=== PATIENT | female | born 1950 | race Caucasian/White ===

== ENCOUNTER 2016-06-10 15:00 | Inpatient (IN) | payer BC, OTHER ==
[~2016-06-10] VITALS: Ht 154.9 cm; Wt 73.8 kg
[~2016-06-10 15:00] MED LIST: B12-1CHW PO; FLUT50I; FURO20TA PO; HYDR12.56 PO; LAMO100 PO; LEVO.025 PO; LISI-360 PO; MOBI7.5T PO; OLAN10 PO; OLAN5 PO; POTA-267 PO; POTA550T4 PO; PROT40TA PO; VITACAP32 PO
[2016-06-10] MEDS ORDERED: LORazepam 2 MG/ML VIAL IM ONE (15:30)
--- NOTE | 2016-06-10 15:30 | PD ---
HPI Chief Complaint: Psychiatric Symptoms Time Seen by Provider: 15:26 Travel History International Travel<30 days: No Contact w/Intl Traveler<30days: No History of Present Illness HPI Patient comes in under a Vazquez act by police making homicidal or suicidal statements. Patient has a history of being bipolar and per Vazquez act has not been taking her medications. Patient is agitated and uncooperative thus limiting H&P. PFSH Past Medical History Arthritis: No Asthma: No Autoimmune Disease: No Blood Disorders: No Bipolar Disorder: Yes Anxiety: Yes Depression: Yes Heart Rhythm Problems: No Cardiac Catheterization: No High Cholesterol: Yes Chest Pain: No Congestive Heart Failure: No COPD: No Cerebrovascular Accident: Yes Diminished Hearing: No Endocrine: No Gastrointestinal Disorders: Yes (HX OF GI BLEED, DIVERTICULOSIS) GERD: Yes Genitourinary: Yes Hepatitis: No Hiatal Hernia: No Herniated Disk: Yes (LOWER BACK) Hypertension: Yes Immune Disorder: No Kidney Stones: No Musculoskeletal: Yes (HERNIATED LUMBAR DISC) Neurologic: Yes Psychiatric: Yes (See EMR) Reproductive: No Respiratory: Yes Immunizations Current: Yes Myocardial Infarction: No Renal Failure: No Sleep Apnea: No Thyroid Disease: Yes (HYPOTHYROIDISM) Ulcer: No Menopausal: Yes : 0 Para: 0 Past Surgical History Abdominal Surgery: Yes (APPENDECTOMY) AICD: No Appendectomy: Yes Arteriovenous Shunt: No Cardiac Surgery: No Coronary Artery Bypass Graft: No Ear Surgery: No Endocrine Surgery: No Eye Surgery: No Genitourinary Surgery: No Gynecologic Surgery: Yes (HX OF RIGHT BREAST BIOPSY) Insulin Pump: No Joint Replacement: No Neurologic Surgery: No Oral Surgery: No Pacemaker: No Thoracic Surgery: Yes (LUMPECTOMY RT BREAST-BENIGN) Other Surgery: Yes (CYST REMOVED FROM CHIN, BACK AND AREA NEXT TO RT RYE) Social History Alcohol Use: Yes (per hx..PT STATES " OCCASIONAL DRINK") Tobacco Use: Yes (couple cigarettes/day) Substance Use: No Allergies-Medications (Allergen,Severity, Reaction): Coded Allergies: Depakote (Verified Allergy, Severe, Diarrhea, 06/10/16) Penicillin (Verified Allergy, Severe, RASH, 06/10/16) Tegretol (Verified Allergy, Severe, Anaphylaxis, 06/10/16) Haldol (Verified Allergy, Unknown, UNKNOWN , 06/10/16) PT STATES SHE IS ALLERGIC TO HALDOL, BUT WILL NOT STATE HER REACTION TO THE MEDICATION OR THE SEVERITY OF THE REACTION. Erythromycin (Verified Adverse Reaction, Severe, DIARRHEA, 06/10/16) Milk (Verified Adverse Reaction, Mild, STOMACH CRAMPS,GAS,DIARRHEA, 06/10/16 ) Rodanthe (Verified Adverse Reaction, Unknown, 06/10/16) Reported Meds & Prescriptions Reported Meds & Active Scripts Active Active Prescriptions or Reported Medications Unobtainable Review of Systems ROS Limitations: Uncooperative, Psychotic Except as stated in HPI: all other systems reviewed are Neg Physical Exam Exam Limitations: Uncooperative, Psychotic Narrative GENERAL: Well-developed, overly nourished, in no acute distress, and non-ill appearing. SKIN: Warm and dry. HEAD: Atraumatic. Normocephalic. EYES: Pupils equal and round. EOMI. No scleral icterus. No injection or drainage. ENT: No nasal bleeding or discharge. Mucous membranes pink and moist. NECK: Trachea midline. Supple. No nuclear rigidity. RESPIRATORY: No accessory muscle use. No respiratory distress. Speaking in full sentences. MUSCULOSKELETAL: No obvious deformities. No clubbing. No cyanosis. No edema. Full range of motion. NEUROLOGICAL: Awake and alert. No obvious cranial nerve deficits. Motor grossly within normal limits. Normal speech. PSYCHIATRIC: Agitated and uncooperative. Data Data Last Documented VS Vital Signs Date Time Temp Pulse Resp B/P Pulse Ox O2 Delivery O2 Flow Rate FiO2 06/10/16 17:30 97.8 75 17 128/60 95 Room Air Orders Psych Screen (06/10/16 15:16) Complete Blood Count With Diff (06/10/16 15:22) Comprehensive Metabolic Panel (06/10/16 15:22) Urinalysis - C+S If Indicated (06/10/16 15:22) Lorazepam Inj (Ativan Inj) (06/10/16 15:30) Drug Screen, Random Urine (06/10/16 15:22) Alcohol (Ethanol) (06/10/16 15:22) Tylenol (Acetaminophen) (06/10/16 15:22) Salicylates (Aspirin) (06/10/16 15:22) Olanzapine Inj (Zyprexa Inj) (06/10/16 15:45) Olanzapine Inj (Zyprexa Inj) (06/10/16 15:40) Labs Laboratory Tests Test 06/10/16 16:48 White Blood Count 8.2 TH/MM3 Red Blood Count 4.65 MIL/MM3 Hemoglobin 13.0 GM/DL Hematocrit 38.5 % Mean Corpuscular Volume 82.9 FL Mean Corpuscular Hemoglobin 27.9 PG Mean Corpuscular Hemoglobin 33.6 % Concent Red Cell Distribution Width 13.7 % Platelet Count 273 TH/MM3 Mean Platelet Volume 9.0 FL Neutrophils (%) (Auto) 70.7 % Lymphocytes (%) (Auto) 21.1 % Monocytes (%) (Auto) 5.8 % Eosinophils (%) (Auto) 1.5 % Basophils (%) (Auto) 0.9 % Neutrophils # (Auto) 5.8 TH/MM3 Lymphocytes # (Auto) 1.7 TH/MM3 Monocytes # (Auto) 0.5 TH/MM3 Eosinophils # (Auto) 0.1 TH/MM3 Basophils # (Auto) 0.1 TH/MM3 CBC Comment DIFF FINAL Differential Comment Sodium Level 138 MEQ/L Potassium Level 3.6 MEQ/L Chloride Level 105 MEQ/L Carbon Dioxide Level 24.3 MEQ/L Anion Gap 9 MEQ/L Blood Urea Nitrogen 20 MG/DL Creatinine 0.70 MG/DL Estimat Glomerular Filtration 84 ML/MIN Rate Random Glucose 103 MG/DL Calcium Level 8.7 MG/DL Total Bilirubin 0.6 MG/DL Aspartate Amino Transf 36 U/L (AST/SGOT) Alanine Aminotransferase 38 U/L (ALT/SGPT) Alkaline Phosphatase 85 U/L Total Protein 6.9 GM/DL Albumin 3.5 GM/DL Salicylates Level LESS THAN 1.7 MG/DL Acetaminophen Level LESS THAN 2.0 MCG/ML Ethyl Alcohol Level LESS THAN 3 MG/DL MDM Medical Decision Making Medical Screen Exam Complete: Yes Emergency Medical Condition: Yes Differential Diagnosis Bipolar, schizoaffective, agitation, nonspecific mood disorder, other Narrative Course Patient was seen and examined. Labs were obtained and reviewed with the exception of urinalysis and urine drug screen as the patient has not provided this yet. Patient medically cleared for further treatment and evaluation by psych. Final disposition per psych. Diagnosis Primary Impression: Agitation Scripts Unable to Obtain Active Prescriptions or Reported Meds Condition: Stable Quique Pedraza Jun 10, 2016 15:30
[2016-06-10] MEDS ORDERED: OLANZapine IM 10 MG VIAL IM ONE ×2 (15:40→15:45)
[2016-06-10 17:11] LABS: AUTOMATED NEUTROPHIL # 5.8 TH/MM3 (1.8-7.7); BASOPHIL # 0.1 TH/MM3 (0-0.2); BASOPHIL % 0.9 % (0.0-2.0); EOSINOPHIL # 0.1 TH/MM3 (0-0.4); EOSINOPHIL % 1.5 % (0.0-4.0); HEMATOCRIT 38.5 % (35.0-46.0); HEMO FLAGS DIFF FINAL; LYMPH % 21.1 % (9.0-44.0); LYMPHOCYTE # 1.7 TH/MM3 (1.0-4.8); MEAN CELL VOLUME 82.9 FL (80.0-100.0); MEAN CORPUSCULAR HEMOGLOBIN 27.9 PG (27.0-34.0); MEAN CORPUSCULAR HGB CONC 33.6 % (32.0-36.0); MONO % 5.8 % (0.0-8.0); NEUT % 70.7 % (16.0-70.0); PLATELET COUNT 273 TH/MM3 (150-450); RED BLOOD COUNT 4.65 MIL/MM3 (4.00-5.30); RED CELL DISTRIBUTION WIDTH 13.7 % (11.6-17.2); WHITE BLOOD COUNT 8.2 TH/MM3 (4.0-11.0)
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
[2016-06-10 17:28] LABS: ALT (GPT) 38 U/L (10-53); ANION GAP 9 MEQ/L (5-15); AST (GOT) 36 U/L (15-37); BICARBONATE 24.3 MEQ/L (21.0-32.0); BLOOD UREA NITROGEN 20 MG/DL (7-18); CHLORIDE 105 MEQ/L (98-107); GLOMERULAR FILTRATION RATE 84 ML/MIN (>89); POTASSIUM 3.6 MEQ/L (3.5-5.1); SODIUM (NA) 138 MEQ/L (136-145)
[2016-06-10 17:30] VITALS: BP 128/60; PULSE 75; RESP 17; TEMP 97.8; O2SAT 95
[2016-06-10 17:30] LABS: ACETAMINOPHEN LESS THAN 2.0 MCG/ML (10.0-30.0); ALKALINE PHOSPHATASE 85 U/L (45-117); TOTAL BILIRUBIN ADULT 0.6 MG/DL (0.2-1.0)
[2016-06-10] MEDS ORDERED: MAGNESIUM HYDROXIDE SUSP 30 ML CUP PO PRN (18:30)
[2016-06-10 20:26] VITALS: BP 157/70; PULSE 72; RESP 16; TEMP 97.6; O2SAT 99
[2016-06-11] MEDS: ACETAMINOPHEN 325 MG TAB PO PRN (05:17)
[2016-06-11 06:12] VITALS: BP 145/66; PULSE 99; RESP 18; TEMP 98.1; O2SAT 96
[2016-06-11 08:32] LABS: ANION GAP 9 MEQ/L (5-15); BICARBONATE 25.7 MEQ/L (21.0-32.0); BLOOD UREA NITROGEN 19 MG/DL (7-18); CHLORIDE 104 MEQ/L (98-107); POTASSIUM 3.8 MEQ/L (3.5-5.1); SODIUM (NA) 139 MEQ/L (136-145)
[2016-06-11 08:53] LABS: HDL CHOLESTEROL 72.4 MG/DL (40.0-60.0); LDL CHOLESTEROL 25 MG/DL (0-99)
[2016-06-11 09:24] LABS: GLOMERULAR FILTRATION RATE 82 ML/MIN (>89)
[2016-06-11] MEDS ORDERED: LORazepam 2 MG/ML VIAL IM ONE (11:30)
[2016-06-11] MEDS ORDERED: ZIPRASIDONE MESYLATE 20 MG VIAL IM ONE (11:30)
[2016-06-11] MEDS ORDERED: diphenhydrAMINE HCL 50 MG/ML VIAL IM ONE (11:30)
[2016-06-11 11:54] LABS: HEMOGLOBIN A1a 1.1 %; HEMOGLOBIN A1b 0.7 %; HEMOGLOBIN Ao 84.6 %; HEMOGLOBIN F 2.1 %; HEMOGLOBIN P3 3.8 %
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
[2016-06-11] MEDS ORDERED: LORazepam 2 MG/ML VIAL IM PRN (12:15)
[2016-06-11] MEDS ORDERED: BENZTROPINE MESYLATE 1 MG TAB PO PRN (12:15)
[2016-06-11] MEDS ORDERED: OLANZapine IM 10 MG VIAL IM PRN (12:15)
[2016-06-11] MEDS ORDERED: BENZTROPINE MESYLATE 2 MG/2 ML VIAL IM PRN (12:15)
[2016-06-11] MEDS: risperiDONE ODT 1 MG TAB PO SCH (13:54)
[2016-06-11 19:51] VITALS: BP 148/63; PULSE 87; RESP 18; TEMP 97.4; O2SAT 100
[2016-06-11] MEDS ORDERED: CLOTRIMAZOLE 1% CREAM 15 GM TOPICAL SCH (21:00)
[2016-06-11] MEDS: BETAMETHASONE/CLOTRIMAZOLE CREAM 15 GM TOPICAL SCH (22:09)
[2016-06-12] MEDS: LEVOTHYROXINE SODIUM 25 MCG TAB PO SCH (06:00)
[2016-06-12 06:13] VITALS: BP 148/90; PULSE 86; RESP 16; TEMP 97.9; O2SAT 99
[2016-06-12] MEDS: LISINOPRIL 10 MG TAB PO SCH (08:53)
[2016-06-12] MEDS: PANTOPRAZOLE SOD 40 MG DELAYED RELEASE TAB PO SCH (08:53)
[2016-06-12] MEDS: BETAMETHASONE/CLOTRIMAZOLE CREAM 15 GM TOPICAL SCH ×2 (08:54→22:03)
[2016-06-12] MEDS ORDERED: PNEUMOCOCCAL POLYVALENT INJ 25 MCG/0.5 ML SYR IM ONE (10:00)
[2016-06-12] MEDS ORDERED: INFLUENZA VIRUS VACCINE (QUADRIVALENT) 0.5 ML SYR IM ONE (10:00)
--- NOTE | 2016-06-12 11:25 | HHI.PR ---
Subjective Remarks Patient's rash is better Some aches in her joints No other complaint Review of system for 10 point system otherwise unremarkable Objective Objective Results - Vital Signs Date Time Temp Pulse Resp B/P Pulse Ox O2 Delivery O2 Flow Rate FiO2 06/12/16 06:13 97.9 86 16 148/90 99 06/11/16 19:51 97.4 87 18 148/63 100 Result Diagram: 06/10/16 1648 06/11/16 0707 Physical Exam Physical Exam PHYSICAL EXAMINATION GENERAL: This is a well-developed, well-nourished female who appears to be in no acute distress. She is alert and awake. HEAD: Normocephalic without any lesion or mass noted. Facial features appear symmetric. EYES: Perrla, Normal eye movement, no Icterus. No Conj congestion. OROPHARYNGEAL: Oropharynx without erythema or edema. MOUTH/THROAT: Tongue midline. Buccal mucosa is moist. NECK: Supple. No nuchal rigidity or lymphadenopathy. Trachea midline without deviation. Thyroid not palpable, no bruits appreciated. CARDIAC: Regular rhythm, regular rate, S1 and S2 are heard. Murmur none; no gallops or rubs. LUNGS: Clear to auscultation bilaterally. No use of accessory muscles on inspiration or expiration. ABDOMEN: Soft, nontender, no organomegaly or masses. Bowel sounds are heard in all four quadrants. No rebound. No guarding. EXTREMITIES: No edema. Pulses equal bilateral. No cyanosis. NEUROLOGICAL: Patient mood and affect appropriate. Cranial nerves II through XII grossly intact. Muscle strength 5/5 in the upper and lower extremities bilaterally. SKIN:Warm and moist. Rash on left leg less erythematous and the skin is smoked now. Patient has no itching. Clinically improving PSYCH: Mood and affect appropriate A/P Assessment and Plan Psychiatric problem Rash on legs Joint ache arthritis Hypertension Hypothyroidism Plan Continue Lotrisone cream as ordered Continue home medication as prescribed Monitor blood pressure Advise ice packs to joints. Patient was seen yesterday as well and consultation was done yesterday not available in the computer yet. Discussed with patient Continue current management Tamar Whitlock MD Jun 12, 2016 11:25
[2016-06-12] MEDS: ACETAMINOPHEN 325 MG TAB PO PRN (13:57)
[2016-06-12 14:15] VITALS: BP 153/68; PULSE 88; RESP 16; O2SAT 93
--- NOTE | 2016-06-12 16:42 | HHI.PYPN ---
Subjective Remarks This is a second opinion from Dr. Resendiz. Patient was seen, admission note reviewed, and case discussed with nursing. Patient is showing signs of acute nitin. She has pressured speech, flight of ideas, irritable and angry mood, elevated energy. She has poor insight into her admission. Not in medications at this time given they're looking for guardian. Denies auditory visual hallucinations. Denies suicidal ideations thought or plan. Objective Alert: Yes [place]: Person Mood: Agitated Affect: Other (mood congruent) Memory Intact: Comment (not tested) Hallucinations: Other Delusions: No Delusion Type: Other (denies) Suicidal: Ideation (states she wants to overdose on her Zyprexa) Homicidal: Ideation ([place]) Insight/Judgement Poor Labs Test 06/12/16 10:41 Thyroid Stimulating Hormone 0.775 uIU/ML 3rd Gen Vitals/IOs Vital Signs Date Time Temp Pulse Resp B/P Pulse Ox O2 Delivery O2 Flow Rate FiO2 06/12/16 14:15 88 16 153/68 93 06/12/16 06:13 97.9 06/10/16 17:30 Room Air Assessment & Plan Problem List: (1) Bipolar disorder ICD Code: F31.9 Assessment & Plan I agree with first opinion to continue petition. Criteria include acute nitin. Justification for Cont. Inpt. Patient will decompensate in a less restrictive setting Request HC Surrog/Guard Advoc?: Yes Problem Qualifiers (1) Bipolar disorder: Qualified Code: F31.64 - Bipolar disorder, current episode mixed, severe, with psychotic features Cade Good DO Jun 12, 2016 16:42
[2016-06-12] MEDS ORDERED: diphenhydrAMINE HCL 50 MG/ML VIAL IM ONE (18:45)
[2016-06-12] MEDS ORDERED: ZIPRASIDONE MESYLATE 20 MG VIAL IM ONE (18:45)
[2016-06-12] MEDS ORDERED: LORazepam 2 MG/ML VIAL IM ONE (18:45)
[2016-06-12 19:34] VITALS: BP_SYST 130; BP_SYST 149; BP_DIAS 68; BP_DIAS 71; PULSE 87; RESP 16; TEMP 97.4; TEMP 97.8; O2SAT 96; O2SAT 98
[2016-06-13] MEDS: ACETAMINOPHEN 325 MG TAB PO PRN (00:52)
[2016-06-13] MEDS: ALUMINUM/MAGNESIUM/SIMETH 30 ML CUP PO PRN (04:12)
[2016-06-13 05:44] VITALS: BP 159/77; PULSE 79; RESP 18; TEMP 97.6; O2SAT 99
[2016-06-13] MEDS: LEVOTHYROXINE SODIUM 25 MCG TAB PO SCH (05:44)
[2016-06-13] MEDS ORDERED: OLANZapine IM 10 MG VIAL IM ONE (08:21)
[2016-06-13] MEDS ORDERED: OLANZapine IM 10 MG VIAL IM STA (08:39)
[2016-06-13] MEDS: PANTOPRAZOLE SOD 40 MG DELAYED RELEASE TAB PO SCH (09:30)
[2016-06-13] MEDS: LISINOPRIL 10 MG TAB PO SCH (09:30)
[2016-06-13] MEDS: BETAMETHASONE/CLOTRIMAZOLE CREAM 15 GM TOPICAL SCH ×3 (09:30→23:21)
[2016-06-13] MEDS ORDERED: LORazepam 2 MG/ML VIAL ONE (12:41)
[2016-06-13] MEDS ORDERED: ZIPRASIDONE MESYLATE 20 MG VIAL IM ONE ×2 (12:41→12:45)
[2016-06-13] MEDS ORDERED: diphenhydrAMINE HCL 50 MG/ML VIAL ONE (12:42)
[2016-06-13] MEDS ORDERED: LORazepam 2 MG/ML VIAL IM ONE (12:45)
[2016-06-13] MEDS ORDERED: diphenhydrAMINE HCL 50 MG/ML VIAL IM ONE (13:00)
[2016-06-13 13:01] VITALS: BP 179/77; PULSE 117; RESP 17; O2SAT 99
[2016-06-13 14:31] VITALS: BP 113/61; PULSE 100; RESP 14; O2SAT 98
--- NOTE | 2016-06-13 14:51 | HHI.PYPN ---
Subjective Remarks Patient was seen and case discussed with nursing. This morning the patient was elevated irritable and disorganized. She received to ETO's today of Zyprexa and Geodon as ordered by the on-call doctor at 8:40 AM and 12:45 PM. Patient says she had a fall where she slipped on a towel. She denies any pain management was seen ambulating without pain for my interview. Blood pressures were elevated earlier today she was evaluated by the medical doctor. There is also questionable GI bleed possibly for hemorrhoids which is continually evaluated by the medical doctor. I asked that her blood pressures be repeated in they are 113/51. Heart rate of 107. Patient is alert and oriented 2. Slightly sedated likely secondary to ETO's. Denies auditory visual hallucinations. No SI suicidal ideations intent or plan. Patient continues to have poor insight believing she does not need psychotropic medications. Guardian is still not been found to make medical decisions. Objective Alert: Yes [place]: Person, Place Mood: Agitated Affect: Other (mood congruent) Memory Intact: Comment (not tested) Hallucinations: Other Delusions: No Delusion Type: Other (denies) Suicidal: Ideation (denies) Homicidal: Ideation (denies) Insight/Judgement Poor Vitals/IOs Vital Signs Date Time Temp Pulse Resp B/P Pulse Ox O2 Delivery O2 Flow Rate FiO2 06/13/16 14:31 100 14 113/61 98 06/13/16 05:44 97.6 06/10/16 17:30 Room Air Assessment & Plan Problem List: (1) Bipolar disorder ICD Code: F31.9 Assessment & Plan Given lack of available psychotropics due to no guardian, we will ask for a one- to-one sitter. We will continue to monitor blood pressures. Given lack of pain there is no indication for x-rays at this time. We will continue monitoring Justification for Cont. Inpt. Patient will decompensate in a less restrictive setting Request HC Surrog/Guard Advoc?: Yes Problem Qualifiers (1) Bipolar disorder: Qualified Code: F31.64 - Bipolar disorder, current episode mixed, severe, with psychotic features Cade Good DO Jun 13, 2016 14:51
--- NOTE | 2016-06-13 16:17 | HHI.PR ---
Subjective Remarks Patient's rash is better and improving Some aches in her joints No other complaint Review of system for 10 point system otherwise unremarkable Objective Objective Results - Vital Signs Date Time Temp Pulse Resp B/P Pulse Ox O2 Delivery O2 Flow Rate FiO2 06/13/16 14:31 100 14 113/61 98 06/13/16 13:01 117 17 179/77 99 06/13/16 05:44 97.6 79 18 159/77 99 06/12/16 19:34 97.8 87 16 149/68 96 Result Diagram: 06/10/16 1648 06/11/16 0707 Physical Exam Physical Exam PHYSICAL EXAMINATION GENERAL: This is a well-developed, well-nourished female who appears to be in no acute distress. She is alert and awake. HEAD: Normocephalic without any lesion or mass noted. Facial features appear symmetric. EYES: Perrla, Normal eye movement, no Icterus. No Conj congestion. OROPHARYNGEAL: Oropharynx without erythema or edema. MOUTH/THROAT: Tongue midline. Buccal mucosa is moist. NECK: Supple. No nuchal rigidity or lymphadenopathy. Trachea midline without deviation. Thyroid not palpable, no bruits appreciated. CARDIAC: Regular rhythm, regular rate, S1 and S2 are heard. Murmur none; no gallops or rubs. LUNGS: Clear to auscultation bilaterally. No use of accessory muscles on inspiration or expiration. ABDOMEN: Soft, nontender, no organomegaly or masses. Bowel sounds are heard in all four quadrants. No rebound. No guarding. EXTREMITIES: No edema. Pulses equal bilateral. No cyanosis. NEUROLOGICAL: Patient mood and affect appropriate. Cranial nerves II through XII grossly intact. Muscle strength 5/5 in the upper and lower extremities bilaterally. SKIN:Warm and moist. Rash on left leg less erythematous and the skin is smoked now. Patient has no itching. Clinically improving PSYCH: Mood and affect appropriate A/P Assessment and Plan Psychiatric problem Rash on legs Joint ache arthritis Hypertension Hypothyroidism Plan Continue Lotrisone cream as rash is improving Continue home medication as prescribed Monitor blood pressure Advise ice packs to joints. Patient was seen yesterday as well and consultation was done yesterday not available in the computer yet. Discussed with patient Continue current management sherrie farley sign off call if needed Tamar Whitlock MD Jun 13, 2016 16:17
[2016-06-13 17:38] VITALS: BP 142/82; PULSE 94; RESP 18; TEMP 98.8; O2SAT 99
[2016-06-13 19:36] VITALS: BP 142/82; PULSE 94; RESP 16; TEMP 98.8; O2SAT 99
[2016-06-13 22:41] VITALS: BP 137/69; PULSE 93; RESP 18; TEMP 95.3; O2SAT 97
[2016-06-14] MEDS: ACETAMINOPHEN 325 MG TAB PO PRN ×2 (03:22→20:45)
[2016-06-14] MEDS: LEVOTHYROXINE SODIUM 25 MCG TAB PO SCH (05:19)
[2016-06-14 05:28] VITALS: BP 134/84; PULSE 88; RESP 16; TEMP 97.8; O2SAT 95
[2016-06-14] MEDS: BETAMETHASONE/CLOTRIMAZOLE CREAM 15 GM TOPICAL SCH ×2 (07:34→21:36)
[2016-06-14] MEDS: PANTOPRAZOLE SOD 40 MG DELAYED RELEASE TAB PO SCH (07:34)
[2016-06-14] MEDS: LISINOPRIL 10 MG TAB PO SCH (07:34)
--- NOTE | 2016-06-14 08:42 | MB ---
cc: AYAN WHITLOCK DATE OF CONSULTATION: 06/11/2016 DATE OF : 08/30/1949 REASON FOR CONSULTATION The patient stated "I have mites". CHIEF COMPLAINT Itching. HISTORY OF PRESENT ILLNESS This is a 66-year-old white female who is currently being treated on the psychiatric unit for bipolar disorder. She also has been diagnosed with psychotic features and she is in her manic phase. She is currently resting in a closed room on isolation due to her comment of being around bugs and possibly mites. She also states that she has been around a cat recently and her bilateral lower legs are itching. She also is complaining of a scab in her head and feels like that she may have bugs or mites. She complains of no chest pain although she states she has heart disease. Complains of no shortness of breath, no dizziness, no nausea or vomiting. Seems to be tolerating p.o. fluids and food well. PAST PSYCHIATRIC HISTORY Her past psychiatric history shows agitation and psychosis. PAST MEDICAL HISTORY 1. Bipolar disorder. 2. Anxiety disorder. 3. Hyperlipidemia. 4. History of CVA. 5. History of GI bleed. 6. Diverticulosis. 7. GERD. 8. Lower back pain. 9. Herniated lumbar disc. 10. Hypothyroidism. PAST SURGICAL HISTORY 1. Appendectomy. 2. History of right breast biopsy with right breast lumpectomy. 3. Cyst removed from her chin and her back. ALLERGIES DEPAKOTE, ERYTHROMYCIN, HALDOL, LITHIUM, MILK, PENICILLIN, AND TEGRETOL. SOCIAL HISTORY The patient does admit to an occasional drink. She does smoke according to the record a couple of cigarettes a day. Currently denies any illicit drug use. She states if she had some pot she would smoke it. REPORTED MEDICATIONS Please see record. REVIEW OF SYSTEMS A 10-point review was attempted with a minimal response on some of the systems. The patient is in her manic phase so this was a limited exam. PHYSICAL EXAMINATION GENERAL: Well-developed, well-nourished white female, looks older than her stated age, resting in a bed, no acute distress. SKIN: Skin is slightly pale, warm and dry. She does have healed scars on her lower legs bilateral. She also has a couple of small non-raised, nontender, dry, erythemic bumps that she states itch. HEENT: Head normocephalic, atraumatic. No scabs, no open lesions, no nits, no bugs seen. Pupils are 2 and PERRLA. No scleral icterus. No drainage. NECK: Neck is supple. No JVD. CARDIOVASCULAR: S1, S2. Regular, rate and rhythm. No murmurs, rubs or gallops. RESPIRATORY: Essentially clear anteriorly and posteriorly with no wheezes, rales or rhonchi. MUSCULOSKELETAL: She moves all extremities with purpose. She has a minimal trace of edema in her lower legs. No cyanosis, no clubbing. NEUROLOGIC: Neurologically she is alert, oriented, random words and conversation but her speech is clear. PSYCHIATRIC: Agitated, cooperative now. DIAGNOSTIC DATA WBC count 8.2, hemoglobin 13, hematocrit 38.5, platelet count 273. All of her complete blood count numbers are normal except for neutrophil auto 70.7. Chemistry: Sodium 139, potassium 3.8, chloride 104, carbon dioxide 25.7, BUN is 19, creatinine 0.72, glucose is 90, GFR is 82, triglycerides 32, cholesterol 104, LDL 25, HDL 72.4. Toxicology: Salicylate less than 1.7. Acetaminophen less than 2. Alcohol less than 3. IMAGING STUDIES None. ASSESSMENT 1. Possible bug bite which could include a flea bite versus a fungal infection. 2. Bipolar disorder. 3. GERD. 4. Hypertension. 5. Hypothyroidism. 6. Agitation. PLAN 1. Our plan was to evaluate her skin and note any mites, bugs, lice, fleas. As noted there are a couple of small erythemic non-raised, nontender, dry pinpoint spots on her leg, I see no rash. The patient does admit to being around a cat with fleas over the past week. We also want to rule out any type of fungal infection. We will go ahead and start her on Lotrimin to apply to the affected areas on her lower leg bilateral and see if this helps with the itching or the healing of her legs. 2. The patient is on PUD prophylaxis with Protonix. 3. Her home medicines have been reconciled. 4. She does have Benadryl 50 mg at h.s. for her itching. 5. Her psychiatric management is being managed per the psychiatric team. We will see her as needed for any further needs. Dictated by: LUIS M Gtz Ayan Whitlock MD JP/ELIZABETH /3:53 PM /8:40 AM Pt seen and examined on day of admission with rn at bedside chart was reviewed meds and labs reviewed rad data reviewed notes reviewed plan of care sherrie balderas rn MTDD
[2016-06-14] MEDS ORDERED: LORazepam 2 MG/ML VIAL ONE (14:08)
[2016-06-14] MEDS ORDERED: diphenhydrAMINE HCL 50 MG/ML VIAL ONE (14:09)
[2016-06-14] MEDS ORDERED: ZIPRASIDONE MESYLATE 20 MG VIAL IM ONE (14:09)
[2016-06-14] MEDS ORDERED: ZIPRASIDONE MESYLATE 20 MG VIAL IM STA (14:18)
[2016-06-14] MEDS ORDERED: diphenhydrAMINE HCL 50 MG/ML VIAL IM STA (14:19)
[2016-06-14] MEDS ORDERED: LORazepam 2 MG/ML VIAL IM STA (14:19)
--- NOTE | 2016-06-14 14:25 | HHI.PYPN ---
Subjective Remarks Patient seen and examined with counselor and nurse. Chart reviewed. Case discussed with nursing staff. On my examination today, the patient remains quite manic and disorganized. She is on no scheduled psychotropics as we have no one to provide consent. She is quite intrusive and her speech is pressured. "I like you. I gotta apologize to [place]. It was mites. I want some gum. Nig *erette to stay away from cigarettes. I'm a democrat. I hope he can get the economy going. Now, I've been using the 'F' word a lot. I'm gonna buy a bat and put it near my door. If I'm suicidal, I'll come find you." Patient grows increasingly agitated, and I have ordered her medicated with Geodon, Ativan and Benadryl ETO. Review of Systems ROS Limitations: Psychotic, Poor Historian Other No reported somatic complaints Objective Alert: Yes [place]: Person, Place Mood: Agitated Affect: Restricted (dysphoric) Memory Intact: Comment (not formally assessed) Hallucinations: Other (no AVH reported) Delusions: Yes Delusion Type: Paranoid Suicidal: Ideation (no SI voiced but patient is unreliable to contract for safety) Homicidal: Ideation (no HI voiced but patient is unreliable to contract for safety and some of her statements as detailed above sound vaguely threatening in context.) Insight/Judgement Poor Remarks No abnormal motor movements noted. Speech pressured and rambling. Thought process disorganized. Labs Labs reviewed. No new labs. Vitals/IOs Vital Signs Date Time Temp Pulse Resp B/P Pulse Ox O2 Delivery O2 Flow Rate FiO2 06/14/16 05:28 97.8 88 16 134/84 95 06/10/16 17:30 Room Air Assessment & Plan Problem List: (1) Bipolar disorder ICD Code: F31.9 Assessment & Plan Patient with ongoing severely decompensated mixed manic state, presently unmedicated for lack of consent. We will need to retain the patient on the inpatient unit for her own safety until we can stabilize her condition with medications. At the latest, we will have a guardian advocate appointed at [place] [address] on . Justification for Cont. Inpt. Impairments in reality testing. Impairments in social function. Impairments in safety. High risk for decompensation in a less restrictive environment. Discharge Planning Pending psychiatric stabilization Request Surrog/Guard Advoc?: Yes Problem Qualifiers (1) Bipolar disorder: Qualified Code: F31.64 - Bipolar disorder, current episode mixed, severe, with psychotic features Flavio Resendiz MD Jun 14, 2016 14:25
[2016-06-14 17:46] VITALS: BP 140/84; PULSE 100; RESP 16; TEMP 98; O2SAT 96
[2016-06-14] MEDS: MELOXICAM 7.5 MG TAB PO SCH (21:36)
[2016-06-15] MEDS: ACETAMINOPHEN 325 MG TAB PO PRN ×3 (03:35→18:18)
[2016-06-15] MEDS: LEVOTHYROXINE SODIUM 25 MCG TAB PO SCH (06:11)
[2016-06-15 06:49] VITALS: BP 168/91; PULSE 89; RESP 20; TEMP 97.5; O2SAT 99
[2016-06-15] MEDS: BETAMETHASONE/CLOTRIMAZOLE CREAM 15 GM TOPICAL SCH ×2 (08:15→21:00)
[2016-06-15] MEDS: MELOXICAM 7.5 MG TAB PO SCH (08:15)
[2016-06-15] MEDS: LISINOPRIL 10 MG TAB PO SCH (08:15)
[2016-06-15] MEDS: PANTOPRAZOLE SOD 40 MG DELAYED RELEASE TAB PO SCH (08:15)
[2016-06-15] MEDS ORDERED: diphenhydrAMINE HCL 50 MG/ML VIAL ONE (08:29)
[2016-06-15] MEDS ORDERED: ZIPRASIDONE MESYLATE 20 MG VIAL IM ONE ×2 (08:29→09:00)
[2016-06-15] MEDS ORDERED: LORazepam 2 MG/ML VIAL ONE (08:29)
[2016-06-15] MEDS ORDERED: diphenhydrAMINE HCL 50 MG/ML VIAL IM ONE (09:00)
[2016-06-15] MEDS ORDERED: LORazepam 2 MG/ML VIAL IM ONE (09:00)
--- NOTE | 2016-06-15 10:00 | HHI.PYPN ---
Subjective Remarks Patient seen and examined with counselor and occupational therapist in treatment team. Chart reviewed. Case discussed with nursing staff, counselor an occupational therapist. Per nursing staff, patient is irritable, loud, agitated and agitating other patients placing the patient herself at risk as she is on high acuity unit with psychotic patients. Per occupational therapy the patient is "unbelievably disruptive" in groups. Patient became agitated prior to my evaluation and had to be medicated once again with Geodon, Ativan and Benadryl. We are awaiting consents for scheduled medications. She had to be placed into locked seclusion, and I evaluated her within an hour of initiation of seclusion as required. On my examination today, the patient still is quite agitated with ongoing loosening of associations. She says "I do love you. I have a date for Maria Elena's Day. I pissed on the floor. I don't like being locked up. people. I helped resolve." No evident physical distress. No evident side effects from medications. Review of Systems ROS Limitations: Psychotic, Poor Historian Other No somatic complaints today Objective Alert: Yes [place]: Person, Place Mood: Agitated, Angry, Oppositional Affect: Labile Memory Intact: Comment (not formally assessed) Hallucinations: Other (no AVH) Delusions: Yes Delusion Type: Paranoid Suicidal: Ideation (no SI but unreliable to contract for safety) Homicidal: Ideation (no HI but unreliable to contract for safety) Insight/Judgement Poor Remarks No abnormal motor movements noted. Thought process disorganized with loosening of associations. Speech rambling and pressured. Labs Labs reviewed. No new labs. Vitals/IOs Vital Signs Date Time Temp Pulse Resp B/P Pulse Ox O2 Delivery O2 Flow Rate FiO2 06/15/16 06:49 97.5 89 20 168/91 99 Assessment & Plan Problem List: (1) Bipolar disorder ICD Code: F31.9 Assessment & Plan Awaiting healthcare surrogate/guardian advocate to provide consents for medications. Counselor will explore this. Long-term goal would be to place the patient on a long-acting injectable antipsychotic with mood stabilizing properties given her issues with adherence in the past. We will discontinue locked seclusion once it is safe to do so. Continue other medications and care as ordered. Justification for Cont. Inpt. Impairments in reality testing, social function, self-care. High risk for decompensation in a less restrictive environment. Discharge Planning Pending psychiatric stabilization Request HC Surrog/Guard Advoc?: Yes Problem Qualifiers (1) Bipolar disorder: Qualified Code: F31.64 - Bipolar disorder, current episode mixed, severe, with psychotic features Flavio Resendiz MD Jun 15, 2016 10:00
[2016-06-15] MEDS: LORazepam 1 MG TAB PO PRN (20:05)
[2016-06-15] MEDS ORDERED: diphenhydrAMINE HCL 50 MG/ML VIAL IM STA (20:19)
[2016-06-15] MEDS ORDERED: ZIPRASIDONE MESYLATE 20 MG VIAL IM STA (20:19)
[2016-06-15 21:00] VITALS: BP 136/68; PULSE 99; RESP 17; TEMP 94.9; O2SAT 94
[2016-06-15] MEDS: risperiDONE ODT 1 MG TAB PO SCH (21:00)
[2016-06-16] MEDS: LORazepam 1 MG TAB PO PRN ×3 (05:06→22:52)
[2016-06-16] MEDS: LEVOTHYROXINE SODIUM 25 MCG TAB PO SCH (05:06)
[2016-06-16 06:03] VITALS: BP 153/67; PULSE 98; RESP 16; TEMP 98.1; O2SAT 98
[2016-06-16] MEDS: MELOXICAM 7.5 MG TAB PO SCH (08:54)
[2016-06-16] MEDS: risperiDONE ODT 1 MG TAB PO SCH ×2 (08:54→21:27)
[2016-06-16] MEDS: PANTOPRAZOLE SOD 40 MG DELAYED RELEASE TAB PO SCH (08:54)
[2016-06-16] MEDS: LISINOPRIL 10 MG TAB PO SCH (08:55)
[2016-06-16] MEDS: BETAMETHASONE/CLOTRIMAZOLE CREAM 15 GM TOPICAL SCH ×2 (08:55→21:28)
[2016-06-16] MEDS ORDERED: ZIPRASIDONE MESYLATE 20 MG VIAL IM STA (10:04)
[2016-06-16] MEDS ORDERED: diphenhydrAMINE HCL 50 MG/ML VIAL IM STA (10:04)
[2016-06-16] MEDS ORDERED: LORazepam 2 MG/ML VIAL IM ONE (10:15)
--- NOTE | 2016-06-16 12:05 | HHI.PYPN ---
Subjective Remarks Patient seen and examined with counselor. Chart reviewed. Case discussed with nursing staff. Patient required Geodon ETO overnight for agitation. Prior to my interview with the patient this morning, patient once again grew agitated, disruptive, aggressive and had to be medicated at my order with Geodon, Ativan and Benadryl ETO. At the time of my interview following the administration of these medications, the patient remains quite agitated, intrusive, disinhibited. Thought process disorganized. Speech pressured and rambling. Per nursing staff, patient did accept Risperdal this morning although I see she had been refusing it before that. No evidence side effects from medications. Not even minimal sedation from multiple ETO's. Review of Systems ROS Limitations: Psychotic, Poor Historian Other No physical complaints today Objective Alert: Yes [place]: Person, Place Mood: Agitated, Angry, Oppositional Affect: Labile (remains extremely labile) Memory Intact: Comment (not formally assessed) Hallucinations: Other (no AVH) Delusions: Yes Delusion Type: Paranoid Suicidal: Ideation (no suicidal ideation) Homicidal: Ideation (no homicidal ideation but somewhat aggressive on the unit) Insight/Judgement Poor Remarks No abnormal motor movements noted. Speech pressured and rambling. Thought process with loosening of associations. Labs Labs reviewed. No new labs. Vitals/IOs Vital Signs Date Time Temp Pulse Resp B/P Pulse Ox O2 Delivery O2 Flow Rate FiO2 06/16/16 06:03 98.1 98 16 153/67 98 Assessment & Plan Problem List: (1) Bipolar disorder ICD Code: F31.9 Assessment & Plan Titrate Risperdal to target mood/psychosis. [place] IM backup should she refuse PO Risperdal as this seems to help (temporarily) reduce agitation. Continue to monitor on the unit. Continue other medications and care as ordered. Justification for Cont. Inpt. Impairment in safety, impairment in self-care, impairment in social function, high risk for decompensation in a lower level of care. Discharge Planning Pending psychiatric stabilization Request HC Surrog/Guard Advoc?: Yes Problem Qualifiers (1) Bipolar disorder: Qualified Code: F31.64 - Bipolar disorder, current episode mixed, severe, with psychotic features Flavio Resendiz MD Jun 16, 2016 12:05
[2016-06-16] MEDS ORDERED: LORazepam 2 MG/ML VIAL IM PRN (13:00)
[2016-06-16] MEDS ORDERED: ZIPRASIDONE MESYLATE 20 MG VIAL IM PRN (13:00)
[2016-06-16 19:57] VITALS: BP 133/58; PULSE 109; RESP 18; TEMP 97.7; O2SAT 96
[2016-06-16] MEDS: risperiDONE ODT 2 MG TAB PO SCH (21:00)
[2016-06-16] MEDS: DOCUSATE SODIUM 100 MG CAP PO SCH ×2 (21:00→21:29)
[2016-06-16] MEDS: ACETAMINOPHEN 325 MG TAB PO PRN (22:53)
[2016-06-17] MEDS: diphenhydrAMINE HCL 50 MG CAP PO PRN ×2 (01:17→20:20)
[2016-06-17] MEDS: ALUMINUM/MAGNESIUM/SIMETH 30 ML CUP PO PRN (01:17)
[2016-06-17 05:50] VITALS: BP 115/58; PULSE 105; RESP 16; TEMP 98.4; O2SAT 96
[2016-06-17] MEDS: LEVOTHYROXINE SODIUM 25 MCG TAB PO SCH (05:55)
[2016-06-17] MEDS: DOCUSATE SODIUM 100 MG CAP PO SCH ×2 (08:10→20:19)
[2016-06-17] MEDS: MELOXICAM 7.5 MG TAB PO SCH (08:10)
[2016-06-17] MEDS: PANTOPRAZOLE SOD 40 MG DELAYED RELEASE TAB PO SCH (08:11)
[2016-06-17] MEDS: LISINOPRIL 10 MG TAB PO SCH (08:11)
[2016-06-17] MEDS: risperiDONE ODT 1 MG TAB PO SCH (08:12)
[2016-06-17] MEDS: BETAMETHASONE/CLOTRIMAZOLE CREAM 15 GM TOPICAL SCH ×3 (09:00→21:00)
[2016-06-17] MEDS: LORazepam 1 MG TAB PO PRN ×2 (10:13→20:19)
--- NOTE | 2016-06-17 12:08 | HHI.PYPN ---
Subjective Remarks patient seen and case discussed with nursing staff. Chart reviewed. Per nursing staff patient's behavior is been marginally better control although she remains quite intrusive and demanding. On my examination today, the patient has ongoing loosening of associations. She is hyperverbal and rambling in her speech. She is fairly somatically preoccupied. She is easily agitated and is agitating other patients on the unit. She requires frequent redirection. Affect is dysphoric. No evident side effects from medications. Review of Systems ROS Limitations: Psychotic, Poor Historian Other Variable somatic complaints. Today c/o hemorrhoids. Objective Alert: Yes [place]: Person, Place Mood: Agitated, Angry, Anxious, Oppositional Affect: Restricted (dysphoric) Memory Intact: Comment (not formally assessed) Hallucinations: Other (no AVH) Delusions: Yes Delusion Type: Paranoid (remains paranoid) Suicidal: Ideation (no suicidal ideation) Homicidal: Ideation (No HI) Insight/Judgement Poor Remarks No abnormal motor movements noted. Thought process disorganized with loosening of associations. Speech pressured and rambling. Labs Labs reviewed. No new labs. Vitals/IOs Vital Signs Date Time Temp Pulse Resp B/P Pulse Ox O2 Delivery O2 Flow Rate FiO2 06/17/16 05:50 98.4 105 16 115/58 96 Assessment & Plan Problem List: (1) Bipolar disorder ICD Code: F31.9 Assessment & Plan Perhaps with partial response to Risperdal, but this is difficult to discern given extensive use of PRNs. I will continue Risperdal titration in hopes that need for PRNs will subside. Continue other medications and care as ordered. Patient's case was presented to the [place] and she was retained by the court on the inpatient psychiatric unit. Justification for Cont. Inpt. Impairment in reality construction. Impairment in social function. Medication changes. Very high risk for decompensation in a lower level of care. Discharge Planning Pending psychiatric stabilization. Request HC Surrog/Guard Advoc?: Yes Problem Qualifiers (1) Bipolar disorder: Qualified Code: F31.64 - Bipolar disorder, current episode mixed, severe, with psychotic features Flavio Resendiz MD Jun 17, 2016 12:08
[2016-06-17] MEDS ORDERED: diphenhydrAMINE HCL 50 MG/ML VIAL ONE (15:06)
[2016-06-17 19:17] VITALS: BP 116/72; PULSE 104; RESP 18; TEMP 98; O2SAT 98
[2016-06-17] MEDS: risperiDONE ODT 2 MG TAB PO SCH (20:19)
[2016-06-18] MEDS: ACETAMINOPHEN 325 MG TAB PO PRN ×2 (04:51→15:20)
[2016-06-18] MEDS: LEVOTHYROXINE SODIUM 25 MCG TAB PO SCH (04:58)
[2016-06-18 05:58] VITALS: BP 143/65; PULSE 96; RESP 16; TEMP 97.5
[2016-06-18] MEDS: MELOXICAM 7.5 MG TAB PO SCH (08:45)
[2016-06-18] MEDS: risperiDONE ODT 2 MG TAB PO SCH ×2 (08:45→20:21)
[2016-06-18] MEDS: LORazepam 1 MG TAB PO PRN ×2 (08:46→15:20)
[2016-06-18] MEDS: PANTOPRAZOLE SOD 40 MG DELAYED RELEASE TAB PO SCH (08:46)
[2016-06-18] MEDS: LISINOPRIL 10 MG TAB PO SCH (08:46)
[2016-06-18] MEDS: DOCUSATE SODIUM 100 MG CAP PO SCH ×2 (08:46→20:21)
[2016-06-18] MEDS: BETAMETHASONE/CLOTRIMAZOLE CREAM 15 GM TOPICAL SCH ×2 (09:00→20:55)
--- NOTE | 2016-06-18 10:06 | HHI.PYPN ---
Subjective Remarks Patient seen and examined with counselor. Chart reviewed. Case discussed with nursing staff reports patient is medication compliant but intrusive and accusatory. On my examination today, the patient remains impulsive, disinhibited and disorganized with loosening of associations. She says "I'm feeling a lot better. I got sleep after a month. I'm in a room with the TV set. I'm in a room with a bunch of perverts. Now, looking back in college, I was probably bipolar, very much so, but it was associated with alcohol. I have a boyfriend with a garcia." She has significant trouble staying on topic during the interview. She does not describe any SI/HI. No side effects from medications. Review of Systems ROS Limitations: Psychotic, Poor Historian Other No acute physical complaints. Objective Alert: Yes [place]: Person, Place Mood: Anxious, Oppositional Affect: Other (less restricted and dysphoric.) Memory Intact: Comment (not formally assessed) Hallucinations: Other (no AVH) Delusions: Yes Delusion Type: Paranoid Suicidal: Ideation (No SI) Homicidal: Ideation (No HI) Insight/Judgement Poor Remarks No abnormal motor movements noted. No hand tremor, no dystonia, no dyskinesia. Ongoing loosening of associations. Speech rambling and pressured, but perhaps a little less so than in previous days. Labs Labs reviewed. No new labs. Vitals/IOs Vital Signs Date Time Temp Pulse Resp B/P Pulse Ox O2 Delivery O2 Flow Rate FiO2 06/18/16 05:58 97.5 96 16 143/65 06/17/16 19:17 98 Assessment & Plan Problem List: (1) Bipolar disorder ICD Code: F31.9 Assessment & Plan I think we are seeing a definite trajectory of improvement with the Risperdal, although patient remains decompensated to a severe degree overall. Titrate Risperdal over the weekend. Plan for Risperdal Consta next week. Continue other medications and care as ordered. Justification for Cont. Inpt. Impairments in reality construction, social function. Medication changes in process. High risk for decompensation in a lower level of care. Discharge Planning Pending psychiatric stabilization Request HC Surrog/Guard Advoc?: Yes Problem Qualifiers (1) Bipolar disorder: Qualified Code: F31.64 - Bipolar disorder, current episode mixed, severe, with psychotic features Flavio Resendiz MD Jun 18, 2016 10:06
[2016-06-18 19:19] VITALS: BP 116/52; PULSE 97; RESP 18; TEMP 97.7; O2SAT 99
[2016-06-19] MEDS: LORazepam 1 MG TAB PO PRN (03:42)
[2016-06-19] MEDS: ACETAMINOPHEN 325 MG TAB PO PRN ×2 (03:52→09:30)
[2016-06-19 06:12] VITALS: BP 133/89; PULSE 97; RESP 16; TEMP 97.5; O2SAT 98
[2016-06-19] MEDS: LEVOTHYROXINE SODIUM 25 MCG TAB PO SCH (06:36)
[2016-06-19] MEDS: risperiDONE ODT 2 MG TAB PO SCH ×2 (09:42→20:22)
[2016-06-19] MEDS: PANTOPRAZOLE SOD 40 MG DELAYED RELEASE TAB PO SCH (09:42)
[2016-06-19] MEDS: BETAMETHASONE/CLOTRIMAZOLE CREAM 15 GM TOPICAL SCH ×2 (09:42→20:25)
[2016-06-19] MEDS: DOCUSATE SODIUM 100 MG CAP PO SCH ×2 (09:42→20:22)
[2016-06-19] MEDS: MELOXICAM 7.5 MG TAB PO SCH (09:42)
[2016-06-19] MEDS: LISINOPRIL 10 MG TAB PO SCH (09:42)
--- NOTE | 2016-06-19 12:31 | HHI.PYPN ---
Subjective Remarks Pt seen and discussed with staff. Pt remains hyperverbal and disorganized. Speech is pressured and rambling and thought process is loose. Agitation has decreased and pt is compliant but still has poor insight into need for continued medication treatment. No medication side effects. No SI/HI. Review of Systems Psychiatric: COMPLAINS OF: Mood changes Objective Alert: Yes [place]: Person, Place Mood: Other (manic) Affect: Labile Memory Intact: Comment (fair) Hallucinations: Other (no AVH) Delusions: Yes Delusion Type: Paranoid Suicidal: Ideation (No SI) Homicidal: Ideation (No HI) Insight/Judgement poor Vitals/IOs Vital Signs Date Time Temp Pulse Resp B/P Pulse Ox O2 Delivery O2 Flow Rate FiO2 06/19/16 06:12 97.5 97 16 133/89 98 Assessment & Plan Problem List: (1) Bipolar disorder ICD Code: F31.9 Assessment & Plan Continue current tx plan. Estimated LOS: days Justification for Cont. Inpt. impairments in reality construction and social functioning Request HC Surrog/Guard Advoc?: Yes Problem Qualifiers (1) Bipolar disorder: Qualified Code: F31.64 - Bipolar disorder, current episode mixed, severe, with psychotic features Katlyn Ronquillo MD Jun 19, 2016 12:31
[2016-06-19 20:04] VITALS: BP 167/65; PULSE 100; RESP 18; TEMP 97.6; O2SAT 99
[2016-06-20] MEDS: diphenhydrAMINE HCL 50 MG CAP PO PRN (00:01)
[2016-06-20] MEDS: LORazepam 1 MG TAB PO PRN ×2 (00:01→12:50)
[2016-06-20] MEDS: LEVOTHYROXINE SODIUM 25 MCG TAB PO SCH (05:33)
[2016-06-20 06:14] VITALS: BP 150/67; PULSE 95; RESP 16; TEMP 97.3; O2SAT 98
[2016-06-20] MEDS: PANTOPRAZOLE SOD 40 MG DELAYED RELEASE TAB PO SCH (08:42)
[2016-06-20] MEDS: risperiDONE ODT 2 MG TAB PO SCH ×2 (08:42→20:55)
[2016-06-20] MEDS: LISINOPRIL 10 MG TAB PO SCH (08:42)
[2016-06-20] MEDS: MELOXICAM 7.5 MG TAB PO SCH (08:42)
[2016-06-20] MEDS: DOCUSATE SODIUM 100 MG CAP PO SCH ×2 (08:43→20:54)
[2016-06-20] MEDS: BETAMETHASONE/CLOTRIMAZOLE CREAM 15 GM TOPICAL SCH ×2 (08:58→20:57)
[2016-06-20] MEDS: BENZOCAINE 7.5% ORAL GEL 9.4 GM TUBE OROPHARYNG PRN (13:34)
--- NOTE | 2016-06-20 13:43 | HHI.PYPN ---
Subjective Remarks Pt seen and discussed with staff. Pt reports that she has a list of grievances to file against the hospital "Not you though, I like you" due to various complaints about different outpatient doctors. Thought process remains loose and rambling. Staff reports that pt has been making aggressive threats. She is intrusive and easily agitated. Compliant with medications, but remains suspicious and paranoid about them. No SI/HI. Objective Alert: Yes [place]: Person, Place Mood: Other (manic) Affect: Labile Memory Intact: Comment (fair) Hallucinations: Other (no AVH) Delusions: Yes Delusion Type: Paranoid Suicidal: Ideation (No SI) Homicidal: Ideation (No HI) Insight/Judgement poor Vitals/IOs Vital Signs Date Time Temp Pulse Resp B/P Pulse Ox O2 Delivery O2 Flow Rate FiO2 06/20/16 06:14 97.3 95 16 150/67 98 Assessment & Plan Problem List: (1) Bipolar disorder ICD Code: F31.9 Assessment & Plan Continue current tx plan. Estimated LOS: days Justification for Cont. Inpt. impairments in social functioning and reality construction Request HC Surrog/Guard Advoc?: Yes Problem Qualifiers (1) Bipolar disorder: Qualified Code: F31.64 - Bipolar disorder, current episode mixed, severe, with psychotic features Katlyn Ronquillo MD Jun 20, 2016 13:43
[2016-06-20 18:00] VITALS: BP 125/28; PULSE 99; RESP 16; TEMP 97.2
[2016-06-21] MEDS: LEVOTHYROXINE SODIUM 25 MCG TAB PO SCH (05:00)
[2016-06-21] MEDS: ACETAMINOPHEN 325 MG TAB PO PRN ×3 (05:01→17:26)
[2016-06-21 06:17] VITALS: BP 136/60; PULSE 104; RESP 17; TEMP 97.2; O2SAT 96
[2016-06-21] MEDS: risperiDONE ODT 2 MG TAB PO SCH ×2 (09:00→20:34)
[2016-06-21] MEDS: DOCUSATE SODIUM 100 MG CAP PO SCH ×2 (09:00→20:35)
[2016-06-21] MEDS: PANTOPRAZOLE SOD 40 MG DELAYED RELEASE TAB PO SCH (09:00)
[2016-06-21] MEDS: LISINOPRIL 10 MG TAB PO SCH (09:00)
[2016-06-21] MEDS: BETAMETHASONE/CLOTRIMAZOLE CREAM 15 GM TOPICAL SCH ×2 (09:00→20:34)
[2016-06-21] MEDS: MELOXICAM 7.5 MG TAB PO SCH (09:00)
--- NOTE | 2016-06-21 11:07 | HHI.PYPN ---
Subjective Remarks Patient seen and examined with counselor. Chart reviewed. Case discussed with nursing staff who reports patient remains intrusive and fault finding. On my examination today there is definitely a trend towards improvement over the weekend on Risperdal. She remains quite somatic with ongoing loosening of associations, but this seems somewhat attenuated when compared to my encounter with her on Tuesday. She does remain somewhat disinhibited, for example noting, "I'm tired of fucking. Fuck; that's what I need to do. I need to get congregation. " Mood is "frustrated." Denies SI/HI but it is not clear that she is reliable to contract for safety. Denies side effects from medications besides some mild increased thirst. Review of Systems ROS Limitations: Poor Historian Other Multiple vague somatic complaints over themes including hemorrhoids, mononucleosis, dental pain, fibromyalgia. None seem to predominate. Objective Alert: Yes [place]: Person, Place Mood: Other (remains manic but perhaps a little less so than before the weekend ) Affect: Labile Memory Intact: Comment (fair) Hallucinations: Other (no AVH) Delusions: Yes Delusion Type: Paranoid (lessening) Suicidal: Ideation (denies suicidal ideation) Homicidal: Ideation (denies homicidal ideation) Insight/Judgement Poor Remarks Thought process with ongoing loosening of associations. Speech somewhat rambling but less pressured. No abnormal motor movements noted. No signs of any acute physical distress. Labs Labs reviewed. No new labs. Vitals/IOs Vital Signs Date Time Temp Pulse Resp B/P Pulse Ox O2 Delivery O2 Flow Rate FiO2 06/21/16 06:17 97.2 104 17 136/60 96 Assessment & Plan Problem List: (1) Bipolar disorder ICD Code: F31.9 Assessment & Plan Patient with partial response to Risperdal at a dose of 3 mg twice daily. I have thought about adding a mood stabilizer to avoid titrating the Risperdal, but the patient has allergies to Depakote, lithium and Tegretol and Lamictal would likely take too long to institute. I think the most likely to be efficacious and least harmful approach is to titrate patient's Risperdal to 4 mg twice daily given her partial response to current dose. Plan remains for long-acting injectable. Continue other medications and care as ordered. Justification for Cont. Inpt. Impairment in reality construction. Impairment in social function. Medication changes requiring active monitoring. A high risk for decompensation in a lower level of care. Discharge Planning Pending psychiatric stabilization Request HC Surrog/Guard Advoc?: Yes Problem Qualifiers (1) Bipolar disorder: Qualified Code: F31.64 - Bipolar disorder, current episode mixed, severe, with psychotic features Flavio Resendiz MD Jun 21, 2016 11:07
[2016-06-21] MEDS: LORazepam 2 MG TAB PO PRN ×2 (15:09→23:32)
[2016-06-21 18:00] VITALS: BP 153/65; PULSE 97; RESP 17; TEMP 97.6; O2SAT 97
[2016-06-21 19:56] VITALS: BP 153/65; PULSE 97; RESP 17; TEMP 97.6; O2SAT 97
[2016-06-21] MEDS: diphenhydrAMINE HCL 50 MG CAP PO PRN (21:42)
[2016-06-22 05:55] VITALS: BP 124/57; PULSE 89; RESP 17; TEMP 97.9; O2SAT 98
[2016-06-22] MEDS: LEVOTHYROXINE SODIUM 25 MCG TAB PO SCH (06:41)
[2016-06-22] MEDS: risperiDONE ODT 2 MG TAB PO SCH ×2 (08:21→21:29)
[2016-06-22] MEDS: MELOXICAM 7.5 MG TAB PO SCH (08:21)
[2016-06-22] MEDS: PANTOPRAZOLE SOD 40 MG DELAYED RELEASE TAB PO SCH (08:21)
[2016-06-22] MEDS: DOCUSATE SODIUM 100 MG CAP PO SCH ×2 (08:21→21:00)
[2016-06-22] MEDS: LISINOPRIL 10 MG TAB PO SCH (08:22)
[2016-06-22] MEDS: BETAMETHASONE/CLOTRIMAZOLE CREAM 15 GM TOPICAL SCH ×2 (09:00→21:29)
--- NOTE | 2016-06-22 11:50 | HHI.PYPN ---
Subjective Remarks Patient seen and examined with counselor and nurse in treatment team. Chart reviewed. Case discussed with counselor, nursing staff and occupational therapist. On my examination today, patient's mood seems significantly more stable with the benefit of titration of her Risperdal dose. Thought process more organized. She apologizes for her previous agitated behavior. She does remain a little bit distractible and disinhibited but can be more easily redirected. She denies side effects from the Risperdal and believes that it is helping her. She is agreeable to a long-acting injectable but raises concerns as to how these will be covered by her insurer. Review of Systems ROS Limitations: Poor Historian Other Somatic complaints seem less pressing today. Objective Alert: Yes [place]: Person, Place Mood: Other (significantly calmer) Affect: Blunted Memory Intact: Comment (fair) Hallucinations: Other (none) Delusions: No Delusion Type: Other (no joaquim delusional material) Suicidal: Ideation (no SI) Homicidal: Ideation (no HI) Insight/Judgement Perhaps improving somewhat Remarks Thought process more linear. Speech within normal limits for rate, tone and volume. No motoric abnormalities noted. Labs Labs reviewed. No new labs. Vitals/IOs Vital Signs Date Time Temp Pulse Resp B/P Pulse Ox O2 Delivery O2 Flow Rate FiO2 06/22/16 05:55 97.9 89 17 124/57 98 Assessment & Plan Problem List: (1) Bipolar disorder ICD Code: F31.9 Assessment & Plan Patient definitely responding to Risperdal at a dose of 4 mg twice daily. She raises valid concerns about the long-acting injectables, and I have asked our utilization review team to explore whether either of the corresponding long- acting injectables Risperdal Consta or Invega Sustenna are covered by her plan. Continue oral Risperdal for now. Continue other medications and care as ordered. Justification for Cont. Inpt. High risk for decompensation pending psychiatric stabilization. Discharge Planning Plan for long-acting injectable prior to discharge. Pending psychiatric stabilization. Request HC Surrog/Guard Advoc?: Yes Problem Qualifiers (1) Bipolar disorder: Qualified Code: F31.64 - Bipolar disorder, current episode mixed, severe, with psychotic features Flavio Resendiz MD Jun 22, 2016 11:50
[2016-06-22] MEDS: ACETAMINOPHEN 325 MG TAB PO PRN (15:35)
[2016-06-22 20:03] VITALS: BP 137/61; PULSE 102; RESP 16; TEMP 97.8; O2SAT 99
[2016-06-22] MEDS: diphenhydrAMINE HCL 50 MG CAP PO PRN (21:29)
[2016-06-22] MEDS: LORazepam 2 MG TAB PO PRN (22:32)
[2016-06-23] MEDS: LEVOTHYROXINE SODIUM 25 MCG TAB PO SCH (04:57)
[2016-06-23 05:53] VITALS: BP 149/74; PULSE 86; RESP 18; TEMP 97.5; O2SAT 98
[2016-06-23] MEDS: risperiDONE ODT 2 MG TAB PO SCH ×2 (08:48→20:02)
[2016-06-23] MEDS: DOCUSATE SODIUM 100 MG CAP PO SCH ×2 (08:48→20:02)
[2016-06-23] MEDS: ACETAMINOPHEN 325 MG TAB PO PRN (08:48)
[2016-06-23] MEDS: LISINOPRIL 10 MG TAB PO SCH (08:49)
[2016-06-23] MEDS: MELOXICAM 7.5 MG TAB PO SCH (08:49)
[2016-06-23] MEDS: PANTOPRAZOLE SOD 40 MG DELAYED RELEASE TAB PO SCH (08:49)
[2016-06-23] MEDS: BETAMETHASONE/CLOTRIMAZOLE CREAM 15 GM TOPICAL SCH ×2 (08:51→20:03)
[2016-06-23] MEDS: BENZOCAINE 7.5% ORAL GEL 9.4 GM TUBE OROPHARYNG PRN (08:51)
[2016-06-23] MEDS: LORazepam 2 MG TAB PO PRN ×2 (09:49→17:55)
--- NOTE | 2016-06-23 09:54 | HHI.PYPN ---
Subjective Remarks Patient seen and examined. Chart reviewed. Case discussed with nursing staff. On my examination today, the patient seems to be in better behavioral control. Her mood seems to be stabilizing. She remained somatically preoccupied with some ongoing loosening of associations. She repeats much of the same material that she has shared in the past. Denies side effects from medications. No other issues noted. Review of Systems ROS Limitations: Poor Historian Other Multiple vague somatic complaints. None predominates. Objective Alert: Yes [place]: Person, Place Mood: Calm Affect: Blunted Memory Intact: Comment (remains fair) Hallucinations: Other (none) Delusions: No Delusion Type: Other (no delusions) Suicidal: Ideation (no SI) Homicidal: Ideation (no HI) Insight/Judgement Perhaps improving somewhat Remarks Thought process more linear. No motoric abnormalities noted. Labs Labs reviewed. No new labs. Vitals/IOs Vital Signs Date Time Temp Pulse Resp B/P Pulse Ox O2 Delivery O2 Flow Rate FiO2 06/23/16 05:53 97.5 86 18 149/74 98 Assessment & Plan Problem List: (1) Bipolar disorder ICD Code: F31.9 Assessment & Plan Patient's mood instability continues to improve with Risperdal therapy. Utilization review has looked into the feasibility of long-acting injectables, but these are unfortunately not covered by her insurer and would be prohibitively expensive out of pocket, even when obtained at reduced cost from the [facility] the area. Consequently, we will continue with oral Risperdal for now. Continue other medications and care as ordered. Justification for Cont. Inpt. High risk for decompensation in a less restrictive environment, especially since we don't have the option of a long-acting injectable. Discharge Planning Pending psychiatric stabilization. Request HC Surrog/Guard Advoc?: Yes Problem Qualifiers (1) Bipolar disorder: Qualified Code: F31.64 - Bipolar disorder, current episode mixed, severe, with psychotic features Flavio Resendiz MD Jun 23, 2016 09:54
[2016-06-23 18:05] VITALS: BP_SYST 122; BP_SYST 127; BP_SYST 139; BP_DIAS 59; BP_DIAS 60; PULSE 100
[2016-06-23] MEDS: diphenhydrAMINE HCL 50 MG CAP PO PRN (20:04)
[2016-06-24] MEDS: LEVOTHYROXINE SODIUM 25 MCG TAB PO SCH (05:34)
[2016-06-24] MEDS: LORazepam 2 MG TAB PO PRN (05:34)
[2016-06-24] MEDS: ACETAMINOPHEN 325 MG TAB PO PRN ×2 (05:35→16:18)
[2016-06-24 05:37] VITALS: BP_SYST 124; BP_SYST 162; BP_DIAS 59; BP_DIAS 74; PULSE 107; RESP 16; TEMP 98; O2SAT 95
[2016-06-24] MEDS: DOCUSATE SODIUM 100 MG CAP PO SCH ×2 (09:00→21:19)
[2016-06-24] MEDS: MELOXICAM 7.5 MG TAB PO SCH (09:15)
[2016-06-24] MEDS: PANTOPRAZOLE SOD 40 MG DELAYED RELEASE TAB PO SCH (09:16)
[2016-06-24] MEDS: risperiDONE ODT 2 MG TAB PO SCH ×2 (09:16→21:19)
[2016-06-24] MEDS: BETAMETHASONE/CLOTRIMAZOLE CREAM 15 GM TOPICAL SCH ×2 (09:18→21:00)
[2016-06-24] MEDS: LISINOPRIL 10 MG TAB PO SCH (09:20)
--- NOTE | 2016-06-24 11:43 | HHI.PYPN ---
Subjective Remarks Patient seen and examined with counselor. Chart reviewed. Case discussed with nursing staff. On my examination today, patient is once again calmer. Mood is more stable. She is interacting appropriately with peers. She remains extremely somatically preoccupied but is less intrusive and repetitive in her reports of these symptoms. No SI or HI. Denies side effects from medications. Feels like she is doing better with the Risperdal. Review of Systems ROS Limitations: Poor Historian Other Multiple somatic complaints but appears to be in no acute physical distress. Objective Alert: Yes [place]: Person, Place Mood: Calm Affect: Blunted (more full and reactive) Memory Intact: Comment (remains fair) Hallucinations: Other (no AVH) Delusions: No Delusion Type: Other (no delusions) Suicidal: Ideation (no SI) Homicidal: Ideation (no HI) Insight/Judgement Improving Remarks Thought process more linear. No motoric abnormalities noted. Labs Labs reviewed. No new labs. Vitals/IOs Vital Signs Date Time Temp Pulse Resp B/P Pulse Ox O2 Delivery O2 Flow Rate FiO2 06/24/16 05:37 98.0 107 16 162/74 95 124/59 Assessment & Plan Problem List: (1) Bipolar disorder ICD Code: F31.9 Assessment & Plan Patient doing well with the Risperdal. Mood seems to be stabilizing nicely. Since insurance coverage of long-acting injectables is so poor as to render them extremely cost-prohibitive, we will have to make sure that she is extremely stable on oral agents before discharge, given the risk of medication non-adherence and subsequent rapid relapse. I will transfer her to lower acuity 2600 unit to observe how she interacts in a less closely structured and monitored environment. Continue other medications and care as ordered. Justification for Cont. Inpt. High risk for decompensation pending psychiatric stabilization Discharge Planning Pending psychiatric stabilization. Possible discharge beginning or middle of next week if she does well on the lower acuity unit. Request HC Surrog/Guard Advoc?: Yes Problem Qualifiers (1) Bipolar disorder: Qualified Code: F31.64 - Bipolar disorder, current episode mixed, severe, with psychotic features Flavio Resendiz MD Jun 24, 2016 11:43
[2016-06-24] MEDS: diphenhydrAMINE HCL 50 MG CAP PO PRN (21:19)
[2016-06-25 05:32] VITALS: BP 151/66; PULSE 82; RESP 18; TEMP 97.9; O2SAT 99
[2016-06-25] MEDS: LEVOTHYROXINE SODIUM 25 MCG TAB PO SCH (05:36)
[2016-06-25] MEDS: PANTOPRAZOLE SOD 40 MG DELAYED RELEASE TAB PO SCH (09:00)
[2016-06-25] MEDS: risperiDONE ODT 2 MG TAB PO SCH ×2 (09:00→21:14)
[2016-06-25] MEDS: MELOXICAM 7.5 MG TAB PO SCH (09:00)
[2016-06-25] MEDS: BETAMETHASONE/CLOTRIMAZOLE CREAM 15 GM TOPICAL SCH ×2 (09:00→21:13)
[2016-06-25] MEDS: LISINOPRIL 10 MG TAB PO SCH (09:00)
[2016-06-25] MEDS: DOCUSATE SODIUM 100 MG CAP PO SCH ×2 (09:00→21:14)
[2016-06-25] MEDS: LORazepam 2 MG TAB PO PRN (13:30)
--- NOTE | 2016-06-25 14:25 | HHI.PYPN ---
Subjective Remarks Patient seen and examined with nurse Arpita. Chart reviewed. Case discussed with nursing staff. On my examination today, mood seems fairly stable. She is a little bit angry and dysphoric, but this seems reactive and not a feature of her mood illness. She is able to calm herself readily. Thought process fairly linear. Denies side effects from medications. Hopeful for discharge Tuesday.. Review of Systems Other Multiple somatic complaints. In no acute physical distress. Objective Alert: Yes [place]: Person, Place, Date (approximate) Mood: Calm Affect: Restricted (dysphoric) Memory Intact: Comment (remains fair) Hallucinations: Other (no AVH) Delusions: No Delusion Type: Other (no delusional material) Suicidal: Ideation (no SI) Homicidal: Ideation (no HI) Insight/Judgement Improving Remarks No abnormal motor movements noted. Labs Labs reviewed. No new labs. Vitals/IOs Vital Signs Date Time Temp Pulse Resp B/P Pulse Ox O2 Delivery O2 Flow Rate FiO2 06/25/16 05:32 97.9 82 18 151/66 99 Assessment & Plan Problem List: (1) Bipolar disorder ICD Code: F31.9 Assessment & Plan Patient continues to improve with Risperdal monotherapy. Given my previous clinical contact with this patient, I suspect that she is approaching her chronic baseline. We will monitor her through the weekend, and I agree that barring some clinical worsening, we might consider discharge beginning of next week. Justification for Cont. Inpt. Monitor over the weekend. Discharge Planning Possible discharge Tuesday or Tuesday of next week. Request HC Surrog/Guard Advoc?: Yes Problem Qualifiers (1) Bipolar disorder: Qualified Code: F31.64 - Bipolar disorder, current episode mixed, severe, with psychotic features Flavio Resendiz MD Jun 25, 2016 14:25
[2016-06-25 19:30] VITALS: BP 136/67; PULSE 107; RESP 18; TEMP 96.8; O2SAT 95
[2016-06-25] MEDS: diphenhydrAMINE HCL 50 MG CAP PO PRN (21:14)
[2016-06-26 05:21] VITALS: BP 125/60; PULSE 81; RESP 17; TEMP 97.6; O2SAT 97
[2016-06-26] MEDS: LEVOTHYROXINE SODIUM 25 MCG TAB PO SCH (05:58)
[2016-06-26] MEDS: DOCUSATE SODIUM 100 MG CAP PO SCH ×2 (08:43→20:30)
[2016-06-26] MEDS: PANTOPRAZOLE SOD 40 MG DELAYED RELEASE TAB PO SCH (08:43)
[2016-06-26] MEDS: LISINOPRIL 10 MG TAB PO SCH (08:43)
[2016-06-26] MEDS: MELOXICAM 7.5 MG TAB PO SCH (08:43)
[2016-06-26] MEDS: BETAMETHASONE/CLOTRIMAZOLE CREAM 15 GM TOPICAL SCH ×2 (08:44→20:30)
[2016-06-26] MEDS: risperiDONE ODT 2 MG TAB PO SCH ×2 (08:44→20:30)
[2016-06-26] MEDS: ACETAMINOPHEN 325 MG TAB PO PRN (11:37)
--- NOTE | 2016-06-26 13:14 | HHI.PYPN ---
Subjective Remarks Patient was seen and case discussed with nursing. Patient is pleasant and cooperative with exam. Mood is less elevated compared to her last meeting. She is compliant with her medications and tolerating them well. She says that she is in love with a man in a very platonic way but he does not want to her. Says that he is very druze and is seeking a pilgrimage to [place]. Denies auditory hallucinations Objective Alert: Yes [place]: Person, Place, Date (approximate) Mood: Calm Affect: Restricted (dysphoric) Memory Intact: Comment (remains fair) Hallucinations: Other (no AVH) Delusions: No Delusion Type: Other (no delusional material) Suicidal: Ideation (no SI) Homicidal: Ideation (no HI) Insight/Judgement Poor Vitals/IOs Vital Signs Date Time Temp Pulse Resp B/P Pulse Ox O2 Delivery O2 Flow Rate FiO2 06/26/16 05:21 97.6 81 17 125/60 97 Assessment & Plan Problem List: (1) Bipolar disorder ICD Code: F31.9 Assessment & Plan Continue current treatment plan Justification for Cont. Inpt. Patient will decompensate in a less restrictive setting Request HC Surrog/Guard Advoc?: Yes Problem Qualifiers (1) Bipolar disorder: Qualified Code: F31.64 - Bipolar disorder, current episode mixed, severe, with psychotic features Cade Good DO Jun 26, 2016 13:14
[2016-06-26] MEDS: LORazepam 2 MG TAB PO PRN (18:03)
[2016-06-27] MEDS: diphenhydrAMINE HCL 50 MG CAP PO PRN (02:45)
[2016-06-27] MEDS: ALUMINUM/MAGNESIUM/SIMETH 30 ML CUP PO PRN (02:45)
[2016-06-27 05:41] VITALS: BP 159/67; PULSE 87; RESP 16; TEMP 97.1; O2SAT 100
[2016-06-27] MEDS: LEVOTHYROXINE SODIUM 25 MCG TAB PO SCH (06:05)
[2016-06-27] MEDS: BETAMETHASONE/CLOTRIMAZOLE CREAM 15 GM TOPICAL SCH ×2 (08:29→21:38)
[2016-06-27] MEDS: MELOXICAM 7.5 MG TAB PO SCH (08:30)
[2016-06-27] MEDS: DOCUSATE SODIUM 100 MG CAP PO SCH ×2 (08:30→21:38)
[2016-06-27] MEDS: PANTOPRAZOLE SOD 40 MG DELAYED RELEASE TAB PO SCH (08:31)
[2016-06-27] MEDS: LISINOPRIL 10 MG TAB PO SCH (08:31)
[2016-06-27] MEDS: risperiDONE ODT 2 MG TAB PO SCH ×2 (08:31→21:38)
--- NOTE | 2016-06-27 15:16 | HHI.PYPN ---
Subjective Remarks Patient was seen and case discussed with nursing. Patient's mood and behavior continues to improve. She is less hyperactive, less intrusive less hyperverbal and flight of ideas or resolved. Compliant with her medications. Denies suicidal ideations intent or plan Objective Alert: Yes [place]: Person, Place, Date (approximate) Mood: Calm Affect: Restricted (dysphoric) Memory Intact: Comment (remains fair) Hallucinations: Other (no AVH) Delusions: No Delusion Type: Other (no delusional material) Suicidal: Ideation (no SI) Homicidal: Ideation (no HI) Insight/Judgement Improving Vitals/IOs Vital Signs Date Time Temp Pulse Resp B/P Pulse Ox O2 Delivery O2 Flow Rate FiO2 06/27/16 05:41 97.1 87 16 159/67 100 Assessment & Plan Problem List: (1) Bipolar disorder ICD Code: F31.9 Assessment & Plan Continue current treatment plan Justification for Cont. Inpt. Patient will decompensate in a less restrictive setting Request HC Surrog/Guard Advoc?: Yes Problem Qualifiers (1) Bipolar disorder: Qualified Code: F31.64 - Bipolar disorder, current episode mixed, severe, with psychotic features Cade Good DO Jun 27, 2016 15:16
[2016-06-27 18:25] VITALS: BP 142/62; PULSE 87; RESP 16; TEMP 97.4; O2SAT 100
[2016-06-28] MEDS: LORazepam 2 MG TAB PO PRN (01:35)
[2016-06-28] MEDS: LEVOTHYROXINE SODIUM 25 MCG TAB PO SCH (06:09)
[2016-06-28 06:22] VITALS: BP 138/65; PULSE 83; RESP 17; TEMP 97.3
[2016-06-28] MEDS: DOCUSATE SODIUM 100 MG CAP PO SCH (08:27)
[2016-06-28] MEDS: PANTOPRAZOLE SOD 40 MG DELAYED RELEASE TAB PO SCH (08:28)
[2016-06-28] MEDS: MELOXICAM 7.5 MG TAB PO SCH (08:28)
[2016-06-28] MEDS: LISINOPRIL 10 MG TAB PO SCH (08:28)
[2016-06-28] MEDS: risperiDONE ODT 2 MG TAB PO SCH (08:28)
[2016-06-28] MEDS: BETAMETHASONE/CLOTRIMAZOLE CREAM 15 GM TOPICAL SCH (08:29)
[2016-06-28] MEDS ORDERED: PANT40TA3 PO (11:34)
[2016-06-28] MEDS ORDERED: DOCU1CAP39 PO (11:34)
[2016-06-28] MEDS ORDERED: RISP4TAB41 PO (11:34)
[2016-06-28] MEDS ORDERED: LISI10TA3 PO (11:34)
[2016-06-28] MEDS ORDERED: LOTR15T TOPICAL (11:34)
[2016-06-28] MEDS ORDERED: LEVO25TA4 PO (11:34)
[2016-06-28] MEDS ORDERED: LORA-474 PO (11:34)
[2016-06-28] MEDS ORDERED: MELO7.5T4 PO (11:34)
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
== END 2016-06-28 13:30 | disposition home or self-care (01) | DRG 885 ==
LOC: NEPJ 15:00 → NEDA 18:21 → H270 20:19 → H260 06-24 12:55
PROVIDERS: ADMIT Psychiatry & Neurology Psychiatry; ATTEND Psychiatry & Neurology Psychiatry
DX: F31.64 Bipolar disorder, current episode mixed, severe, with psychotic features (principal); R45.851 Suicidal ideations; Z91.14 Patient's other noncompliance with medication regimen; I10 Essential (primary) hypertension; E03.9 Hypothyroidism, unspecified; F17.210 Nicotine dependence, cigarettes, uncomplicated; K21.9 Gastro-esophageal reflux disease without esophagitis; F41.9 Anxiety disorder, unspecified; M51.26 Other intervertebral disc displacement, lumbar region; R21 Rash and other nonspecific skin eruption
CPT/HCPCS: 80048; 80053; 80061; 80320; 80329; 83036; 84443; 85025; 96372; 96374; G0480; J1200; J2060; J3486; Q0163

== ENCOUNTER 2016-10-18 14:35 | Inpatient (IN) | payer BC, OTHER ==
[~2016-10-18] VITALS: Ht 157.5 cm; Wt 69.3 kg
[~2016-10-18 14:35] MED LIST changes: -B12-1CHW PO; +DOCU1CAP39 PO; -FLUT50I; -FURO20TA PO; -HYDR12.56 PO; -LAMO100 PO; -LEVO.025 PO; +LEVO25TA4 PO; -LISI-360 PO; +LISI10TA3 PO; +LORA-474 PO; +LOTR15T TOPICAL; +MELO7.5T4 PO; -MOBI7.5T PO; -OLAN10 PO; -OLAN5 PO; +PANT40TA3 PO; -POTA-267 PO; -POTA550T4 PO; -PROT40TA PO; +RISP4TAB41 PO; -VITACAP32 PO
--- NOTE | 2016-10-18 15:01 | PD ---
HPI Chief Complaint: psychiatric symptoms Time Seen by Provider: 15:01 Travel History International Travel<30 days: No Contact w/Intl Traveler<30days: No History of Present Illness HPI 66 YO F with PMH of HTN and bipolar presents to the ED for evaluation of psychiatric symptoms. Patient was placed under Vazquez Act by [employer] prior to arrival. On presentation the patient states that she is being poisoned by "dust and filth" in her apartment. She is alert to self, place and time. She is angry , tangential and difficult to redirect. She denies SI or HI. She states that she is "dying." She denies fevers, chills, cough, SOB, CP, abdominal pain, N/V, dysuria. She states that she has not been compliant with her psychiatric medications but that she likes Ativan. PFSH Past Medical History Arthritis: Yes Asthma: No Autoimmune Disease: No Blood Disorders: No Bipolar Disorder: Yes Anxiety: Yes Depression: Yes Heart Rhythm Problems: No Cancer: No Cardiac Catheterization: No Cardiovascular Problems: Yes High Cholesterol: Yes Chest Pain: No Congestive Heart Failure: No COPD: No Cerebrovascular Accident: Yes Diminished Hearing: No Endocrine: Yes Gastrointestinal Disorders: Yes (HX OF GI BLEED, DIVERTICULOSIS) GERD: Yes Genitourinary: No Hepatitis: No Hiatal Hernia: No Herniated Disk: Yes (LOWER BACK) Hypertension: Yes Immune Disorder: No Kidney Stones: No Musculoskeletal: Yes Neurologic: Yes Psychiatric: Yes (Pt is well known to [facility]) Reproductive: No Respiratory: No Immunizations Current: Yes Myocardial Infarction: No Renal Failure: No Sleep Apnea: No Thyroid Disease: Yes Ulcer: No Menopausal: Yes : 0 Para: 0 Past Surgical History Abdominal Surgery: No AICD: No Appendectomy: Yes Arteriovenous Shunt: No Cardiac Surgery: No Coronary Artery Bypass Graft: No Ear Surgery: No Endocrine Surgery: No Eye Surgery: No Genitourinary Surgery: No Gynecologic Surgery: No Insulin Pump: No Joint Replacement: No Neurologic Surgery: No Oral Surgery: No Pacemaker: No Thoracic Surgery: No Other Surgery: Yes (CYST REMOVED FROM CHIN, BACK AND AREA NEXT TO RT RYE) Social History Alcohol Use: Yes (per hx..PT STATES " OCCASIONAL DRINK") Tobacco Use: Yes (couple cigarettes/day) Substance Use: No Allergies-Medications (Allergen,Severity, Reaction): Coded Allergies: Depakote (Verified Allergy, Severe, Diarrhea, 10/18/16) Penicillin (Verified Allergy, Severe, RASH, 10/18/16) Tegretol (Verified Allergy, Severe, Anaphylaxis, 10/18/16) Haldol (Verified Allergy, Unknown, UNKNOWN , 10/18/16) PT STATES SHE IS ALLERGIC TO HALDOL, BUT WILL NOT STATE HER REACTION TO THE MEDICATION OR THE SEVERITY OF THE REACTION. Erythromycin (Verified Adverse Reaction, Severe, DIARRHEA, 10/18/16) [place] (Verified Adverse Reaction, Unknown, 10/18/16) Reported Meds & Prescriptions Reported Meds & Active Scripts Active Lotrisone Topical (Betamethasone/Clotrimazole) 1-0.05% Cream 1 Applic TOPICAL Q12HR 15 Days Dok (Docusate Sodium) 100 Mg Cap 100 Mg PO BID 15 Days Ativan (Lorazepam) 1 Mg Tab 1 Mg PO Q8H PRN 15 Days Risperdal (Risperidone) 4 Mg Tab 4 Mg PO BID 15 Days Pantoprazole (Pantoprazole Sodium) 40 Mg Tab 40 Mg PO DAILY 15 Days Meloxicam 7.5 Mg Tab 7.5 Mg PO DAILY 15 Days Lisinopril 10 Mg Tab 10 Mg PO DAILY 15 Days Levothyroxine (Levothyroxine Sodium) 25 Mcg Tab 25 Mcg PO DAILY@0600 15 Days Review of Systems Except as stated in HPI: all other systems reviewed are Neg Physical Exam Narrative GENERAL: Well-nourished, well-developed white female in [facility]. PSYCH: Tangential, difficult to redirect. Angry. Avoids eye contact. SKIN: Focused skin assessment warm/dry. HEAD: Normocephalic. Atraumatic. EYES: No scleral icterus. No injection or drainage. PERRLA. EOMI. NECK: Supple, trachea midline. No JVD or lymphadenopathy. CARDIOVASCULAR: Regular rate and rhythm without murmurs, gallops, or rubs. RESPIRATORY: Breath sounds equal bilaterally. No accessory muscle use. GASTROINTESTINAL: Abdomen soft, non-tender, nondistended. MUSCULOSKELETAL: No cyanosis, or edema. Ambulatory. Moves the extremities spontaneously. BACK: Nontender without obvious deformity. No CVA tenderness. Data Data Last Documented VS Vital Signs Date Time Temp Pulse Resp B/P Pulse Ox O2 Delivery O2 Flow Rate FiO2 10/18/16 15:15 100 18 10/18/16 15:10 97.9 169/81 96 Orders Complete Blood Count With Diff (10/18/16 15:17) Comprehensive Metabolic Panel (10/18/16 15:17) Thyroid Stimulating Hormone (10/18/16 15:17) Urinalysis - C+S If Indicated (10/18/16 15:17) Iv Access Insert/Monitor (10/18/16 15:17) Psych Screen (10/18/16 15:17) Lorazepam Inj (Ativan Inj) (10/18/16 15:30) Drug Screen, Random Urine (10/18/16 15:17) Alcohol (Ethanol) (10/18/16 15:17) Labs Laboratory Tests Test 10/18/16 15:20 White Blood Count 8.5 TH/MM3 Red Blood Count 4.96 MIL/MM3 Hemoglobin 13.8 GM/DL Hematocrit 41.2 % Mean Corpuscular Volume 83.0 FL Mean Corpuscular Hemoglobin 27.8 PG Mean Corpuscular Hemoglobin 33.5 % Concent Red Cell Distribution Width 15.0 % Platelet Count 247 TH/MM3 Mean Platelet Volume 8.4 FL Neutrophils (%) (Auto) 61.9 % Lymphocytes (%) (Auto) 15.3 % Monocytes (%) (Auto) 20.0 % Eosinophils (%) (Auto) 1.9 % Basophils (%) (Auto) 0.9 % Neutrophils # (Auto) 5.3 TH/MM3 Lymphocytes # (Auto) 1.3 TH/MM3 Monocytes # (Auto) 1.7 TH/MM3 Eosinophils # (Auto) 0.2 TH/MM3 Basophils # (Auto) 0.1 TH/MM3 CBC Comment DIFF FINAL Differential Comment Sodium Level 137 MEQ/L Potassium Level 4.6 MEQ/L Chloride Level 103 MEQ/L Carbon Dioxide Level 24.0 MEQ/L Anion Gap 10 MEQ/L Blood Urea Nitrogen 26 MG/DL Creatinine 0.86 MG/DL Estimat Glomerular Filtration 66 ML/MIN Rate Random Glucose 74 MG/DL Calcium Level 9.5 MG/DL Total Bilirubin 1.0 MG/DL Aspartate Amino Transf 32 U/L (AST/SGOT) Alanine Aminotransferase 39 U/L (ALT/SGPT) Alkaline Phosphatase 92 U/L Total Protein 7.5 GM/DL Albumin 3.8 GM/DL Thyroid Stimulating Hormone 1.030 uIU/ML 3rd Gen Ethyl Alcohol Level LESS THAN 3 MG/DL MDM Medical Decision Making Medical Screen Exam Complete: Yes Emergency Medical Condition: Yes Differential Diagnosis Adjustment disorder versus anxiety versus bipolar versus depression versus dementia versus electrolyte disorder versus malingering versus mood disorder versus ODD versus psychosis versus PTSD versus schizophrenia versus schizoaffective disorder versus substance-induced mood disorder versus other Narrative Course 66 YO F with PMH of HTN and bipolar presents to the ED for evaluation of psychiatric symptoms. Patient was placed under Vazquez Act by [employer] prior to arrival. On presentation the patient states that she is being poisoned by "dust and filth" in her apartment. She is alert to self, place and time. She is angry , tangential and difficult to redirect. She states that she is dying. She denies fevers, chills, cough, SOB, CP, abdominal pain, N/V, dysuria. She states that she has not been compliant with her psychiatric medications but that she likes Ativan. Vitals reviewed. Physical exam reveals a nontoxic-appearing white female in no acute distress. Chest clear to auscultation bilaterally. Abdomen soft, nontender. Equal pulses in the distal extremities, no swelling of the lower extremities noted. Patient was administered 2 mg of Ativan IV. Labs reveal no concerning abnormality. UA is pending at this time. Alcohol level less than 3. This patient is medically clear for psychiatric evaluation. Please see psychiatric note for disposition. Diagnosis Primary Impression: Medical clearance for psychiatric admission Marycruz Vidal Oct 18, 2016 15:01
[2016-10-18 15:10] VITALS: BP 169/81; PULSE 104; RESP 18; TEMP 97.9; O2SAT 96
[2016-10-18] MEDS ORDERED: LORazepam 2 MG/ML VIAL IV ONE (15:30)
[2016-10-18 15:44] LABS: AUTOMATED NEUTROPHIL # 5.3 TH/MM3 (1.8-7.7); BASOPHIL # 0.1 TH/MM3 (0-0.2); BASOPHIL % 0.9 % (0.0-2.0); EOSINOPHIL # 0.2 TH/MM3 (0-0.4); EOSINOPHIL % 1.9 % (0.0-4.0); HEMATOCRIT 41.2 % (35.0-46.0); HEMO FLAGS DIFF FINAL; LYMPH % 15.3 % (9.0-44.0); LYMPHOCYTE # 1.3 TH/MM3 (1.0-4.8); MEAN CORPUSCULAR HEMOGLOBIN 27.8 PG (27.0-34.0); MEAN CORPUSCULAR HGB CONC 33.5 % (32.0-36.0); NEUT % 61.9 % (16.0-70.0); PLATELET COUNT 247 TH/MM3 (150-450); RED BLOOD COUNT 4.96 MIL/MM3 (4.00-5.30); WHITE BLOOD COUNT 8.5 TH/MM3 (4.0-11.0)
[2016-10-18 15:57] LABS: ALT (GPT) 39 U/L (10-53); ANION GAP 10 MEQ/L (5-15); AST (GOT) 32 U/L (15-37); BLOOD UREA NITROGEN 26 MG/DL (7-18); CHLORIDE 103 MEQ/L (98-107); GLOMERULAR FILTRATION RATE 66 ML/MIN (>89); POTASSIUM 4.6 MEQ/L (3.5-5.1); SODIUM (NA) 137 MEQ/L (136-145)
[2016-10-18 16:07] LABS: ALKALINE PHOSPHATASE 92 U/L (45-117)
[2016-10-19] MEDS ORDERED: diphenhydrAMINE HCL 50 MG/ML VIAL IV PUSH ONE (02:00)
[2016-10-19] MEDS ORDERED: LORazepam 2 MG/ML VIAL ONE (05:30)
[2016-10-19] MEDS ORDERED: LORazepam 2 MG/ML VIAL IM ONE (05:45)
[2016-10-19 06:00] VITALS: BP 142/65; PULSE 80; RESP 18; TEMP 97.1; O2SAT 99
[2016-10-19 13:42] VITALS: BP 149/63; PULSE 92; RESP 16; O2SAT 99
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
[2016-10-19] MEDS ORDERED: ACETAMINOPHEN 325 MG TAB PO PRN (15:15)
[2016-10-19] MEDS ORDERED: MAGNESIUM HYDROXIDE SUSP 30 ML CUP PO PRN (15:15)
[2016-10-19 15:54] VITALS: BP 102/62; PULSE 89; RESP 18; TEMP 97.6; O2SAT 97
[2016-10-19] MEDS ORDERED: ZIPRASIDONE MESYLATE 20 MG VIAL IM STA (16:55)
[2016-10-19] MEDS ORDERED: diphenhydrAMINE HCL 50 MG/ML VIAL IM STA (16:55)
[2016-10-19] MEDS ORDERED: LORazepam 2 MG/ML VIAL IM STA (16:55)
[2016-10-19 17:58] VITALS: BP 102/62; PULSE 89; RESP 19; TEMP 97.6; O2SAT 97
[2016-10-19] MEDS: risperiDONE 1 MG TAB PO SCH (21:00)
[2016-10-20] MEDS: LEVOTHYROXINE SODIUM 25 MCG TAB PO SCH (06:00)
[2016-10-20 06:26] VITALS: BP 148/66; PULSE 94; RESP 20; TEMP 97.5; O2SAT 97
[2016-10-20 09:17] LABS: ANION GAP 10 MEQ/L (5-15); BICARBONATE 26.5 MEQ/L (21.0-32.0); BLOOD UREA NITROGEN 22 MG/DL (7-18); CHLORIDE 103 MEQ/L (98-107); POTASSIUM 4.1 MEQ/L (3.5-5.1); SODIUM (NA) 139 MEQ/L (136-145)
[2016-10-20 09:20] LABS: GLOMERULAR FILTRATION RATE 95 ML/MIN (>89)
[2016-10-20 09:23] LABS: HDL CHOLESTEROL 82.3 MG/DL (40.0-60.0); LDL CHOLESTEROL 34 MG/DL (0-99)
[2016-10-20] MEDS: risperiDONE 1 MG TAB PO SCH (09:32)
[2016-10-20] MEDS: LISINOPRIL 10 MG TAB PO SCH (09:32)
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
[2016-10-20] MEDS ORDERED: BENZTROPINE MESYLATE 1 MG TAB PO PRN (13:15)
[2016-10-20] MEDS ORDERED: BENZTROPINE MESYLATE 2 MG/2 ML VIAL IM PRN (13:15)
[2016-10-20] MEDS ORDERED: LORazepam 2 MG/ML VIAL IM PRN (14:00)
[2016-10-20] MEDS ORDERED: ZIPRASIDONE MESYLATE 20 MG VIAL IM PRN (14:00)
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
[2016-10-20] MEDS ORDERED: risperiDONE EXT REL INJ 25 MG/2 ML VIAL IM ONE (16:00)
[2016-10-20 16:45] LABS: HEMOGLOBIN A1a 1.2 %; HEMOGLOBIN A1b 0.8 %; HEMOGLOBIN Ao 83.9 %; HEMOGLOBIN F 2.2 %
[2016-10-20 18:00] VITALS: BP 109/55; PULSE 104; RESP 18; TEMP 98; O2SAT 98
[2016-10-21] MEDS: LEVOTHYROXINE SODIUM 25 MCG TAB PO SCH (06:04)
[2016-10-21 06:21] VITALS: BP 139/65; PULSE 61; RESP 18; TEMP 97.4; O2SAT 98
[2016-10-21] MEDS: LISINOPRIL 10 MG TAB PO SCH (09:05)
--- NOTE | 2016-10-21 11:41 | HHI.PYPN ---
Subjective Remarks Patient seen and examined with counselor and nurse. Chart reviewed. Case discussed with nursing staff. Patient continues to insist that she is contaminated or poisoned. She says that she believes that she has scabs on her head, but I can see none. She says, "I'm afraid of making people sick." Distractible, ongoing loosening of associations. Agreeable to receiving Risperdal Consta. No medication side effects. No other physical complaints. Review of Systems ROS Limitations: Psychotic, Poor Historian Except as stated in HPI: all other systems reviewed are Neg Objective Alert: Yes [place]: Person, Place (at least) Mood: Anxious Affect: Restricted Memory Intact: Comment (not formally assessed) Hallucinations: Other (No AVH) Delusions: Yes Delusion Type: Paranoid Suicidal: Ideation (No SI) Homicidal: Ideation (No HI) Insight/Judgment Poor Remarks No motor abnormalities noted. Thought process with ongoing loosening of associations. Speech remains little rambling. Grooming and hygiene fair. Labs Labs reviewed. No new labs. Vitals/IOs Vital Signs Date Time Temp Pulse Resp B/P Pulse Ox O2 Delivery O2 Flow Rate FiO2 10/21/16 06:21 97.4 61 18 139/65 98 10/19/16 13:42 Room Air Assessment & Plan Problem List: (1) Bipolar disorder ICD Code: F31.9 (2) Current non-adherence to medical treatment ICD Code: Z91.19 Assessment & Plan Patient's psychotropic medications were on hold for lack of consent. Patient seems to be more reasonable today and is agreeable to initiating psychotropic medications as follows. Patient may consent for psychotropic medications. Initiated Risperdal Consta today and continue oral Risperdal supplementation. Continue to monitor on the high acuity unit. Continue other medications and care as ordered. Justification for Cont. Inpt. Impairment in reality construction. Medication changes. High risk for decompensation in a less restrictive environment. Discharge Planning Pending psychiatric stabilization. Request HC Surrog/Guard Advoc?: Yes Problem Qualifiers (1) Bipolar disorder: Qualified Code: F31.64 - Bipolar disorder, current episode mixed, severe, with psychotic features Flavio Resendiz MD Oct 21, 2016 11:41
[2016-10-21] MEDS ORDERED: risperiDONE EXT REL INJ 25 MG/2 ML VIAL IM ONE (17:00)
[2016-10-21 17:45] VITALS: BP 129/71; PULSE 89; RESP 17; TEMP 98.5; O2SAT 99
[2016-10-21] MEDS: risperiDONE 1 MG TAB PO SCH (21:48)
[2016-10-21] MEDS: LORazepam 2 MG TAB PO PRN (21:48)
[2016-10-22 06:06] VITALS: BP 146/65; PULSE 100; RESP 16; TEMP 97; O2SAT 98
[2016-10-22] MEDS: LEVOTHYROXINE SODIUM 25 MCG TAB PO SCH (06:11)
[2016-10-22] MEDS: risperiDONE 1 MG TAB PO SCH ×2 (09:21→21:11)
[2016-10-22] MEDS: LISINOPRIL 10 MG TAB PO SCH (09:21)
[2016-10-22] MEDS: LORazepam 2 MG TAB PO PRN ×2 (09:26→21:11)
--- NOTE | 2016-10-22 13:45 | HHI.PYPN ---
Subjective Remarks Patient seen and examined. Chart reviewed. Case discussed with nursing staff. On my examination today, the patient seems considerably more sedate and less dysphoric. She continues to believe that she is contaminated but is considerably less distressed by this idea and does allow me to examine her today whereas before she had told me they keep my distance. Denies any AVH. Slept well overnight. No SI or HI. Does complain of some dizziness but otherwise denies side effects from medications. Continues to complain of dry, itchy skin. She has been cleaning her clothes with alcohol at home because she believes she is contaminated. I do see that she was given systemic Benadryl for this complaint last admission. No physical complaints otherwise. Review of Systems ROS Limitations: Psychotic Except as stated in HPI: all other systems reviewed are Neg Objective Alert: Yes [place]: Person, Place Mood: Other (considerably calmer) Affect: Blunted Memory Intact: Comment (not formally assessed) Hallucinations: Other (denies AVH) Delusions: Yes Delusion Type: Paranoid (continues to believe that she is contaminated) Suicidal: Ideation (No SI) Homicidal: Ideation (No HI) Insight/Judgment Poor Remarks No hand tremor, no cogwheeling, no dystonia, no dyskinesia noted. No other motoric abnormalities noted. Skin, particularly on arms, seems a little dry, but no visible rash. Labs Labs reviewed. No new labs. Vitals/IOs Vital Signs Date Time Temp Pulse Resp B/P Pulse Ox O2 Delivery O2 Flow Rate FiO2 10/22/16 06:06 97.0 100 16 146/65 98 10/19/16 13:42 Room Air Assessment & Plan Problem List: (1) Bipolar disorder ICD Code: F31.9 Assessment & Plan Patient received Risperdal Consta yesterday and continues on oral Risperdal supplementation. She seems to be improving with respect to her mood episode. Continue oral Risperdal as ordered. I will prescribe Benadryl cream and moisturizing lotion for patient's complaints of what seems to be dry, itchy skin. Check orthostatics for patient's complaints of mild dizziness. Fall precautions. Continue to monitor on the inpatient unit. Continue other medications and care as ordered. Justification for Cont. Inpt. High risk for decompensation in a less restrictive environment pending psychiatric stabilization. Discharge Planning Pending psychiatric stabilization. May be stable enough for discharge sometime after the weekend. Request HC Surrog/Guard Advoc?: Yes Problem Qualifiers (1) Bipolar disorder: Qualified Code: F31.64 - Bipolar disorder, current episode mixed, severe, with psychotic features Flavio Resendiz MD Oct 22, 2016 13:45
[2016-10-22 16:15] VITALS: BP 122/55; PULSE 105; RESP 18; TEMP 97.8; O2SAT 98
[2016-10-22 18:41] VITALS: BP_SYST 112; BP_SYST 116; BP_SYST 118; BP_DIAS 57; BP_DIAS 58; PULSE 113
[2016-10-23] MEDS: LEVOTHYROXINE SODIUM 25 MCG TAB PO SCH (05:39)
[2016-10-23 05:48] VITALS: BP_SYST 119; BP_SYST 130; BP_DIAS 58; BP_DIAS 59; PULSE 100; RESP 17; TEMP 98.2
[2016-10-23] MEDS: LISINOPRIL 10 MG TAB PO SCH (09:03)
[2016-10-23] MEDS: risperiDONE 1 MG TAB PO SCH ×2 (09:03→20:40)
[2016-10-23] MEDS: diphenhydrAMINE HCL 2%/ZINC ACETATE 0.1% CREAM 30 APPLIC/30 GM TUBE TOPICAL PRN ×3 (14:48→20:39)
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
[2016-10-23 18:15] VITALS: BP 120/60; PULSE 102; RESP 18; TEMP 97.5; O2SAT 99
[2016-10-23] MEDS: ZOLPIDEM TARTRATE 5 MG TAB PO PRN (21:23)
[2016-10-24] MEDS: diphenhydrAMINE HCL 2%/ZINC ACETATE 0.1% CREAM 30 APPLIC/30 GM TUBE TOPICAL PRN ×2 (04:27→14:17)
[2016-10-24 04:45] VITALS: BP_SYST 123; BP_SYST 130; BP_DIAS 63; BP_DIAS 70; BP_DIAS 88; PULSE 89; RESP 16; TEMP 97.9; O2SAT 98
[2016-10-24] MEDS: LEVOTHYROXINE SODIUM 25 MCG TAB PO SCH (06:19)
[2016-10-24] MEDS: risperiDONE 1 MG TAB PO SCH ×2 (09:40→20:23)
[2016-10-24] MEDS: LISINOPRIL 10 MG TAB PO SCH (09:40)
[2016-10-24] MEDS: ALUMINUM/MAGNESIUM/SIMETH 30 ML CUP PO PRN (09:40)
[2016-10-24 18:21] VITALS: BP 120/66; PULSE 105; RESP 18; TEMP 97.6; O2SAT 100
--- NOTE | 2016-10-24 18:30 | HHI.PYPN ---
Subjective Remarks Pt seen and discussed with staff. She remains intrusive and delusional. She threatened to jesus the hospital because staff spoke during a recreation therapy activity. She states that she needs a full body check because she is allergic to dust mites and might have mice. She is noted to respond better to redirection and requests to send a thank you card to Dr. Resendiz for prescribing URIAS. "I hate taking pills and never will take them. I like shots though. I might stay out of the hospital. I hate coming here." She states that she is still being stalked by old landlords who are talking about her. No SI/HI. Objective Alert: Yes [place]: Person, Place Mood: Other (hypomanic) Affect: Labile (mild) Memory Intact: Comment (not formally assessed) Hallucinations: Other (denies AVH) Delusions: Yes Delusion Type: Paranoid (contamination & persecutory) Suicidal: Ideation (No SI) Homicidal: Ideation (No HI) Insight/Judgment poor Vitals/IOs Vital Signs Date Time Temp Pulse Resp B/P Pulse Ox O2 Delivery O2 Flow Rate FiO2 10/24/16 18:21 97.6 105 18 120/66 100 Assessment & Plan Problem List: (1) Bipolar disorder ICD Code: F31.9 Assessment & Plan Continue current tx plan. Estimated LOS: days Justification for Cont. Inpt. impairments in social functioning and reality testing. Request HC Surrog/Guard Advoc?: Yes Problem Qualifiers (1) Bipolar disorder: Qualified Code: F31.64 - Bipolar disorder, current episode mixed, severe, with psychotic features Katlyn Ronquillo MD Oct 24, 2016 18:30
[2016-10-24] MEDS: ZOLPIDEM TARTRATE 5 MG TAB PO PRN (20:23)
[2016-10-25] MEDS: LEVOTHYROXINE SODIUM 25 MCG TAB PO SCH (05:23)
[2016-10-25 08:30] VITALS: BP 117/58; PULSE 113
[2016-10-25] MEDS: risperiDONE 1 MG TAB PO SCH ×2 (09:12→21:21)
[2016-10-25] MEDS: LISINOPRIL 10 MG TAB PO SCH (09:12)
--- NOTE | 2016-10-25 12:01 | HHI.PYPN ---
Subjective Remarks Patient seen and examined with nurse and counselor. Chart reviewed. Case discussed with nursing staff. Per nursing staff, the patient is somewhat needy and repetitive in her speech pattern. On my examination today, the patient says that she plans on moving out of her existing apartment into a place in [place]. She says that she believes that she knows "who's calling the electric frying pan repairer on me" at the apartment she is at now. Some ongoing loosening of associations. Sleep and appetite are reportedly fair. She denies any AVH. No SI or HI. Denies side effects from medications and is pleased to be on long-acting injectable antipsychotic. Review of Systems ROS Limitations: Poor Historian Except as stated in HPI: all other systems reviewed are Neg Objective Alert: Yes [place]: Person, Place Mood: Calm Affect: Blunted Memory Intact: Comment (fair on clinical exam) Hallucinations: Other (denies audiovisual hallucinations) Delusions: Yes Delusion Type: Paranoid (decreasing) Suicidal: Ideation (No SI) Homicidal: Ideation (No HI) Insight/Judgment Poor Remarks No motor abnormalities noted. Thought process more linear today but with some ongoing loosening of associations. Speech more coherent and logical. No visible rash. Labs Labs reviewed. No new labs. Vitals/IOs Vital Signs Date Time Temp Pulse Resp B/P Pulse Ox O2 Delivery O2 Flow Rate FiO2 10/25/16 08:30 113 117/58 10/24/16 18:21 97.6 18 100 Assessment & Plan Problem List: (1) Bipolar disorder ICD Code: F31.9 Assessment & Plan Patient seems improved today versus before the weekend, but I have concerns that ongoing thought disorder, although improved, may represent a significant barrier to successful function in the community. The patient lost her disability case manager at [facility], and I have asked our counselor to liaison with the client care representative at [facility] to ensure that the patient is given a new disability case manager who can meet with the patient on the unit prior to discharge. I will continue oral Risperdal supplementing long-acting injectable Risperdal Consta. Continue to monitor on the inpatient unit for now. Continue other medications and care as ordered. Justification for Cont. Inpt. High risk for decompensation in a less restrictive environment. Discharge Planning Anticipate discharge middle of the week. Request HC Surrog/Guard Advoc?: Yes Problem Qualifiers (1) Bipolar disorder: Qualified Code: F31.64 - Bipolar disorder, current episode mixed, severe, with psychotic features Flavio Resendiz MD Oct 25, 2016 12:01
[2016-10-25 17:23] VITALS: BP 131/60; PULSE 98; RESP 17; TEMP 97.2; O2SAT 97
[2016-10-25] MEDS: diphenhydrAMINE HCL 2%/ZINC ACETATE 0.1% CREAM 30 APPLIC/30 GM TUBE TOPICAL PRN (18:10)
[2016-10-25] MEDS: ZOLPIDEM TARTRATE 5 MG TAB PO PRN (21:21)
[2016-10-26 06:02] VITALS: BP 126/62; PULSE 86; RESP 18; TEMP 98.4; O2SAT 98
[2016-10-26] MEDS: LEVOTHYROXINE SODIUM 25 MCG TAB PO SCH (06:13)
[2016-10-26] MEDS: LISINOPRIL 10 MG TAB PO SCH (08:31)
[2016-10-26] MEDS: risperiDONE 1 MG TAB PO SCH ×2 (08:32→22:17)
[2016-10-26] MEDS: LORazepam 2 MG TAB PO PRN (13:39)
--- NOTE | 2016-10-26 13:39 | HHI.PYPN ---
Subjective Remarks Patient seen and examined with counselor. Chart reviewed. Case discussed in treatment team. On my examination today, patient presents as extremely anxious and tearful. She remains irritable and slams the door to her room. She is perseverative on perceived lesions in her scalp, although I have examined her scalp and can detect no such lesions. Through her tears she tells us, "I hate where I am living with a passion!" She continues to perseverate on people at her apartment building reporting her to the police and getting her Vazquez Acted. Sleep is reportedly poor. Associations remain loose. Denies side effects from medications. No other physical complaints. Review of Systems ROS Limitations: Psychotic, Poor Historian Except as stated in HPI: all other systems reviewed are Neg Objective Alert: Yes [place]: Person, Place Mood: Anxious Affect: Restricted (dysphoric), Tearful Memory Intact: Comment (fair on clinical exam) Hallucinations: Other (denies audiovisual hallucinations) Delusions: Yes Delusion Type: Paranoid Suicidal: Ideation (No SI) Homicidal: Ideation (No HI) Insight/Judgment Poor Remarks No motor abnormalities noted. No visible lesions in the scalp. Grooming and hygiene fair. Thought process perseverative on themes as noted above. Associations remain a little loose. Labs Labs reviewed. No new labs. Vitals/IOs Vital Signs Date Time Temp Pulse Resp B/P Pulse Ox O2 Delivery O2 Flow Rate FiO2 10/26/16 06:02 98.4 86 18 126/62 98 Assessment & Plan Problem List: (1) Bipolar disorder ICD Code: F31.9 Assessment & Plan Patient quite acutely anxious. I have asked the RN to provide the patient with Ativan PRN now. Mood remains unstable despite Risperdal PO/Consta. Patient has done well with Lamictal in the past, and I will resume Lamictal 25mg BID now with plans to titrate to effect. Titrate Ambien to 10mg qHS PRN insomnia. Continue to monitor on inpatient unit. Continue other medications and care as ordered. Justification for Cont. Inpt. Medication changes in process. High risk for decompensation in less restrictive environment. Discharge Planning Pending psychiatric stabilization. Request HC Surrog/Guard Advoc?: Yes Problem Qualifiers (1) Bipolar disorder: Qualified Code: F31.64 - Bipolar disorder, current episode mixed, severe, with psychotic features Flavio Resendiz MD 27, 2017 13:39
--- NOTE | 2016-10-26 15:13 | PD.TTN ---
Present for Treatment Team Treatment Team Staff: Provider (Martín), Nurse (Aislinn), Psych Therapist ( Ashlie ), Occupational Therapist (Cassandra) Patient Problems 1. Discharge planning 2. Medication compliance 3. Knowledge deficit 4. Lack of coping skills Progress Toward Goals Provider Input: Anticipates a discharge by end of week Nurse Input: Is upset on unit about wasting water in this hospital, rambles and is requesting an antibiotic Psych Therapist Input: Contacted [facility] to get patient on case management awaiting responds follow up with [facility] lives on own and wants remain living in her current home discussed RETIREMENT she agrees she is open to remain in her home with help of Casemanagement does not want RETIREMENT Occupational Therapist Input: attends select groups and is easily aggitated and does not like males Ashlie Aldrich BOILER HOUSE MECHANIC Oct 26, 2016 15:13
[2016-10-26 15:22] VITALS: BP 122/58; PULSE 95; RESP 18; TEMP 97
[2016-10-26] MEDS ORDERED: lamoTRIgine 25 MG TAB PO SCH (21:00)
[2016-10-27 05:51] VITALS: BP 130/68; PULSE 79; RESP 18; TEMP 98; O2SAT 97
[2016-10-27] MEDS: LEVOTHYROXINE SODIUM 25 MCG TAB PO SCH (06:22)
[2016-10-27] MEDS: LISINOPRIL 10 MG TAB PO SCH (08:52)
[2016-10-27] MEDS: risperiDONE 1 MG TAB PO SCH ×2 (08:53→20:30)
--- NOTE | 2016-10-27 09:46 | HHI.PYPN ---
Subjective Remarks Patient seen and examined with counselor. Chart reviewed. Case discussed with nursing staff. On my examination today, the patient is considerably calmer today versus yesterday. She did not consent for the Lamictal and is not interested in starting this medication now. She does express a desire to move out of her current apartment saying "the rent is just right, but they keep calling the police on me." However, she is unwilling to consider assisted living placement, and is ambivalent about the independent living placements that we have to offer her. No joaquim psychotic symptoms. Denies side effects from medications and is pleased with Risperdal. No new physical complaints. Review of Systems ROS Limitations: Poor Historian Except as stated in HPI: all other systems reviewed are Neg Objective Alert: Yes [place]: Person, Place Mood: Calm Affect: Blunted Memory Intact: Comment (remains fair) Hallucinations: Other (No AVH) Delusions: No Delusion Type: Other (No delusions) Suicidal: Ideation (No SI) Homicidal: Ideation (No HI) Insight/Judgment Poor Remarks No motor abnormalities noted. Thought process more linear today. Grooming and hygiene fair. Labs Labs reviewed. No new labs. Vitals/IOs Vital Signs Date Time Temp Pulse Resp B/P Pulse Ox O2 Delivery O2 Flow Rate FiO2 10/27/16 05:51 98.0 79 18 130/68 97 Intake and Output 10/26/16 10/26/16 10/27/16 08:00 16:00 00:00 Intake Total 120 ml Balance 120 ml Assessment & Plan Problem List: (1) Bipolar disorder ICD Code: F31.9 Assessment & Plan Discontinue Lamictal per patient preference. Continue oral Risperdal supplementing long-acting injectable Risperdal. Continue to monitor on the inpatient unit. Continue other medications and care as ordered. Patient may sign voluntary. Justification for Cont. Inpt. Risk for decompensation Discharge Planning Given that the patient is resistant to any sort of placement and appears to be stabilizing, I will ask the counselor to pursue some final discharge planning including trying to get the patient a rn case manager through [facility]. Anticipate discharge by Tuesday or perhaps Tuesday. Request HC Surrog/Guard Advoc?: Yes Problem Qualifiers (1) Bipolar disorder: Qualified Code: F31.61 - Bipolar disorder, current episode mixed, mild Flavio Resendiz MD Oct 27, 2016 09:46
[2016-10-27] MEDS: diphenhydrAMINE HCL 2%/ZINC ACETATE 0.1% CREAM 30 APPLIC/30 GM TUBE TOPICAL PRN (17:13)
[2016-10-27 18:00] VITALS: BP 104/56; PULSE 105; RESP 20; TEMP 98.6; O2SAT 99
[2016-10-27] MEDS: ZOLPIDEM TARTRATE 10 MG TAB PO PRN (21:37)
[2016-10-28] MEDS: LEVOTHYROXINE SODIUM 25 MCG TAB PO SCH (05:32)
[2016-10-28 05:42] VITALS: BP 150/66; PULSE 87; RESP 17; TEMP 98.2; O2SAT 100
[2016-10-28] MEDS: LISINOPRIL 10 MG TAB PO SCH (09:30)
[2016-10-28] MEDS: risperiDONE 1 MG TAB PO SCH ×2 (09:31→21:22)
[2016-10-28] MEDS: diphenhydrAMINE HCL 2%/ZINC ACETATE 0.1% CREAM 30 APPLIC/30 GM TUBE TOPICAL PRN ×2 (10:43→17:57)
--- NOTE | 2016-10-28 11:49 | HHI.PYPN ---
Subjective Remarks Patient seen and examined. Chart reviewed. Case discussed with nursing staff. Patient has been no behavioral problem on the unit. On my examination today, the patient is calm and fairly relevant in conversation. She does, with extended conversation, detour into some irrelevancies but is able to bring herself back to the point of her narrative. No evidence of psychosis. No SI or HI. Tolerating psychotropics well without side effects. Review of Systems Except as stated in HPI: all other systems reviewed are Neg Objective Alert: Yes [place]: Person, Place Mood: Calm Affect: Blunted Memory Intact: Comment (fair) Hallucinations: Other (no hallucinations) Delusions: No Delusion Type: Other (no delusional material elicited) Suicidal: Ideation (No SI) Homicidal: Ideation (No HI) Insight/Judgment Poor Remarks No motor abnormalities noted. Grooming and hygiene good. Labs Labs reviewed. No new labs. Vitals/IOs Vital Signs Date Time Temp Pulse Resp B/P Pulse Ox O2 Delivery O2 Flow Rate FiO2 10/28/16 05:42 98.2 87 17 150/66 100 Intake and Output 10/27/16 10/27/16 10/28/16 08:00 16:00 00:00 Intake Total 240 ml Balance 240 ml Assessment & Plan Problem List: (1) Bipolar disorder ICD Code: F31.9 Assessment & Plan Patient seems to be responding once again to the Risperdal. I will continue the oral Risperdal supplementing Risperdal Consta. When she is next due for Consta on 11/04, outpatient treatment team might consider titrating the dose. Continue to monitor on inpatient unit. Continue other medications and care as ordered. Justification for Cont. Inpt. Discharge planning. I think it is important to try to get patient linked with outpatient case management services prior to discharge, as I think this will reduce risk for decompensation and readmission. Discharge Planning Possible d/c tomorrow, Tuesday. Request HC Surrog/Guard Advoc?: Yes Problem Qualifiers (1) Bipolar disorder: Qualified Code: F31.61 - Bipolar disorder, current episode mixed, mild Flavio Resendiz MD Oct 28, 2016 11:49
[2016-10-28 18:00] VITALS: BP 104/66; PULSE 97; RESP 18; TEMP 97.7; O2SAT 100
[2016-10-28] MEDS: ZOLPIDEM TARTRATE 10 MG TAB PO PRN (21:21)
[2016-10-28] MEDS: ALUMINUM/MAGNESIUM/SIMETH 30 ML CUP PO PRN (21:52)
[2016-10-29 05:51] VITALS: BP 128/58; PULSE 93; RESP 16; TEMP 97.6; O2SAT 98
[2016-10-29] MEDS: LEVOTHYROXINE SODIUM 25 MCG TAB PO SCH (06:10)
[2016-10-29] MEDS: LISINOPRIL 10 MG TAB PO SCH (08:30)
[2016-10-29] MEDS: risperiDONE 1 MG TAB PO SCH (08:31)
[2016-10-29] MEDS ORDERED: AMBI10TA PO (12:32)
[2016-10-29] MEDS ORDERED: RISP25P IM (12:32)
[2016-10-29] MEDS ORDERED: RISP1 PO (12:32)
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
== END 2016-10-29 15:30 | disposition home or self-care (01) | DRG 885 ==
LOC: NEPD 14:35 → NEDA 10-19 15:07 → H270 10-19 15:46 → H260 10-23 17:50
PROVIDERS: ADMIT Psychiatry & Neurology Psychiatry; ATTEND Psychiatry & Neurology Psychiatry
DX: F31.64 Bipolar disorder, current episode mixed, severe, with psychotic features (principal); Z91.14 Patient's other noncompliance with medication regimen; I10 Essential (primary) hypertension; E78.00 Pure hypercholesterolemia, unspecified; K21.9 Gastro-esophageal reflux disease without esophagitis; Z72.0 Tobacco use; Z79.899 Other long term (current) drug therapy; Z81.8 Family history of other mental and behavioral disorders; Z86.73 Personal history of transient ischemic attack (TIA), and cerebral infarction without residual deficits
CPT/HCPCS: 80048; 80053; 80061; 80307; 83036; 84443; 85025; J1200; J2060; J2794; J3486

== ENCOUNTER 2016-10-31 23:41 | Emergency (ER) | payer BC, OTHER ==
[~2016-10-31] VITALS: Ht 152.4 cm; Wt 70.0 kg
[~2016-10-31 23:41] MED LIST changes: +AMBI10TA PO; -LORA-474 PO; +RISP1 PO; +RISP25P IM; -RISP4TAB41 PO
[2016-11-01 00:09] VITALS: BP 160/67; PULSE 100; RESP 18; TEMP 98.6; O2SAT 99
--- NOTE | 2016-11-01 00:10 | PD ---
HPI Chief Complaint: Psychiatric Symptoms Time Seen by Provider: 23:55 Travel History International Travel<30 days: No Contact w/Intl Traveler<30days: No Traveled to known affect area: No History of Present Illness HPI 66-year-old female came to the emergency room brought in as a Vazquez act by the plug stitcher. As per the paperwork she wanted to jump in the traffic to be killed. Patient has high pressured speech and would not stop talking. She has flight of thoughts and hard to understand and focus and answer questions. She did say that she has a toothache. Vital signs show slight tachycardia. She was recently Vazquez acted at [place] she said and was discharged. She has extensive psych history. I am unsure if she is compliant with her medications. There is no family member currently to give additional history. [facility] Past Medical History Narrative Medical List of her past medical, surgical, social and family history is reviewed from the nursing note. Arthritis: Yes Asthma: No Autoimmune Disease: No Blood Disorders: No Bipolar Disorder: Yes Anxiety: Yes Depression: Yes Heart Rhythm Problems: No Cancer: No Cardiac Catheterization: No Cardiovascular Problems: Yes High Cholesterol: Yes Chest Pain: No Congestive Heart Failure: No COPD: No Cerebrovascular Accident: Yes Diminished Hearing: No Endocrine: Yes Gastrointestinal Disorders: Yes (HX OF GI BLEED, DIVERTICULOSIS) GERD: Yes Genitourinary: No Headaches: No Hepatitis: No Hiatal Hernia: No Herniated Disk: Yes (LOWER BACK) Hypertension: Yes Immune Disorder: No Kidney Stones: No Musculoskeletal: Yes Neurologic: Yes Psychiatric: Yes (Extensive history of treatment for Bipolar Disorder) Reproductive: No Respiratory: No Immunizations Current: Yes Myocardial Infarction: No Renal Failure: No Sleep Apnea: No Thyroid Disease: Yes Ulcer: No Menopausal: Yes : 0 Para: 0 Past Surgical History Abdominal Surgery: No AICD: No Appendectomy: Yes Arteriovenous Shunt: No Cardiac Surgery: No Coronary Artery Bypass Graft: No Ear Surgery: No Endocrine Surgery: No Eye Surgery: No Genitourinary Surgery: No Gynecologic Surgery: No Insulin Pump: No Joint Replacement: No Neurologic Surgery: No Oral Surgery: No Pacemaker: No Thoracic Surgery: No Other Surgery: Yes (CYST REMOVED FROM CHIN, BACK AND AREA NEXT TO RT RYE) Social History Alcohol Use: No Tobacco Use: No Substance Use: No Allergies-Medications (Allergen,Severity, Reaction): Coded Allergies: Depakote (Verified Allergy, Severe, Diarrhea, 10/18/16) Penicillin (Verified Allergy, Severe, RASH, 10/18/16) Tegretol (Verified Allergy, Severe, Anaphylaxis, 10/18/16) Haldol (Verified Allergy, Unknown, UNKNOWN , 10/18/16) PT STATES SHE IS ALLERGIC TO HALDOL, BUT WILL NOT STATE HER REACTION TO THE MEDICATION OR THE SEVERITY OF THE REACTION. Milk (Verified Allergy, Unknown, 10/28/16) Erythromycin (Verified Adverse Reaction, Severe, DIARRHEA, 10/18/16) [place] (Verified Adverse Reaction, Unknown, 10/18/16) Comments List of her allergies reviewed from the nursing note. Reported Meds & Prescriptions Reported Meds & Active Scripts Active Risperdal Consta Inj (Risperidone) 25 Mg Inj 25 Mg IM Q14D This dose of Risperdal Consta is due on 11/04/2016. Ambien (Zolpidem Tartrate) 10 Mg Tab 10 Mg PO HS PRN Lotrisone Topical (Betamethasone/Clotrimazole) 1-0.05% Cream 1 Applic TOPICAL Q12HR 15 Days Dok (Docusate Sodium) 100 Mg Cap 100 Mg PO BID 15 Days Pantoprazole (Pantoprazole Sodium) 40 Mg Tab 40 Mg PO DAILY 15 Days Meloxicam 7.5 Mg Tab 7.5 Mg PO DAILY 15 Days Lisinopril 10 Mg Tab 10 Mg PO DAILY 15 Days Levothyroxine (Levothyroxine Sodium) 25 Mcg Tab 25 Mcg PO DAILY@0600 15 Days Narrative Medication List of her home medications reviewed from the nursing note. Review of Systems Except as stated in HPI: all other systems reviewed are Neg Physical Exam Narrative GENERAL: Awake, alert, no obvious distress, pressure speech SKIN: Focused skin assessment warm/dry. HEAD: Atraumatic. Normocephalic. EYES: Pupils equal and round. No scleral icterus. No injection or drainage. ENT: No nasal bleeding or discharge. Mucous membranes pink and moist. Poor dental condition, #13 is fracture and caries NECK: Trachea midline. No JVD. CARDIOVASCULAR: Regular rate and rhythm. No murmur appreciated. RESPIRATORY: No accessory muscle use. Clear to auscultation. Breath sounds equal bilaterally. GASTROINTESTINAL: Abdomen soft, non-tender, nondistended. Hepatic and splenic margins not palpable. MUSCULOSKELETAL: No obvious deformities. No clubbing. No cyanosis. No edema. NEUROLOGICAL: Awake and alert. No obvious cranial nerve deficits. Motor grossly within normal limits. Normal speech. PSYCHIATRIC: Psychotic, poor insight and judgment, pressure speech, flight of thoughts Data Data Last Documented VS Vital Signs Date Time Temp Pulse Resp B/P Pulse Ox O2 Delivery O2 Flow Rate FiO2 11/01/16 16:54 85 18 144/77 100 Room Air 11/01/16 10:16 96.2 Orders Complete Blood Count With Diff (11/01/16 00:12) Comprehensive Metabolic Panel (11/01/16 00:12) Urinalysis - C+S If Indicated (11/01/16 00:12) Psych Screen (11/01/16 00:12) Drug Screen, Random Urine (11/01/16 00:12) Clindamycin (Cleocin) (11/01/16 00:15) Thyroid Stimulating Hormone (11/01/16 00:12) Lorazepam (Ativan) (11/01/16 02:45) Diet Regular Basic (11/01/16 Breakfast) Diet Regular Basic (11/01/16 Lunch) Diet Regular Basic (11/01/16 Dinner) Labs Laboratory Tests Test 11/01/16 00:15 White Blood Count 11.0 TH/MM3 Red Blood Count 4.50 MIL/MM3 Hemoglobin 12.6 GM/DL Hematocrit 37.4 % Mean Corpuscular Volume 82.9 FL Mean Corpuscular Hemoglobin 28.0 PG Mean Corpuscular Hemoglobin 33.8 % Concent Red Cell Distribution Width 14.8 % Platelet Count 263 TH/MM3 Mean Platelet Volume 8.3 FL Neutrophils (%) (Auto) 74.6 % Lymphocytes (%) (Auto) 12.9 % Monocytes (%) (Auto) 9.4 % Eosinophils (%) (Auto) 1.9 % Basophils (%) (Auto) 1.2 % Neutrophils # (Auto) 8.2 TH/MM3 Lymphocytes # (Auto) 1.4 TH/MM3 Monocytes # (Auto) 1.0 TH/MM3 Eosinophils # (Auto) 0.2 TH/MM3 Basophils # (Auto) 0.1 TH/MM3 CBC Comment DIFF FINAL Differential Comment Sodium Level 136 MEQ/L Potassium Level 4.2 MEQ/L Chloride Level 104 MEQ/L Carbon Dioxide Level 24.2 MEQ/L Anion Gap 8 MEQ/L Blood Urea Nitrogen 26 MG/DL Creatinine 0.72 MG/DL Estimat Glomerular Filtration 82 ML/MIN Rate Random Glucose 104 MG/DL Calcium Level 8.8 MG/DL Total Bilirubin 0.6 MG/DL Aspartate Amino Transf 24 U/L (AST/SGOT) Alanine Aminotransferase 37 U/L (ALT/SGPT) Alkaline Phosphatase 96 U/L Total Protein 7.6 GM/DL Albumin 3.5 GM/DL Thyroid Stimulating Hormone 0.644 uIU/ML 3rd Gen [facility] Medical Decision Making Medical Screen Exam Complete: Yes Emergency Medical Condition: Yes Medical Record Reviewed: Yes Differential Diagnosis Psychosis, dental caries Narrative Course 12:18 AM patient is given amoxicillin for her poor dental condition and gingivitis. Blood test has been ordered for medical clearance. Eventually she definitely will require psych screen and probably admission for her psychosis. Procedures EKG Prior to Arrival: No Diagnosis Primary Impression: Dental caries Additional Impression: Psychosis Qualified Code: F29 - Psychosis, unspecified psychosis type Eyal Barry MD Nov 01, 2016 00:10
[2016-11-01] MEDS ORDERED: CLINDAMYCIN 150 MG CAP PO ONE (00:15)
[2016-11-01 00:32] LABS: AUTOMATED NEUTROPHIL # 8.2 TH/MM3 (1.8-7.7); BASOPHIL # 0.1 TH/MM3 (0-0.2); BASOPHIL % 1.2 % (0.0-2.0); EOSINOPHIL # 0.2 TH/MM3 (0-0.4); EOSINOPHIL % 1.9 % (0.0-4.0); HEMATOCRIT 37.4 % (35.0-46.0); HEMO FLAGS DIFF FINAL; LYMPH % 12.9 % (9.0-44.0); LYMPHOCYTE # 1.4 TH/MM3 (1.0-4.8); MEAN CELL VOLUME 82.9 FL (80.0-100.0); MEAN CORPUSCULAR HGB CONC 33.8 % (32.0-36.0); MONO % 9.4 % (0.0-8.0); NEUT % 74.6 % (16.0-70.0); PLATELET COUNT 263 TH/MM3 (150-450); RED CELL DISTRIBUTION WIDTH 14.8 % (11.6-17.2)
[2016-11-01 01:01] LABS: ALT (GPT) 37 U/L (10-53); ANION GAP 8 MEQ/L (5-15); AST (GOT) 24 U/L (15-37); BICARBONATE 24.2 MEQ/L (21.0-32.0); BLOOD UREA NITROGEN 26 MG/DL (7-18); CHLORIDE 104 MEQ/L (98-107); GLOMERULAR FILTRATION RATE 82 ML/MIN (>89); POTASSIUM 4.2 MEQ/L (3.5-5.1); SODIUM (NA) 136 MEQ/L (136-145)
[2016-11-01 01:10] LABS: ALKALINE PHOSPHATASE 96 U/L (45-117); TOTAL BILIRUBIN ADULT 0.6 MG/DL (0.2-1.0)
[2016-11-01] MEDS ORDERED: LORazepam 2 MG TAB PO ONE (02:45)
[2016-11-01 09:20] VITALS: BP 141/65; PULSE 87; RESP 15; O2SAT 99
[2016-11-01 10:16] VITALS: BP 144/77; PULSE 85; RESP 18; TEMP 96.2; O2SAT 100
[2016-11-01 16:54] VITALS: BP 144/77; PULSE 85; RESP 18; O2SAT 100
== END 2016-11-01 18:43 | disposition home or self-care (01) ==
LOC: NEPD 23:41 → NEPJ 11-01 18:43
DX: F29 Unspecified psychosis not due to a substance or known physiological condition (principal); K02.9 Dental caries, unspecified; R00.0 Tachycardia, unspecified
CPT/HCPCS: 80053; 84443; 85025; 99284

== ENCOUNTER 2016-12-02 17:21 | Inpatient (IN) | payer OTHER, MEDICARE ==
[~2016-12-02] VITALS: Ht 152.4 cm; Wt 47.3 kg
[2016-12-02 20:27] VITALS: BP 144/69; PULSE 79; RESP 18; TEMP 98.2; O2SAT 99
--- NOTE | 2016-12-02 20:32 | PD ---
HPI Chief Complaint: Psychiatric Symptoms Time Seen by Provider: 20:25 Travel History International Travel<30 days: No Contact w/Intl Traveler<30days: No Traveled to known affect area: No History of Present Illness HPI 66-year-old white female presents to emergency department under Vazquez act by PD. According to the Vazquez act the patient had made statements that she was to commit suicide by jumping off her condo balcony. The patient here states that this is not true. She does not understand why she is here. She denies any suicidal homicidal ideation. The patient states that she does not want answer anymore questions. She states that she knows many influential people and does not understand why she is here. The patient does the dye any active medical complaints. PFSH Past Medical History Arthritis: Yes Asthma: No Autoimmune Disease: No Blood Disorders: No Bipolar Disorder: Yes Anxiety: Yes Depression: Yes Heart Rhythm Problems: No Cancer: No Cardiac Catheterization: No Cardiovascular Problems: Yes High Cholesterol: Yes Chest Pain: No Congestive Heart Failure: No COPD: No Cerebrovascular Accident: Yes Diminished Hearing: No Endocrine: Yes GERD: Yes Genitourinary: No Headaches: No Hepatitis: No Hiatal Hernia: No Herniated Disk: Yes (LOWER BACK) Hypertension: Yes Immune Disorder: No Kidney Stones: No Musculoskeletal: Yes Neurologic: Yes Psychiatric: Yes (Extensive history of treatment for Bipolar Disorder) Reproductive: No Respiratory: No Immunizations Current: Yes Myocardial Infarction: No Renal Failure: No Sleep Apnea: No Thyroid Disease: Yes Ulcer: No Menopausal: Yes : 0 Para: 0 Past Surgical History Abdominal Surgery: No AICD: No Appendectomy: Yes Arteriovenous Shunt: No Cardiac Surgery: No Coronary Artery Bypass Graft: No Ear Surgery: No Endocrine Surgery: No Eye Surgery: No Genitourinary Surgery: No Gynecologic Surgery: No Insulin Pump: No Joint Replacement: No Neurologic Surgery: No Oral Surgery: No Pacemaker: No Thoracic Surgery: No Other Surgery: Yes (CYST REMOVED FROM CHIN, BACK AND AREA NEXT TO RT RYE) Social History Alcohol Use: No Tobacco Use: No Substance Use: Yes Allergies-Medications (Allergen,Severity, Reaction): Coded Allergies: Depakote (Verified Allergy, Severe, Diarrhea, 10/18/16) Penicillin (Verified Allergy, Severe, RASH, 10/18/16) Tegretol (Verified Allergy, Severe, Anaphylaxis, 10/18/16) Haldol (Verified Allergy, Unknown, UNKNOWN , 10/18/16) PT STATES SHE IS ALLERGIC TO HALDOL, BUT WILL NOT STATE HER REACTION TO THE MEDICATION OR THE SEVERITY OF THE REACTION. Milk (Verified Allergy, Unknown, 10/28/16) Erythromycin (Verified Adverse Reaction, Severe, DIARRHEA, 10/18/16) [place] (Verified Adverse Reaction, Unknown, 10/18/16) Reported Meds & Prescriptions Reported Meds & Active Scripts Active Risperdal Consta Inj (Risperidone) 25 Mg Inj 25 Mg IM Q14D This dose of Risperdal Consta is due on 11/04/2016. Ambien (Zolpidem Tartrate) 10 Mg Tab 10 Mg PO HS PRN Lotrisone Topical (Betamethasone/Clotrimazole) 1-0.05% Cream 1 Applic TOPICAL Q12HR 15 Days Dok (Docusate Sodium) 100 Mg Cap 100 Mg PO BID 15 Days Pantoprazole (Pantoprazole Sodium) 40 Mg Tab 40 Mg PO DAILY 15 Days Meloxicam 7.5 Mg Tab 7.5 Mg PO DAILY 15 Days Lisinopril 10 Mg Tab 10 Mg PO DAILY 15 Days Levothyroxine (Levothyroxine Sodium) 25 Mcg Tab 25 Mcg PO DAILY@0600 15 Days Review of Systems ROS Limitations: Uncooperative, Psychotic Physical Exam Narrative GENERAL: Well-nourished, well-developed patient. Patient appears to be manic. She is hyperverbal at times then denies answer questions. SKIN: Warm and dry. HEAD: Normocephalic and atraumatic. EYES: No scleral icterus. No injection or drainage. ENT: No nasal drainage noted. Mucous membranes pink. Airway patent. NECK: Supple, trachea midline. Moves head freely without obvious discomfort. CARDIOVASCULAR: Regular rate and rhythm without murmurs, gallops, or rubs. RESPIRATORY: Breath sounds equal bilaterally. No accessory muscle use. GASTROINTESTINAL: Abdomen soft, non-tender, nondistended. EXTREMITIES: No cyanosis or edema. BACK: Nontender without obvious deformity. No CVA tenderness. NEURO: Patient is alert and oriented. no sensorimotor deficits. Nonfocal. Normal speech. PSYCH: The patient is hyperverbal. She has poor insight and judgment. She does not appear to be having delusions. Data Data Last Documented VS Vital Signs Date Time Temp Pulse Resp B/P Pulse Ox O2 Delivery O2 Flow Rate FiO2 8/3/17 20:27 98.2 79 18 144/69 99 Orders Complete Blood Count With Diff (12/02/16 19:56) Comprehensive Metabolic Panel (12/02/16 19:56) Psych Screen (12/02/16 19:56) Drug Screen, Random Urine (12/02/16 19:56) Alcohol (Ethanol) (12/02/16 19:56) Labs Laboratory Tests Test 12/02/16 12/02/16 17:37 20:55 White Blood Count 8.0 TH/MM3 Red Blood Count 5.00 MIL/MM3 Hemoglobin 14.0 GM/DL Hematocrit 42.8 % Mean Corpuscular Volume 85.5 FL Mean Corpuscular Hemoglobin 27.9 PG Mean Corpuscular Hemoglobin 32.6 % Concent Red Cell Distribution Width 14.0 % Platelet Count 298 TH/MM3 Mean Platelet Volume 8.5 FL Neutrophils (%) (Auto) 71.1 % Lymphocytes (%) (Auto) 17.6 % Monocytes (%) (Auto) 8.3 % Eosinophils (%) (Auto) 2.0 % Basophils (%) (Auto) 1.0 % Neutrophils # (Auto) 5.7 TH/MM3 Lymphocytes # (Auto) 1.4 TH/MM3 Monocytes # (Auto) 0.7 TH/MM3 Eosinophils # (Auto) 0.2 TH/MM3 Basophils # (Auto) 0.1 TH/MM3 CBC Comment DIFF FINAL Differential Comment Sodium Level 139 MEQ/L Potassium Level 4.1 MEQ/L Chloride Level 104 MEQ/L Carbon Dioxide Level 27.7 MEQ/L Anion Gap 7 MEQ/L Blood Urea Nitrogen 20 MG/DL Creatinine 0.66 MG/DL Estimat Glomerular Filtration 90 ML/MIN Rate Random Glucose 71 MG/DL Calcium Level 9.3 MG/DL Total Bilirubin 0.5 MG/DL Aspartate Amino Transf 18 U/L (AST/SGOT) Alanine Aminotransferase 31 U/L (ALT/SGPT) Alkaline Phosphatase 89 U/L Total Protein 7.8 GM/DL Albumin 4.0 GM/DL Ethyl Alcohol Level LESS THAN 3 MG/DL Urine Opiates Screen NEG Urine Barbiturates Screen NEG Urine Amphetamines Screen NEG Urine Benzodiazepines Screen NEG Urine Cocaine Screen NEG Urine Cannabinoids Screen NEG MDM Medical Decision Making Medical Screen Exam Complete: Yes Emergency Medical Condition: Yes Medical Record Reviewed: Yes Interpretation(s) Laboratory Tests Test 12/02/16 12/02/16 17:37 20:55 White Blood Count 8.0 TH/MM3 Red Blood Count 5.00 MIL/MM3 Hemoglobin 14.0 GM/DL Hematocrit 42.8 % Mean Corpuscular Volume 85.5 FL Mean Corpuscular Hemoglobin 27.9 PG Mean Corpuscular Hemoglobin 32.6 % Concent Red Cell Distribution Width 14.0 % Platelet Count 298 TH/MM3 Mean Platelet Volume 8.5 FL Neutrophils (%) (Auto) 71.1 % Lymphocytes (%) (Auto) 17.6 % Monocytes (%) (Auto) 8.3 % Eosinophils (%) (Auto) 2.0 % Basophils (%) (Auto) 1.0 % Neutrophils # (Auto) 5.7 TH/MM3 Lymphocytes # (Auto) 1.4 TH/MM3 Monocytes # (Auto) 0.7 TH/MM3 Eosinophils # (Auto) 0.2 TH/MM3 Basophils # (Auto) 0.1 TH/MM3 CBC Comment DIFF FINAL Differential Comment Sodium Level 139 MEQ/L Potassium Level 4.1 MEQ/L Chloride Level 104 MEQ/L Carbon Dioxide Level 27.7 MEQ/L Anion Gap 7 MEQ/L Blood Urea Nitrogen 20 MG/DL Creatinine 0.66 MG/DL Estimat Glomerular Filtration 90 ML/MIN Rate Random Glucose 71 MG/DL Calcium Level 9.3 MG/DL Total Bilirubin 0.5 MG/DL Aspartate Amino Transf 18 U/L (AST/SGOT) Alanine Aminotransferase 31 U/L (ALT/SGPT) Alkaline Phosphatase 89 U/L Total Protein 7.8 GM/DL Albumin 4.0 GM/DL Ethyl Alcohol Level LESS THAN 3 MG/DL Urine Opiates Screen NEG Urine Barbiturates Screen NEG Urine Amphetamines Screen NEG Urine Benzodiazepines Screen NEG Urine Cocaine Screen NEG Urine Cannabinoids Screen NEG Differential Diagnosis MDM: High Differential diagnoses: Schizophrenia, schizoaffective disorder, bipolar, anxiety, depression, adjustment reaction, mood disorder NOS, ODD, depressive disorder NOS, dementia, dementia with agitation, psychosis NOS, substance induced mood disorder, intermittent explosive disorder, Asperger syndrome, infection,electrolyte abnormality, malingering. Narrative Course Mental health screening discussed with the patient. Psychiatric screen ordered. The patient has been medically cleared. This is medical clearance for psychiatric admission, bipolar-manic episode Diagnosis Primary Impression: Medical clearance for psychiatric admission Additional Impression: Bipolar disorder, manic, moderate Condition: Stable Keelen,Brad T. PA Dec 02, 2016 20:32
[2016-12-02 20:55] LABS: AUTOMATED NEUTROPHIL # 5.7 TH/MM3 (1.8-7.7); BASOPHIL # 0.1 TH/MM3 (0-0.2); EOSINOPHIL # 0.2 TH/MM3 (0-0.4); HEMATOCRIT 42.8 % (35.0-46.0); HEMO FLAGS DIFF FINAL; LYMPH % 17.6 % (9.0-44.0); LYMPHOCYTE # 1.4 TH/MM3 (1.0-4.8); MEAN CELL VOLUME 85.5 FL (80.0-100.0); MEAN CORPUSCULAR HEMOGLOBIN 27.9 PG (27.0-34.0); MEAN CORPUSCULAR HGB CONC 32.6 % (32.0-36.0); MONO % 8.3 % (0.0-8.0); NEUT % 71.1 % (16.0-70.0); PLATELET COUNT 298 TH/MM3 (150-450)
[2016-12-02 21:01] LABS: ANION GAP 7 MEQ/L (5-15); AST (GOT) 18 U/L (15-37); BICARBONATE 27.7 MEQ/L (21.0-32.0); BLOOD UREA NITROGEN 20 MG/DL (7-18); CHLORIDE 104 MEQ/L (98-107); GLOMERULAR FILTRATION RATE 90 ML/MIN (>89); POTASSIUM 4.1 MEQ/L (3.5-5.1); SODIUM (NA) 139 MEQ/L (136-145)
[2016-12-02 21:02] LABS: ALT (GPT) 31 U/L (10-53)
[2016-12-02 21:04] LABS: ALKALINE PHOSPHATASE 89 U/L (45-117); TOTAL BILIRUBIN ADULT 0.5 MG/DL (0.2-1.0)
[2016-12-02 21:58] LABS: AMPHETAMINE, URINE NEG (NEG); BARBITURATES, URINE NEG (NEG); COCAINE, URINE NEG (NEG)
[2016-12-02] MEDS ORDERED: LORazepam 2 MG/ML VIAL ONE (23:20)
[2016-12-02] MEDS ORDERED: LORazepam 2 MG/ML VIAL IM ONE (23:30)
[2016-12-02] MEDS ORDERED: ZOLPIDEM TARTRATE 10 MG TAB PO ONE (23:45)
[2016-12-03 03:44] VITALS: BP 146/82; PULSE 86; RESP 18; TEMP 98; O2SAT 98
[2016-12-03] MEDS: REMOVE OLD NICOTINE PATCH T-DERMAL SCH ×2 (06:00→21:00)
[2016-12-03 06:07] VITALS: BP 128/79; PULSE 80; RESP 18; TEMP 97.9; O2SAT 96
[2016-12-03 08:13] VITALS: BP 160/70; PULSE 85; RESP 18; TEMP 98; O2SAT 99
[2016-12-03] MEDS ORDERED: ALUMINUM/MAGNESIUM/SIMETH 30 ML CUP PO PRN ×2 (08:15→14:00)
[2016-12-03] MEDS ORDERED: MAGNESIUM HYDROXIDE SUSP 30 ML CUP PO PRN ×2 (08:15→14:00)
[2016-12-03] MEDS: MELOXICAM 7.5 MG TAB PO SCH ×2 (09:00→09:03)
[2016-12-03] MEDS: risperiDONE 3 MG TAB PO SCH ×3 (09:00→21:00)
[2016-12-03] MEDS: risperiDONE 1 MG TAB PO SCH ×3 (09:00→21:00)
[2016-12-03] MEDS: DOCUSATE SODIUM 100 MG CAP PO SCH (09:03)
[2016-12-03] MEDS: LISINOPRIL 10 MG TAB PO SCH (09:04)
[2016-12-03] MEDS: PANTOPRAZOLE SOD 40 MG DELAYED RELEASE TAB PO SCH (09:05)
[2016-12-03] MEDS: NICOTINE 21 MG/24 HR PATCH T-DERMAL SCH (09:46)
[2016-12-03] MEDS ORDERED: ACETAMINOPHEN 325 MG TAB PO PRN (14:00)
--- NOTE | 2016-12-03 14:15 | HHI.HP ---
Provisional Diagnosis Admission Date Dec 03, 2016 at 07:42 [place] I. Bipolar disorder mixed current episode mixed severe with psychotic features f 31.64 Certification of Person's Competence To Provide Express and Informed Consent I have personally examined Verenice Perez , a person being served at [facility] on, Dec 03, 2016 13:59. Express and informed consent means consent voluntarily given in writing, by a competent person, after sufficient explanation and disclosure of the subject matter involved to enable the person to make a knowing and willful decision without any element of force, fraud, deceit, duress, or other form of constraint or coercion. This person is 18 years of age or older, is not now known to be incompetent to consent to treatment with a guardian advocate, and does not have a health care surrogate or proxy currently making medical treatment decisions. I have found this person to be one of the following: [] Competent to provide express and informed consent, as defined above, for voluntary admission to this facility and is competent to provide express and informed consent for treatment. He/she has the consistent capacity to make well reasoned, willful, and knowing decisions concerning his or her medical or mental health treatment. The person fully and consistently understands the purpose of the admission for examination/placement and is fully capable of personally exercising all rights assured under [place]xxx] Incompetent to provide express and informed consent to voluntary admission , and this is incompetent to provide express and informed consent to treatment. The person must be transferred to involuntary status and a petition for a guardian advocate filed with the Circuit Court. [] Refusing to provide express and informed consent to voluntary admission but is competent to provide express and informed consent for treatment. The person must be discharged or transferred to involuntary status. Form shall be completed within 24 hours of a person's arrival at the receiving facility and filed in the clinical record of each person: 1. Admitted on a voluntary basis 2. Permitted to provide express and informed consent to his/her own treatment 3. Allowed to transfer from involuntary to voluntary status 4. Prior to permitting a person to consent to his or her own treatment after having been previously found incompetent to consent to treatment. History of Present Illness Capacity: Lacks Capacity HPI Patient is a 66-year-old white female well-known post multiple prior contacts comes here under [place] act by the [place] [employer] dated 12/02/16 at 1706 hrs. That document reviewed. Essentially stating; the armstrong made several comments about killing herself jumping off the seventh floor balcony. Patient seen screen in the ED urine toxicology negative blood alcohol level negative. Of interest patient was hospitalized here 10/19/16 through 10/29/[address] Resendiz. Patient discharged on Resporal 1 mg twice a day and Risperdal Consta follow-up with [facility]. Patient seen in her room with nurse Ana. Patient markedly disorganized confused angry irritable and intense reflecting questions back at myself and that the nurse. Needing much redirection to stay on focus is markedly tangential. She denies having any mental illness stated she never did keep her appointment at [facility]. She denies need for compliance with medications. She is quite vague about her living situation it appears she may have been homeless for a period of time. She does not know why she is here how she got here. This is quite similar to her past hospitalizations which are numerous. She somewhat vague at this time also related to suicidality or appropriate description of her mood. In any event at the present time patient meets criteria for involuntary psychiatric hospitalization under the [employer] act. I'll do first opinion request second opinion. I feel she does not have capacity thus I'll ask for healthcare surrogate and guardian advocate. Because there are no candidates at this time for healthcare surrogate remain need to treat this patient's behavior is on the behavior by behavior basis. We will also the hospitalist consult will less feels patient's medical issues. Review of Systems ROS Limitations: Altered Mental Status Constitutional: DENIES: Diaphoretic episodes, Fatigue, Fever, Weight gain, Weight loss, Chills, Dizziness, Change in appetite, Night Sweats Endocrine: DENIES: Abnorml menstrual pattern, Heat/cold intolerance, Polydipsia , Polyuria, Polyphagia Eyes: DENIES: Blurred vision, Diplopia, Eye inflammation, Eye pain, Vision loss , Photosensitivity, Double Vision Ears, nose, mouth, throat: DENIES: Tinnitus, Hearing loss, Vertigo, Nasal discharge, Oral lesions, Throat pain, Hoarseness, Ear Pain, Running Nose, Epistaxis, Sinus Pain, Toothache, Odynophagia Respiratory: DENIES: Apneas, Cough, Snoring, Wheezing, Hemoptysis, Sputum production, Shortness of breath Cardiovascular: DENIES: Chest pain, Palpitations, Syncope, Dyspnea on Exertion , PND, Lower Extremity Edema, Orthopnea, Claudication Gastrointestinal: DENIES: Abdominal pain, Black stools, Bloody stools, Constipation, Diarrhea, Nausea, Vomiting, Difficulty Swallowing, Anorexia Musculoskeletal: DENIES: Joint pain, Muscle aches, Stiffness, Joint Swelling, Back pain, Neck pain Integumentary: DENIES: Abnormal pigmentation, Pruritus, Rash, Nail changes, Breast masses, Breast skin changes, Nipple discharge Hematologic/lymphatic: DENIES: Bruising, Lymphadenopathy Immunologic/allergic: DENIES: Eczema, Urticaria Neurologic: DENIES: Abnormal gait, Headache, Localized weakness, Paresthesias, Seizures, Speech Problems, Tremor, Poor Balance Psychiatric: COMPLAINS OF: Mood changes (patient mixed manic), Agitation, Suicidal Ideation Past Psych History Psychological trauma history On Tuesday at this time due to patient psychosis Violence risk - others (6 mos) Patient quite aggressive and intrusive intense somewhat intimidating Violence risk - self (6 mos) Patient make vague suicidal statements to place Substance Abuse History Drugs/Alcohol past 12 months Patient negative urine toxicology, has had multiple negative urine toxicology is now call levels of the past Past Family Social History Coded Allergies: Ativan (Verified Allergy, Severe, Swelling, 12/02/16) Depakote (Verified Allergy, Severe, Diarrhea, 10/18/16) Penicillin (Verified Allergy, Severe, RASH, 10/18/16) Tegretol (Verified Allergy, Severe, Anaphylaxis, 10/18/16) Haldol (Verified Allergy, Unknown, UNKNOWN , 10/18/16) PT STATES SHE IS ALLERGIC TO HALDOL, BUT WILL NOT STATE HER REACTION TO THE MEDICATION OR THE SEVERITY OF THE REACTION. Milk (Verified Allergy, Unknown, 10/28/16) Erythromycin (Verified Adverse Reaction, Severe, DIARRHEA, 10/18/16) [place] (Verified Adverse Reaction, Unknown, 10/18/16) Active Scripts Zolpidem (Ambien)10 Mg Tab10 Mg PO HS PRN (INSOMNIA) #15 TAB Ref 1 Prov:Flavio Resendiz MD 10/29/16 Betamethasone-Clotrimazole Topical (Lotrisone Topical)1-0.05% Cream1 Applic TOPICAL Q12HR 15 Days Ref 1 Prov:Flavio Resendiz MD 06/28/16 Docusate Sodium (Dok)100 Mg [id number] Mg PO BID 15 Days Ref 1 Prov:Flavio Resendiz MD 06/28/16 Pantoprazole 40 Mg Tab40 Mg PO DAILY 15 Days Ref 1 Prov:Flavio Resendiz MD 06/28/16 Meloxicam 7.5 Mg Tab7.5 Mg PO DAILY 15 Days Ref 1 Prov:Flavio Resendiz MD 06/28/16 Lisinopril 10 Mg Tab10 Mg PO DAILY 15 Days Ref 1 Prov:Flavio Resendiz MD 06/28/16 Levothyroxine 25 Mcg Tab25 Mcg PO DAILY@0600 15 Days Ref 1 Prov:Flavio Resendiz MD 06/28/16 Discontinued Scripts Risperidone Inj (Risperdal Consta Inj)25 Mg Inj25 Mg IM Q14D #2 VIAL Ref 0 This dose of Risperdal Consta is due on 11/04/2016. Prov:Flavio Resendiz MD 10/29/16 Risperidone (Risperdal)1 Mg Tab4 Mg PO BID 21 Days Ref 0 Take oral Risperdal for 3 weeks then stop. Be sure to get your next Risperdal Consta injection. Prov:Flavio Resendiz MD 10/29/16 Current Medications Medications (Trade) Dose Ordered Sig/Lety Route Start Time Stop Time Status Last Admin (Colace) 100 mg BID PO 12/03/16 09:00 12/03/16 09:03 (Synthroid) 25 mcg DAILY@06 PO 12/04/16 06:00 (Prinivil) 10 mg DAILY PO 12/03/16 09:00 12/03/16 09:04 (Mobic) 7.5 mg DAILY PO 12/03/16 09:00 (Protonix) 40 mg DAILY PO 12/03/16 09:00 12/03/16 09:05 (Ambien) 10 mg HS PO 12/03/16 21:00 (risperDAL) 3 mg BID PO 12/03/16 09:00 (risperDAL) 1 mg BID PO 12/03/16 09:00 (Tylenol) 650 mg Q4H PRN PO 12/03/16 08:15 (Milk Of Magnesia Liq) 30 ml DAILY PRN PO 12/03/16 08:15 (Mag-Al Plus Susp Liq) 30 ml Q6H PRN PO 12/03/16 08:15 (Habitrol 21 Mg Patch.24 Hr) 1 patch DAILY T-DERMAL 12/03/16 09:00 12/03/16 09:46 Miscellaneous Information 1 HS T-DERMAL 12/03/16 21:00 Family History Pulmonary this time due to patient psychosis Social History It appears patient may be homeless at this time Patient's Strengths (min. 2) Patient verbal able exercise health care Physical Exam Patient medically cleared ED at the present time patient sitting is somewhat aroused agitated state in her room nurse Ana present throughout session. Patient no physical distress, , Patient no respiratory distress. No complaints of abdominal pain. Patient moving all 4 extremities without difficulty no abnormal motor movements noted Vital Signs Vital Signs Date Time Temp Pulse Resp B/P Pulse Ox O2 Delivery O2 Flow Rate FiO2 12/03/16 08:13 98.0 85 18 160/70 99 12/03/16 06:07 Room Air Mental Status Examination Alert fairly well oriented markedly aroused short stockily built white female with short graying blonde hair. When she is markedly resistant and uncooperative to questions Appearance Disheveled Speech: Pressured, Rapid, Circumstantial, Tangential Orientation: Person Memory: Impaired (describe) Thought Process: Loose Association Thought Content: Paranoid Language Poor Fund of Knowledge Poor Attention and Concentration: Other (poor) Suicidal Ideation: Yes (made vague suicidal threats to police) Previous Suicide Attempts: No Homicidal Ideation: No Previous Homicide Attempts: No Insight: Poor Judgment: Poor Affect: Other (increase range and intensity) Mood: Angry, Sad, Oppositional, Irritable, Manic Motor Activity: Normal gait Assessment & Plan Problem List: (1) BIPOLAR DISORD, CRNT EPISODE MIXED, SEVERE, W PSYCH FEATURES ICD Code: F31.64 Assessment & Plan Estimated LOS: 7 days patient quite mixed manic and psychotic. With no insight. Denying mental illness denying need for medication. She meets criteria for involuntary psychiatric hospitalization I will do first opinion request second opinion will also ask for healthcare surrogate and guardian advocate Discharge Planning To be determined Request HC Surrog/Guard Advoc?: Yes Jesus Wolf MD Dec 03, 2016 14:15
--- NOTE | 2016-12-03 17:12 | PD.CONS ---
HPI Service [facility] Hospitalists Consult Requested By Psychiatric services Reason for Consult Medical management Primary Care Physician No Primary Care Physician Diagnoses: History of Present Illness Written by Monica Pope PA-C acting as scribe for Dr. Vail on 12/03/16 at 16 :53. This is a 66-year-old female with a past medical history significant for bipolar disorder, hypertension, hypothyroidism, dyslipidemia, CVA and GERD who was brought into the emergency department under [place] act due to patient making statements that she was going to commit suicide by jumping off of her condo balcony. Patient was discharged from the psychiatric unit on 11/28/16. She was to follow up with [facility] but failed to do so and has been out of her medications. Hospitalist services have been consulted for management of medical condition. Patient seen and examined today. Patient is a poor historian due to her current psychosis. Some of her responses are appropriate but mostly her responses are disorganized and loosely related to the question asked. She denies any complaints at present. Review of Systems Except as stated in HPI: all other systems reviewed are Neg (given patient's current psychosis her history is unreliable) Past Family Social History Allergies: Coded Allergies: Ativan (Verified Allergy, Severe, Swelling, 12/02/16) Depakote (Verified Allergy, Severe, Diarrhea, 10/18/16) Penicillin (Verified Allergy, Severe, RASH, 10/18/16) Tegretol (Verified Allergy, Severe, Anaphylaxis, 10/18/16) Haldol (Verified Allergy, Unknown, UNKNOWN , 10/18/16) PT STATES SHE IS ALLERGIC TO HALDOL, BUT WILL NOT STATE HER REACTION TO THE MEDICATION OR THE SEVERITY OF THE REACTION. Milk (Verified Allergy, Unknown, 10/28/16) Erythromycin (Verified Adverse Reaction, Severe, DIARRHEA, 10/18/16) [place] (Verified Adverse Reaction, Unknown, 10/18/16) Past Medical History Hypertension Hypothyroidism Hyperlipidemia CVA GERD Bipolar disorder Anxiety Depression Past Surgical History Appendectomy Lobectomy for removal of breast mass Removal of cyst from chin Reported Medications Risperdal Consta Inj (Risperidone) 25 Mg Inj 25 Mg IM Q14D This dose of Risperdal Consta is due on 11/04/2016. Ambien (Zolpidem Tartrate) 10 Mg Tab 10 Mg PO HS PRN Lotrisone Topical (Betamethasone/Clotrimazole) 1-0.05% Cream 1 Applic TOPICAL Q12HR 15 Days Dok (Docusate Sodium) 100 Mg Cap 100 Mg PO BID 15 Days Pantoprazole (Pantoprazole Sodium) 40 Mg Tab 40 Mg PO DAILY 15 Days Meloxicam 7.5 Mg Tab 7.5 Mg PO DAILY 15 Days Lisinopril 10 Mg Tab 10 Mg PO DAILY 15 Days Levothyroxine (Levothyroxine Sodium) 25 Mcg Tab 25 Mcg PO DAILY@0600 15 Days Active Ordered Medications Current Medications Medications (Trade) Dose Ordered Sig/Lety Route Start Time Stop Time Status Last Admin (Colace) 100 mg BID PO 12/03/16 09:00 12/03/16 09:03 (Synthroid) 25 mcg DAILY@06 PO 12/04/16 06:00 (Prinivil) 10 mg DAILY PO 12/03/16 09:00 12/03/16 09:04 (Mobic) 7.5 mg DAILY PO 12/03/16 09:00 (Protonix) 40 mg DAILY PO 12/03/16 09:00 12/03/16 09:05 (Ambien) 10 mg HS PO 12/03/16 21:00 (risperDAL) 3 mg BID PO 12/03/16 09:00 (risperDAL) 1 mg BID PO 12/03/16 09:00 (Tylenol) 650 mg Q4H PRN PO 12/03/16 08:15 (Milk Of Magnesia Liq) 30 ml DAILY PRN PO 12/03/16 08:15 (Mag-Al Plus Susp Liq) 30 ml Q6H PRN PO 12/03/16 08:15 (Habitrol 21 Mg Patch.24 Hr) 1 patch DAILY T-DERMAL 12/03/16 09:00 12/03/16 09:46 Miscellaneous Information 1 HS T-DERMAL 12/03/16 21:00 Family History When asked about her family's medical history patient responds by saying "my mother didn't have cancer" and "Dad was a [employer] [employer] pilot" Social History Patient admits to tobacco use of a pack per day unable to obtain specifics When asked about alcohol consumption patient states "I'm gone" Patient reports using marijuana because she "might have cancer" Physical Exam Vital Signs Vital Signs Date Time Temp Pulse Resp B/P Pulse Ox O2 Delivery O2 Flow Rate FiO2 12/03/16 08:13 98.0 85 18 160/70 99 12/03/16 06:07 97.9 80 18 128/79 96 Room Air 12/03/16 03:44 98.0 86 18 146/82 98 Room Air 12/02/16 20:27 98.2 79 18 144/69 99 Physical Exam GENERAL: This is a well-nourished, well-developed patient, in no apparent distress. Awake and alert SKIN: No rashes, ecchymoses or lesions. Cool and dry. HEAD: Atraumatic. Normocephalic. No temporal or scalp tenderness. EYES: Pupils equal round and reactive. Extraocular motions intact. No scleral icterus. No injection or drainage. ENT: Nose without bleeding, purulent drainage. Throat without erythema, tonsillar hypertrophy or exudate. Uvula midline. Airway patent. NECK: Trachea midline. No lymphadenopathy. Supple, nontender, no meningeal signs. CARDIOVASCULAR: Regular rate and rhythm without murmurs, gallops, or rubs. RESPIRATORY: Clear to auscultation. Breath sounds equal bilaterally. No wheezes , rales, or rhonchi. GASTROINTESTINAL: Abdomen soft, non-tender, nondistended. No hepato-splenomegaly , or palpable masses. No guarding. MUSCULOSKELETAL: Extremities without clubbing, cyanosis, or edema. No joint tenderness, effusion, or edema noted. No calf tenderness. NEUROLOGICAL: Awake and alert. Able to move all extremities. PSYCHIATRIC: Tangential speech. Loose association thought process. Laboratory Laboratory Tests Test 12/02/16 12/02/16 17:37 20:55 White Blood Count 8.0 Red Blood Count 5.00 Hemoglobin 14.0 Hematocrit 42.8 Mean Corpuscular Volume 85.5 Mean Corpuscular Hemoglobin 27.9 Mean Corpuscular Hemoglobin 32.6 Concent Red Cell Distribution Width 14.0 Platelet Count 298 Mean Platelet Volume 8.5 Neutrophils (%) (Auto) 71.1 Lymphocytes (%) (Auto) 17.6 Monocytes (%) (Auto) 8.3 Eosinophils (%) (Auto) 2.0 Basophils (%) (Auto) 1.0 Neutrophils # (Auto) 5.7 Lymphocytes # (Auto) 1.4 Monocytes # (Auto) 0.7 Eosinophils # (Auto) 0.2 Basophils # (Auto) 0.1 CBC Comment DIFF FINAL Differential Comment Sodium Level 139 Potassium Level 4.1 Chloride Level 104 Carbon Dioxide Level 27.7 Anion Gap 7 Blood Urea Nitrogen 20 Creatinine 0.66 Estimat Glomerular Filtration 90 Rate Random Glucose 71 Calcium Level 9.3 Total Bilirubin 0.5 Aspartate Amino Transf 18 (AST/SGOT) Alanine Aminotransferase 31 (ALT/SGPT) Alkaline Phosphatase 89 Total Protein 7.8 Albumin 4.0 Ethyl Alcohol Level LESS THAN 3 Urine Opiates Screen NEG Urine Barbiturates Screen NEG Urine Amphetamines Screen NEG Urine Benzodiazepines Screen NEG Urine Cocaine Screen NEG Urine Cannabinoids Screen NEG Result Diagram: 12/02/16 1737 12/02/16 173 Assessment and Plan Assessment and Plan 66-year-old female with a past medical history significant for bipolar disorder , hypertension, hypothyroidism, dyslipidemia, CVA and GERD who was brought into the emergency department under [place] act due to patient making statements that she was given a commit suicide by jumping off of her condo balcony. She has been admitted to the psychiatric unit and Hospitalist services have been consulted for medical management. Bipolar disorder with psychotic features Management per psychiatric team Hypertension Resume patient's home dose of lisinopril Hypothyroidism TSH 11/01/16 was 0.644 Continue patient's home dose of levothyroxine GERD Resume PPI DVT prophylaxis Patient is ambulatory Thank you very kindly for this consultation. We will follow along with you. This note was transcribed by aggie Pope PA-C. I, Dr. Nanci Vail personally performed the history, physical exam, and medical decision making; and confirmed the accuracy of the information in the transcribed note. Authenticated by Dr. Nanci Vail on 12/03/16 at 16:53. Discussed Condition With Patient and nursing staff Monica Pope Dec 03, 2016 17:12 Nanci Vail MD Dec 04, 2016 08:42
[2016-12-03 18:16] VITALS: BP 151/71; PULSE 88; RESP 18; TEMP 98; O2SAT 97
[2016-12-03 18:50] VITALS: BP 171/78; PULSE 84; RESP 20; O2SAT 100
--- NOTE | 2016-12-03 19:15 | RADRPT ---
EXAM DATE/TIME: 12/03/2016 19:01 [facility] COMPARISON: No previous studies available for comparison. INDICATIONS : Trauma to head. RADIATION DOSE: 41.70 CTDIvol (mGy) MEDICAL HISTORY : Hypercholesterolemia. Cardiovascular disease Hypertension.CVA, Bipolar. SURGICAL HISTORY : None. ENCOUNTER: Initial ACUITY: 1 day PAIN SCALE: 7/10 LOCATION: Bilateral cranial TECHNIQUE: Multiple contiguous axial images were obtained of the head. Using automated exposure control and adj ustment of the mA and/or kV according to patient size, radiation dose was kept as low as reasonably a chievable to obtain optimal diagnostic quality images. DICOM format image data is available electro nically for review and comparison. FINDINGS: CEREBRUM: The ventricles are normal for age. No evidence of midline shift, mass lesion, hemorrhage or acute in farction. No extra-axial fluid collections are seen. POSTERIOR FOSSA: The cerebellum and brainstem are intact. The 4th ventricle is midline. The cerebellopontine angle i s unremarkable. EXTRACRANIAL: The visualized portion of the orbits is intact. SKULL: Small left frontal scalp thickening or hematoma. The calvaria is intact. No evidence of skull fract ure. CONCLUSION: 1. No acute findings in the brain. 2. Small area of left frontal scalp swelling without evidence of skull fracture. Scott Charles MD on December 03, 2016 at 19:12 Board Certified Radiologist. This report was verified electronically.
[2016-12-03] MEDS ORDERED: oxyCODONE/ACETAMINOPHEN 5 MG/325 MG TAB PO SCH ×2 (19:30)
--- NOTE | 2016-12-03 19:35 | RADRPT ---
EXAM DATE/TIME: 12/03/2016 19:01 [facility] COMPARISON: CT BRAIN W/O CONTRAST, December 03, 2016, 19:01. INDICATIONS : Trauma to face. RADIATION DOSE: 56.76 CTDIvol (mGy) MEDICAL HISTORY : Cardiovascular disease. Hypertension. Hypercholesterolemia.CVA, Bipolar. SURGICAL HISTORY : None. ENCOUNTER: Initial ACUITY: 1 day PAIN SCORE: 6/10 LOCATION: Bilateral facial TECHNIQUE: Volumetric scanning of the facial bones was performed. Using automated exposure control and adjustme nt of the mA and/or kV according to patient size, radiation dose was kept as low as reasonably achiev able to obtain optimal diagnostic quality images. DICOM format image data is available electronicall y for review and comparison. FINDINGS: ORBITS: The orbital and infraorbital osseous structures are intact. The retroconal structures have a normal configuration. No radiopaque foreign bodies are seen. NASAL BONE: The nasal bone and maxillary spine are intact ZYGOMATIC ARCHES: Symmetric without evidence of fracture. SINUSES: The maxillary, ethmoid and frontal sinuses are intact. No air-fluid levels seen. NASAL CAVITY: The nasal septum is intact and midline. The lacrimal ducts are intact. SOFT TISSUES: No radiopaque foreign bodies seen. No soft-tissue swelling is seen. INTRACRANIAL: No intracranial air seen. CRIBIFORM PLATE: Grossly intact. CONCLUSION: Negative CT facial bones. Scott Charles MD on December 03, 2016 at 19:32 Board Certified Radiologist. This report was verified electronically.
[2016-12-03] MEDS ORDERED: oxyCODONE/ACETAMINOPHEN 5 MG/325 MG TAB PO ONE (19:45)
[2016-12-03] MEDS: ZOLPIDEM TARTRATE 10 MG TAB PO SCH (21:00)
[2016-12-04] MEDS: DOCUSATE SODIUM 100 MG CAP PO SCH ×3 (00:16→20:32)
[2016-12-04] MEDS ORDERED: diphenhydrAMINE HCL 50 MG/ML VIAL IM PRN (01:45)
[2016-12-04] MEDS ORDERED: ZIPRASIDONE MESYLATE 20 MG VIAL IM PRN (01:45)
[2016-12-04 06:01] VITALS: BP 170/73; PULSE 83; RESP 18; TEMP 98.3; O2SAT 99
[2016-12-04] MEDS: LEVOTHYROXINE SODIUM 25 MCG TAB PO SCH (06:11)
[2016-12-04 06:36] VITALS: BP 134/62
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
[2016-12-04] MEDS: risperiDONE 3 MG TAB PO SCH ×2 (09:00→20:32)
[2016-12-04] MEDS: risperiDONE 1 MG TAB PO SCH ×2 (09:00→20:33)
[2016-12-04] MEDS: MELOXICAM 7.5 MG TAB PO SCH ×2 (09:00→09:32)
[2016-12-04] MEDS ORDERED: NICOTINE 21 MG/24 HR PATCH T-DERMAL SCH (09:00)
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
[2016-12-04] MEDS: PANTOPRAZOLE SOD 40 MG DELAYED RELEASE TAB PO SCH (09:32)
[2016-12-04] MEDS: LISINOPRIL 10 MG TAB PO SCH (09:32)
[2016-12-04] MEDS: NICOTINE 21 MG/24 HR PATCH T-DERMAL SCH (09:33)
[2016-12-04] MEDS ORDERED: INFLUENZA VIRUS VACCINE (QUADRIVALENT) 0.5 ML SYR IM ONE (10:00)
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
[2016-12-04 18:47] VITALS: BP 110/62; PULSE 81; RESP 17; TEMP 98.4; O2SAT 98
[2016-12-04] MEDS: ZOLPIDEM TARTRATE 10 MG TAB PO SCH (20:32)
[2016-12-04] MEDS: REMOVE OLD NICOTINE PATCH T-DERMAL SCH (20:37)
[2016-12-04 22:19] LABS: ANION GAP 7 MEQ/L (5-15); BICARBONATE 28.7 MEQ/L (21.0-32.0); BLOOD UREA NITROGEN 13 MG/DL (7-18); CHLORIDE 103 MEQ/L (98-107); GLOMERULAR FILTRATION RATE 93 ML/MIN (>89); POTASSIUM 3.6 MEQ/L (3.5-5.1); SODIUM (NA) 139 MEQ/L (136-145)
[2016-12-05] MEDS: ACETAMINOPHEN 325 MG TAB PO PRN (03:04)
[2016-12-05 05:20] VITALS: BP 112/56; PULSE 85; RESP 16; TEMP 98.2; O2SAT 95
[2016-12-05] MEDS: LEVOTHYROXINE SODIUM 25 MCG TAB PO SCH (05:48)
[2016-12-05] MEDS: PANTOPRAZOLE SOD 40 MG DELAYED RELEASE TAB PO SCH (08:26)
[2016-12-05] MEDS: risperiDONE 3 MG TAB PO SCH ×2 (08:26→20:21)
[2016-12-05] MEDS: MELOXICAM 7.5 MG TAB PO SCH (08:26)
[2016-12-05] MEDS: risperiDONE 1 MG TAB PO SCH ×2 (08:26→20:21)
[2016-12-05] MEDS: LISINOPRIL 10 MG TAB PO SCH (08:26)
[2016-12-05] MEDS: DOCUSATE SODIUM 100 MG CAP PO SCH ×2 (08:27→20:21)
[2016-12-05] MEDS: NICOTINE 21 MG/24 HR PATCH T-DERMAL SCH (08:27)
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
[2016-12-05 13:14] LABS: HEMOGLOBIN A1a 1.3 %; HEMOGLOBIN A1b 0.8 %; HEMOGLOBIN Ao 83.7 %; HEMOGLOBIN F 2.4 %; HEMOGLOBIN LA1C 1.9 %
[2016-12-05 13:30] VITALS: BP 150/67; PULSE 94; RESP 18; TEMP 97.9
[2016-12-05 15:34] LABS: HDL CHOLESTEROL 95.2 MG/DL (40.0-60.0)
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
[2016-12-05 18:35] VITALS: BP 148/66; PULSE 96; RESP 18; TEMP 99.2; O2SAT 96
[2016-12-05] MEDS: ZOLPIDEM TARTRATE 10 MG TAB PO SCH (20:21)
[2016-12-05] MEDS: REMOVE OLD NICOTINE PATCH T-DERMAL SCH (20:24)
[2016-12-06] MEDS: ACETAMINOPHEN 325 MG TAB PO PRN (02:46)
[2016-12-06] MEDS ORDERED: diphenhydrAMINE HCL 25 MG CAP PO SCH (04:00)
[2016-12-06] MEDS: LEVOTHYROXINE SODIUM 25 MCG TAB PO SCH (06:08)
[2016-12-06 06:19] VITALS: BP 191/71; PULSE 91; RESP 16; TEMP 97.1; O2SAT 99
[2016-12-06] MEDS: LISINOPRIL 10 MG TAB PO SCH (08:15)
[2016-12-06] MEDS: MELOXICAM 7.5 MG TAB PO SCH (08:15)
[2016-12-06] MEDS: DOCUSATE SODIUM 100 MG CAP PO SCH ×2 (08:15→19:51)
[2016-12-06] MEDS: PANTOPRAZOLE SOD 40 MG DELAYED RELEASE TAB PO SCH (08:15)
[2016-12-06] MEDS: risperiDONE 3 MG TAB PO SCH ×2 (08:16→19:51)
[2016-12-06] MEDS: NICOTINE 21 MG/24 HR PATCH T-DERMAL SCH (08:16)
[2016-12-06] MEDS: risperiDONE 1 MG TAB PO SCH ×2 (08:16→19:51)
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
[2016-12-06 16:00] VITALS: BP 138/61; PULSE 92; RESP 16; TEMP 98.6; O2SAT 96
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
[2016-12-06] MEDS: ZOLPIDEM TARTRATE 10 MG TAB PO SCH (19:51)
[2016-12-06] MEDS: REMOVE OLD NICOTINE PATCH T-DERMAL SCH (19:52)
[2016-12-07 05:36] VITALS: BP 103/52; PULSE 81; RESP 16; TEMP 98.4; O2SAT 100
[2016-12-07] MEDS: LEVOTHYROXINE SODIUM 25 MCG TAB PO SCH (05:59)
[2016-12-07] MEDS: LISINOPRIL 10 MG TAB PO SCH (08:07)
[2016-12-07] MEDS: risperiDONE 3 MG TAB PO SCH ×2 (08:07→20:58)
[2016-12-07] MEDS: MELOXICAM 7.5 MG TAB PO SCH (08:07)
[2016-12-07] MEDS: PANTOPRAZOLE SOD 40 MG DELAYED RELEASE TAB PO SCH (08:07)
[2016-12-07] MEDS: NICOTINE 21 MG/24 HR PATCH T-DERMAL SCH (08:07)
[2016-12-07] MEDS: risperiDONE 1 MG TAB PO SCH ×2 (08:07→20:58)
[2016-12-07] MEDS: DOCUSATE SODIUM 100 MG CAP PO SCH ×2 (09:00→20:58)
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
[2016-12-07 17:30] VITALS: BP 127/53; PULSE 101; RESP 17; TEMP 99; O2SAT 95
[2016-12-07] MEDS: ZOLPIDEM TARTRATE 10 MG TAB PO SCH (20:58)
[2016-12-07] MEDS: REMOVE OLD NICOTINE PATCH T-DERMAL SCH (21:00)
[2016-12-07] MEDS: ACETAMINOPHEN 325 MG TAB PO PRN (22:01)
[2016-12-08] MEDS: LEVOTHYROXINE SODIUM 25 MCG TAB PO SCH (05:24)
[2016-12-08 05:44] VITALS: BP 146/77; PULSE 87; RESP 18; TEMP 98.6; O2SAT 98
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
[2016-12-08] MEDS: NICOTINE 21 MG/24 HR PATCH T-DERMAL SCH (09:00)
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
[2016-12-08] MEDS: risperiDONE 1 MG TAB PO SCH ×2 (09:23→22:03)
[2016-12-08] MEDS: risperiDONE 3 MG TAB PO SCH ×2 (09:23→22:04)
[2016-12-08] MEDS: LISINOPRIL 10 MG TAB PO SCH (09:23)
[2016-12-08] MEDS: PANTOPRAZOLE SOD 40 MG DELAYED RELEASE TAB PO SCH (09:24)
[2016-12-08] MEDS: DOCUSATE SODIUM 100 MG CAP PO SCH ×2 (09:24→22:03)
[2016-12-08] MEDS: MELOXICAM 7.5 MG TAB PO SCH (09:24)
[2016-12-08 18:12] VITALS: BP 152/74; PULSE 94; RESP 18; TEMP 98.5
[2016-12-08] MEDS: ACETAMINOPHEN 325 MG TAB PO PRN (19:50)
[2016-12-08] MEDS: REMOVE OLD NICOTINE PATCH T-DERMAL SCH (21:00)
[2016-12-08] MEDS: ZOLPIDEM TARTRATE 10 MG TAB PO SCH (22:03)
[2016-12-09] MEDS: ACETAMINOPHEN 325 MG TAB PO PRN (04:13)
[2016-12-09 05:36] VITALS: BP 149/63; PULSE 86; RESP 18; TEMP 98.3; O2SAT 100
[2016-12-09] MEDS: LEVOTHYROXINE SODIUM 25 MCG TAB PO SCH (06:00)
[2016-12-09] MEDS: LISINOPRIL 10 MG TAB PO SCH (09:28)
[2016-12-09] MEDS: risperiDONE 1 MG TAB PO SCH ×2 (09:28→21:59)
[2016-12-09] MEDS: risperiDONE 3 MG TAB PO SCH ×2 (09:28→21:59)
[2016-12-09] MEDS: MELOXICAM 7.5 MG TAB PO SCH (09:28)
[2016-12-09] MEDS: DOCUSATE SODIUM 100 MG CAP PO SCH ×2 (09:28→21:59)
[2016-12-09] MEDS: NICOTINE 21 MG/24 HR PATCH T-DERMAL SCH (09:28)
[2016-12-09] MEDS: PANTOPRAZOLE SOD 40 MG DELAYED RELEASE TAB PO SCH (09:28)
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
--- NOTE | 2016-12-09 15:10 | HHI.PYPN ---
Subjective Remarks Patient seen in her room with counselor Cynthia, chart review, patient compliant medication. Patient continues calm cooperative no behavioral problems. Her mood and affect are subdued. She still shows little insight into acknowledging that she has a mental illness. She states would be compliant with the medications upon discharge along with complying with psychiatric follow-up of the community. For now continue treatment consider discharge 24-48 hours Review of Systems Except as stated in HPI: all other systems reviewed are Neg Objective Alert: Yes [place]: Person, Place, Date Mood: Calm Affect: Euthymic Memory Intact: Comment (intact on clinical exam) Hallucinations: Other (denies AVH) Delusions: No Delusion Type: Other (none elicited) Suicidal: Ideation (no SI) Homicidal: Ideation (no HI) Insight/Judgment Poor Vitals/IOs Vital Signs Date Time Temp Pulse Resp B/P Pulse Ox O2 Delivery O2 Flow Rate FiO2 12/09/16 05:36 98.3 86 18 149/63 100 Intake and Output 12/08/16 12/08/16 12/09/16 08:00 16:00 00:00 Intake Total 720 ml 960 ml 960 ml Balance 720 ml 960 ml 960 ml Assessment & Plan Problem List: (1) BIPOLAR DISORD, CRNT EPISODE MIXED, SEVERE, W PSYCH FEATURES ICD Code: F31.64 Assessment & Plan Estimated LOS: days patient's nitin and psychosis resolving. She is compliant medications. Denying suicidality homicidality voices or visions. Justification for Cont. Inpt. At the present time patient may decompensate if not placed in the appropriate level of care Discharge Planning To be determined Request HC Surrog/Guard Advoc?: No (and lifting Vazquez act patient to sign voluntary) Jesus Wolf MD Dec 09, 2016 15:10
[2016-12-09 18:06] VITALS: BP 143/80; PULSE 97; RESP 19; TEMP 98.2; O2SAT 99
[2016-12-09] MEDS: REMOVE OLD NICOTINE PATCH T-DERMAL SCH (21:00)
[2016-12-09] MEDS: ZOLPIDEM TARTRATE 10 MG TAB PO SCH (21:59)
[2016-12-10] MEDS: LEVOTHYROXINE SODIUM 25 MCG TAB PO SCH (06:12)
[2016-12-10 06:20] VITALS: BP 138/60; PULSE 86; RESP 16; TEMP 98; O2SAT 100
[2016-12-10] MEDS ORDERED: AMBI10TA PO (08:31)
[2016-12-10] MEDS ORDERED: PANT40TA3 PO (08:31)
[2016-12-10] MEDS ORDERED: MELO7.5T4 PO (08:31)
[2016-12-10] MEDS ORDERED: DOCU1CAP39 PO (08:31)
[2016-12-10] MEDS ORDERED: RISP4TAB41 PO (08:31)
[2016-12-10] MEDS ORDERED: LISI10TA3 PO (08:31)
[2016-12-10] MEDS ORDERED: LEVO25TA4 PO (08:31)
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
[2016-12-10] MEDS: LISINOPRIL 10 MG TAB PO SCH (09:04)
[2016-12-10] MEDS: MELOXICAM 7.5 MG TAB PO SCH (09:04)
[2016-12-10] MEDS: PANTOPRAZOLE SOD 40 MG DELAYED RELEASE TAB PO SCH (09:04)
[2016-12-10] MEDS: NICOTINE 21 MG/24 HR PATCH T-DERMAL SCH (09:04)
[2016-12-10] MEDS: DOCUSATE SODIUM 100 MG CAP PO SCH (09:04)
[2016-12-10] MEDS: risperiDONE 1 MG TAB PO SCH (09:04)
[2016-12-10] MEDS: risperiDONE 3 MG TAB PO SCH (09:04)
== END 2016-12-10 10:30 | disposition home or self-care (01) | DRG 885 ==
LOC: NEDAMB 17:21 → NEDA 12-03 07:42 → H270 12-03 08:00 → H4EA 12-03 19:58
PROVIDERS: ADMIT Psychiatry & Neurology Psychiatry; ATTEND Psychiatry & Neurology Psychiatry
DX: F31.64 Bipolar disorder, current episode mixed, severe, with psychotic features (principal); Z91.14 Patient's other noncompliance with medication regimen; I10 Essential (primary) hypertension; K21.9 Gastro-esophageal reflux disease without esophagitis; Z86.73 Personal history of transient ischemic attack (TIA), and cerebral infarction without residual deficits; E78.5 Hyperlipidemia, unspecified; E03.9 Hypothyroidism, unspecified; S00.03XA Contusion of scalp, initial encounter; S00.12XA Contusion of left eyelid and periocular area, initial encounter; Y04.8XXA Assault by other bodily force, initial encounter; Y92.238 Other place in hospital as the place of occurrence of the external cause
CPT/HCPCS: 70450; 70486; 80048; 80053; 80061; 80307; 83036; 85025; J2060

== ENCOUNTER 2017-03-09 14:27 | Emergency (ER) | payer MEDICARE, OTHER ==
[~2017-03-09 14:27] MED LIST changes: +MELO7.5T27 PO; -MELO7.5T4 PO; -RISP1 PO; -RISP25P IM; +RISP4TAB41 PO
--- NOTE | 2017-03-09 14:50 | PD ---
HPI Chief Complaint: psychiatric evaluation Time Seen by Provider: 14:38 Travel History International Travel<30 days: No Contact w/Intl Traveler<30days: No Traveled to known affect area: No History of Present Illness HPI Patient is a 67-year-old female with history of bipolar disorder, psychosis, who presents to the emergency room by EMS for with a flight of ideas for psychiatric evaluation. Patient reports that she is on a bunch of psych medications and does not want to be on them anymore. Reports that she is angry at everyone at this time, denies si/hi. Request to see psych screener and be taken off all her medications. Patient also reports that she had an episode of drooling this morning, that she stopped drooling after a few minutes, but her friend told her that she should be evaluated in the ER for possible stroke. Patient denies any other neurovascular compromise or deficits. Reports that she may have been drooling because she was "angry" at all the medications she had to take. Patient with no other complaints at this time. PFSH Past Medical History Arthritis: Yes Asthma: No Autoimmune Disease: No Blood Disorders: No Bipolar Disorder: Yes Anxiety: Yes Depression: Yes Heart Rhythm Problems: No Cancer: No Cardiac Catheterization: No Cardiovascular Problems: No High Cholesterol: Yes Chest Pain: No Congestive Heart Failure: No COPD: No Cerebrovascular Accident: Yes Diabetes: No Diminished Hearing: No Endocrine: Yes GERD: Yes Genitourinary: No Headaches: No Hepatitis: No Hiatal Hernia: No Herniated Disk: Yes (LOWER BACK) Hypertension: Yes Immune Disorder: No Kidney Stones: No Musculoskeletal: Yes Neurologic: Yes Psychiatric: Yes Reproductive: No Respiratory: No Immunizations Current: Yes Myocardial Infarction: No Renal Failure: No Seizures: No Sleep Apnea: No Thyroid Disease: Yes Ulcer: No Menopausal: Yes : 0 Para: 0 Past Surgical History Abdominal Surgery: No AICD: No Appendectomy: Yes Arteriovenous Shunt: No Cardiac Surgery: No Coronary Artery Bypass Graft: No Ear Surgery: No Endocrine Surgery: No Eye Surgery: No Genitourinary Surgery: No Gynecologic Surgery: No Insulin Pump: No Joint Replacement: No Neurologic Surgery: No Oral Surgery: No Pacemaker: No Thoracic Surgery: No Other Surgery: Yes (CYST REMOVED FROM CHIN, BACK AND AREA NEXT TO RT RYE) Social History Alcohol Use: No Tobacco Use: No Substance Use: No Allergies-Medications (Allergen,Severity, Reaction): Coded Allergies: carbamazepine (Unverified Allergy, Severe, Anaphylaxis, 03/09/17) divalproex sodium (Unverified Allergy, Severe, Diarrhea, 03/09/17) lorazepam (Unverified Allergy, Severe, Swelling, 03/09/17) penicillin G (Unverified Allergy, Severe, RASH, 03/09/17) haloperidol (Unverified Allergy, Unknown, UNKNOWN , 03/09/17) PT STATES SHE IS ALLERGIC TO HALDOL, BUT WILL NOT STATE HER REACTION TO THE MEDICATION OR THE SEVERITY OF THE REACTION. milk (Unverified Allergy, Unknown, 03/09/17) erythromycin base (Unverified Adverse Reaction, Severe, DIARRHEA, 03/09/17) lithium (Unverified Adverse Reaction, Unknown, 03/09/17) Reported Meds & Prescriptions Reported Meds & Active Scripts Active Meloxicam 7.5 Mg Tab 7.5 Mg PO DAILY Levothyroxine (Levothyroxine Sodium) 25 Mcg Tab 25 Mcg PO DAILY@06 Ambien (Zolpidem Tartrate) 10 Mg Tab 10 Mg PO HS PRN Lisinopril 10 Mg Tab 10 Mg PO DAILY 15 Days Reported Abilify (Aripiprazole) 10 Mg Tab 10 Mg PO DAILY Hydroxyzine Pamoate 25 Mg Cap 25 Mg PO BID Omeprazole 40 Mg Cap 40 Mg PO DAILY Review of Systems General / Constitutional: No: Fever Eyes: No: Visual changes HENT: No: Headaches Cardiovascular: No: Chest Pain or Discomfort Respiratory: No: Shortness of Breath Gastrointestinal: No: Abdominal Pain Genitourinary: No: Dysuria Musculoskeletal: No: Pain Skin: No Rash Neurologic: No: Weakness Psychiatric: Positive: Disorder of Thought, Mood Disorder, No: Depression, Suicidal Ideations, Substance Abuse, Homicidal Ideation Endocrine: No: Polydipsia Hematologic/Lymphatic: No: Easy Bruising Physical Exam Narrative GENERAL: NAD SKIN: Focused skin assessment warm/dry. HEAD: Atraumatic. Normocephalic. EYES: Pupils equal and round. No scleral icterus. No injection or drainage. ENT: No nasal bleeding or discharge. Mucous membranes pink and moist. NECK: Trachea midline. No JVD. CARDIOVASCULAR: Regular rate and rhythm. No murmur appreciated. RESPIRATORY: No accessory muscle use. Clear to auscultation. Breath sounds equal bilaterally. GASTROINTESTINAL: Abdomen soft, non-tender, nondistended. Hepatic and splenic margins not palpable. MUSCULOSKELETAL: No obvious deformities. No clubbing. No cyanosis. No edema. NEUROLOGICAL: Awake and alert. No obvious cranial nerve deficits. Motor grossly within normal limits. Normal speech. CN 2-12 grossly intact with no neurologic deficits PSYCHIATRIC: Anxious mood and affect; Patient with flight of ideas, denies si/hi Data Data Last Documented VS Vital Signs Date Time Temp Pulse Resp B/P (MAP) Pulse Ox O2 Delivery O2 Flow Rate FiO2 03/09/17 21:35 03/09/17 15:50 98.9 98 20 98 Orders Orders Complete Blood Count With Diff (03/09/17 14:39) Comprehensive Metabolic Panel (03/09/17 14:39) Psych Screen (03/09/17 14:39) Drug Screen, Random Urine (03/09/17 14:39) Alcohol (Ethanol) (03/09/17 14:39) Salicylates (Aspirin) (03/09/17 14:39) Tylenol (Acetaminophen) (03/09/17 14:39) Urinalysis - C+S If Indicated (03/09/17 17:39) Hydroxyzine Hcl Inj (Vistaril Inj) (03/09/17 20:00) Labs Laboratory Tests Test 03/09/17 15:26 03/09/17 15:27 White Blood Count 8.5 TH/MM3 Red Blood Count 4.95 MIL/MM3 Hemoglobin 13.6 GM/DL Hematocrit 41.4 % Mean Corpuscular Volume 83.6 FL Mean Corpuscular Hemoglobin 27.5 PG Mean Corpuscular Hemoglobin Concent 32.9 % Red Cell Distribution Width 15.2 % Platelet Count 271 TH/MM3 Mean Platelet Volume 8.6 FL Neutrophils (%) (Auto) 57.1 % Lymphocytes (%) (Auto) 20.4 % Monocytes (%) (Auto) 20.2 % Eosinophils (%) (Auto) 1.2 % Basophils (%) (Auto) 1.1 % Neutrophils # (Auto) 4.9 TH/MM3 Lymphocytes # (Auto) 1.7 TH/MM3 Monocytes # (Auto) 1.7 TH/MM3 Eosinophils # (Auto) 0.1 TH/MM3 Basophils # (Auto) 0.1 TH/MM3 CBC Comment DIFF FINAL Differential Comment Blood Urea Nitrogen 32 MG/DL Creatinine 0.87 MG/DL Random Glucose 90 MG/DL Total Protein 7.3 GM/DL Albumin 3.6 GM/DL Calcium Level 9.7 MG/DL Alkaline Phosphatase 75 U/L Aspartate Amino Transf (AST/SGOT) 27 U/L Alanine Aminotransferase (ALT/SGPT) 41 U/L Total Bilirubin 0.6 MG/DL Sodium Level 135 MEQ/L Potassium Level 4.2 MEQ/L Chloride Level 102 MEQ/L Carbon Dioxide Level 24.2 MEQ/L Anion Gap 9 MEQ/L Estimat Glomerular Filtration Rate 65 ML/MIN Salicylates Level LESS THAN 1.7 MG/DL Acetaminophen Level LESS THAN 2.0 MCG/ML Ethyl Alcohol Level LESS THAN 3 MG/DL Urine Color YELLOW Urine Turbidity CLEAR Urine pH 5.5 Urine Specific [place] 1.029 Urine Protein TRACE mg/dL Urine Glucose (UA) NEG mg/dL Urine Ketones 10 mg/dL Urine Occult Blood NEG Urine Nitrite NEG Urine Bilirubin NEG Urine Urobilinogen LESS THAN 2.0 MG/DL Urine Leukocyte Esterase SMALL Urine WBC 2 /hpf Urine Squamous Epithelial Cells <1 /hpf Urine Transitional Epithelial Cells <1 /hpf Urine Hyaline Casts 4 /lpf Urine Mucus FEW /lpf Microscopic Urinalysis Comment CULT NOT INDICATED Urine Opiates Screen NEG Urine Barbiturates Screen NEG Urine Amphetamines Screen NEG Urine Benzodiazepines Screen POS Urine Cocaine Screen NEG Urine Cannabinoids Screen NEG MDM Medical Decision Making Medical Screen Exam Complete: Yes Emergency Medical Condition: Yes Medical Record Reviewed: Yes Differential Diagnosis Bipolar disorder, adjustment disorder Narrative Course 67-year-old female who called EMS so that she could speak to psychiatric screeners about medication changes. Patient with no suicidal or homicidal ideations at this time. Patient reports that she was also here to be evaluated for possible stroke as she had an episode of drooling for a few minutes with no other neurological deficits. NIH scale by EMS was 0, patient had resolution of drooling after a few minutes after patient. Patient with a NIH score of 0 this time, patient with no signs of a CVA or TIA. Patient requesting to speak to a psychiatric screeners this time. Patient does have history of bipolar disorder , she currently denies suicidal or homicidal ideations. Psychiatric labs ordered, plan to have patient seen by psychiatric screeners Laboratory Tests Test 03/09/17 15:26 03/09/17 15:27 White Blood Count 8.5 TH/MM3 (4.0-11.0) Red Blood Count 4.95 MIL/MM3 (4.00-5.30) Hemoglobin 13.6 GM/DL (11.6-15.3) Hematocrit 41.4 % (35.0-46.0) Mean Corpuscular Volume 83.6 FL (80.0-100.0) Mean Corpuscular Hemoglobin 27.5 PG (27.0-34.0) Mean Corpuscular Hemoglobin Concent 32.9 % (32.0-36.0) Red Cell Distribution Width 15.2 % (11.6-17.2) Platelet Count 271 TH/MM3 (150-450) Mean Platelet Volume 8.6 FL (7.0-11.0) Neutrophils (%) (Auto) 57.1 % (16.0-70.0) Lymphocytes (%) (Auto) 20.4 % (9.0-44.0) Monocytes (%) (Auto) 20.2 % (0.0-8.0) Eosinophils (%) (Auto) 1.2 % (0.0-4.0) Basophils (%) (Auto) 1.1 % (0.0-2.0) Neutrophils # (Auto) 4.9 TH/MM3 (1.8-7.7) Lymphocytes # (Auto) 1.7 TH/MM3 (1.0-4.8) Monocytes # (Auto) 1.7 TH/MM3 (0-0.9) Eosinophils # (Auto) 0.1 TH/MM3 (0-0.4) Basophils # (Auto) 0.1 TH/MM3 (0-0.2) CBC Comment DIFF FINAL Differential Comment Blood Urea Nitrogen 32 MG/DL (7-18) Creatinine 0.87 MG/DL (0.50-1.00) Random Glucose 90 MG/DL (74-106) Total Protein 7.3 GM/DL (6.4-8.2) Albumin 3.6 GM/DL (3.4-5.0) Calcium Level 9.7 MG/DL (8.5-10.1) Alkaline Phosphatase 75 U/L (45-117) Aspartate Amino Transf (AST/SGOT) 27 U/L (15-37) Alanine Aminotransferase (ALT/SGPT) 41 U/L (10-53) Total Bilirubin 0.6 MG/DL (0.2-1.0) Sodium Level 135 MEQ/L (136-145) Potassium Level 4.2 MEQ/L (3.5-5.1) Chloride Level 102 MEQ/L (98-107) Carbon Dioxide Level 24.2 MEQ/L (21.0-32.0) Anion Gap 9 MEQ/L (5-15) Estimat Glomerular Filtration Rate 65 ML/MIN (>89) Salicylates Level LESS THAN 1.7 MG/DL Acetaminophen Level LESS THAN 2.0 MCG/ML Ethyl Alcohol Level LESS THAN 3 MG/DL (0-5) Urine Opiates Screen NEG (NEG) Urine Barbiturates Screen NEG (NEG) Urine Amphetamines Screen NEG (NEG) Urine Benzodiazepines Screen POS (NEG) Urine Cocaine Screen NEG (NEG) Urine Cannabinoids Screen NEG (NEG) Case reviewed with Vidhya with psych - will send screener to evaluate patient Diagnosis Primary Impression: Adjustment disorder with disturbance of conduct Additional Impression: Bipolar I disorder Patient Instructions: General Instructions Additional Instructions: Please follow-up with your psychiatrist as soon as possible Please follow up with your primary care doctor in 2-3 days Return to the ER if symptoms worsen or progress Return to the ER as needed Disposition: 01 DISCHARGE HOME Jessica Pena DO Mar 09, 2017 14:49
[2017-03-09] MEDS ORDERED: HYDR1CAP30 PO (15:31)
[2017-03-09] MEDS ORDERED: OMEP40CA2 PO (15:31)
[2017-03-09 15:44] LABS: AUTOMATED NEUTROPHIL # 4.9 TH/MM3 (1.8-7.7); BASOPHIL # 0.1 TH/MM3 (0-0.2); BASOPHIL % 1.1 % (0.0-2.0); EOSINOPHIL # 0.1 TH/MM3 (0-0.4); EOSINOPHIL % 1.2 % (0.0-4.0); HEMATOCRIT 41.4 % (35.0-46.0); HEMO FLAGS DIFF FINAL; LYMPH % 20.4 % (9.0-44.0); LYMPHOCYTE # 1.7 TH/MM3 (1.0-4.8); MEAN CELL VOLUME 83.6 FL (80.0-100.0); MEAN CORPUSCULAR HEMOGLOBIN 27.5 PG (27.0-34.0); MEAN CORPUSCULAR HGB CONC 32.9 % (32.0-36.0); MONO % 20.2 % (0.0-8.0); NEUT % 57.1 % (16.0-70.0); PLATELET COUNT 271 TH/MM3 (150-450); RED BLOOD COUNT 4.95 MIL/MM3 (4.00-5.30); RED CELL DISTRIBUTION WIDTH 15.2 % (11.6-17.2); WHITE BLOOD COUNT 8.5 TH/MM3 (4.0-11.0)
[2017-03-09 15:50] VITALS: BP 135/66; PULSE 98; RESP 20; TEMP 98.9; O2SAT 98
[2017-03-09 16:00] LABS: ANION GAP 9 MEQ/L (5-15); AST (GOT) 27 U/L (15-37); BICARBONATE 24.2 MEQ/L (21.0-32.0); BLOOD UREA NITROGEN 32 MG/DL (7-18); CHLORIDE 102 MEQ/L (98-107); GLOMERULAR FILTRATION RATE 65 ML/MIN (>89); POTASSIUM 4.2 MEQ/L (3.5-5.1); SODIUM (NA) 135 MEQ/L (136-145)
[2017-03-09 16:01] LABS: ALT (GPT) 41 U/L (10-53)
[2017-03-09 16:04] LABS: ALKALINE PHOSPHATASE 75 U/L (45-117); TOTAL BILIRUBIN ADULT 0.6 MG/DL (0.2-1.0)
[2017-03-09 16:11] LABS: ACETAMINOPHEN LESS THAN 2.0 MCG/ML (10.0-30.0); ALCOHOL LESS THAN 3 MG/DL (0-5)
[2017-03-09] MEDS ORDERED: ABIL10TA8 PO (17:27)
[2017-03-09 17:56] LABS: BLOOD, URINE NEG (NEG); COMMENT (UR) CULT NOT INDICATED; CULTURE IF INDICATED CULT NOT INDICATED; GLUCOSE,URINE NEG (NEG); HYALINE CAST, URINE 4 /lpf (RARE); KETONE, URINE 10 mg/dL (NEG); MUCUS URINE FEW /lpf (OCC); NITRITE,URINE NEG (NEG); PH, URINE 5.5 (5.0-8.5); SQUAMOUS EPITHELIAL CELL URINE <1 /hpf (0-5); TRANSITIONAL EPI CELLS, URINE <1 /hpf; URINE COLOR YELLOW (YELLW/STRAW)
== END 2017-03-09 21:36 | disposition home or self-care (01) ==
LOC: NEPD 14:27
DX: F43.24 Adjustment disorder with disturbance of conduct (principal); F31.9 Bipolar disorder, unspecified; E78.00 Pure hypercholesterolemia, unspecified; I10 Essential (primary) hypertension; Z88.0 Allergy status to penicillin; Z86.73 Personal history of transient ischemic attack (TIA), and cerebral infarction without residual deficits; Z79.899 Other long term (current) drug therapy
CPT/HCPCS: 80053; 80307; 81001; 85025; 99283; J3410

== ENCOUNTER 2017-03-10 14:49 | Emergency (ER) | payer OTHER ==
[~2017-03-10] VITALS: Ht 162.6 cm; Wt 70.0 kg
[~2017-03-10 14:49] MED LIST changes: +ABIL10TA8 PO; -DOCU1CAP39 PO; +HYDR1CAP30 PO; -LOTR15T TOPICAL; +OMEP40CA2 PO; -PANT40TA3 PO; -RISP4TAB41 PO
[2017-03-10 15:42] VITALS: BP 137/82; PULSE 100; RESP 20; TEMP 98.2; O2SAT 99
--- NOTE | 2017-03-10 15:58 | PD ---
HPI Chief Complaint: Fall Time Seen by Provider: 15:41 Travel History International Travel<30 days: No Contact w/Intl Traveler<30days: No Traveled to known affect area: No History of Present Illness HPI Patient is a 67-year-old female who presents to emergency room after a mechanical fall. Patient reports that she went outside to smoke a cigarette, reports that she tripped and fell over a ledge on the ground and ended up hitting her head. Reports that she did have an episode of LOC. Patient reports that she is currently not on any anticoagulants. Patient reports pains to her neck as well as her low back. Patient reports that she was able to ambulate after fall. Patient denies any headache or dizziness, denies any chest pain or shortness breath at this time. Patient does endorse that she is upset as her friend recently , patient denies suicidal or homicidal ideations. PFSH Past Medical History Arthritis: Yes Asthma: No Autoimmune Disease: No Blood Disorders: No Bipolar Disorder: Yes Anxiety: Yes Depression: Yes Heart Rhythm Problems: No Cancer: No Cardiac Catheterization: No Cardiovascular Problems: No High Cholesterol: Yes Chest Pain: No Congestive Heart Failure: No COPD: No Cerebrovascular Accident: Yes Diabetes: No Diminished Hearing: No Endocrine: Yes GERD: Yes Genitourinary: No Headaches: No Hepatitis: No Hiatal Hernia: No Herniated Disk: Yes (LOWER BACK) Hypertension: Yes Immune Disorder: No Kidney Stones: No Musculoskeletal: Yes Neurologic: Yes Psychiatric: Yes Reproductive: No Respiratory: No Immunizations Current: Yes Myocardial Infarction: No Renal Failure: No Seizures: No Sleep Apnea: No Thyroid Disease: Yes Ulcer: No ?: Not Menopausal: Yes : 0 Para: 0 Past Surgical History Abdominal Surgery: No AICD: No Appendectomy: Yes Arteriovenous Shunt: No Cardiac Surgery: No Coronary Artery Bypass Graft: No Ear Surgery: No Endocrine Surgery: No Eye Surgery: No Genitourinary Surgery: No Gynecologic Surgery: No Insulin Pump: No Joint Replacement: No Neurologic Surgery: No Oral Surgery: No Pacemaker: No Thoracic Surgery: No Other Surgery: Yes (CYST REMOVED FROM CHIN, BACK AND AREA NEXT TO RT RYE) Social History Alcohol Use: Yes Tobacco Use: Yes Substance Use: No ( ) Allergies-Medications (Allergen,Severity, Reaction): Coded Allergies: carbamazepine (Unverified Allergy, Severe, Anaphylaxis, 03/09/17) divalproex sodium (Unverified Allergy, Severe, Diarrhea, 03/09/17) lorazepam (Unverified Allergy, Severe, Swelling, 03/09/17) penicillin G (Unverified Allergy, Severe, RASH, 03/09/17) haloperidol (Unverified Allergy, Unknown, UNKNOWN , 03/09/17) PT STATES SHE IS ALLERGIC TO HALDOL, BUT WILL NOT STATE HER REACTION TO THE MEDICATION OR THE SEVERITY OF THE REACTION. milk (Unverified Allergy, Unknown, 03/09/17) erythromycin base (Unverified Adverse Reaction, Severe, DIARRHEA, 03/09/17) lithium (Unverified Adverse Reaction, Unknown, 03/09/17) Reported Meds & Prescriptions Reported Meds & Active Scripts Active Meloxicam 7.5 Mg Tab 7.5 Mg PO DAILY Levothyroxine (Levothyroxine Sodium) 25 Mcg Tab 25 Mcg PO DAILY@06 Ambien (Zolpidem Tartrate) 10 Mg Tab 10 Mg PO HS PRN Lisinopril 10 Mg Tab 10 Mg PO DAILY 15 Days Reported Abilify (Aripiprazole) 10 Mg Tab 10 Mg PO DAILY Hydroxyzine Pamoate 25 Mg Cap 25 Mg PO BID Omeprazole 40 Mg Cap 40 Mg PO DAILY Review of Systems General / Constitutional: No: Fever Eyes: No: Visual changes HENT: Positive: Neck Pain, No: Headaches, Lightheadedness Cardiovascular: No: Chest Pain or Discomfort, Palpitations, Irregular Rhythm Respiratory: No: Shortness of Breath Gastrointestinal: No: Nausea, Vomiting, Abdominal Pain Genitourinary: No: Urgency, Frequency, Dysuria Musculoskeletal: Positive: Pain (left elbow pain) Skin: No Rash Neurologic: No: Weakness Psychiatric: No: Depression, Suicidal Ideations, Homicidal Ideation Endocrine: No: Polydipsia Hematologic/Lymphatic: No: Easy Bruising Physical Exam Narrative GENERAL: Mild distress SKIN: Focused skin assessment warm/dry. HEAD: Atraumatic. Normocephalic. EYES: Pupils equal and round. No scleral icterus. No injection or drainage. ENT: No nasal bleeding or discharge. Mucous membranes pink and moist. NECK: Trachea midline. No JVD. Patient currently in C-spine precautions, patient with paraspinal tenderness CARDIOVASCULAR: Regular rate and rhythm. No murmur appreciated. RESPIRATORY: No accessory muscle use. Clear to auscultation. Breath sounds equal bilaterally. GASTROINTESTINAL: Abdomen soft, non-tender, nondistended. Hepatic and splenic margins not palpable. MUSCULOSKELETAL: No obvious deformities. No clubbing. No cyanosis. No edema. Patient with no midline thoracic or lumbar tenderness, patient with abrasions to her left elbow NEUROLOGICAL: Awake and alert. No obvious cranial nerve deficits. Motor grossly within normal limits. Normal speech. PSYCHIATRIC: Anxious mood and affect Data Data Last Documented VS Vital Signs Date Time Temp Pulse Resp B/P (MAP) Pulse Ox O2 Delivery O2 Flow Rate FiO2 03/10/17 15:42 98.2 100 20 137/82 (100) 99 Orders Orders Chest, Single Ap (03/10/17 15:48) Pelvis, Ap Only (Routine) (03/10/17 15:48) Spine, Lumbar - Ltd (Ap & Lat) (03/10/17 15:48) Ct Brain W/O Iv Contrast(Rout) (03/10/17 15:48) Ct Cerv Spine W/O Contrast (03/10/17 15:48) Elbow, Complete (4 Vws) (03/10/17 ) [facility] Medical Decision Making Medical Screen Exam Complete: Yes Emergency Medical Condition: Yes Medical Record Reviewed: Yes Interpretation(s) Vital Signs Date Time Temp Pulse Resp B/P (MAP) Pulse Ox O2 Delivery O2 Flow Rate FiO2 03/10/17 15:42 98.2 100 20 137/82 (100) 99 Differential Diagnosis Intracranial hemorrhage, concussion, cervical spine fracture, elbow fracture, lumbar sprain Narrative Course During the course of the patients emergency department visit, the patients history, examination, and differential diagnosis were reviewed with the patient. The patient was placed on a color television console monitor with oximetry and frequent blood pressure monitoring. Radiology studies were reviewed and remarkable for Last Impressions Pelvis X-Ray 03/10/171547 Signed Impressions: Service Date/Time: March 16:06 - CONCLUSION: No acute pelvis abnormality is identified. Jesus Smith MD Lumbar Spine X-Ray 03/10/171547 Signed Impressions: Service Date/Time: March 16:07 - CONCLUSION: No acute lumbar spine abnormality is identified. There are degenerative changes at L4- L5 and L5-S1 which have progressed since the prior study. Jesus Smith MD Chest X-Ray 03/10/17 1548 Signed Impressions: Service Date/Time: March 16:01 - CONCLUSION: No acute cardiopulmonary abnormality is identified. Jesus Smith MD Elbow X-Ray 03/10/17 0000 Signed Impressions: Service Date/Time: March 16:13 - CONCLUSION: No acute left elbow abnormality is identified. Jesus Smith MD CT the head with no acute injuries CT of neck with no acute injuries I reviewed all studies as well as all findings with patient in detail. Patient will follow-up with her primary care doctor and will return to ER as needed. Diagnosis Primary Impression: Concussion Qualified Codes: S06.0X1A - Concussion with loss of consciousness of 30 minutes or less, initial encounter Additional Impressions: Head injury Cervical sprain Qualified Codes: S13.9XXA - Sprain of joints and ligaments of unspecified parts of neck, initial encounter Lumbar strain Patient Instructions: General Instructions Additional Instructions: Please provide patient with a copy of her studies at discharge Please follow up with your primary care doctor in 2-3 days Return to the ER if symptoms worsen or progress Return to the ER as needed Med/Other Pt SpecificInfo: Wound Care Disposition: 01 DISCHARGE HOME Condition: Stable Jessica Pena DO Mar 10, 2017 15:58
--- NOTE | 2017-03-10 16:29 | RADRPT ---
EXAM DATE/TIME: 03/10/2017 16:01 [facility] COMPARISON: CHEST SINGLE AP, March 13, 2014, 6:36. INDICATIONS : Chest pain after fall. MEDICAL HISTORY : None. SURGICAL HISTORY : None. ENCOUNTER: Initial ACUITY: 1 day PAIN SCORE: Non-responsive. LOCATION: Bilateral chest FINDINGS: Portable AP view of the chest demonstrates a normal-sized cardiac silhouette. No effusion, consolidat ion, or pneumothorax is visualized. The bones and soft tissues demonstrate no acute abnormality. CONCLUSION: No acute cardiopulmonary abnormality is identified. Jesus Smith MD on March 10, 2017 at 16:26 Board Certified Radiologist. This report was verified electronically.
--- NOTE | 2017-03-10 16:30 | RADRPT ---
EXAM DATE/TIME: 03/10/2017 16:06 [facility] COMPARISON: No previous studies available for comparison. INDICATIONS : Pelvic pain after fall. MEDICAL HISTORY : None. SURGICAL HISTORY : None. ENCOUNTER: Initial ACUITY: 1 day PAIN SCORE: Non-responsive. LOCATION: Bilateral pelvis. FINDINGS: Single AP view of the pelvis demonstrates no fracture or dislocation. Mineralization is within normal limits. There is no significant arthropathy. No soft tissue abnormality or radiopaque foreign body i s identified. CONCLUSION: No acute pelvis abnormality is identified. Jesus Smith MD on March 10, 2017 at 16:27 Board Certified Radiologist. This report was verified electronically.
--- NOTE | 2017-03-10 16:32 | RADRPT ---
EXAM DATE/TIME: 03/10/2017 16:07 [facility] COMPARISON: SPINE LUMBAR LTD (AP & LAT), March 26, 2014, 14:22. INDICATIONS : Lower back pain after fall. MEDICAL HISTORY : None. SURGICAL HISTORY : None. ENCOUNTER: Initial ACUITY: 1 day PAIN SCORE: Non-responsive. LOCATION: Lower back. FINDINGS: 3 views of the lumbar spine demonstrate 5 nonrib-bearing lumbar vertebral bodies. Bones appear mildly undermineralized. No fracture or compression deformity is present. There is no anterolisthesis or re trolisthesis. Decreased disc height is present at L4-L5 and L5-S1 with facet hypertrophy at these lev els. The degenerative disc disease has progressed since the prior study. Pelvic bones and soft tissue s demonstrate no acute finding. CONCLUSION: No acute lumbar spine abnormality is identified. There are degenerative changes at L4-L5 and L5-S1 wh ich have progressed since the prior study. Jesus Smith MD on March 10, 2017 at 16:28 Board Certified Radiologist. This report was verified electronically.
--- NOTE | 2017-03-10 16:40 | RADRPT ---
EXAM DATE/TIME: 03/10/2017 16:13 [facility] COMPARISON: No previous studies available for comparison. INDICATIONS : Left elbow pain after fall. MEDICAL HISTORY : None. SURGICAL HISTORY : None. ENCOUNTER: Initial ACUITY: 1 day PAIN SCORE: Non-responsive. LOCATION: Left elbow. FINDINGS: Four views of the left elbow demonstrate no fracture or dislocation. No joint effusion is visualized, however, there is not a good lateral view. No soft tissue abnormality or radiopaque foreign body is identified. CONCLUSION: No acute left elbow abnormality is identified. Jesus Smith MD on March 10, 2017 at 16:37 Board Certified Radiologist. This report was verified electronically.
--- NOTE | 2017-03-10 16:43 | RADRPT ---
EXAM DATE/TIME: 03/10/2017 16:25 [facility] COMPARISON: CT BRAIN W/O CONTRAST, December 03, 2016, 19:01. INDICATIONS : Head pain due to fall. RADIATION DOSE: 29.64 CTDIvol (mGy) MEDICAL HISTORY : Hypertension. Cardiovascular disease SURGICAL HISTORY : None. ENCOUNTER: Initial ACUITY: 1 day PAIN SCALE: 3/10 LOCATION: Bilateral cranial TECHNIQUE: Multiple contiguous axial images were obtained of the head. Using automated exposure control and adj ustment of the mA and/or kV according to patient size, radiation dose was kept as low as reasonably a chievable to obtain optimal diagnostic quality images. DICOM format image data is available electro nically for review and comparison. FINDINGS: CEREBRUM: The ventricles are normal. No evidence of midline shift, mass lesion, hemorrhage or acute infarction . No extra-axial fluid collections are seen. POSTERIOR FOSSA: The cerebellum and brainstem demonstrate no acute finding. The 4th ventricle is midline. The cerebe llopontine angle is unremarkable. EXTRACRANIAL: Sinuses are clear. SKULL: The calvaria is intact. No evidence of skull fracture. CONCLUSION: No acute intracranial abnormality is identified. Jesus Smith MD on March 10, 2017 at 16:40 Board Certified Radiologist. This report was verified electronically.
--- NOTE | 2017-03-10 16:53 | RADRPT ---
EXAM DATE/TIME: 03/10/2017 16:25 [facility] COMPARISON: No previous studies available for comparison. INDICATIONS : Neck pain due to fall. RADIATION DOSE: 19.30 CTDIvol (mGy) MEDICAL HISTORY : Hypertension. Cardiovascular disease SURGICAL HISTORY : None. ENCOUNTER: Initial ACUITY: 1 day PAIN SCALE: 4/10 LOCATION: Bilateral neck region. TECHNIQUE: Volumetric scanning of the cervical spine was performed. Multiplanar reconstructions in the sagittal, coronal and oblique axial planes were performed. Using automated exposure control and adjustment o f the mA and/or kV according to patient size, radiation dose was kept as low as reasonably achievable to obtain optimal diagnostic quality images. DICOM format image data is available electronically f or review and comparison. FINDINGS: Cervical spine alignment is satisfactory. There is no evidence of cervical spine fracture. There is n o bony canal or foraminal compromise identified. There are mild degenerative changes most notably inv olving the posterior facet joints. There is no evidence of paraspinal hematoma. There are small low d ensity nodules involving the thyroid. CONCLUSION: No acute bony injury in the cervical spine Jesus Lopes MD on March 10, 2017 at 16:48 Board Certified Radiologist. This report was verified electronically.
[2017-03-10] MEDS ORDERED: KETOROLAC TROMETHAMINE 30 MG/ML (IVP) VIAL IV PUSH ONE (17:00)
[2017-03-10] MEDS ORDERED: KETOROLAC TROMETHAMINE 60 MG/2 ML (IM) VIAL IM ONE (17:15)
[2017-03-11] MEDS ORDERED: MOBI15TA PO (21:30)
== END 2017-03-10 18:07 | disposition home or self-care (01) ==
LOC: NEPD 14:49
DX: S06.0X0A Concussion without loss of consciousness, initial encounter (principal); S13.9XXA Sprain of joints and ligaments of unspecified parts of neck, initial encounter; S33.5XXA Sprain of ligaments of lumbar spine, initial encounter; I10 Essential (primary) hypertension; E78.00 Pure hypercholesterolemia, unspecified; M19.90 Unspecified osteoarthritis, unspecified site; F17.210 Nicotine dependence, cigarettes, uncomplicated; W01.0XXA Fall on same level from slipping, tripping and stumbling without subsequent striking against object, initial encounter; Z86.73 Personal history of transient ischemic attack (TIA), and cerebral infarction without residual deficits
CPT/HCPCS: 70450; 71010; 72100; 72125; 72170; 73080; 96372; 99284; J1885

== ENCOUNTER 2017-03-11 19:02 | Emergency (ER) | payer OTHER ==
[~2017-03-11] VITALS: Ht 152.4 cm; Wt 65.0 kg
[2017-03-11 19:07] VITALS: BP 115/65; PULSE 100; RESP 16; TEMP 98.3; O2SAT 98
[2017-03-11] MEDS ORDERED: MOBI15TA PO (21:30)
--- NOTE | 2017-03-11 21:37 | PD ---
HPI Chief Complaint: Pain: Acute or Chronic Time Seen by Provider: 21:12 Travel History International Travel<30 days: No Contact w/Intl Traveler<30days: No Traveled to known affect area: No History of Present Illness HPI 67-year-old white female presents to emergency department by EMS for evaluation of back pain. This is a patient who was seen 2 days earlier for fall. She had a CAT scan of her head, neck, and x-rays of her lumbar spine. She states that she has a history of chronic back pain but this has exacerbated it. She typically takes 7.5 mg of mobile daily. She states that she has difficulty ambulate at home due to pain. She denies any numbness, tingling or focal weakness. She states that she does not like using her walker. Pain is moderate. Worse with movement. No alleviating factors. PFSH Past Medical History Arthritis: Yes Asthma: No Autoimmune Disease: No Blood Disorders: No Bipolar Disorder: Yes Anxiety: Yes Depression: Yes Heart Rhythm Problems: No Cancer: No Cardiac Catheterization: No Cardiovascular Problems: No High Cholesterol: Yes Chest Pain: No Congestive Heart Failure: No COPD: No Cerebrovascular Accident: Yes Diabetes: No Diminished Hearing: No Endocrine: Yes GERD: Yes Genitourinary: No Headaches: No Hepatitis: No Hiatal Hernia: No Herniated Disk: Yes (LOWER BACK) Hypertension: Yes Immune Disorder: No Kidney Stones: No Musculoskeletal: Yes Neurologic: Yes Psychiatric: Yes Reproductive: No Respiratory: No Immunizations Current: Yes Myocardial Infarction: No Renal Failure: No Seizures: No Sleep Apnea: No Thyroid Disease: Yes Ulcer: No Menopausal: Yes : 0 Para: 0 Past Surgical History Abdominal Surgery: No AICD: No Appendectomy: Yes Arteriovenous Shunt: No Cardiac Surgery: No Coronary Artery Bypass Graft: No Ear Surgery: No Endocrine Surgery: No Eye Surgery: No Genitourinary Surgery: No Gynecologic Surgery: No Insulin Pump: No Joint Replacement: No Neurologic Surgery: No Oral Surgery: No Pacemaker: No Thoracic Surgery: No Other Surgery: Yes (CYST REMOVED FROM CHIN, BACK AND AREA NEXT TO RT RYE) Social History Alcohol Use: Yes Tobacco Use: Yes Substance Use: No ( ) Allergies-Medications (Allergen,Severity, Reaction): Coded Allergies: carbamazepine (Unverified Allergy, Severe, Anaphylaxis, 03/11/17) divalproex sodium (Unverified Allergy, Severe, Diarrhea, 03/11/17) lorazepam (Unverified Allergy, Severe, Swelling, 03/11/17) penicillin G (Unverified Allergy, Severe, RASH, 03/11/17) haloperidol (Unverified Allergy, Unknown, UNKNOWN , 03/11/17) PT STATES SHE IS ALLERGIC TO HALDOL, BUT WILL NOT STATE HER REACTION TO THE MEDICATION OR THE SEVERITY OF THE REACTION. milk (Unverified Allergy, Unknown, 03/11/17) erythromycin base (Unverified Adverse Reaction, Severe, DIARRHEA, 03/11/17 ) lithium (Unverified Adverse Reaction, Unknown, 03/11/17) Reported Meds & Prescriptions Reported Meds & Active Scripts Active Mobic (Meloxicam) 15 Mg Tab 15 Mg PO DAILY Meloxicam 7.5 Mg Tab 7.5 Mg PO DAILY Levothyroxine (Levothyroxine Sodium) 25 Mcg Tab 25 Mcg PO DAILY@06 Ambien (Zolpidem Tartrate) 10 Mg Tab 10 Mg PO HS PRN Lisinopril 10 Mg Tab 10 Mg PO DAILY 15 Days Reported Abilify (Aripiprazole) 10 Mg Tab 10 Mg PO DAILY Hydroxyzine Pamoate 25 Mg Cap 25 Mg PO BID Omeprazole 40 Mg Cap 40 Mg PO DAILY Review of Systems General / Constitutional: No: Fever Eyes: No: Visual changes HENT: No: Headaches Cardiovascular: No: Chest Pain or Discomfort Respiratory: No: Shortness of Breath Gastrointestinal: No: Abdominal Pain Genitourinary: No: Dysuria Musculoskeletal: Positive: Arthralgias, Limited ROM, Pain Skin: No Rash Neurologic: No: Weakness Psychiatric: No: Depression Endocrine: No: Polydipsia Hematologic/Lymphatic: No: Easy Bruising Physical Exam Narrative GENERAL: This is a well-nourished, well-developed patient, in no apparent distress. Patient is up and ambulatory with her walker. She's been to the bathroom multiple times. SKIN: No rashes, ecchymoses or lesions. Warm and dry. HEAD: Atraumatic. Normocephalic. EYES: PERRL, EOMI, no discharge or injection. No scleral icterus. EARS: Clear NOSE: Nasal turbinates appear normal. THROAT: Mucosa pink and moist. Airway patent. NECK: Trachea midline. supple, moves head freely. LUNGS: Clear to auscultation. CV: Regular in rhythm. ABDOMEN: Soft nontender. EXT: No clubbing cyanosis or edema. Back: Complains of diffuse paralumbar tenderness without point localization. Data Data Last Documented VS Vital Signs Date Time Temp Pulse Resp B/P (MAP) Pulse Ox O2 Delivery O2 Flow Rate FiO2 03/11/17 20:32 20 03/11/17 19:07 98.3 100 115/65 (82) 98 Room Air Orders Orders Ed Discharge Order (03/11/17 21:30) Meloxicam (Mobic) (03/11/17 21:45) MDM Medical Decision Making Medical Screen Exam Complete: Yes Emergency Medical Condition: Yes Medical Record Reviewed: Yes Differential Diagnosis MDM: High Differential diagnoses: AAA,Fracture, sprain, strain, HNP, nerve or vascular injury, epidural abscess, pilonidal cyst, pyelonephritis, UTI, nephrolithiasis, ureterolithiasis Narrative Course Patient's exam is reassuring. We will increase her meloxicam from 7.5 mg to 15 mg for the next 2 weeks. I reviewed her CAT scans and x-rays which are unremarkable. The patient is ambulatory using her walker and moves freely. This is back pain status post fall, acute exacerbation of chronic back pain Diagnosis Primary Impression: Acute exacerbation of chronic low back pain Patient Instructions: General Instructions Additional Instructions: Rest. Ice for the next 3 days followed by heat . Mobic 15 mg for the next 2 weeks then revert back to your 7.5 mg. Follow-up with a primary care doctor in one week. Return to the ER for emergencies. Med/Other Pt SpecificInfo: Prescription(s) given Scripts Meloxicam (Mobic) 15 Mg Tab 15 MG PO DAILY, #14 TAB 0 Refills Prov: Los Espinoza MD 03/11/17 Disposition: 01 DISCHARGE HOME Condition: Stable Brad Castillo Mar 11, 2017 21:37
[2017-03-11] MEDS ORDERED: MELOXICAM 15 MG TAB PO ONE (21:45)
[2017-03-11 22:14] VITALS: BP 137/62
== END 2017-03-11 22:16 | disposition home or self-care (01) ==
LOC: NEPD 19:02
DX: M54.5 Low back pain (principal); G89.29 Other chronic pain; M19.90 Unspecified osteoarthritis, unspecified site; F31.9 Bipolar disorder, unspecified; F41.9 Anxiety disorder, unspecified; E78.00 Pure hypercholesterolemia, unspecified; I10 Essential (primary) hypertension; K21.9 Gastro-esophageal reflux disease without esophagitis; Z86.73 Personal history of transient ischemic attack (TIA), and cerebral infarction without residual deficits
CPT/HCPCS: 99283

== ENCOUNTER 2017-03-12 15:05 | Inpatient (IN) | payer OTHER, MEDICARE ==
[~2017-03-12] VITALS: Ht 152.4 cm; Wt 66.3 kg
[~2017-03-12 15:05] MED LIST changes: +MOBI15TA PO
[2017-03-12 15:37] VITALS: BP 167/78; PULSE 98; RESP 26; TEMP 98; O2SAT 98
--- NOTE | 2017-03-12 15:48 | PD ---
HPI Chief Complaint: Psychiatric Symptoms Time Seen by Provider: 15:18 Travel History International Travel<30 days: No Contact w/Intl Traveler<30days: No Traveled to known affect area: No History of Present Illness HPI 67-year-old female presents to the emergency department under Vazquez act by local police for psychiatric evaluation, suicidal ideation. When the Vazquez, the patient has been threatening to jump off the balcony which is on the seventh floor. The patient has flight of ideas and is hyperverbal. Patient denies any suicidal or homicidal ideation me. She denies any alcohol, tobacco, illicit drug use. Patient denies suicidal or homicidal ideation to me. Patient states that she has a long psychiatric history, but will not elaborate. Patient has no medical complaints at this time. Patient has been seen here daily for the last 3 days for evaluation. PFSH Past Medical History Arthritis: Yes Asthma: No Autoimmune Disease: No Blood Disorders: No Bipolar Disorder: Yes Anxiety: Yes Depression: Yes Heart Rhythm Problems: No Cancer: No Cardiac Catheterization: No Cardiovascular Problems: No High Cholesterol: Yes Chest Pain: No Congestive Heart Failure: No COPD: No Cerebrovascular Accident: Yes Diabetes: No Diminished Hearing: No Endocrine: Yes GERD: Yes Genitourinary: No Headaches: No Hepatitis: No Hiatal Hernia: No Herniated Disk: Yes (LOWER BACK) Hypertension: Yes Immune Disorder: No Kidney Stones: No Musculoskeletal: Yes Neurologic: Yes Psychiatric: Yes Reproductive: No Respiratory: No Immunizations Current: Yes Myocardial Infarction: No Renal Failure: No Seizures: No Sleep Apnea: No Thyroid Disease: Yes Ulcer: No ?: Not Menopausal: Yes : 0 Para: 0 Past Surgical History Abdominal Surgery: No AICD: No Appendectomy: Yes Arteriovenous Shunt: No Cardiac Surgery: No Coronary Artery Bypass Graft: No Ear Surgery: No Endocrine Surgery: No Eye Surgery: No Genitourinary Surgery: No Gynecologic Surgery: No Insulin Pump: No Joint Replacement: No Neurologic Surgery: No Oral Surgery: No Pacemaker: No Thoracic Surgery: No Other Surgery: Yes (CYST REMOVED FROM CHIN, BACK AND AREA NEXT TO RT RYE) Social History Alcohol Use: Yes Tobacco Use: Yes Substance Use: No ( ) Allergies-Medications (Allergen,Severity, Reaction): Coded Allergies: carbamazepine (Unverified Allergy, Severe, Anaphylaxis, 03/11/17) divalproex sodium (Unverified Allergy, Severe, Diarrhea, 03/11/17) lorazepam (Unverified Allergy, Severe, Swelling, 03/11/17) penicillin G (Unverified Allergy, Severe, RASH, 03/11/17) haloperidol (Unverified Allergy, Unknown, UNKNOWN , 03/11/17) PT STATES SHE IS ALLERGIC TO HALDOL, BUT WILL NOT STATE HER REACTION TO THE MEDICATION OR THE SEVERITY OF THE REACTION. milk (Unverified Allergy, Unknown, 03/11/17) erythromycin base (Unverified Adverse Reaction, Severe, DIARRHEA, 03/11/17 ) lithium (Unverified Adverse Reaction, Unknown, 03/11/17) Reported Meds & Prescriptions Reported Meds & Active Scripts Active Mobic (Meloxicam) 15 Mg Tab 15 Mg PO DAILY Meloxicam 7.5 Mg Tab 7.5 Mg PO DAILY Levothyroxine (Levothyroxine Sodium) 25 Mcg Tab 25 Mcg PO DAILY@06 Ambien (Zolpidem Tartrate) 10 Mg Tab 10 Mg PO HS PRN Lisinopril 10 Mg Tab 10 Mg PO DAILY 15 Days Reported Abilify (Aripiprazole) 10 Mg Tab 10 Mg PO DAILY Hydroxyzine Pamoate 25 Mg Cap 25 Mg PO BID Omeprazole 40 Mg Cap 40 Mg PO DAILY Review of Systems Except as stated in HPI: all other systems reviewed are Neg Physical Exam Narrative GENERAL: Well-nourished, well-developed female patient, ambulatory. Afebrile. SKIN: Focused skin assessment warm/dry. HEAD: Normocephalic. Atraumatic. EYES: No scleral icterus. No injection or drainage. NECK: Supple, trachea midline. No JVD or lymphadenopathy. CARDIOVASCULAR: Regular rate and rhythm without murmurs, gallops, or rubs. RESPIRATORY: Breath sounds equal bilaterally. No accessory muscle use. Lungs sounds are clear to auscultation. GASTROINTESTINAL: Abdomen soft, non-tender, nondistended. MUSCULOSKELETAL: No cyanosis, or edema. BACK: Nontender without obvious deformity. No CVA tenderness. PSYCHIATRIC: No delusional thought processes. No hallucinations. Patient is hyperverbal with flight of ideas. Data Data Last Documented VS Vital Signs Date Time Temp Pulse Resp B/P (MAP) Pulse Ox O2 Delivery O2 Flow Rate FiO2 03/12/17 15:37 98.0 98 26 167/78 (107) 98 Room Air Orders Orders Psych Screen (03/12/17 15:42) [facility] Medical Decision Making Medical Screen Exam Complete: Yes Emergency Medical Condition: Yes Medical Record Reviewed: Yes Differential Diagnosis Psychosis versus bipolar disorder versus anemia versus depression versus anxiety Narrative Course 67-year-old female presents to the emergency Department under [place]az[place] act by local police. Patient appears manic with history of bipolar disorder on exam. Patient had labs completed on March 09, 2017. CBC showed no acute abnormality. CMP showed no acute abnormality. Urine drug screen was positive for benzodiazepines. Patient is medically cleared for psychiatric screening and disposition. Mental health screening discussed with the patient. Psychiatric screen ordered. Diagnosis Primary Impression: Bipolar disorder Qualified Codes: F31.12 - Bipolar disorder, current episode manic without psychotic features, moderate Condition: Stable Beatriz Green Mar 12, 2017 15:48
[2017-03-12] MEDS ORDERED: diphenhydrAMINE HCL 50 MG/ML VIAL IM ONE (16:30)
[2017-03-12] MEDS ORDERED: OLANZapine IM 10 MG VIAL IM ONE (16:30)
[2017-03-12 18:22] VITALS: BP 149/69; PULSE 84; RESP 18; TEMP 95.5; O2SAT 100
[2017-03-13] MEDS ORDERED: LORazepam 2 MG/ML VIAL IM ONE (04:45)
[2017-03-13 07:00] VITALS: BP 125/62; PULSE 83; RESP 16; O2SAT 100
[2017-03-13 12:00] VITALS: BP 130/95; PULSE 95; TEMP 98; O2SAT 95
--- NOTE | 2017-03-13 12:45 | PD ---
Physical Exam Date Seen by Provider: Mar 13, 2017 Time Seen by Provider: 12:45 Narrative I was asked to evaluate the patient after she fell from the bed. She was eating her food when she leaned over and fell. This was witnessed by staff. She did not hit her head or have any loss of consciousness. The patient denies any neck pain or back pain. She complains of right hip pain. Patient denies any other complaints at this time. GENERAL: Well-nourished, well-developed female patient, ambulatory. Afebrile. SKIN: Focused skin assessment warm/dry. HEAD: Normocephalic. Atraumatic. EYES: No scleral icterus. No injection or drainage. NECK: Supple, trachea midline. No JVD or lymphadenopathy. CARDIOVASCULAR: Right pedal pulse is 2+. RESPIRATORY: No accessory muscle use. GASTROINTESTINAL: Abdomen soft, non-tender, nondistended. MUSCULOSKELETAL: No cyanosis, or edema. BACK: No CVA tenderness. No rash. No point tenderness on palpation of the spine. Data Data Last Documented VS Vital Signs Date Time Temp Pulse Resp B/P (MAP) Pulse Ox O2 Delivery O2 Flow Rate FiO2 03/13/17 12:00 98.0 95 130/95 (107) 95 Room Air 03/13/17 07:00 16 Orders Orders Psych Screen (03/12/17 15:42) Olanzapine Inj (Zyprexa Inj) (03/12/17 16:30) Diphenhydramine Inj (Benadryl Inj) (03/12/17 16:30) Restraints Violent (03/12/17 16:30) Diet Regular Basic (03/12/17 Dinner) Lorazepam Inj (Ativan Inj) (03/13/17 04:45) Diet Regular Basic (03/13/17 Breakfast) Diet Regular Basic (03/13/17 Lunch) Hip, Uni(Ap&Lat) W Ap Pelvis (03/13/17 ) MDM Medical Record Reviewed: Yes Supervised Visit with RAFAL: No Interpretation(s) x-ray right hip with pelvis - CONCLUSION: 1. No fracture or significant degenerative changes. 2. 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 Narrative Course I was asked to evaluate the patient after she fell. The patient appears well. She is complaining of right hip pain. I'm able to get the patient up and she is able to ambulate without difficulty. X-ray of the right hip with pelvis is ordered and pending. X-ray of the right hip with pelvis shows no fracture or significant degenerative changes; Vacuum joint phenomenon with some osteoarthritic spurring of the right SI joint. Patient remains medically cleared for psychiatric screening and disposition. Diagnosis Primary Impression: Bipolar disorder Qualified Codes: F31.12 - Bipolar disorder, current episode manic without psychotic features, moderate Condition: Stable Beatriz Green Mar 13, 2017 12:45
--- NOTE | 2017-03-13 14:05 | RADRPT ---
EXAM DATE/TIME: 03/13/2017 13:41 [facility] COMPARISON: No previous studies available for comparison. INDICATIONS : Right hip pain MEDICAL HISTORY : Hypertension. Cardiovascular disease SURGICAL HISTORY : None. ENCOUNTER: Initial ACUITY: 1 day PAIN SCORE: 5/10 LOCATION: Right HIP FINDINGS: Examination of the right hip was performed with AP Pelvis. The primary and secondary trabecular ana cristina tom of the femoral neck is intact. The hip joint is of normal width without significant sclerosis or bony hypertrophy. The acetabulum is grossly intact. Vacuum joint phenomenon in the right SI joint w ith some osteoarthritic spurring. CONCLUSION: 1. No fracture or significant degenerative changes. 2. 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 Gorge Mcmillan MD on March 13, 2017 at 14:02 Board Certified Radiologist. This report was verified electronically.
[2017-03-13 17:21] VITALS: BP 157/75; PULSE 90; RESP 18; O2SAT 99
[2017-03-13 21:15] VITALS: BP 153/81; PULSE 101; RESP 20; O2SAT 98
[2017-03-13] MEDS ORDERED: LORazepam 1 MG TAB PO PRN (23:15)
[2017-03-13] MEDS ORDERED: BENZTROPINE MESYLATE 2 MG/2 ML VIAL IM PRN (23:15)
[2017-03-13] MEDS ORDERED: MAGNESIUM HYDROXIDE SUSP 30 ML CUP PO PRN (23:15)
[2017-03-13] MEDS ORDERED: diphenhydrAMINE HCL 50 MG/ML VIAL - HS PRN IM (23:15)
[2017-03-13] MEDS ORDERED: LORazepam 2 MG/ML VIAL IM PRN (23:15)
[2017-03-13] MEDS ORDERED: BENZTROPINE MESYLATE 1 MG TAB PO PRN (23:15)
[2017-03-13] MEDS ORDERED: traZODone HCL 50 MG TAB PO PRN (23:15)
[2017-03-13] MEDS ORDERED: diphenhydrAMINE HCL 50 MG/ML VIAL IM PRN (23:15)
[2017-03-13 23:32] VITALS: BP 153/89; PULSE 89; RESP 21; TEMP 97.1; O2SAT 97
[2017-03-14] MEDS: diphenhydrAMINE HCL 50 MG CAP - HS PRN PO (01:54)
[2017-03-14] MEDS: ACETAMINOPHEN 325 MG TAB PO PRN ×2 (01:54→17:27)
[2017-03-14 03:51] VITALS: BP 121/57; PULSE 88; RESP 17; TEMP 98.3; O2SAT 97
[2017-03-14 06:21] VITALS: BP 123/59; PULSE 86; RESP 16; TEMP 98.4; O2SAT 95
--- NOTE | 2017-03-14 07:44 | PD.CONS ---
HPI Service [facility] Hospitalists Consult Requested By Dr Wolf Reason for Consult medical management Primary Care Physician Unknown Diagnoses: History of Present Illness 67-year-old female presented to the emergency department under [place]azquez act by local police for psychiatric evaluation, suicidal ideation. When the [place]azquez, the patient has been threatening to jump off the balcony which is on the seventh floor. The patient has flight of ideas and is hyperverbal. Patient denies any suicidal or homicidal ideation at this time. She denies any alcohol , illicit drug use. Reports tobacco use but doesn't wnt to specify how much. Patient denies suicidal or homicidal ideation to me. Patient states that she has a long psychiatric history, but will not elaborate. Patient has no medical complaints at this time. Patient has been seen here daily for the last 3 days for evaluation. Patient is walking with a walkeer and also without a walker. Says she has some back pain and hip pain. X ray n the ED did not show any fracture. Patient denies any n/v/d/c. No urinary complaints. No cp, sob. Review of Systems ROS Limitations: Clinical Condition, Psychotic Except as stated in HPI: all other systems reviewed are Neg Past Family Social History Allergies: Coded Allergies: carbamazepine (Unverified Allergy, Severe, Anaphylaxis, 03/11/17) divalproex sodium (Unverified Allergy, Severe, Diarrhea, 03/11/17) lorazepam (Unverified Allergy, Severe, Swelling, 03/11/17) penicillin G (Unverified Allergy, Severe, RASH, 03/11/17) haloperidol (Unverified Allergy, Unknown, UNKNOWN , 03/11/17) PT STATES SHE IS ALLERGIC TO HALDOL, BUT WILL NOT STATE HER REACTION TO THE MEDICATION OR THE SEVERITY OF THE REACTION. milk (Unverified Allergy, Unknown, 03/11/17) erythromycin base (Unverified Adverse Reaction, Severe, DIARRHEA, 03/11/17 ) lithium (Unverified Adverse Reaction, Unknown, 03/11/17) Past Medical History Hypertension Hypothyroidism Hyperlipidemia CVA GERD Bipolar disorder Anxiety Depression Past Surgical History Appendectomy Lobectomy for removal of breast mass Removal of cyst from chin Reported Medications Reported Meds & Active Scripts Active Mobic (Meloxicam) 15 Mg Tab 15 Mg PO DAILY Meloxicam 7.5 Mg Tab 7.5 Mg PO DAILY Levothyroxine (Levothyroxine Sodium) 25 Mcg Tab 25 Mcg PO DAILY@06 Ambien (Zolpidem Tartrate) 10 Mg Tab 10 Mg PO HS PRN Lisinopril 10 Mg Tab 10 Mg PO DAILY 15 Days Reported Abilify (Aripiprazole) 10 Mg Tab 10 Mg PO DAILY Hydroxyzine Pamoate 25 Mg Cap 25 Mg PO BID Omeprazole 40 Mg Cap 40 Mg PO DAILY Family History Mother didn't have cancer" , however she had alcoholism. "Dad was a [employer] car pilot he had Alzeimers and of PNA. He also had brain swelling and a shunt placed. Social History Tobacco use of a pack per day Alcohol denies Patient reports using marijuana because she "might have cancer" Physical Exam Vital Signs Vital Signs Date Time Temp Pulse Resp B/P (MAP) Pulse Ox O2 Delivery O2 Flow Rate FiO2 03/14/17 06:21 98.4 86 16 123/59 (80) 95 03/14/17 03:51 98.3 88 17 121/57 (78) 97 03/13/17 23:32 97.1 89 21 153/89 (110) 97 03/13/17 23:04 03/13/17 21:15 101 20 153/81 (105) 98 Room Air 03/13/17 17:21 90 18 157/75 (102) 99 Room Air 03/13/17 12:00 98.0 95 130/95 (107) 95 Room Air Physical Exam GENERAL: This is a well-nourished, well-developed patient, in no apparent distress. With flight of ideas. Pressured speech. SKIN: No rashes, ecchymoses or lesions. Cool and dry. HEAD: Atraumatic. Normocephalic. No temporal or scalp tenderness. EYES: Pupils equal round and reactive. Extraocular motions intact. No scleral icterus. No injection or drainage. ENT: Nose without bleeding, purulent drainage or septal hematoma. Throat without erythema, tonsillar hypertrophy or exudate. Uvula midline. Airway patent. NECK: Trachea midline. No JVD or lymphadenopathy. Supple, nontender, no meningeal signs. CARDIOVASCULAR: Regular rate and rhythm without murmurs, gallops, or rubs. RESPIRATORY: Clear to auscultation. Breath sounds equal bilaterally. No wheezes , rales, or rhonchi. GASTROINTESTINAL: Abdomen soft, non-tender, nondistended. No hepato-splenomegaly , or palpable masses. No guarding. MUSCULOSKELETAL: Extremities without clubbing, cyanosis, or edema. No joint tenderness, effusion, or edema noted. No calf tenderness. Negative Homans sign bilaterally. NEUROLOGICAL: Awake and alert. Cranial nerves grossly intact. Motor and sensory grossly within normal limits. Pressured speech. Imaging Last Impressions Hip and Pelvis X-Ray 03/13/17 0000 Signed Impressions: Service Date/Time: Monday, March 13, 2017 13:41 - CONCLUSION: 1. No fracture or significant degenerative changes. 2. 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 Gorge Mcmillan MD Assessment and Plan Assessment and Plan 66-year-old female with a past medical history significant for bipolar disorder , hypertension, hypothyroidism, dyslipidemia, CVA and GERD who was brought into the emergency department under Vazquez act due to patient making statements that she was given a commit suicide by jumping off of her condo balcony. She has been admitted to the psychiatric unit and Hospitalist services have been consulted for medical management. Bipolar disorder with psychotic features Management per psychiatric team Hypertension Resume patient's home dose of lisinopril Hypothyroidism Continue patient's home dose of levothyroxine. Recent TSH normal. GERD Resume PPI DVT prophylaxis Patient is ambulatory Thank you for this consultation. We will follow along with you. Discussed Condition With Patient and nurse Nanci Vail MD Mar 14, 2017 07:44
[2017-03-14 08:53] LABS: ANION GAP 6 MEQ/L (5-15); BICARBONATE 28.9 MEQ/L (21.0-32.0); BLOOD UREA NITROGEN 18 MG/DL (7-18); CHLORIDE 103 MEQ/L (98-107); GLOMERULAR FILTRATION RATE 90 ML/MIN (>89); POTASSIUM 3.8 MEQ/L (3.5-5.1); SODIUM (NA) 138 MEQ/L (136-145)
[2017-03-14 08:56] LABS: HDL CHOLESTEROL 96.1 MG/DL (40.0-60.0); LDL CHOLESTEROL 32 MG/DL (0-99)
[2017-03-14] MEDS ORDERED: NICOTINE 21 MG/24 HR PATCH T-DERMAL SCH (09:00)
[2017-03-14] MEDS: traZODone HCL 50 MG TAB PO SCH ×2 (12:45→21:30)
--- NOTE | 2017-03-14 13:17 | HHI.HP ---
Provisional Diagnosis Admission Date Mar 13, 2017 at 22:46 [place] I. Bipolar disorder, manic episode Certification of Person's Competence To Provide Express and Informed Consent I have personally examined Verenice Perez , a person being served at [facility] on, Mar 14, 2017 13:16. Express and informed consent means consent voluntarily given in writing, by a competent person, after sufficient explanation and disclosure of the subject matter involved to enable the person to make a knowing and willful decision without any element of force, fraud, deceit, duress, or other form of constraint or coercion. This person is 18 years of age or older, is not now known to be incompetent to consent to treatment with a guardian advocate, and does not have a health care surrogate or proxy currently making medical treatment decisions. I have found this person to be one of the following: [] Competent to provide express and informed consent, as defined above, for voluntary admission to this facility and is competent to provide express and informed consent for treatment. He/she has the consistent capacity to make well reasoned, willful, and knowing decisions concerning his or her medical or mental health treatment. The person fully and consistently understands the purpose of the admission for examination/placement and is fully capable of personally exercising all rights assured [place] [x] Incompetent to provide express and informed consent to voluntary admission, and this is incompetent to provide express and informed consent to treatment. The person must be transferred to involuntary status and a petition for a guardian advocate filed with the Circuit Court. [] Refusing to provide express and informed consent to voluntary admission but is competent to provide express and informed consent for treatment. The person must be discharged or transferred to involuntary status. Form shall be completed within 24 hours of a person's arrival at the receiving facility and filed in the clinical record of each person: 1. Admitted on a voluntary basis 2. Permitted to provide express and informed consent to his/her own treatment 3. Allowed to transfer from involuntary to voluntary status 4. Prior to permitting a person to consent to his or her own treatment after having been previously found incompetent to consent to treatment. History of Present Illness Capacity: Lacks Capacity HPI Patient is a 67-year-old woman, domiciled, past psychiatric history of bipolar disorder, multiple psychiatric admissions, no previous suicide attempts as per chart, history of noncompliance, history of remote substance use (unspecified), who was brought in by police under Vazquez act for suicidal ideations and wanted to jump from a seventh floor of a building which she was transferred to the inpatient psychiatry for further evaluation and management. Patient was noted to be on the unit with sunglasses on and noted to be hyperverbal with staff. Patient upon interview was noted to be disorganized, pressured speech with flight of ideas or loosening associations. He was but difficult to ascertain history due to her current manic symptoms and disorganization. Patient states that she is brought to the hospital after she had called police reporting on a woman that was threatening her. Patient denies any suicide ideations and stated that "all I wanted is the woman to living alone". Patient reports she follows it was [facility] for outpatient psychiatry seeing a nurse rehabilitation intended and states that after her last admission she was not continued on hospital constant and states that the medication was not helpful and being allergic to other medications as stated her allergy list. Patient states that she had done well on olanzapine in the past and would like to continue to take his medication now. Past psychiatric history: As per chart history of bipolar disorder, previous psychiatric admissions no suicidal. As per chart last seen recently here at [facility] other the care of Dr. Wolf in November 2016, and was discharged on risperidone 4 mg by mouth twice a day along with Risperdal Consta. Patient has outpatient follow-up at [facility] (Formerly [facility]). Substance use history: Patient admits to remote history of substance use but did not specify what but as per chart occasional use of alcohol. Social history: Reports being born in [place], as per chart domiciled in public housing. Review of Systems Except as stated in HPI: all other systems reviewed are Neg Past Psych History Psychological trauma history Unable to obtain due to patient's current symptomatology and disorganized thought process Violence risk - others (6 mos) Low Violence risk - self (6 mos) Elevated due to recent endorsement of suicide ideations. Substance Abuse History Drugs/Alcohol past 12 months Patient admits to remote history of substance use but did not specify what but as per chart occasional use of alcohol. Past Family Social History Coded Allergies: carbamazepine (Unverified Allergy, Severe, Anaphylaxis, 03/11/17) divalproex sodium (Unverified Allergy, Severe, Diarrhea, 03/11/17) lorazepam (Unverified Allergy, Severe, Swelling, 03/11/17) penicillin G (Unverified Allergy, Severe, RASH, 03/11/17) haloperidol (Unverified Allergy, Unknown, UNKNOWN , 03/11/17) PT STATES SHE IS ALLERGIC TO HALDOL, BUT WILL NOT STATE HER REACTION TO THE MEDICATION OR THE SEVERITY OF THE REACTION. milk (Unverified Allergy, Unknown, 03/11/17) erythromycin base (Unverified Adverse Reaction, Severe, DIARRHEA, 03/11/17 ) lithium (Unverified Adverse Reaction, Unknown, 03/11/17) Active Scripts Meloxicam (Mobic) 15 Mg Tab, 15 MG PO DAILY, #14 TAB 0 Refills Prov:Los Espinoza MD 03/11/17 Meloxicam (Meloxicam) 7.5 Mg Tab, 7.5 MG PO DAILY for health, #30 TAB 0 Refills Prov:Jesus Wolf MD 12/10/16 Levothyroxine (Levothyroxine) 25 Mcg Tab, 25 MCG PO DAILY@06 for health, #30 TAB 0 Refills Prov:Jesus Wolf MD 12/10/16 Zolpidem (Ambien) 10 Mg Tab, 10 MG PO HS Y for INSOMNIA, #15 TAB 1 Refill Prov:Flavio Resendiz MD 10/29/16 Lisinopril (Lisinopril) 10 Mg Tab, 10 MG PO DAILY for Blood Pressure Management for 15 Days, TAB 1 Refill Prov:Flavio Resendiz MD 06/28/16 Reported Medications Aripiprazole (Abilify) 10 Mg Tab, 10 MG PO DAILY, #30 TAB 0 Refills 03/09/17 Hydroxyzine Pamoate (Hydroxyzine Pamoate) 25 Mg Cap, 25 MG PO BID, CAP 0 Refills 03/09/17 Omeprazole (Omeprazole) 40 Mg Cap, 40 MG PO DAILY, #30 CAP 0 Refills 03/09/17 Discontinued Scripts Zolpidem (Ambien) 10 Mg Tab, 10 MG PO HS for health, #30 TAB 0 Refills Prov:Jesus Wolf MD 12/10/16 Risperidone (Risperdal) 4 Mg Tab, 4 MG PO BID for health, #60 TAB 0 Refills Prov:Jesus Wolf MD 12/10/16 Pantoprazole (Pantoprazole) 40 Mg Tab, 40 MG PO DAILY for health, #30 TAB 0 Refills Prov:Jesus Wolf MD 12/10/16 Lisinopril (Lisinopril) 10 Mg Tab, 10 MG PO DAILY for health, #30 TAB 0 Refills Prov:Jesus Wolf MD 12/10/16 Docusate Sodium (Dok) 100 Mg Cap, 100 MG PO BID for health, #60 CAP 0 Refills Prov:Jesus Wolf MD 12/10/16 Betamethasone-Clotrimazole Topical (Lotrisone Topical) 1-0.05% Cream, 1 APPLIC TOPICAL Q12HR for Health for 15 Days, TUBE 1 Refill Prov:Flavio Resendiz MD 06/28/16 Docusate Sodium (Dok) 100 Mg Cap, 100 MG PO BID for Constipation for 15 Days, CAP 1 Refill Prov:Flavio Resendiz MD 06/28/16 Pantoprazole (Pantoprazole) 40 Mg Tab, 40 MG PO DAILY for Reflux for 15 Days, TAB 1 Refill Prov:Flavio Resendiz MD 06/28/16 Meloxicam (Meloxicam) 7.5 Mg Tab, 7.5 MG PO DAILY for Health for 15 Days, TAB 1 Refill Prov:Flavio Resendiz MD 06/28/16 Levothyroxine (Levothyroxine) 25 Mcg Tab, 25 MCG PO DAILY@0600 for Hypothyroid for 15 Days, TAB 1 Refill Prov:Flavio Resendiz MD 06/28/16 Current Medications Medications (Trade) Dose Ordered Sig/Lety Route Start Time Stop Time Status Last Admin (Atarax) 50 mg Q6H PRN PO 03/13/17 23:15 (Benadryl) 50 mg Q6H PRN PO 03/13/17 23:15 (Benadryl Inj) 50 mg Q6H PRN IM 03/13/17 23:15 (Cogentin) 1 mg Q12H PRN PO 03/13/17 23:15 (Cogentin Inj) 1 mg Q12H PRN IM 03/13/17 23:15 (Benadryl) 50 mg HS PRN PO 03/13/17 23:15 03/14/17 01:54 (Benadryl Inj) 50 mg HS PRN IM 03/13/17 23:15 (Tylenol) 650 mg Q4H PRN PO 03/13/17 23:15 03/14/17 01:54 (Milk Of Magnesia Liq) 30 ml DAILY PRN PO 03/13/17 23:15 (Mag-Al Plus Susp Liq) 30 ml Q6H PRN PO 03/13/17 23:15 Miscellaneous Information 1 HS T-DERMAL 03/14/17 21:00 (Pneumovax-23 Inj) 25 mcg ONCE ONCE IM 03/15/17 10:00 03/15/17 10:01 (Flu (Quadrivalent) Vaccine Inj) 0.5 ml ONCE ONCE IM 03/15/17 10:00 03/15/17 10:01 (ZyPREXA ZYDIS ODT) 5 mg Q12HR PO 03/14/17 12:45 (Desyrel) 50 mg HS PO 03/14/17 12:45 (Atarax) 25 mg Q6H PO 03/14/17 14:00 (Habitrol 7 Mg Patch.24 Hr) 1 patch DAILY T-DERMAL 03/14/17 13:15 Miscellaneous Information 1 DAILY T-DERMAL 03/15/17 09:00 Family Psych History Unable to obtain due to patient's current symptomatology and disorganized thought process Social History Reports being born in [place], as per chart domiciled in public housing. Patient's Strengths (min. 2) Verbal and communicative Physical Exam Patient not noted to be in acute distress, no gross motor abnormalities, no tremors or EPS, no noted psychomotor retardation or agitation. Vital Signs Vital Signs Date Time Temp Pulse Resp B/P (MAP) Pulse Ox O2 Delivery O2 Flow Rate FiO2 03/14/17 06:21 98.4 86 16 123/59 (80) 95 03/13/17 21:15 Room Air Lab Results Test 03/14/17 08:10 Blood Urea Nitrogen 18 MG/DL Creatinine 0.66 MG/DL Random Glucose 95 MG/DL Calcium Level 9.3 MG/DL Sodium Level 138 MEQ/L Potassium Level 3.8 MEQ/L Chloride Level 103 MEQ/L Carbon Dioxide Level 28.9 MEQ/L Anion Gap 6 MEQ/L Estimat Glomerular Filtration Rate 90 ML/MIN Triglycerides Level 32 MG/DL Cholesterol Level 134 MG/DL LDL Cholesterol 32 MG/DL HDL Cholesterol 96.1 MG/DL Cholesterol/HDL Ratio 1.39 RATIO Mental Status Examination Appearance: Appropriate, Other (wearing sunglasses) Consciousness: Alert Orientation: Person, Place Motor Activity: Normal gait Speech: Pressured Language: Adequate Fund of Knowledge: Adequate Attention and Concentration: Easily Distracted Memory: Impaired Mood: Irritable, Manic Affect: Irritable Thought Process & Associations: Loose associations, Disorganized, Tangential Thought Content: Racing thoughts Hallucination Type: None Delusion Type: None Suicidal Ideation: Yes (denies at this time) Suicidal Plan: No Suicidal Intention: No Homicidal Ideation: No Homicidal Plan: No Homicidal Intention: No Insight: Poor Judgment: Poor Assessment & Plan Problem List: (1) Bipolar disorder, manic, moderate ICD Codes: F31.12 - Bipolar disorder, current episode manic without psychotic features, moderate Status: Acute Assessment & Plan Estimated LOS: 5-7 days. Patient is a 67-year-old woman who carries a diagnosis of bipolar disorder was recently brought in under Vazquez act for suicidal ideation and wanting to jump from a seventh floor of a building in the context of recent medication nonadherence. Patient at this time is noted to have acute manic symptoms, disorganized with poor insight and judgment. We'll start Zyprexa Zydis 5 mg by mouth twice a day, hydroxyzine 25 mg by mouth every 6 hours, trazodone 50 mg by mouth at bedtime for insomnia. Monitor medication for response and adverse drug reactions. Collateral pending. Recommendations as per primary medical team. Discharge planning in progress Discharge Planning Patient to return back to her residence once psychiatrically stable Zack Price MD Mar 14, 2017 13:16
--- NOTE | 2017-03-14 14:45 | PD.PSY.CON ---
Provisional Diagnosis Admission Date Mar 13, 2017 at 22:46 [place] I. Bipolar disorder History of Present Illness Service Psychiatry Consult Requested By Dr. Price Reason for Consult Second opinion petition supporting Vazquez act Primary Care Physician Unknown HPI Patient 67-year-old female diminished Dr. Price service under the Vazquez act. Patient seen by me on the unit she is markedly disorganized irritable psychotic of flight of ideas vague suicidality. Dr. Price's sign first opinion petition supporting Vazquez act. I agree. Patient meets criteria for involuntary psychiatric hospitalization under the Vazquez act. Thus I'll cosign second opinion petition supporting [employer] Past Family Social History Coded Allergies: carbamazepine (Unverified Allergy, Severe, Anaphylaxis, 03/11/17) divalproex sodium (Unverified Allergy, Severe, Diarrhea, 03/11/17) lorazepam (Unverified Allergy, Severe, Swelling, 03/11/17) penicillin G (Unverified Allergy, Severe, RASH, 03/11/17) haloperidol (Unverified Allergy, Unknown, UNKNOWN , 03/11/17) PT STATES SHE IS ALLERGIC TO HALDOL, BUT WILL NOT STATE HER REACTION TO THE MEDICATION OR THE SEVERITY OF THE REACTION. milk (Unverified Allergy, Unknown, 03/11/17) erythromycin base (Unverified Adverse Reaction, Severe, DIARRHEA, 03/11/17 ) lithium (Unverified Adverse Reaction, Unknown, 03/11/17) Active Scripts Meloxicam (Mobic) 15 Mg Tab, 15 MG PO DAILY, #14 TAB 0 Refills Prov:Los Espinoza MD 03/11/17 Meloxicam (Meloxicam) 7.5 Mg Tab, 7.5 MG PO DAILY for health, #30 TAB 0 Refills Prov:Jesus Wolf MD 12/10/16 Levothyroxine (Levothyroxine) 25 Mcg Tab, 25 MCG PO DAILY@06 for health, #30 TAB 0 Refills Prov:Jesus Wolf MD 12/10/16 Zolpidem (Ambien) 10 Mg Tab, 10 MG PO HS Y for INSOMNIA, #15 TAB 1 Refill Prov:Flavio Resendiz MD 10/29/16 Lisinopril (Lisinopril) 10 Mg Tab, 10 MG PO DAILY for Blood Pressure Management for 15 Days, TAB 1 Refill Prov:Flavio Resendiz MD 06/28/16 Reported Medications Aripiprazole (Abilify) 10 Mg Tab, 10 MG PO DAILY, #30 TAB 0 Refills 03/09/17 Hydroxyzine Pamoate (Hydroxyzine Pamoate) 25 Mg Cap, 25 MG PO BID, CAP 0 Refills 03/09/17 Omeprazole (Omeprazole) 40 Mg Cap, 40 MG PO DAILY, #30 CAP 0 Refills 03/09/17 Discontinued Scripts Zolpidem (Ambien) 10 Mg Tab, 10 MG PO HS for health, #30 TAB 0 Refills Prov:Jesus Wolf MD 12/10/16 Risperidone (Risperdal) 4 Mg Tab, 4 MG PO BID for health, #60 TAB 0 Refills Prov:Jesus Wolf MD 12/10/16 Pantoprazole (Pantoprazole) 40 Mg Tab, 40 MG PO DAILY for health, #30 TAB 0 Refills Prov:Jesus Wolf MD 12/10/16 Lisinopril (Lisinopril) 10 Mg Tab, 10 MG PO DAILY for health, #30 TAB 0 Refills Prov:Jesus Wolf MD 12/10/16 Docusate Sodium (Dok) 100 Mg Cap, 100 MG PO BID for health, #60 CAP 0 Refills Prov:Jesus Wolf MD 12/10/16 Betamethasone-Clotrimazole Topical (Lotrisone Topical) 1-0.05% Cream, 1 APPLIC TOPICAL Q12HR for Health for 15 Days, TUBE 1 Refill Prov:Flavio Resendiz MD 06/28/16 Docusate Sodium (Dok) 100 Mg Cap, 100 MG PO BID for Constipation for 15 Days, CAP 1 Refill Prov:Flavio Resendiz MD 06/28/16 Pantoprazole (Pantoprazole) 40 Mg Tab, 40 MG PO DAILY for Reflux for 15 Days, TAB 1 Refill Prov:Flavio Resendiz MD 06/28/16 Meloxicam (Meloxicam) 7.5 Mg Tab, 7.5 MG PO DAILY for Health for 15 Days, TAB 1 Refill Prov:Flavio Resendiz MD 06/28/16 Levothyroxine (Levothyroxine) 25 Mcg Tab, 25 MCG PO DAILY@0600 for Hypothyroid for 15 Days, TAB 1 Refill Prov:Flavio Resendiz MD 06/28/16 Current Medications Medications (Trade) Dose Ordered Sig/Lety Route Start Time Stop Time Status Last Admin (Atarax) 50 mg Q6H PRN PO 03/13/17 23:15 (Benadryl) 50 mg Q6H PRN PO 03/13/17 23:15 (Benadryl Inj) 50 mg Q6H PRN IM 03/13/17 23:15 (Cogentin) 1 mg Q12H PRN PO 03/13/17 23:15 (Cogentin Inj) 1 mg Q12H PRN IM 03/13/17 23:15 (Benadryl) 50 mg HS PRN PO 03/13/17 23:15 03/14/17 01:54 (Benadryl Inj) 50 mg HS PRN IM 03/13/17 23:15 (Tylenol) 650 mg Q4H PRN PO 03/13/17 23:15 03/14/17 01:54 (Milk Of Magnesia Liq) 30 ml DAILY PRN PO 03/13/17 23:15 (Mag-Al Plus Susp Liq) 30 ml Q6H PRN PO 03/13/17 23:15 Miscellaneous Information 1 HS T-DERMAL 03/14/17 21:00 (Pneumovax-23 Inj) 25 mcg ONCE ONCE IM 03/15/17 10:00 03/15/17 10:01 (Flu (Quadrivalent) Vaccine Inj) 0.5 ml ONCE ONCE IM 03/15/17 10:00 03/15/17 10:01 (ZyPREXA ZYDIS ODT) 5 mg Q12HR PO 03/14/17 12:45 (Desyrel) 50 mg HS PO 03/14/17 12:45 (Atarax) 25 mg Q6H PO 03/14/17 14:00 (Habitrol 7 Mg Patch.24 Hr) 1 patch DAILY T-DERMAL 03/14/17 13:15 Miscellaneous Information 1 DAILY T-DERMAL 03/15/17 09:00 Physical Exam Vital Signs Vital Signs Date Time Temp Pulse Resp B/P (MAP) Pulse Ox O2 Delivery O2 Flow Rate FiO2 03/14/17 06:21 98.4 86 16 123/59 (80) 95 03/13/17 21:15 Room Air Lab Results Test 03/14/17 08:10 Blood Urea Nitrogen 18 MG/DL Creatinine 0.66 MG/DL Random Glucose 95 MG/DL Calcium Level 9.3 MG/DL Sodium Level 138 MEQ/L Potassium Level 3.8 MEQ/L Chloride Level 103 MEQ/L Carbon Dioxide Level 28.9 MEQ/L Anion Gap 6 MEQ/L Estimat Glomerular Filtration Rate 90 ML/MIN Triglycerides Level 32 MG/DL Cholesterol Level 134 MG/DL LDL Cholesterol 32 MG/DL HDL Cholesterol 96.1 MG/DL Cholesterol/HDL Ratio 1.39 RATIO Mental Status Examination Appearance: Appropriate Consciousness: Alert Orientation: Person, Place, Date/Time, Situation Motor Activity: Normal gait, Other (patient uses walker) Speech: Pressured, Rapid Language: Adequate Fund of Knowledge: Adequate Attention and Concentration: Other (fair) Mood: Angry, Anxious, Irritable, Manic Affect: Other (increase range and intensity) Thought Process & Associations: Tangential Thought Content: Bizarre thinking Hallucination Type: None Delusion Type: Paranoid, Other (somewhat grandiose) Suicidal Ideation: No Suicidal Plan: No Suicidal Intention: No Homicidal Ideation: No Homicidal Plan: No Homicidal Intention: No Insight: Poor Judgment: Poor Assessment & Plan Problem List: (1) Bipolar disorder, manic, moderate ICD Codes: F31.12 - Bipolar disorder, current episode manic without psychotic features, moderate Status: Acute Assessment & Plan Estimated LOS: Jesus Wolf MD Mar 14, 2017 14:45
[2017-03-14] MEDS: hydrOXYzine HCL 25 MG TAB PO SCH ×2 (14:55→20:08)
[2017-03-14] MEDS: NICOTINE 7 MG/24 HR PATCH T-DERMAL SCH (14:55)
[2017-03-14] MEDS: OLANZapine ODT 5 MG TAB PO SCH ×2 (14:57→21:00)
[2017-03-14 17:18] VITALS: BP 144/81; PULSE 88; RESP 18; TEMP 97.8; O2SAT 96
[2017-03-14 20:45] VITALS: BP 170/69; PULSE 92; RESP 18; TEMP 98.1; O2SAT 97
[2017-03-14] MEDS ORDERED: REMOVE OLD NICOTINE PATCH T-DERMAL SCH (21:00)
[2017-03-14 21:11] LABS: HEMOGLOBIN A1a 1.3 %; HEMOGLOBIN A1b 0.8 %; HEMOGLOBIN Ao 83.5 %; HEMOGLOBIN F 2.3 %; HEMOGLOBIN LA1C 1.9 %; HEMOGLOBIN P3 5.5 %
[2017-03-15] MEDS: hydrOXYzine HCL 25 MG TAB PO SCH ×4 (00:57→20:00)
[2017-03-15] MEDS: diphenhydrAMINE HCL 50 MG CAP - HS PRN PO (02:42)
[2017-03-15 03:42] VITALS: BP 134/68; PULSE 108; RESP 18; TEMP 98; O2SAT 97
[2017-03-15] MEDS: hydrOXYzine HCL 50 MG TAB PO PRN (04:02)
[2017-03-15] MEDS: LEVOTHYROXINE SODIUM 25 MCG TAB PO SCH (05:38)
[2017-03-15] MEDS: LISINOPRIL 10 MG TAB PO SCH (07:56)
[2017-03-15] MEDS: PANTOPRAZOLE SOD 40 MG DELAYED RELEASE TAB PO SCH (07:57)
[2017-03-15] MEDS: REMOVE OLD PATCH T-DERMAL SCH (07:58)
[2017-03-15] MEDS: NICOTINE 7 MG/24 HR PATCH T-DERMAL SCH (07:58)
--- NOTE | 2017-03-15 09:49 | HHI.PR ---
Subjective Remarks Agitated. Says she is angry. Says she has no pain , she is walking well without a walker. She has some indigestion. No fever ro chills. No n/v/d/c. Eating fairly well. Objective Vitals Vital Signs Date Time Temp Pulse Resp B/P (MAP) Pulse Ox O2 Delivery O2 Flow Rate FiO2 03/15/17 03:42 98.0 108 18 134/68 (90) 97 03/14/17 20:45 98.1 92 18 170/69 (102) 97 03/14/17 17:18 97.8 88 18 144/81 (102) 96 Result Diagram: 03/14/17 0810 Imaging Last Impressions Hip and Pelvis X-Ray 03/13/17 0000 Signed Impressions: Service Date/Time: Monday, March 13, 2017 13:41 - CONCLUSION: 1. No fracture or significant degenerative changes. 2. 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 Gorge Mcmillan MD Objective Remarks GENERAL: This is a well-nourished, well-developed patient, in no apparent distress. With flight of ideas. Pressured speech. CARDIOVASCULAR: Regular rate and rhythm without murmurs, gallops, or rubs. RESPIRATORY: Clear to auscultation. Breath sounds equal bilaterally. No wheezes , rales, or rhonchi. GASTROINTESTINAL: Abdomen soft, non-tender, nondistended. No hepato-splenomegaly , or palpable masses. No guarding. MUSCULOSKELETAL: Extremities without clubbing, cyanosis, or edema. No joint tenderness, effusion, or edema noted. No calf tenderness. Negative Homans sign bilaterally. NEUROLOGICAL: Awake and alert. Cranial nerves grossly intact. Motor and sensory grossly within normal limits. Pressured speech. A/P Assessment and Plan 66-year-old female with a past medical history significant for bipolar disorder , hypertension, hypothyroidism, dyslipidemia, CVA and GERD who was brought into the emergency department under Vazquez act due to patient making statements that she was given a commit suicide by jumping off of her condo balcony. She has been admitted to the psychiatric unit and Hospitalist services have been consulted for medical management. Bipolar disorder with psychotic features Management per psychiatric team Hypertension Resume patient's home dose of lisinopril Hypothyroidism Continue patient's home dose of levothyroxine. Recent TSH normal. GERD Resume PPI DVT prophylaxis Patient is ambulatory Thank you for this consultation. We will follow along with you. Discussed Condition With Patient and nurse Nanci Vail MD Mar 15, 2017 09:49
[2017-03-15] MEDS ORDERED: INFLUENZA VIRUS VACCINE (QUADRIVALENT) 0.5 ML SYR IM ONE (10:00)
[2017-03-15] MEDS ORDERED: PNEUMOCOCCAL POLYVALENT INJ 25 MCG/0.5 ML SYR IM ONE (10:00)
--- NOTE | 2017-03-15 13:40 | HHI.PYPN ---
Subjective Remarks Patient seen follow, chart review. Patient was moved to 2700 unit due to her current acute symptomatology which can be better managed on that unit. Physician nursing staff reported the patient continues to be very manic and hyperverbal, inappropriate and disorganized. Patient was found in her room cooperative in interview but noted to be with pressured speech, disorganized with flight of ideas with loosening associations. Patient states that she had been having some epigastric pain which hospitalist's saw patient recently prior to this interview. Patient states that she is willing to continue current treatment but is not happy that she did not receive the salad which she had ordered. Review of Systems Except as stated in HPI: all other systems reviewed are Neg Mental Status Examination Appearance: Appropriate Consciousness: Alert Orientation: Person, Place Motor Activity: Normal gait Speech: Pressured, Rapid Language: Adequate Fund of Knowledge: Adequate Attention and Concentration: Easily Distracted Memory: Impaired Mood: Irritable, Manic Affect: Irritable Thought Process & Associations: Loose associations, Disorganized, Tangential Thought Content: Racing thoughts Hallucination Type: None Delusion Type: None Suicidal Ideation: Yes (denies at this time) Suicidal Plan: No Suicidal Intention: No Homicidal Ideation: No Homicidal Plan: No Homicidal Intention: No Insight: Poor Judgment: Poor Results Vitals/IOs Vital Signs Date Time Temp Pulse Resp B/P (MAP) Pulse Ox O2 Delivery O2 Flow Rate FiO2 03/15/17 03:42 98.0 108 18 134/68 (90) 97 03/13/17 21:15 Room Air Assessment & Plan Problem List: (1) Bipolar disorder, manic, moderate ICD Codes: F31.12 - Bipolar disorder, current episode manic without psychotic features, moderate Status: Acute Assessment & Plan Patient continues to be noted to be disorganized with pressured speech, flight of ideas, loosening associations. We'll increase Zyprexa Zide as to 5 mg a.m./ 10 mg at bedtime. Continue with the rest of medications. Recommendations as per primary medical team. Discharge planning in progress Justification for Cont. Inpt. At risk for further decompensation if at lower level of care Discharge Planning Patient to return back to her residence once psychiatrically stable. Zack Price MD Mar 15, 2017 13:40
[2017-03-15] MEDS ORDERED: OLANZapine ODT 5 MG TAB PO ONE (13:45)
[2017-03-15 17:06] VITALS: BP 156/79; PULSE 97; RESP 18; TEMP 98.3; O2SAT 99
[2017-03-15] MEDS: traZODone HCL 50 MG TAB PO SCH (20:25)
[2017-03-15] MEDS ORDERED: OLANZapine ODT 10 MG TAB PO SCH (21:00)
[2017-03-16] MEDS: hydrOXYzine HCL 25 MG TAB PO SCH ×4 (02:00→20:00)
[2017-03-16 05:53] VITALS: BP 135/65; PULSE 102; RESP 18; TEMP 97.4; O2SAT 98
[2017-03-16] MEDS: LEVOTHYROXINE SODIUM 25 MCG TAB PO SCH (06:00)
[2017-03-16] MEDS ORDERED: OLANZapine IM 10 MG VIAL IM ONE (07:46)
--- NOTE | 2017-03-16 08:10 | HHI.PR ---
Subjective Remarks She is in the hallway signs movements on the floor. She has some pain however she is able to walk without any problems. No fever or chills. Objective Vitals Vital Signs Date Time Temp Pulse Resp B/P (MAP) Pulse Ox O2 Delivery O2 Flow Rate FiO2 03/16/17 05:53 97.4 102 18 135/65 (88) 98 03/15/17 17:06 98.3 97 18 156/79 (104) 99 Result Diagram: 03/14/17 0810 Imaging Last Impressions Hip and Pelvis X-Ray 03/13/17 0000 Signed Impressions: Service Date/Time: Monday, March 13, 2017 13:41 - CONCLUSION: 1. No fracture or significant degenerative changes. 2. 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 Gorge Mcmillan MD Objective Remarks GENERAL: This is a well-nourished, well-developed patient, in no apparent distress. With flight of ideas. Pressured speech. CARDIOVASCULAR: Regular rate and rhythm without murmurs, gallops, or rubs. RESPIRATORY: Clear to auscultation. Breath sounds equal bilaterally. No wheezes , rales, or rhonchi. GASTROINTESTINAL: Abdomen soft, non-tender, nondistended. No hepato-splenomegaly , or palpable masses. No guarding. MUSCULOSKELETAL: Extremities without clubbing, cyanosis, or edema. No joint tenderness, effusion, or edema noted. No calf tenderness. Negative Homans sign bilaterally. NEUROLOGICAL: Awake and alert. Cranial nerves grossly intact. Motor and sensory grossly within normal limits. Pressured speech. A/P Assessment and Plan 66-year-old female with a past medical history significant for bipolar disorder , hypertension, hypothyroidism, dyslipidemia, CVA and GERD who was brought into the emergency department under Vazquez act due to patient making statements that she was given a commit suicide by jumping off of her condo balcony. She has been admitted to the psychiatric unit and Hospitalist services have been consulted for medical management. Bipolar disorder with psychotic features Management per psychiatric team Hypertension Resume patient's home dose of lisinopril Hypothyroidism Continue patient's home dose of levothyroxine. Recent TSH normal. GERD Resume PPI DVT prophylaxis Patient is ambulatory Thank you for this consultation. We will follow along with you. Discussed Condition With Patient and nurse Nanci Vail MD Mar 16, 2017 08:10
[2017-03-16] MEDS: LISINOPRIL 10 MG TAB PO SCH (08:21)
[2017-03-16] MEDS: PANTOPRAZOLE SOD 40 MG DELAYED RELEASE TAB PO SCH ×2 (08:21→09:00)
[2017-03-16] MEDS: REMOVE OLD PATCH T-DERMAL SCH (09:00)
[2017-03-16] MEDS ORDERED: OLANZapine ODT 5 MG TAB PO SCH (09:00)
[2017-03-16] MEDS: NICOTINE 7 MG/24 HR PATCH T-DERMAL SCH (09:00)
--- NOTE | 2017-03-16 13:54 | PD.TTN ---
Patient Problems 1. Discharge planning 2. Medication compliance 3. Knowledge deficit 4. Lack of coping skills Progress Toward Goals Provider Present: Dr. Veronica Price Provider Input: Pt meets criteria to be on unit and medication regiment is being increased. Nurse(s) Present: Aislinn Perez RN Nurse(s) Input: Pt appears disruptive, disorganized, hyperverbal, uncooperative and requiring additional medication to help manage acting out behaviors. Psychiatric Counselors Present: JOSEFINA Schuler Psych Therapist Input: Pt appears agitated, disorganized, hyperverbal, manic, uncooperative and bizarre. Pt appears delusional and paranoid as she states that others have wronged her and that they are wanting her to be hospitalized on purpose. She mumbles to herself and is likely responding to internal stimuli. She presents with limited insight into condition and need for care. Pt struggles with coping and emotional regulation skills as evidenced by the behavioral outbursts she is having. Pt is requiring additional medication due to behavior. Group Spec/RT/OT/DUNN Present: MONA Malin Group Spec/RT/OT/DUNN Input: Pt attends bingo and exercise group with inappropriate behavior. Pt appears agitated, intrusive and talks to herself. She often returns to unit early from group. She appears hyperverbal. Discharge Plan Pt will be discharged home and will follow up with [facility] after discharge. Documentation Scribe: JOSEFINA Schuler Jonathan LMHC Mar 16, 2017 13:54
--- NOTE | 2017-03-16 15:30 | HHI.PYPN ---
Subjective Remarks Patient seen for follow up, chart reviewed. Discussion with nursing staff reported that patient this morning had become agitated, exposing her Botox, and throwing juice on the floor was noted to be irritable and agitated. Patient at that time required ETO of Zyprexa 10 mg IM. Patient seen walking on hospital units was noted to be cooperative with interview today with ghost writer and nurse. Patient states that she was upset this morning but was unable to elaborate exactly why this patient continues to be noted to be very disorganized, with flight of ideas and loosening associations and difficult to be able to follow patient's thought processes is currently disorganized. Patient reports having difficulty sleeping last night and states that she had been up all night socializing. Patient reports her mood being "concerned" but denies any perceptual disturbances or delusions at this time. Patient noted to be laughing inappropriately at times started continued pressured speech but not agitated at time of interview. Review of Systems Except as stated in HPI: all other systems reviewed are Neg Mental Status Examination Appearance: Appropriate Consciousness: Alert Orientation: Person, Place Motor Activity: Normal gait Speech: Pressured, Rapid Language: Adequate Fund of Knowledge: Adequate Attention and Concentration: Easily Distracted Memory: Impaired Mood: Irritable, Manic Affect: Irritable Thought Process & Associations: Loose associations, Disorganized, Tangential Thought Content: Racing thoughts Hallucination Type: None Delusion Type: None Suicidal Ideation: Yes (denies at this time) Suicidal Plan: No Suicidal Intention: No Homicidal Ideation: No Homicidal Plan: No Homicidal Intention: No Insight: Poor Judgment: Poor Results Vitals/IOs Vital Signs Date Time Temp Pulse Resp B/P (MAP) Pulse Ox O2 Delivery O2 Flow Rate FiO2 03/16/17 05:53 97.4 102 18 135/65 (88) 98 03/13/17 21:15 Room Air Assessment & Plan Problem List: (1) Bipolar disorder, manic, moderate ICD Codes: F31.12 - Bipolar disorder, current episode manic without psychotic features, moderate Status: Acute Assessment & Plan Patient at this time continues to be noted to be manic, with pressured speech, flight of ideas, irritable, inappropriate with staff, disorganized and requiring ETO with episode of agitation this morning. We'll increase olanzapine to 10 mg by mouth twice a day for mood stabilization continue with her medications and recommendations as per primary medical team. Discharge planning in progress Justification for Cont. Inpt. At risk for further decompensation if at lower level of care Discharge Planning Patient to return back to her residence once psychiatrically stable. Zack Price MD Mar 16, 2017 15:30
[2017-03-16 16:52] VITALS: BP 124/77; PULSE 87; RESP 18; TEMP 98.3; O2SAT 99
[2017-03-16] MEDS: OLANZapine ODT 10 MG TAB PO SCH (20:32)
[2017-03-16] MEDS: traZODone HCL 50 MG TAB PO SCH (20:32)
[2017-03-17] MEDS: hydrOXYzine HCL 25 MG TAB PO SCH ×4 (01:40→20:52)
[2017-03-17] MEDS: diphenhydrAMINE HCL 50 MG CAP - HS PRN PO ×2 (01:41→20:53)
[2017-03-17] MEDS ORDERED: OLANZapine IM 10 MG VIAL IM ONE (02:30)
[2017-03-17 05:47] VITALS: BP 139/86; PULSE 110; RESP 18; TEMP 98.4; O2SAT 97
[2017-03-17] MEDS: LEVOTHYROXINE SODIUM 25 MCG TAB PO SCH (06:00)
--- NOTE | 2017-03-17 07:58 | HHI.PR ---
Subjective Remarks In the hallways very agitated with the nurse and MECHANICAL ADJUSTER. Patient with ultiple complaints says she has arthritis and doesn't have pain meds. No fever or chills. She is ambulating in the hallways without any problem. Objective Vitals Vital Signs Date Time Temp Pulse Resp B/P (MAP) Pulse Ox O2 Delivery O2 Flow Rate FiO2 03/17/17 05:47 98.4 110 18 139/86 (103) 97 03/16/17 16:52 98.3 87 18 124/77 (93) 99 Result Diagram: 03/14/17 0810 Imaging Last Impressions Hip and Pelvis X-Ray 03/13/17 0000 Signed Impressions: Service Date/Time: Monday, March 13, 2017 13:41 - CONCLUSION: 1. No fracture or significant degenerative changes. 2. 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 Gorge Mcmillan MD Objective Remarks GENERAL: This is a well-nourished, well-developed patient, in no apparent distress. With flight of ideas. Pressured speech. CARDIOVASCULAR: Regular rate and rhythm without murmurs, gallops, or rubs. RESPIRATORY: Clear to auscultation. Breath sounds equal bilaterally. No wheezes , rales, or rhonchi. GASTROINTESTINAL: Abdomen soft, non-tender, nondistended. No hepato-splenomegaly , or palpable masses. No guarding. MUSCULOSKELETAL: Extremities without clubbing, cyanosis, or edema. No joint tenderness, effusion, or edema noted. No calf tenderness. Negative Homans sign bilaterally. NEUROLOGICAL: Awake and alert. Cranial nerves grossly intact. Motor and sensory grossly within normal limits. Pressured speech. A/P Assessment and Plan 66-year-old female with a past medical history significant for bipolar disorder , hypertension, hypothyroidism, dyslipidemia, CVA and GERD who was brought into the emergency department under Vazquez act due to patient making statements that she was given a commit suicide by jumping off of her condo balcony. She has been admitted to the psychiatric unit and Hospitalist services have been consulted for medical management. Bipolar disorder with psychotic features Management per psychiatric team Hypertension Resume patient's home dose of lisinopril Hypothyroidism Continue patient's home dose of levothyroxine. Recent TSH normal. GERD Resume PPI DVT prophylaxis Patient is ambulatory Thank you for this consultation. We will follow along with you. Discussed Condition With Patient and nurse Nanci Vail MD Mar 17, 2017 07:58
[2017-03-17] MEDS: LISINOPRIL 10 MG TAB PO SCH (08:16)
[2017-03-17] MEDS: PANTOPRAZOLE SOD 40 MG DELAYED RELEASE TAB PO SCH (08:16)
[2017-03-17] MEDS: NICOTINE 7 MG/24 HR PATCH T-DERMAL SCH (08:16)
[2017-03-17] MEDS: OLANZapine ODT 10 MG TAB PO SCH ×2 (08:16→20:52)
[2017-03-17] MEDS: REMOVE OLD PATCH T-DERMAL SCH (08:18)
--- NOTE | 2017-03-17 10:46 | HHI.PYPN ---
Subjective Remarks Patient seen for follow-up, chart reviewed. Patient presented to mental health court today for petition for involuntary hospitalization and was granted by the caustic preparer involuntary admission. Patient was noted to be visibly upset after hearing testimony of recent Vazquez act and brought her into the hospital. Patient was seen later on the unit continued to be upset that proposal lead writer for stating "was reported on the Vazquez act but also noted to be continued to be disorganized, flight ideas, or loosening associations, pressured speech and referring back to events that happen during her last hospitalization here. Patient reports having slept but as per nursing report patient did not sleep all last evening and had required olanzapine 10 mg IM as patient was noted to be pacing, and disrupting the unit to her current symptomatology. Nursing stated that patient slept for 2-3 hours but was up again. Patient noted to have increased sialorrhea which is likely secondary to the Zyprexa Zydis. Patient denies any perceptual disturbances, SI or HI. Review of Systems Except as stated in HPI: all other systems reviewed are Neg Mental Status Examination Appearance: Appropriate Consciousness: Alert Orientation: Person, Place Motor Activity: Normal gait Speech: Pressured, Rapid Language: Adequate Fund of Knowledge: Adequate Attention and Concentration: Easily Distracted Memory: Impaired Mood: Irritable, Manic Affect: Irritable Thought Process & Associations: Loose associations, Disorganized, Tangential Thought Content: Racing thoughts Hallucination Type: None Delusion Type: None Suicidal Ideation: Yes (denies at this time) Suicidal Plan: No Suicidal Intention: No Homicidal Ideation: No Homicidal Plan: No Homicidal Intention: No Insight: Poor Judgment: Poor Results Vitals/IOs Vital Signs Date Time Temp Pulse Resp B/P (MAP) Pulse Ox O2 Delivery O2 Flow Rate FiO2 03/17/17 05:47 98.4 110 18 139/86 (103) 97 03/13/17 21:15 Room Air Assessment & Plan Problem List: (1) Bipolar disorder, manic, moderate ICD Codes: F31.12 - Bipolar disorder, current episode manic without psychotic features, moderate Status: Acute Assessment & Plan Patient continues to be noted to be manic, pressured speech, disorganized, intrusive, labile, grandiose delusions as well as paranoid persecutory delusions , noted to be talking to self and internally preoccupied. Patient to continue current treatment for now, we'll add trazodone 100 mg by mouth at bedtime to help with sleep disturbance. We'll consider adding a second mood stabilizer such as lamotrigine as patient has listed as part of her allergy list Depakote, carbamazepine, and lithium. Continue to monitor mood and behavior. Discharge planning in progress Justification for Cont. Inpt. At risk for further decompensation if at lower level of care Discharge Planning Patient to return back to her residence once psychiatrically stable Zack Price MD Mar 17, 2017 10:46
[2017-03-17] MEDS: ALUMINUM/MAGNESIUM/SIMETH 30 ML CUP PO PRN (12:20)
[2017-03-17] MEDS: ACETAMINOPHEN 325 MG TAB PO PRN (13:07)
[2017-03-17 18:16] VITALS: BP 107/53; PULSE 79; RESP 17; TEMP 97.6; O2SAT 99
[2017-03-17] MEDS: diphenhydrAMINE HCL 50 MG CAP PO PRN (20:52)
[2017-03-17] MEDS ORDERED: traZODone HCL 50 MG TAB PO SCH (21:00)
[2017-03-18] MEDS: hydrOXYzine HCL 25 MG TAB PO SCH (02:48)
[2017-03-18 05:37] VITALS: BP 114/57; PULSE 101; RESP 18; TEMP 97.6; O2SAT 97
[2017-03-18] MEDS: LEVOTHYROXINE SODIUM 25 MCG TAB PO SCH (05:44)
--- NOTE | 2017-03-18 08:10 | HHI.PR ---
Subjective Remarks Agitated in the hallways. Says her tongue feels dry. Able to eat. No pain in her joints. No fever or chills. Objective Vitals Vital Signs Date Time Temp Pulse Resp B/P (MAP) Pulse Ox O2 Delivery O2 Flow Rate FiO2 03/18/17 05:37 97.6 101 18 114/57 (76) 97 03/17/17 18:16 97.6 79 17 107/53 (71) 99 03/17/17 16:10 18 Result Diagram: 03/14/17 0810 Objective Remarks GENERAL: This is a well-nourished, well-developed patient, in no apparent distress. With flight of ideas. Pressured speech. OROPHARYNX: Oral thrush. CARDIOVASCULAR: Regular rate and rhythm without murmurs, gallops, or rubs. RESPIRATORY: Clear to auscultation. Breath sounds equal bilaterally. No wheezes , rales, or rhonchi. GASTROINTESTINAL: Abdomen soft, non-tender, nondistended. No hepato-splenomegaly , or palpable masses. No guarding. MUSCULOSKELETAL: Extremities without clubbing, cyanosis, or edema. No joint tenderness, effusion, or edema noted. No calf tenderness. Negative Homans sign bilaterally. NEUROLOGICAL: Awake and alert. Cranial nerves grossly intact. Motor and sensory grossly within normal limits. Pressured speech. A/P Assessment and Plan 66-year-old female with a past medical history significant for bipolar disorder , hypertension, hypothyroidism, dyslipidemia, CVA and GERD who was brought into the emergency department under Vazquez act due to patient making statements that she was given a commit suicide by jumping off of her condo balcony. She has been admitted to the psychiatric unit and Hospitalist services have been consulted for medical management. Bipolar disorder with psychotic features Management per psychiatric team Hypertension Resume patient's home dose of lisinopril Hypothyroidism Continue patient's home dose of levothyroxine. Recent TSH normal. GERD Resume PPI Oral thrush. Give nystatin swish DVT prophylaxis Patient is ambulatory Thank you for this consultation. We will follow along with you. Discussed Condition With Patient and nurse Nanci Vail MD Mar 18, 2017 08:10
[2017-03-18] MEDS: NICOTINE 7 MG/24 HR PATCH T-DERMAL SCH (09:00)
[2017-03-18] MEDS: REMOVE OLD PATCH T-DERMAL SCH (09:00)
--- NOTE | 2017-03-18 09:01 | HHI.PYPN ---
Subjective Remarks Patient seen for follow-up, chart reviewed. Discussion she staff reported the patient was noted to be dancing earlier this might was noted patient, slept 1 hour last evening and continues to be hyperverbal and intrusive at times. Patient seen walking the hallway that able to cooperate with interview today with literary writer and nurse. Patient states that she woke up in [place] last evening started the yoga and dancing earlier this morning. Patient states that she has been feeling "great" but feeling upset that staff is trying to redirect her all times. Patient states that she wants to jesus the police due to the report that was put on her Vazquez act. Patient continues to be noted to have flight of ideas and loosening association with disorganization. Patient also noted to start demonstrate how she is able to do "line dancing" which she was doing earlier this morning with the patient. Patient denies any perceptual disturbances but continues to have paranoid delusions as well as disorganized thought process. Review of Systems Except as stated in HPI: all other systems reviewed are Neg Other Patient noted to have increase [place] likely secondary to side effect from psychotropics. Mental Status Examination Appearance: Appropriate Consciousness: Alert Orientation: Person, Place Motor Activity: Normal gait Speech: Pressured, Rapid Language: Adequate Fund of Knowledge: Adequate Attention and Concentration: Easily Distracted Memory: Impaired Mood: Irritable, Manic Affect: Irritable, Labile Thought Process & Associations: Loose associations, Disorganized, Tangential Thought Content: Racing thoughts Hallucination Type: None Delusion Type: None, Paranoid Suicidal Ideation: No Suicidal Plan: No Suicidal Intention: No Homicidal Ideation: No Homicidal Plan: No Homicidal Intention: No Insight: Poor Judgment: Poor Results Vitals/IOs Vital Signs Date Time Temp Pulse Resp B/P (MAP) Pulse Ox O2 Delivery O2 Flow Rate FiO2 03/18/17 05:37 97.6 101 18 114/57 (07) 97 Assessment & Plan Problem List: (1) Bipolar disorder, manic, moderate ICD Codes: F31.12 - Bipolar disorder, current episode manic without psychotic features, moderate Status: Acute Assessment & Plan Patient this time states he noted to be a manic, continues with disorganized thought process, labile mood, irritable, flight of ideas or loosening associations as well as paranoid delusions. Patient has been noted to have slightly lessened pressured speech and able to tolerate more been in group activity but continues to require further stabilization due to continued manic symptoms at this time. We'll increase hydroxyzine to 50 mg every 8 hours as well as trazodone to 150 mg by mouth at bedtime. Continue olanzapine 10 mg by mouth every 12 hours for mood stabilization and psychosis. Continue to monitor mood and behavior. Discharge planning in progress Justification for Cont. Inpt. At risk for further decompensation if at lower level of care Discharge Planning Return back to her residence once psychiatrically stable. Zack Price MD Mar 18, 2017 09:01
[2017-03-18] MEDS: OLANZapine ODT 10 MG TAB PO SCH ×2 (10:21→20:23)
[2017-03-18] MEDS: PANTOPRAZOLE SOD 40 MG DELAYED RELEASE TAB PO SCH (10:21)
[2017-03-18] MEDS: LISINOPRIL 10 MG TAB PO SCH (10:21)
[2017-03-18] MEDS: hydrOXYzine HCL 50 MG TAB PO SCH ×2 (13:42→20:48)
[2017-03-18] MEDS: ALUMINUM/MAGNESIUM/SIMETH 30 ML CUP PO PRN (13:42)
[2017-03-18] MEDS: NYSTATIN SUSP 500,000 U/5 ML CUP SWISH-SWAL SCH ×2 (17:36→20:24)
[2017-03-18 18:10] VITALS: BP 135/55; PULSE 101; RESP 18; TEMP 97.9; O2SAT 99
[2017-03-18] MEDS: hydrOXYzine HCL 50 MG TAB PO PRN (19:45)
[2017-03-18] MEDS: diphenhydrAMINE HCL 50 MG CAP - HS PRN PO (20:23)
[2017-03-18] MEDS: traZODone HCL 50 MG TAB PO SCH (20:24)
[2017-03-19] MEDS: LEVOTHYROXINE SODIUM 25 MCG TAB PO SCH (05:42)
[2017-03-19] MEDS: hydrOXYzine HCL 50 MG TAB PO SCH ×3 (05:43→20:10)
[2017-03-19 05:57] VITALS: BP 91/50; PULSE 91; RESP 18; TEMP 97.5; O2SAT 99
[2017-03-19] MEDS: OLANZapine ODT 10 MG TAB PO SCH ×2 (08:52→20:10)
[2017-03-19] MEDS: LISINOPRIL 10 MG TAB PO SCH (08:53)
[2017-03-19] MEDS: PANTOPRAZOLE SOD 40 MG DELAYED RELEASE TAB PO SCH (08:53)
[2017-03-19] MEDS: NYSTATIN SUSP 500,000 U/5 ML CUP SWISH-SWAL SCH ×4 (08:53→20:10)
[2017-03-19] MEDS: NICOTINE 7 MG/24 HR PATCH T-DERMAL SCH (08:55)
[2017-03-19] MEDS: REMOVE OLD PATCH T-DERMAL SCH (08:56)
--- NOTE | 2017-03-19 12:09 | HHI.PYPN ---
Subjective Remarks Pt seen and discussed with staff. She remains intrusive, loud and labile. She is compliant with medications and tolerating without side effects. Speech is pressured. She becomes agitated and banged on lane. She states that she stopped taking medications prior to admissions because she couldn't not trust them. Mental Status Examination Appearance: Appropriate Consciousness: Alert Orientation: Person, Place Motor Activity: Normal gait Speech: Pressured, Rapid Language: Adequate Fund of Knowledge: Adequate Attention and Concentration: Easily Distracted Memory: Impaired Mood: Irritable, Manic Affect: Irritable, Labile Thought Process & Associations: Loose associations, Disorganized, Tangential Thought Content: Racing thoughts Hallucination Type: None Delusion Type: None, Paranoid Suicidal Ideation: No Suicidal Plan: No Suicidal Intention: No Homicidal Ideation: No Homicidal Plan: No Homicidal Intention: No Insight: Poor Judgment: Poor Results Vitals/IOs Vital Signs Date Time Temp Pulse Resp B/P (MAP) Pulse Ox O2 Delivery O2 Flow Rate FiO2 03/19/17 05:57 97.5 91 18 91/50 (64) 99 Assessment & Plan Problem List: (1) Bipolar disorder, manic, moderate ICD Codes: F31.12 - Bipolar disorder, current episode manic without psychotic features, moderate Status: Acute Assessment & Plan Continue current tx plan. Estimated LOS: days Justification for Cont. Inpt. impairments in reality testing Katlyn Ronquillo MD Mar 19, 2017 12:09
--- NOTE | 2017-03-19 16:22 | HHI.PR ---
Subjective Remarks Patient says he has some stomach pain and is coughing. She is not eatign much. Her BP is into a lower side, advice increase PO intake. Patient is in the hallways ambulating , agitated, with flight of ideas. otherwise no other complaints. Objective Vitals Vital Signs Date Time Temp Pulse Resp B/P (MAP) Pulse Ox O2 Delivery O2 Flow Rate FiO2 03/19/17 05:57 97.5 91 18 91/50 (64) 99 03/18/17 18:10 97.9 101 18 135/55 (81) 99 Imaging Last Impressions Hip and Pelvis X-Ray 03/13/17 0000 Signed Impressions: Service Date/Time: Monday, March 13, 2017 13:41 - CONCLUSION: 1. No fracture or significant degenerative changes. 2. 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 Gorge Mcmillan MD Objective Remarks GENERAL: This is a well-nourished, well-developed patient, in no apparent distress. With flight of ideas. Pressured speech. OROPHARYNX: Oral thrush. CARDIOVASCULAR: Regular rate and rhythm without murmurs, gallops, or rubs. RESPIRATORY: Clear to auscultation. Breath sounds equal bilaterally. No wheezes , rales, or rhonchi. GASTROINTESTINAL: Abdomen soft, non-tender, nondistended. No hepato-splenomegaly , or palpable masses. No guarding. MUSCULOSKELETAL: Extremities without clubbing, cyanosis, or edema. No joint tenderness, effusion, or edema noted. No calf tenderness. Negative Homans sign bilaterally. NEUROLOGICAL: Awake and alert. Cranial nerves grossly intact. Motor and sensory grossly within normal limits. Pressured speech. A/P Assessment and Plan 66-year-old female with a past medical history significant for bipolar disorder , hypertension, hypothyroidism, dyslipidemia, CVA and GERD who was brought into the emergency department under Vazquez act due to patient making statements that she was given a commit suicide by jumping off of her condo balcony. She has been admitted to the psychiatric unit and Hospitalist services have been consulted for medical management. Bipolar disorder with psychotic features Management per psychiatric team Hypertension Resume patient's home dose of lisinopril Hypothyroidism Continue patient's home dose of levothyroxine. Recent TSH normal. GERD Resume PPI. Give one tome famotidine Oral thrush. Give nystatin swish Hypotension. Due to decreased PO intake. Encourage PO intake and hydration. If is not improving consider transferring to med/psych and starting IVF DVT prophylaxis Patient is ambulatory Thank you for this consultation. We will follow along with you. Discussed Condition With Patient and nurse Nanci Vail MD Mar 19, 2017 16:22
[2017-03-19 18:17] VITALS: BP 148/65; PULSE 100; RESP 19; TEMP 97.9; O2SAT 97
[2017-03-19] MEDS: traZODone HCL 50 MG TAB PO SCH (20:10)
[2017-03-19] MEDS: diphenhydrAMINE HCL 50 MG CAP PO PRN (20:10)
[2017-03-19] MEDS: ALUMINUM/MAGNESIUM/SIMETH 30 ML CUP PO PRN (21:19)
[2017-03-20] MEDS: hydrOXYzine HCL 50 MG TAB PO PRN ×2 (03:30→12:16)
[2017-03-20] MEDS: LEVOTHYROXINE SODIUM 25 MCG TAB PO SCH (05:01)
[2017-03-20] MEDS: hydrOXYzine HCL 50 MG TAB PO SCH ×3 (05:01→22:00)
[2017-03-20 05:52] VITALS: BP 145/67; PULSE 91; RESP 18; TEMP 98.3; O2SAT 99
[2017-03-20] MEDS: PANTOPRAZOLE SOD 40 MG DELAYED RELEASE TAB PO SCH (08:02)
[2017-03-20] MEDS: OLANZapine ODT 10 MG TAB PO SCH (08:02)
[2017-03-20] MEDS: NYSTATIN SUSP 500,000 U/5 ML CUP SWISH-SWAL SCH ×4 (08:02→21:00)
[2017-03-20] MEDS: diphenhydrAMINE HCL 50 MG CAP PO PRN (08:09)
--- NOTE | 2017-03-20 08:37 | HHI.PR ---
Subjective Remarks BP went up now. Patient still agitated and with flights of idea. She denies headache or change in vision. Ambulating without problems. No fever or chills. No n/v/d/c. Eating better. Objective Vitals Vital Signs Date Time Temp Pulse Resp B/P (MAP) Pulse Ox O2 Delivery O2 Flow Rate FiO2 03/20/17 05:52 98.3 91 18 145/67 (93) 99 03/19/17 18:17 97.9 100 19 148/65 (92) 97 Imaging Last Impressions Hip and Pelvis X-Ray 03/13/17 0000 Signed Impressions: Service Date/Time: Monday, March 13, 2017 13:41 - CONCLUSION: 1. No fracture or significant degenerative changes. 2. 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 Gorge Mcmillan MD Objective Remarks GENERAL: This is a well-nourished, well-developed patient, in no apparent distress. With flight of ideas. Pressured speech. OROPHARYNX: Oral thrush. CARDIOVASCULAR: Regular rate and rhythm without murmurs, gallops, or rubs. RESPIRATORY: Clear to auscultation. Breath sounds equal bilaterally. No wheezes , rales, or rhonchi. GASTROINTESTINAL: Abdomen soft, non-tender, nondistended. No hepato-splenomegaly , or palpable masses. No guarding. MUSCULOSKELETAL: Extremities without clubbing, cyanosis, or edema. No joint tenderness, effusion, or edema noted. No calf tenderness. Negative Homans sign bilaterally. NEUROLOGICAL: Awake and alert. Cranial nerves grossly intact. Motor and sensory grossly within normal limits. Pressured speech. A/P Assessment and Plan 66-year-old female with a past medical history significant for bipolar disorder , hypertension, hypothyroidism, dyslipidemia, CVA and GERD who was brought into the emergency department under Vazquez act due to patient making statements that she was given a commit suicide by jumping off of her condo balcony. She has been admitted to the psychiatric unit and Hospitalist services have been consulted for medical management. Bipolar disorder with psychotic features Management per psychiatric team Hypertension Resume patient's home dose of lisinopril. However noted with hypotension 03/19 due to decreased PO intake. Encourage PO intake and hydration. If is not improving consider transferring to med/psych and starting IVF. Hold BP meds, parameters added. Hypothyroidism Continue patient's home dose of levothyroxine. Recent TSH normal. GERD Resume PPI. Give one tome famotidine Oral thrush. Give nystatin swish DVT prophylaxis Patient is ambulatory Thank you for this consultation. We will follow along with you. Discussed Condition With Patient and nurse Nanci Vail MD Mar 20, 2017 08:37
[2017-03-20] MEDS: LISINOPRIL 10 MG TAB PO SCH (09:00)
[2017-03-20] MEDS: REMOVE OLD PATCH T-DERMAL SCH (09:00)
[2017-03-20] MEDS: NICOTINE 7 MG/24 HR PATCH T-DERMAL SCH (09:00)
--- NOTE | 2017-03-20 11:48 | HHI.PYPN ---
Subjective Remarks Pt seen and discussed with staff. She did not sleep last night and has been intrusive and labile on unit. She has been cursing and irritable. No SI/HI. Mental Status Examination Appearance: Appropriate Consciousness: Alert Orientation: Person, Place Motor Activity: Normal gait Speech: Pressured, Rapid Language: Adequate Fund of Knowledge: Adequate Attention and Concentration: Easily Distracted Memory: Impaired Mood: Irritable, Manic Affect: Irritable, Labile Thought Process & Associations: Loose associations, Disorganized, Tangential Thought Content: Racing thoughts Hallucination Type: None Delusion Type: None, Paranoid Suicidal Ideation: No Suicidal Plan: No Suicidal Intention: No Homicidal Ideation: No Homicidal Plan: No Homicidal Intention: No Insight: Poor Judgment: Poor Results Vitals/IOs Vital Signs Date Time Temp Pulse Resp B/P (MAP) Pulse Ox O2 Delivery O2 Flow Rate FiO2 03/20/17 05:52 98.3 91 18 145/67 (93) 99 Assessment & Plan Problem List: (1) Bipolar disorder, manic, moderate ICD Codes: F31.12 - Bipolar disorder, current episode manic without psychotic features, moderate Status: Acute Assessment & Plan Will titrate olanzapine to target nitin. Continue hospitalization. Estimated LOS : days Justification for Cont. Inpt. psychosis and nitin Katlyn Ronquillo MD Mar 20, 2017 11:48
[2017-03-20 15:53] VITALS: BP 117/57; PULSE 106; RESP 18; TEMP 97; O2SAT 98
[2017-03-20] MEDS: traZODone HCL 50 MG TAB PO SCH (21:00)
[2017-03-21] MEDS: LEVOTHYROXINE SODIUM 25 MCG TAB PO SCH (06:00)
[2017-03-21] MEDS: hydrOXYzine HCL 50 MG TAB PO SCH ×4 (06:00→21:44)
[2017-03-21 06:08] VITALS: BP 120/56; PULSE 89; RESP 19; TEMP 98; O2SAT 100
--- NOTE | 2017-03-21 07:17 | HHI.PR ---
Subjective Remarks Agitated with flights of idea. Eating better. No fever or chills. No n/v/d/c. Says food is salty. No change in vision. no chest pain or sob. No pain she is ambulating without problems in the hallways. Tachycardic at times. Objective Vitals Vital Signs Date Time Temp Pulse Resp B/P (MAP) Pulse Ox O2 Delivery O2 Flow Rate FiO2 03/21/17 06:08 98.0 89 19 120/56 (77) 100 03/20/17 15:53 97.0 106 18 117/57 (77) 98 Imaging Last Impressions Hip and Pelvis X-Ray 03/13/17 0000 Signed Impressions: Service Date/Time: Monday, March 13, 2017 13:41 - CONCLUSION: 1. No fracture or significant degenerative changes. 2. 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 Gorge Mcmillan MD Objective Remarks GENERAL: This is a well-nourished, well-developed patient, in no apparent distress. With flight of ideas. Pressured speech. OROPHARYNX: Oral thrush. CARDIOVASCULAR: Regular rate and rhythm without murmurs, gallops, or rubs. RESPIRATORY: Clear to auscultation. Breath sounds equal bilaterally. No wheezes , rales, or rhonchi. GASTROINTESTINAL: Abdomen soft, non-tender, nondistended. No hepato-splenomegaly , or palpable masses. No guarding. MUSCULOSKELETAL: Extremities without clubbing, cyanosis, or edema. No joint tenderness, effusion, or edema noted. No calf tenderness. Negative Homans sign bilaterally. NEUROLOGICAL: Awake and alert. Cranial nerves grossly intact. Motor and sensory grossly within normal limits. Pressured speech. A/P Assessment and Plan 66-year-old female with a past medical history significant for bipolar disorder , hypertension, hypothyroidism, dyslipidemia, CVA and GERD who was brought into the emergency department under Vazquez act due to patient making statements that she was given a commit suicide by jumping off of her condo balcony. She has been admitted to the psychiatric unit and Hospitalist services have been consulted for medical management. Bipolar disorder with psychotic features Management per psychiatric team Hypertension Resume patient's home dose of lisinopril. However noted with hypotension 03/19 due to decreased PO intake. Encourage PO intake and hydration. If is not improving consider transferring to med/psych and starting IVF. Hold BP meds if SBP< 110, parameters added. Monitor VS. BP is better controlled. Hypothyroidism Continue patient's home dose of levothyroxine. Recent TSH normal. GERD Resume PPI. Give one tome famotidine Oral thrush. Give nystatin swish DVT prophylaxis Patient is ambulatory Thank you for this consultation. We will follow along with you. Discussed Condition With Patient and nurse Nanci Vail MD Mar 21, 2017 07:17
[2017-03-21] MEDS: LISINOPRIL 10 MG TAB PO SCH (08:48)
[2017-03-21] MEDS: NYSTATIN SUSP 500,000 U/5 ML CUP SWISH-SWAL SCH ×4 (08:48→20:29)
[2017-03-21] MEDS: PANTOPRAZOLE SOD 40 MG DELAYED RELEASE TAB PO SCH (08:48)
[2017-03-21] MEDS: NICOTINE 7 MG/24 HR PATCH T-DERMAL SCH (08:49)
[2017-03-21] MEDS: REMOVE OLD PATCH T-DERMAL SCH (08:49)
[2017-03-21] MEDS ORDERED: OLANZapine ODT 10 MG TAB PO SCH (09:00)
--- NOTE | 2017-03-21 12:53 | HHI.PYPN ---
Subjective Remarks Patient seen for follow-up, chart reviewed. Discussion with the [facility] staff stated that patient continue to be noted to be hyperverbal, intrusive but better today as well as having slept last night. Patient was found walking up and down the halls noted to be irritable but able to engage in interview with typewriter repairer, nurse, therapist. Patient states that she is very upset, "very angry" and that she should not be in the hospital and demanding discharge. Patient states that she had slept better last evening and when asked when the last and she says she was a week ago. Patient endorses some taste changes and is concerned about this issue with her thyroid function. Patient continues to be noted to be hyperverbal, having less pressured speech but continues to have disorganized thought processes along with loosening associations and flight of ideas. Patient continues to be noted be irritable but less so today. Patient continues to deny any perceptual disturbances, no SI or HI. Patient continues to be noted to have increased activity during the day which patient was found dancing with other patients in the morning. Mental Status Examination Appearance: Appropriate Consciousness: Alert Orientation: Person, Place Motor Activity: Normal gait Speech: Pressured (less so today) Language: Adequate Fund of Knowledge: Adequate Attention and Concentration: Inadequate Memory: Impaired Mood: Irritable, Manic Affect: Irritable, Labile Thought Process & Associations: Loose associations, Disorganized, Tangential Thought Content: Racing thoughts, Other (flight of ideas) Hallucination Type: None Delusion Type: None, Paranoid Suicidal Ideation: No Suicidal Plan: No Suicidal Intention: No Homicidal Ideation: No Homicidal Plan: No Homicidal Intention: No Insight: Poor Judgment: Poor Results Vitals/IOs Vital Signs Date Time Temp Pulse Resp B/P (MAP) Pulse Ox O2 Delivery O2 Flow Rate FiO2 03/21/17 06:08 98.0 89 19 120/56 (77) 100 Assessment & Plan Problem List: (1) Bipolar disorder, manic, moderate ICD Codes: F31.12 - Bipolar disorder, current episode manic without psychotic features, moderate Status: Acute Assessment & Plan Patient continues to be noted to be hyperverbal, intrusive, inappropriate with staff and other patients, poor control but less pressured speech today, less disorganization but continues with flight of ideas and loosening of associations. Patient having some dysgeusia and sialorrhea due to the Zyprexa Zydis but has been compliant with medications and therefore will attempt to switch patient to pill form. Therefore patient will be on Zyprexa by mouth 10 mg a.m., 15 mg at bedtime. Will start lamotrigine 25 mg by mouth daily with upward titration for adjunct to mood stabilization. Continue rest of medications. Will order labs today. Discharge planning in progress Justification for Cont. Inpt. At risk for decompensation if at lower level of care Discharge Planning Patient to return to her residence once psychiatrically stable Zack Price MD Mar 21, 2017 12:53
[2017-03-21] MEDS: lamoTRIgine 25 MG TAB PO SCH (13:00)
--- NOTE | 2017-03-21 13:29 | PD.TTN ---
Patient Problems 1. Discharge planning 2. Medication compliance 3. Knowledge deficit 4. Lack of coping skills Progress Toward Goals Provider Present: Dr. Veronica Price Provider Input: Pt meets criteria to be on unit and medication regiment is being increased. 03/21/17 Patient is still manic, had low BP and still needs stabilization Nurse(s) Present: Aislinn Perez, RN Nurse(s) Input: Pt appears disruptive, disorganized, hyperverbal, uncooperative and requiring additional medication to help manage acting out behaviors. 03/21 Catherine : still intrusive and manic and refuses all meds and claims medical issues Psychiatric Counselors Present: JOSEFINA Schuler Verena Coes, LCSW Psych Therapist Input: Pt appears agitated, disorganized, hyperverbal, manic, uncooperative and bizarre. Pt appears delusional and paranoid as she states that others have wronged her and that they are wanting her to be hospitalized on purpose. She mumbles to herself and is likely responding to internal stimuli. She presents with limited insight into condition and need for care. Pt struggles with coping and emotional regulation skills as evidenced by the behavioral outbursts she is having. Pt is requiring additional medication due to behavior. 03/21 patient is remaining manic and showing no insight to her illness and she wishes to have medical referrals and to be transferred to medical floor. Patient has been living on her own and is not willing to be in a facility. She could benefit from assistance and case management however she has lost her case management in past due to her insurance. Group Spec/RT/OT/DUNN Present: MONA Malin, Brad Cristina, SHAREE Group Spec/RT/OT/DUNN Input: Pt attends bingo and exercise group with inappropriate behavior. Pt appears agitated, intrusive and talks to herself. She often returns to unit early from group. She appears hyperverbal. 03/21 patient attends most groups Discharge Plan Pt will be discharged home and will follow up with [facility] after discharge. Documentation Scribe: JOSEFINA Schuler Verena LCSW Mar 21, 2017 13:29
[2017-03-21 15:30] LABS: AUTOMATED NEUTROPHIL # 4.4 TH/MM3 (1.8-7.7); BASOPHIL # 0.1 TH/MM3 (0-0.2); BASOPHIL % 0.9 % (0.0-2.0); EOSINOPHIL # 0.2 TH/MM3 (0-0.4); HEMATOCRIT 35.6 % (35.0-46.0); HEMO FLAGS DIFF FINAL; LYMPH % 21.6 % (9.0-44.0); LYMPHOCYTE # 1.5 TH/MM3 (1.0-4.8); MEAN CELL VOLUME 83.9 FL (80.0-100.0); MEAN CORPUSCULAR HEMOGLOBIN 28.1 PG (27.0-34.0); MEAN CORPUSCULAR HGB CONC 33.5 % (32.0-36.0); MONO % 9.1 % (0.0-8.0); NEUT % 65.4 % (16.0-70.0); PLATELET COUNT 299 TH/MM3 (150-450); RED BLOOD COUNT 4.24 MIL/MM3 (4.00-5.30); RED CELL DISTRIBUTION WIDTH 14.3 % (11.6-17.2); WHITE BLOOD COUNT 6.7 TH/MM3 (4.0-11.0)
[2017-03-21 15:43] LABS: BICARBONATE 25.7 MEQ/L (21.0-32.0); POTASSIUM 4.1 MEQ/L (3.5-5.1)
[2017-03-21 15:56] LABS: INDIRECT BILIRUBIN 0.3 MG/DL (0.0-0.8); TOTAL BILIRUBIN ADULT 0.5 MG/DL (0.2-1.0)
[2017-03-21] MEDS: ACETAMINOPHEN 325 MG TAB PO PRN (16:57)
[2017-03-21 18:00] VITALS: BP 112/54; PULSE 92; RESP 18; O2SAT 99
[2017-03-21] MEDS: hydrOXYzine HCL 50 MG TAB PO PRN (18:40)
[2017-03-21] MEDS: traZODone HCL 50 MG TAB PO SCH (20:28)
[2017-03-22] MEDS: LEVOTHYROXINE SODIUM 25 MCG TAB PO SCH (05:37)
[2017-03-22] MEDS: hydrOXYzine HCL 50 MG TAB PO SCH ×3 (05:38→21:36)
[2017-03-22 05:42] VITALS: BP 124/59; PULSE 88; RESP 16; TEMP 98.1; O2SAT 96
[2017-03-22] MEDS: PANTOPRAZOLE SOD 40 MG DELAYED RELEASE TAB PO SCH (08:16)
[2017-03-22] MEDS: lamoTRIgine 25 MG TAB PO SCH (08:16)
[2017-03-22] MEDS: REMOVE OLD PATCH T-DERMAL SCH (08:17)
[2017-03-22] MEDS: OLANZapine 10 MG TAB PO SCH (08:17)
[2017-03-22] MEDS: NICOTINE 7 MG/24 HR PATCH T-DERMAL SCH (08:17)
[2017-03-22] MEDS: LISINOPRIL 10 MG TAB PO SCH (08:17)
[2017-03-22] MEDS: hydrOXYzine HCL 50 MG TAB PO PRN (08:17)
[2017-03-22] MEDS: NYSTATIN SUSP 500,000 U/5 ML CUP SWISH-SWAL SCH ×4 (08:17→21:00)
--- NOTE | 2017-03-22 10:05 | HHI.PR ---
Subjective Remarks In the hallways she appears better today. However still with flights of idea. Says she doesn't have any pain at this time. No n/v/d/c. Feels much better and would like to go home. Objective Vitals Vital Signs Date Time Temp Pulse Resp B/P (MAP) Pulse Ox O2 Delivery O2 Flow Rate FiO2 03/22/17 05:42 98.1 88 16 124/59 (80) 96 03/21/17 18:00 92 18 112/54 (73) 99 Result Diagram: 03/21/17 1459 03/21/17 1459 Imaging Last Impressions Hip and Pelvis X-Ray 03/13/17 0000 Signed Impressions: Service Date/Time: Monday, March 13, 2017 13:41 - CONCLUSION: 1. No fracture or significant degenerative changes. 2. 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 Gorge Mcmillan MD Objective Remarks GENERAL: This is a well-nourished, well-developed patient, in no apparent distress. With flight of ideas. Pressured speech. OROPHARYNX: Oral thrush. CARDIOVASCULAR: Regular rate and rhythm without murmurs, gallops, or rubs. RESPIRATORY: Clear to auscultation. Breath sounds equal bilaterally. No wheezes , rales, or rhonchi. GASTROINTESTINAL: Abdomen soft, non-tender, nondistended. No hepato-splenomegaly , or palpable masses. No guarding. MUSCULOSKELETAL: Extremities without clubbing, cyanosis, or edema. No joint tenderness, effusion, or edema noted. No calf tenderness. Negative Homans sign bilaterally. NEUROLOGICAL: Awake and alert. Cranial nerves grossly intact. Motor and sensory grossly within normal limits. Pressured speech. A/P Assessment and Plan 66-year-old female with a past medical history significant for bipolar disorder , hypertension, hypothyroidism, dyslipidemia, CVA and GERD who was brought into the emergency department under V[place]quez act due to patient making statements that she was given a commit suicide by jumping off of her condo balcony. She has been admitted to the psychiatric unit and Hospitalist services have been consulted for medical management. Bipolar disorder with psychotic features Management per psychiatric team Hypertension Resume patient's home dose of lisinopril. However noted with hypotension 03/19 due to decreased PO intake. Encourage PO intake and hydration. If is not improving consider transferring to med/psych and starting IVF. Hold BP meds if SBP< 110, parameters added. Monitor VS. BP is better controlled. Hypothyroidism Continue patient's home dose of levothyroxine. Recent TSH normal. GERD Resume PPI. Give one tome famotidine Oral thrush. Give nystatin swish DVT prophylaxis Patient is ambulatory Thank you for this consultation. We will follow along with you. Discussed Condition With Patient and nurse Patient appears stable medically at this time. Cleared for DC from medical standpoint. To f/u as OP with PCP and consultants. Nanic Vail MD Mar 22, 2017 10:05
--- NOTE | 2017-03-22 13:29 | HHI.PYPN ---
Subjective Remarks Patient seen for follow-up, chart review. After discussion with her sister reported that patient had become upset yesterday and was refusing medications but continue to comply with treatment. Patient continues to be noted to be irritable with episodes of banging on station. Patient found walking in the hallway of the unit but able to be interviewed with therapist and nurse. Patient states that she has been sleeping better, eating and drinking well below visual bowel movement. Patient states that she is quite angry at being here in the hospital and states that she needs to be discharged for Thanksgiving. Patient continues to be noted to have some loosening associations although noted to have some decreased and pressured speech and less irritable but continues to endorse feeling upset and angry. Patient continued reporting was control on the unit but redirectable and not requiring emergency treatment orders for agitation. She continues to be somewhat disorganized but able to engage more in interview. Review of Systems Except as stated in HPI: all other systems reviewed are Neg Mental Status Examination Appearance: Appropriate Consciousness: Alert Orientation: Person, Place Motor Activity: Normal gait Speech: Pressured (less so today) Language: Adequate Fund of Knowledge: Adequate Attention and Concentration: Inadequate Memory: Impaired Mood: Irritable Affect: Irritable, Labile Thought Process & Associations: Loose associations, Disorganized (less so today ), Tangential Thought Content: Racing thoughts, Other (flight of ideas) Hallucination Type: None Delusion Type: None, Paranoid Suicidal Ideation: No Suicidal Plan: No Suicidal Intention: No Homicidal Ideation: No Homicidal Plan: No Homicidal Intention: No Insight: Poor Judgment: Poor Results Labs Labs reviewed. Test 03/21/17 14:59 White Blood Count 6.7 TH/MM3 Red Blood Count 4.24 MIL/MM3 Hemoglobin 11.9 GM/DL Hematocrit 35.6 % Mean Corpuscular Volume 83.9 FL Mean Corpuscular Hemoglobin 28.1 PG Mean Corpuscular Hemoglobin Concent 33.5 % Red Cell Distribution Width 14.3 % Platelet Count 299 TH/MM3 Mean Platelet Volume 8.1 FL Neutrophils (%) (Auto) 65.4 % Lymphocytes (%) (Auto) 21.6 % Monocytes (%) (Auto) 9.1 % Eosinophils (%) (Auto) 3.0 % Basophils (%) (Auto) 0.9 % Neutrophils # (Auto) 4.4 TH/MM3 Lymphocytes # (Auto) 1.5 TH/MM3 Monocytes # (Auto) 0.6 TH/MM3 Eosinophils # (Auto) 0.2 TH/MM3 Basophils # (Auto) 0.1 TH/MM3 CBC Comment DIFF FINAL Differential Comment Blood Urea Nitrogen 18 MG/DL Creatinine 0.66 MG/DL Random Glucose 91 MG/DL Total Protein 7.1 GM/DL Albumin 3.4 GM/DL Calcium Level 8.7 MG/DL Alkaline Phosphatase 70 U/L Aspartate Amino Transf (AST/SGOT) 21 U/L Alanine Aminotransferase (ALT/SGPT) 36 U/L Total Bilirubin 0.5 MG/DL Direct Bilirubin 0.2 MG/DL Sodium Level 135 MEQ/L Potassium Level 4.1 MEQ/L Chloride Level 101 MEQ/L Carbon Dioxide Level 25.7 MEQ/L Anion Gap 8 MEQ/L Estimat Glomerular Filtration Rate 90 ML/MIN Indirect Bilirubin 0.3 MG/DL Thyroid Stimulating Hormone 3rd Gen 0.769 uIU/ML Vitals/IOs Vital Signs Date Time Temp Pulse Resp B/P (MAP) Pulse Ox O2 Delivery O2 Flow Rate FiO2 03/22/17 05:42 98.1 88 16 124/59 (80) 96 Assessment & Plan Problem List: (1) Bipolar disorder, manic, moderate ICD Codes: F31.12 - Bipolar disorder, current episode manic without psychotic features, moderate Status: Acute Assessment & Plan Patient at this time continues to be noted to have speech but appears to be decreasing, continues with some disorganization and loosening associations as well as some tangentiality. Patient continues to be noted to be irritable require redirection when becoming upset on the unit but has not been physically aggressive nor requiring emergency treatment orders for the same. We'll continue to titrate Lamictal to 50 mg by mouth daily, continue rest of medications. Discharge planning in progress Justification for Cont. Inpt. At risk for further decompensation if a lower level of care Discharge Planning Patient is discharged back to her residence once psychiatrically stable Zack Price MD Mar 22, 2017 13:29
[2017-03-22 18:01] VITALS: BP 118/65; PULSE 88; RESP 18; TEMP 98.3; O2SAT 98
[2017-03-22] MEDS: traZODone HCL 50 MG TAB PO SCH (21:00)
[2017-03-23 06:04] VITALS: BP 130/60; PULSE 90; RESP 16; TEMP 98.6
[2017-03-23] MEDS: LISINOPRIL 10 MG TAB PO SCH (08:47)
[2017-03-23] MEDS: PANTOPRAZOLE SOD 40 MG DELAYED RELEASE TAB PO SCH (08:47)
[2017-03-23] MEDS: NYSTATIN SUSP 500,000 U/5 ML CUP SWISH-SWAL SCH ×2 (08:47→13:00)
[2017-03-23] MEDS: lamoTRIgine 25 MG TAB PO SCH (08:48)
[2017-03-23] MEDS: REMOVE OLD PATCH T-DERMAL SCH (08:50)
[2017-03-23] MEDS: OLANZapine 10 MG TAB PO SCH (08:50)
[2017-03-23] MEDS: NICOTINE 7 MG/24 HR PATCH T-DERMAL SCH (08:50)
--- NOTE | 2017-03-23 09:20 | HHI.PR ---
Subjective Remarks No events overnight. Vital signs are stable. Objective Vitals Vital Signs Date Time Temp Pulse Resp B/P (MAP) Pulse Ox O2 Delivery O2 Flow Rate FiO2 03/23/17 06:04 98.6 90 16 130/60 (83) 03/22/17 18:01 98.3 88 18 118/65 (82) 98 Result Diagram: 03/21/17 1459 03/21/17 1459 Objective Remarks GENERAL: This is a well-nourished, well-developed patient, in no apparent distress. With flight of ideas. Pressured speech. OROPHARYNX: Oral thrush. CARDIOVASCULAR: Regular rate and rhythm without murmurs, gallops, or rubs. RESPIRATORY: Clear to auscultation. Breath sounds equal bilaterally. No wheezes , rales, or rhonchi. GASTROINTESTINAL: Abdomen soft, non-tender, nondistended. No hepato-splenomegaly , or palpable masses. No guarding. MUSCULOSKELETAL: Extremities without clubbing, cyanosis, or edema. No joint tenderness, effusion, or edema noted. No calf tenderness. Negative Homans sign bilaterally. NEUROLOGICAL: Awake and alert. Cranial nerves grossly intact. Motor and sensory grossly within normal limits. Pressured speech. A/P Assessment and Plan 66-year-old female with a past medical history significant for bipolar disorder , hypertension, hypothyroidism, dyslipidemia, CVA and GERD who was brought into the emergency department under V[place]quez act due to patient making statements that she was given a commit suicide by jumping off of her condo balcony. She has been admitted to the psychiatric unit and Hospitalist services have been consulted for medical management. Bipolar disorder with psychotic features Management per psychiatric team Hypertension Resume patient's home dose of lisinopril. However noted with hypotension 03/19 due to decreased PO intake. Encourage PO intake and hydration. If is not improving consider transferring to med/psych and starting IVF. Hold BP meds if SBP< 110, parameters added. Monitor VS. BP is better controlled. Hypothyroidism Continue patient's home dose of levothyroxine. Recent TSH normal. GERD Resume PPI. Give one tome famotidine Oral thrush. Give nystatin swish DVT prophylaxis Patient is ambulatory Thank you for this consultation. We will follow along with you. Discussed Condition With Patient and nurse Patient appears stable medically at this time. Cleared for DC from medical standpoint. To f/u as OP with PCP and consultants. Nanci Vail MD Mar 23, 2017 09:20
--- NOTE | 2017-03-23 11:06 | HHI.PYPN ---
Subjective Remarks Patient seen for follow-up, chart reviewed. Discussion with staff reported the patient noted to be slightly more coherent, able to engage more with staff, review slightly less irritable and more redirectable. Patient found walking in the hallway of unit but able to engage in interview with bid writer, nurse and therapist. Patient noted to be more engaging, with more attention and concentration with bid writer. Patient continues to have some loosening associations and flight of ideas but less so today. Patient still having some circumstantiality with answering questions, perseverative on some somatic complaints referring to her dysgeusia. Patient denies any SI or HI, or perceptual disturbances but continues to have continued paranoid delusions with bid writer and staff although less intense. Mental Status Examination Appearance: Appropriate Consciousness: Alert Orientation: Person, Place Motor Activity: Normal gait Speech: Pressured (less so today) Language: Adequate Fund of Knowledge: Adequate Attention and Concentration: Easily Distracted, Inadequate Memory: Impaired Mood: Irritable (less so today) Affect: Irritable (less so today), Labile Thought Process & Associations: Loose associations, Circumstantial, Disorganized (less so today) Thought Content: Delusional, Other (flight of ideas) Hallucination Type: None Delusion Type: None, Paranoid Suicidal Ideation: No Suicidal Plan: No Suicidal Intention: No Homicidal Ideation: No Homicidal Plan: No Homicidal Intention: No Insight: Poor (improving) Judgment: Poor Results Vitals/IOs Vital Signs Date Time Temp Pulse Resp B/P (MAP) Pulse Ox O2 Delivery O2 Flow Rate FiO2 03/23/17 06:04 98.6 90 16 130/60 (83) 03/22/17 18:01 98 Assessment & Plan Problem List: (1) Bipolar disorder, manic, moderate ICD Codes: F31.12 - Bipolar disorder, current episode manic without psychotic features, moderate Status: Acute Assessment & Plan The patient this time continues to have irritability, paranoid delusions concerning bid writer and staff, patient continues to be disorganized at times with flight of ideas and loosening associations but less intense. Patient appears to be improving somewhat with current treatment as the Lamotrigine was recently increased to 50 mg by mouth daily and continued on Zyprexa 10 mg a.m./50 mg at bedtime. Patient for the first time has been able to moments of a more consistent conversation today continues to fluctuate. If patient continues to stabilize more will consider discharge soon. No treatment changes for now as patient appears to start to respond. Justification for Cont. Inpt. At risk for further decompensation if at lower level of care Discharge Planning Patient to be discharged back to her residence once psychiatrically stable Zack Price MD Mar 23, 2017 11:06
[2017-03-23] MEDS: hydrOXYzine HCL 50 MG TAB PO SCH ×2 (14:00→21:29)
[2017-03-23 18:19] VITALS: BP 110/78; PULSE 77; RESP 18; TEMP 97.4; O2SAT 97
[2017-03-23] MEDS: traZODone HCL 50 MG TAB PO SCH (21:27)
[2017-03-23] MEDS: ALUMINUM/MAGNESIUM/SIMETH 30 ML CUP PO PRN (22:15)
[2017-03-24 05:44] VITALS: BP 138/61; PULSE 85; RESP 18; TEMP 98.1; O2SAT 98
[2017-03-24] MEDS: LEVOTHYROXINE SODIUM 25 MCG TAB PO SCH (06:04)
[2017-03-24] MEDS: hydrOXYzine HCL 50 MG TAB PO SCH ×2 (06:04→13:21)
[2017-03-24] MEDS: LISINOPRIL 10 MG TAB PO SCH (08:30)
[2017-03-24] MEDS: lamoTRIgine 25 MG TAB PO SCH (08:30)
[2017-03-24] MEDS: OLANZapine 10 MG TAB PO SCH (08:31)
[2017-03-24] MEDS: REMOVE OLD PATCH T-DERMAL SCH (08:31)
[2017-03-24] MEDS: PANTOPRAZOLE SOD 40 MG DELAYED RELEASE TAB PO SCH (08:31)
[2017-03-24] MEDS: NICOTINE 7 MG/24 HR PATCH T-DERMAL SCH (08:32)
--- NOTE | 2017-03-24 09:32 | HHI.PR ---
Subjective Remarks Ambulating in the hallways appears more stable, less psychotic and less flight of idea. BP is controlled. No fever or chills. No n/v/c. Complaints of constipation. Will give mag citrate Objective Vitals Vital Signs Date Time Temp Pulse Resp B/P (MAP) Pulse Ox O2 Delivery O2 Flow Rate FiO2 03/24/17 05:44 98.1 85 18 138/61 (86) 98 03/23/17 18:19 97.4 77 18 110/78 (89) 97 Result Diagram: 03/21/17 1459 03/21/17 1459 Imaging Last Impressions Hip and Pelvis X-Ray 03/13/17 0000 Signed Impressions: Service Date/Time: Monday, March 13, 2017 13:41 - CONCLUSION: 1. No fracture or significant degenerative changes. 2. 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 Gorge Mcmillan MD Objective Remarks GENERAL: This is a well-nourished, well-developed patient, in no apparent distress. Pleasant, less flight of ideas, more stable. CARDIOVASCULAR: Regular rate and rhythm without murmurs, gallops, or rubs. RESPIRATORY: Clear to auscultation. Breath sounds equal bilaterally. No wheezes , rales, or rhonchi. GASTROINTESTINAL: Abdomen soft, non-tender, nondistended. No hepato-splenomegaly , or palpable masses. No guarding. MUSCULOSKELETAL: Extremities without clubbing, cyanosis, or edema. No joint tenderness, effusion, or edema noted. No calf tenderness. Negative Homans sign bilaterally. NEUROLOGICAL: Awake and alert. Cranial nerves grossly intact. Motor and sensory grossly within normal limits. A/P Assessment and Plan 66-year-old female with a past medical history significant for bipolar disorder , hypertension, hypothyroidism, dyslipidemia, CVA and GERD who was brought into the emergency department under [place] due to patient making statements that she was given a commit suicide by jumping off of her condo balcony. She has been admitted to the psychiatric unit and Hospitalist services have been consulted for medical management. Bipolar disorder with psychotic features Management per psychiatric team Hypertension Resume patient's home dose of lisinopril. However noted with hypotension 03/19 due to decreased PO intake. Encourage PO intake and hydration. If is not improving consider transferring to med/psych and starting IVF. Hold BP meds if SBP< 110, parameters added. Monitor VS. BP is better controlled. Hypothyroidism Continue patient's home dose of levothyroxine. Recent TSH normal. GERD Resume PPI. Give one tome famotidine Constipation: Laxatives /stool softeners.Give one dose of mag citrate. Oral thrush. Give nystatin swish DVT prophylaxis Patient is ambulatory Thank you for this consultation. We will follow along with you. Discussed Condition With Patient and nurse Patient appears stable medically at this time. Cleared for DC from medical standpoint. To f/u as OP with PCP and consultants. Nanci Vail MD Mar 24, 2017 09:32
[2017-03-24] MEDS ORDERED: BISACODYL 10 MG SUPP RECTAL PRN (09:45)
[2017-03-24] MEDS ORDERED: NALOXONE HCL 0.4 MG/ML AMP IV PUSH PRN (09:45)
[2017-03-24] MEDS ORDERED: MAGNESIUM HYDROXIDE SUSP 30 ML CUP PO PRN (09:45)
[2017-03-24] MEDS ORDERED: LACTULOSE SYRUP 20 GM/30 ML CUP PO PRN (09:45)
[2017-03-24] MEDS ORDERED: SENNOSIDES 8.6 MG TAB PO PRN (09:45)
[2017-03-24] MEDS ORDERED: OLAN15TA PO (14:25)
[2017-03-24] MEDS ORDERED: OLAN10TA PO (14:25)
[2017-03-24] MEDS ORDERED: LEVO25TA4 PO (14:25)
[2017-03-24] MEDS ORDERED: LAMO25 PO (14:25)
[2017-03-24] MEDS ORDERED: PERI PO (14:25)
[2017-03-24] MEDS ORDERED: LISI10TA3 PO (14:25)
[2017-03-24] MEDS ORDERED: PANT40TA3 PO (14:25)
[2017-03-24] MEDS ORDERED: TRAZ50TA12 PO (14:25)
--- NOTE | 2017-03-24 15:24 | HHI.DS ---
Psychiatry Discharge Summary Inpatient Psychiatric care?: Yes Advance Directive: No Reason Not Provided: DOES NOT HAVE Mental Health AdvanceDirective: No Health Care Proxy: No Admission Admission Date Mar 13, 2017 at 22:46 Admission Diagnosis: (1) Bipolar I disorder, most recent episode manic, severe with psychotic features ICD Code: F31.2 - Bipolar disorder, current episode manic severe with psychotic features Brief History Patient is a 67-year-old woman, domiciled, past psychiatric history of bipolar disorder, multiple psychiatric admissions, no previous suicide attempts as per chart, history of noncompliance, history of remote substance use (unspecified), who was brought in by police under [place] act for suicidal ideations and wanted to jump from a seventh floor of a building which she was transferred to the inpatient psychiatry for further evaluation and management. Patient was noted to be on the unit with sunglasses on and noted to be hyperverbal with staff. Patient upon interview was noted to be disorganized, pressured speech with flight of ideas or loosening associations. He was but difficult to ascertain history due to her current manic symptoms and disorganization. Patient states that she is brought to the hospital after she had called police reporting on a woman that was threatening her. Patient denies any suicide ideations and stated that "all I wanted is the woman to living alone". Patient reports she follows it was [facility] for outpatient psychiatry seeing a nurse rehabilitation intended and states that after her last admission she was not continued on hospital constant and states that the medication was not helpful and being allergic to other medications as stated her allergy list. Patient states that she had done well on olanzapine in the past and would like to continue to take his medication now. Past psychiatric history: As per chart history of bipolar disorder, previous psychiatric admissions no suicidal. As per chart last seen recently here at [facility] other the care of Dr. Wolf in November 2016, and was discharged on risperidone 4 mg by mouth twice a day along with Risperdal Consta. Patient has outpatient follow-up at [facility]. Substance use history: Patient admits to remote history of substance use but did not specify what but as per chart occasional use of alcohol. Social history: Reports being born in [place], as per chart domiciled in public housing. Tobacco Use In Past 30 Days: 5 or More Cigarettes/Day Alcohol Use: Monthly or Less Hospital Course Patient is a 67-year-old woman, domiciled, past psychiatric history of bipolar disorder, multiple psychiatric admissions, no previous suicide attempts as per chart, history of noncompliance, history of remote substance use (unspecified), who was brought in by police under [place] act for suicidal ideations and wanted to jump from a seventh floor of a building which she was transferred to the inpatient psychiatry for further evaluation and management. Patient was started olanzapine 5mg PO BID and titrated up to 10 mg by mouth daily/15mg by mouth at bedtime for psychosis, started on lamotrigine 25mg PO daily and titrated up to 50mg PO daily, continued on trazodone 50mg and titrated up to 150mg by mouth HS, and continued medications for medical issues as per primary medical team. Patient initially was endorsing suicidal as per [place] but had denied this during admission. Patient was noted to continue to manic symptoms which through titration of medication began to subside as she was noted to no longer have pressured speech, no longer disorganized or having flight of ideas and able to engage adequately in interview. Patient continued with treatment and was noted to have improvement of mood, was noted to be cooperative with staff as well as participatory in groups and activities. Patient was noted to have improvement of insight and judgment as well as impulse control with no behavioral issues. Patient was adherent to medication regimen and recommendations as per primary medical team. Upon discharge patient stated feeling good, stated feeling okay with returning back to her residence, was calm and cooperative with staff, attended groups and activities. She agreed to continuing medical recommendations, treatment and attend outpatient follow up appointments for continuity of care. Patient will be discharged back to her residence. Patient; denies SI, HI, AVH or delusions. Supportive psychotherapy provided. Patient advised to call 911 or return back to the ED in case of any emergency. Patient agrees with plan. Results Blood Pressure 138 / 61 Vital Signs Date Time Temp Pulse Resp B/P (MAP) Pulse Ox O2 Delivery O2 Flow Rate FiO2 03/24/17 05:44 98.1 85 18 138/61 (86) 98 Laboratory Results Test 03/14/17 08:10 Cholesterol Level 134 MG/DL (120-200) HDL Cholesterol 96.1 MG/DL (40.0-60.0) Hemoglobin A1c 5.6 % (4.3-6.0) LDL Cholesterol 32 MG/DL (0-99) Triglycerides Level 32 MG/DL (42-150) Summary of Procedures none Imaging Last Impressions Hip and Pelvis X-Ray 03/13/17 0000 Signed Impressions: Service Date/Time: Monday, March 13, 2017 13:41 - CONCLUSION: 1. No fracture or significant degenerative changes. 2. 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 Gorge Mcmillan MD Pending results at discharge: No Medications # of Antipsychotic meds at D/C: 1 Approp Antipsych med options 1 - Minimum of three failed multiple trials of monotherapy. 2 - Documented plan to taper to monotherapy due to previous use of multiple meds OR cross-taper in progress at D/C. 3 - Documentation of augmentation of Clozapine. 4 - Justification other than those listed in allowable values 1-3, document here : Discharge Discharge Date: Mar 24, 2017 Discharge Diagnosis: (1) Bipolar I disorder, most recent episode manic, severe with psychotic features ICD Code: F31.2 - Bipolar disorder, current episode manic severe with psychotic features Status: Acute Pt Condition on Discharge: Stable Discharge Disposition: Discharge Home Discharge Instructions Diet Instructions: Heart Healthy Diet Activities you can perform: Regular-No Restrictions Scheduled Appointment: Isak Villalta Appointment Date: Mar 28, 2017 Appointment Time: 7:30am Discharge Time > 30 minutes Mental Status Examination Appearance: Appropriate Consciousness: Alert Orientation: Person, Place Motor Activity: Normal gait Speech: Pressured (less so today) Language: Adequate Fund of Knowledge: Adequate Attention and Concentration: Adequate Memory: Impaired Mood: Appropriate, Irritable Affect: Appropriate, Irritable (less so today) Thought Process & Associations: Intact, Goal directed, Linear Thought Content: Appropriate Hallucination Type: None Delusion Type: None Suicidal Ideation: No Suicidal Plan: No Suicidal Intention: No Homicidal Ideation: No Homicidal Plan: No Homicidal Intention: No Insight: Fair Judgment: Adequate Discharge/Advance Care Plan Health Problems: (1) Bipolar disorder, manic, moderate Goals to promote your health * To prevent worsening of your condition and complications * To maintain your health at the optimal level Directions to meet your goals Take your medications as prescribed Follow your dietary instruction Follow activity as directed Keep your appointments as scheduled Take your immunizations and boosters as scheduled If your symptoms worsen call your PCP, if no PCP go to Urgent Care Center or Emergency Room For 22/11 questions related to your inpatient stay or results of tests pending at discharge, please contact Dr. Zack Price at Smoking is Dangerous to Your Health. Avoid second hand smoking Zack Price MD Mar 24, 2017 15:23
[2017-03-24] MEDS ORDERED: DOCUSATE SODIUM 50 MG/SENNA 8.6 MG TAB PO SCH (21:00)
== END 2017-03-24 15:25 | disposition home or self-care (01) | DRG 885 ==
LOC: NEDAMB 15:05 → NEDA 03-13 22:46 → H260 03-13 23:25 → H270 03-15 02:44
PROVIDERS: ADMIT Student in an Organized Health Care Education/Training Program; ATTEND Student in an Organized Health Care Education/Training Program
DX: F31.2 Bipolar disorder, current episode manic severe with psychotic features (principal); B37.0 Candidal stomatitis; I95.9 Hypotension, unspecified; R45.851 Suicidal ideations; K21.9 Gastro-esophageal reflux disease without esophagitis; I10 Essential (primary) hypertension; E78.00 Pure hypercholesterolemia, unspecified; G47.00 Insomnia, unspecified; M54.9 Dorsalgia, unspecified; M25.551 Pain in right hip; E03.9 Hypothyroidism, unspecified; K30 Functional dyspepsia; K11.7 Disturbances of salivary secretion; T43.595A Adverse effect of other antipsychotics and neuroleptics, initial encounter; R43.2 Parageusia; K59.00 Constipation, unspecified; M19.90 Unspecified osteoarthritis, unspecified site; F12.90 Cannabis use, unspecified, uncomplicated; Y92.239 Unspecified place in hospital as the place of occurrence of the external cause; W06.XXXA Fall from bed, initial encounter; Z72.0 Tobacco use; Z86.73 Personal history of transient ischemic attack (TIA), and cerebral infarction without residual deficits; Z88.0 Allergy status to penicillin; Z88.1 Allergy status to other antibiotic agents; Z91.14 Patient's other noncompliance with medication regimen
CPT/HCPCS: 73502; 80048; 80061; 80076; 83036; 84443; 85025; 96372; J1200; J2060; Q0163

== ENCOUNTER 2017-07-18 11:55 | Inpatient (IN) | payer OTHER, MEDICARE ==
[~2017-07-18] VITALS: Ht 154.9 cm; Wt 64.0 kg
[~2017-07-18 11:55] MED LIST changes: +LAMO25 PO; +OLAN10TA PO; +OLAN15TA PO; -OMEP40CA2 PO; +PANT40TA3 PO; +PERI PO; +TRAZ50TA12 PO
[2017-07-18] MEDS ORDERED: OLANZapine IM 10 MG VIAL IM ONE ×6 (12:14→20:30)
--- NOTE | 2017-07-18 12:52 | PD ---
HPI Chief Complaint: Psychiatric Symptoms Time Seen by Provider: 12:47 Travel History International Travel<30 days: No Contact w/Intl Traveler<30days: No Traveled to known affect area: No History of Present Illness HPI 67-year-old female brought in under the [employer] [place] act with obvious psychosis. Patient is speaking nonsense stating that she is draining into plastic. She is repeating curse words, and cannot answer questions. She has multiple allergies. Please see list. Zyprexa 10 mg IM was already ordered prior to my exam PFSH Past Medical History Arthritis: Yes Asthma: No Autoimmune Disease: No Blood Disorders: No Bipolar Disorder: Yes Anxiety: Yes Depression: Yes Heart Rhythm Problems: No Cardiac Catheterization: No High Cholesterol: Yes Chest Pain: Yes Congestive Heart Failure: No COPD: No Cerebrovascular Accident: Yes Diminished Hearing: No Endocrine: Yes GERD: Yes Genitourinary: Yes (LEAKING) Hepatitis: No Hiatal Hernia: No Herniated Disk: Yes (LOWER BACK) Hypertension: Yes Immune Disorder: No Kidney Stones: No Musculoskeletal: Yes Neurologic: Yes (FIBROMYALGIA) Psychiatric: Yes Reproductive: No Respiratory: No Immunizations Current: Yes Myocardial Infarction: No Renal Failure: No Sleep Apnea: No Thyroid Disease: Yes Ulcer: No Menopausal: Yes : 0 Para: 0 Past Surgical History Surgical History: Unable to Obtain Abdominal Surgery: Yes (APPENDECTOMY) AICD: No Appendectomy: Yes Arteriovenous Shunt: No Cardiac Surgery: No Coronary Artery Bypass Graft: No Ear Surgery: No Endocrine Surgery: No Eye Surgery: No Genitourinary Surgery: No Gynecologic Surgery: No Insulin Pump: No Joint Replacement: No Neurologic Surgery: No Oral Surgery: No Pacemaker: No Thoracic Surgery: No Other Surgery: Yes (CYST REMOVED FROM CHIN, BACK AND AREA NEXT TO RT RYE) Social History Alcohol Use: Yes Tobacco Use: Yes Substance Use: No Allergies-Medications (Allergen,Severity, Reaction): Coded Allergies: carbamazepine (Unverified Allergy, Severe, Anaphylaxis, 03/11/17) divalproex sodium (Unverified Allergy, Severe, Diarrhea, 03/11/17) lorazepam (Unverified Allergy, Severe, Swelling, 03/11/17) penicillin G (Unverified Allergy, Severe, RASH, 03/11/17) haloperidol (Unverified Allergy, Unknown, UNKNOWN , 03/11/17) PT STATES SHE IS ALLERGIC TO HALDOL, BUT WILL NOT STATE HER REACTION TO THE MEDICATION OR THE SEVERITY OF THE REACTION. milk (Unverified Allergy, Unknown, 03/11/17) erythromycin base (Unverified Adverse Reaction, Severe, DIARRHEA, 03/11/17 ) lithium (Unverified Adverse Reaction, Unknown, 03/11/17) Reported Meds & Prescriptions Reported Meds & Active Scripts Active Levothyroxine (Levothyroxine Sodium) 25 Mcg Tab 25 Mcg PO DAILY@06 30 Days Pantoprazole (Pantoprazole Sodium) 40 Mg Tab 40 Mg PO DAILY 30 Days Gnp Senna Plus 8.6-50 mg (Sennosides-Docusate Sodium) 8.6 Mg-50 Mg Tab 1 Tab PO BID 30 Days Olanzapine 15 Mg Tab 15 Mg PO HS 30 Days Olanzapine 10 Mg Tab 10 Mg PO DAILY 30 Days Trazodone (Trazodone HCl) 50 Mg Tab 150 Mg PO HS 30 Days Lamictal (Lamotrigine) 25 Mg Tab 50 Mg PO DAILY 30 Days Lisinopril 10 Mg Tab 10 Mg PO DAILY 30 Days Mobic (Meloxicam) 15 Mg Tab 15 Mg PO DAILY Meloxicam 7.5 Mg Tab 7.5 Mg PO DAILY Levothyroxine (Levothyroxine Sodium) 25 Mcg Tab 25 Mcg PO DAILY@06 Ambien (Zolpidem Tartrate) 10 Mg Tab 10 Mg PO HS PRN Lisinopril 10 Mg Tab 10 Mg PO DAILY 15 Days Reported Abilify (Aripiprazole) 10 Mg Tab 10 Mg PO DAILY Hydroxyzine Pamoate 25 Mg Cap 25 Mg PO BID Review of Systems ROS Limitations: Clinical Condition, Uncooperative, Psychotic General / Constitutional: No: Fever Eyes: No: Visual changes HENT: No: Headaches Cardiovascular: No: Chest Pain or Discomfort Respiratory: No: Shortness of Breath Gastrointestinal: No: Abdominal Pain Genitourinary: No: Dysuria Musculoskeletal: No: Pain Skin: No Rash Neurologic: No: Weakness Psychiatric: No: Depression Endocrine: No: Polydipsia Hematologic/Lymphatic: No: Easy Bruising Physical Exam Exam Limitations: Clinical Condition, Uncooperative, Psychotic Narrative GENERAL: Patient is visibly psychotic, and unable to answer questions or follow commands SKIN: Warm and dry. Normal color. Normal turgor. Patient appears to have first-degree sunburn to the tops of both of her feet HEAD: Atraumatic. Normocephalic. EYES: Pupils equal and round. No scleral icterus. No injection or drainage. ENT: No nasal bleeding or discharge. Mucous membranes pink and moist. Pharynx is clear. Airways patent NECK: Trachea midline. Supple. CARDIOVASCULAR: Regular rate and rhythm. RESPIRATORY: No accessory muscle use. Clear to auscultation. Breath sounds equal bilaterally. MUSCULOSKELETAL: Extremities without clubbing, cyanosis, or edema. No obvious deformities. NEUROLOGICAL: Awake and alert. No obvious cranial nerve deficits. Motor grossly within normal limits. Five out of 5 muscle strength in the arms and legs. Pressured nonsensical speech. PSYCHIATRIC: Acutely psychotic. Data Data Orders Orders Olanzapine Inj (Zyprexa Inj) (07/18/17 12:14) ^ Other Nursing Orders (07/18/17 12:22) Complete Blood Count With Diff (07/18/17 12:47) Comprehensive Metabolic Panel (07/18/17 12:47) Thyroid Stimulating Hormone (07/18/17 12:47) Urinalysis - C+S If Indicated (07/18/17 12:47) Psych Screen (07/18/17 12:47) Drug Screen, Random Urine (07/18/17 12:47) Alcohol (Ethanol) (07/18/17 12:47) Restraints Violent (07/18/17 12:22) Olanzapine Inj (Zyprexa Inj) (07/18/17 14:45) Urine Culture (07/18/17 13:39) Labs Laboratory Tests Test 07/18/17 13:28 07/18/17 13:39 White Blood Count 13.3 TH/MM3 Red Blood Count 5.43 MIL/MM3 Hemoglobin 14.8 GM/DL Hematocrit 45.3 % Mean Corpuscular Volume 83.5 FL Mean Corpuscular Hemoglobin 27.2 PG Mean Corpuscular Hemoglobin Concent 32.6 % Red Cell Distribution Width 15.2 % Platelet Count 281 TH/MM3 Mean Platelet Volume 9.0 FL Neutrophils (%) (Auto) 87.0 % Lymphocytes (%) (Auto) 4.6 % Monocytes (%) (Auto) 7.2 % Eosinophils (%) (Auto) 0.1 % Basophils (%) (Auto) 1.1 % Neutrophils # (Auto) 11.6 TH/MM3 Lymphocytes # (Auto) 0.6 TH/MM3 Monocytes # (Auto) 1.0 TH/MM3 Eosinophils # (Auto) 0.0 TH/MM3 Basophils # (Auto) 0.1 TH/MM3 CBC Comment DIFF FINAL Differential Comment Urine Color YELLOW Urine Turbidity HAZY Urine pH 5.5 Urine Specific [place] 1.033 Urine Protein 30 mg/dL Urine Glucose (UA) NEG mg/dL Urine Ketones 80 mg/dL Urine Occult Blood TRACE Urine Nitrite NEG Urine Bilirubin NEG Urine Urobilinogen 2.0 MG/DL Urine Leukocyte Esterase LARGE Urine RBC 5 /hpf Urine WBC 50 /hpf Urine Squamous Epithelial Cells 3 /hpf Urine Bacteria FEW /hpf Urine Hyaline Casts 6 /lpf Urine Mucus MANY /lpf Microscopic Urinalysis Comment CULTURE INDICATED Urine Opiates Screen NEG Urine Barbiturates Screen NEG Urine Amphetamines Screen NEG Urine Benzodiazepines Screen NEG Urine Cocaine Screen NEG Urine Cannabinoids Screen NEG MDM Medical Decision Making Medical Screen Exam Complete: Yes Emergency Medical Condition: Yes Medical Record Reviewed: Yes Differential Diagnosis Psychosis. Metabolic abnormality. Urinary tract infection. Narrative Course Patient is given Zyprexa 10 mg IM Psychiatric labs ordered per protocol. CBC shows slight leukocytosis of 13.3 otherwise unremarkable. Urinalysis shows probable urinary tract infection and culture was placed. Urine drug screen is negative. Patient started on Keflex 500 mg 3 times daily for her urinary tract infection. Psych screen is ordered. Patient is medically screened for psychiatric evaluation. Admitting Information Admitting Physician Requests: Admit Disposition: 01 DISCHARGE HOME Condition: Stable Brad Baird Jul 18, 2017 12:52
[2017-07-18 14:00] LABS: BACTERIA, URINE FEW /hpf; BILIRUBIN, URINE NEG (NEG); BLOOD, URINE TRACE (NEG); GLUCOSE,URINE NEG (NEG); HYALINE CAST, URINE 6 /lpf (RARE); KETONE, URINE 80 mg/dL (NEG); MUCUS URINE MANY /lpf (OCC); NITRITE,URINE NEG (NEG); PH, URINE 5.5 (5.0-8.5); SQUAMOUS EPITHELIAL CELL URINE 3 /hpf (0-5); URINE COLOR YELLOW (YELLW/STRAW); URINE LEUKOCYTE ESTERASE LARGE (NEG)
[2017-07-18 14:01] LABS: AUTOMATED NEUTROPHIL # 11.6 TH/MM3 (1.8-7.7); BASOPHIL # 0.1 TH/MM3 (0-0.2); BASOPHIL % 1.1 % (0.0-2.0); EOSINOPHIL % 0.1 % (0.0-4.0); HEMATOCRIT 45.3 % (35.0-46.0); HEMOGLOBIN 14.8 GM/DL (11.6-15.3); LYMPH % 4.6 % (9.0-44.0); LYMPHOCYTE # 0.6 TH/MM3 (1.0-4.8); MEAN CELL VOLUME 83.5 FL (80.0-100.0); MEAN CORPUSCULAR HEMOGLOBIN 27.2 PG (27.0-34.0); MEAN CORPUSCULAR HGB CONC 32.6 % (32.0-36.0); MONO % 7.2 % (0.0-8.0); PLATELET COUNT 281 TH/MM3 (150-450); RED BLOOD COUNT 5.43 MIL/MM3 (4.00-5.30); RED CELL DISTRIBUTION WIDTH 15.2 % (11.6-17.2); WHITE BLOOD COUNT 13.3 TH/MM3 (4.0-11.0)
[2017-07-18 14:18] LABS: ALBUMIN 4.2 GM/DL (3.4-5.0); ALT (GPT) 34 U/L (10-53); AST (GOT) 36 U/L (15-37); BICARBONATE 21.2 MEQ/L (21.0-32.0); BLOOD UREA NITROGEN 37 MG/DL (7-18); CALCIUM 9.4 MG/DL (8.5-10.1); CHLORIDE 103 MEQ/L (98-107); CREATININE 1.03 MG/DL (0.50-1.00); GLOMERULAR FILTRATION RATE 54 ML/MIN (>89); GLUCOSE,RANDOM 103 MG/DL (74-106); SODIUM (NA) 140 MEQ/L (136-145)
[2017-07-18 14:36] LABS: ALKALINE PHOSPHATASE 90 U/L (45-117); TOTAL BILIRUBIN ADULT 1.6 MG/DL (0.2-1.0); TOTAL PROTEIN 8.3 GM/DL (6.4-8.2)
[2017-07-18] MEDS ORDERED: MAGNESIUM HYDROXIDE SUSP 30 ML CUP PO PRN (14:45)
[2017-07-18] MEDS ORDERED: ALUMINUM/MAGNESIUM/SIMETH 30 ML CUP PO PRN (14:45)
[2017-07-18] MEDS ORDERED: LAMO100T PO (18:07)
[2017-07-18] MEDS: CEPHALEXIN MONOHYDRATE 500 MG CAP PO SCH ×2 (18:36→22:00)
[2017-07-18 19:00] VITALS: BP 158/74; PULSE 107; RESP 18; TEMP 96.9; O2SAT 96
[2017-07-18 19:12] VITALS: BP 121/58; PULSE 93; RESP 18; O2SAT 99
[2017-07-19] MEDS: CEPHALEXIN MONOHYDRATE 500 MG CAP PO SCH ×3 (05:02→22:00)
[2017-07-19 06:01] VITALS: BP 165/73; PULSE 91; RESP 18; TEMP 96.6; O2SAT 99
[2017-07-19 06:04] VITALS: BP 165/74; PULSE 91; RESP 18; TEMP 96.6; O2SAT 99
[2017-07-19 08:12] LABS: BICARBONATE 25.2 MEQ/L (21.0-32.0); BLOOD UREA NITROGEN 21 MG/DL (7-18); CALCIUM 9.7 MG/DL (8.5-10.1); CHLORIDE 105 MEQ/L (98-107); CHOLESTEROL 135 MG/DL (120-200); CREATININE 0.67 MG/DL (0.50-1.00); GLOMERULAR FILTRATION RATE 88 ML/MIN (>89); GLUCOSE,RANDOM 92 MG/DL (74-106); SODIUM (NA) 140 MEQ/L (136-145); TRIGLYCERIDES 45 MG/DL (42-150)
[2017-07-19 08:13] LABS: CHOLESTEROL/ HDL RATIO 1.31 RATIO; HDL CHOLESTEROL 102.3 MG/DL (40.0-60.0); LDL CHOLESTEROL 24 MG/DL (0-99)
[2017-07-19] MEDS ORDERED: INFLUENZA VIRUS VACCINE (QUADRIVALENT) 0.5 ML SYR IM ONE (09:00)
--- NOTE | 2017-07-19 10:43 | HHI.HP ---
Provisional Diagnosis Admission Date Jul 18, 2017 at 14:03 [place] I. 1. Bipolar disorder, presently manic, severe with psychotic features [place] II. Deferred Certification of Person's Competence To Provide Express and Informed Consent I have personally examined Verenice Perez , a person being served at [facility] on, Jul 19, 2017 10:31. Express and informed consent means consent voluntarily given in writing, by a competent person, after sufficient explanation and disclosure of the subject matter involved to enable the person to make a knowing and willful decision without any element of force, fraud, deceit, duress, or other form of constraint or coercion. This person is 18 years of age or older, is not now known to be incompetent to consent to treatment with a guardian advocate, and does not have a health care surrogate or proxy currently making medical treatment decisions. I have found this person to be one of the following: [] Competent to provide express and informed consent, as defined above, for voluntary admission to this facility and is competent to provide express and informed consent for treatment. He/she has the consistent capacity to make well reasoned, willful, and knowing decisions concerning his or her medical or mental health treatment. The person fully and consistently understands the purpose of the admission for examination/placement and is fully capable of personally exercising all rights assured [place] [x] Incompetent to provide express and informed consent to voluntary admission, and this is incompetent to provide express and informed consent to treatment. The person must be transferred to involuntary status and a petition for a guardian advocate filed with the Circuit Court. [] Refusing to provide express and informed consent to voluntary admission but is competent to provide express and informed consent for treatment. The person must be discharged or transferred to involuntary status. Form shall be completed within 24 hours of a person's arrival at the receiving facility and filed in the clinical record of each person: 1. Admitted on a voluntary basis 2. Permitted to provide express and informed consent to his/her own treatment 3. Allowed to transfer from involuntary to voluntary status 4. Prior to permitting a person to consent to his or her own treatment after having been previously found incompetent to consent to treatment. History of Present Illness Capacity: Lacks Capacity Psych Chief Complaint: Allison HPI Ms. Perez is a 67-year-old female with a history of bipolar disorder, well known to the psychiatric service here from multiple previous psychiatric admissions. She was admitted most recently in March of last year under Dr. Price and stabilized at that time on Zyprexa and Lamictal. She returns under a Vazquez act alleging medication nonadherence and aggressive behavior at her [facility] facility. Electronic medical record reviewed. Patient seen and examined with nurse. Chart reviewed. Case discussed with nursing staff. On my examination today, patient is floridly manic. She is hyperverbal with the staccato pattern of speech that she typically displays when manic. She tells me "I'm not whacky tobaccy. I've been poisoned with a chemical. I got an infection where I'm living. I've had problems with imbalance. I'm really pissed!" Affect is angry and irritable. She rails against "that bitch administrator social welfare" at the facility where she has been residing. When I ask about SI/HI, she replies "hell, no! Bullshit!" When I ask about AVH, again she says "hell no!" although she is clearly internally preoccupied. She is distractible and impulsive with flight of ideas. No other delusional material elicited. No depressive symptoms. Psychiatric interview is somewhat limited because of patient's degree of psychiatric decompensation presently. No acute physical complaints. Past psychiatric history: Patient likely an unreliable historian. Patient has a history of bipolar disorder. She follows at [facility] but says that it has "gone to [facility] in a handbasket since Jenn Hughes [her former case filler] left." Most recent admission was last March as noted above. No history of suicide attempts. Family history: Mother reportedly was an alcoholic. Chemical dependency history: Patient denies any abuse of drugs or alcohol. Social history: Has apparently been residing at [facility]. Social history limited because of patient's degree of psychiatric impairment at present. I did endeavor to reach out to patient's sister Mary Diaz at the number listed in the EMR but this appears to be nonfunctional. I also endeavored to reach out to Martha Cordon a friend at number listed in EMR, but a female answered and said there was no one by that name in the residence. Review of Systems ROS Limitations: Psychotic, Poor Historian Except as stated in HPI: all other systems reviewed are Neg Past Family Social History Coded Allergies: carbamazepine (Unverified Allergy, Severe, Anaphylaxis, 03/11/17) divalproex sodium (Unverified Allergy, Severe, Diarrhea, 03/11/17) lorazepam (Unverified Allergy, Severe, Swelling, 03/11/17) penicillin G (Unverified Allergy, Severe, RASH, 03/11/17) haloperidol (Unverified Allergy, Unknown, UNKNOWN , 03/11/17) PT STATES SHE IS ALLERGIC TO HALDOL, BUT WILL NOT STATE HER REACTION TO THE MEDICATION OR THE SEVERITY OF THE REACTION. milk (Unverified Allergy, Unknown, 03/11/17) erythromycin base (Unverified Adverse Reaction, Severe, DIARRHEA, 03/11/17 ) lithium (Unverified Adverse Reaction, Unknown, 03/11/17) Past Medical History See electronic medical record Active Scripts Olanzapine (Olanzapine) 15 Mg Tab, 15 MG PO HS for health for 30 Days, #30 TAB Prov:Zack Price MD 03/24/17 Olanzapine (Olanzapine) 10 Mg Tab, 10 MG PO DAILY for health for 30 Days, #30 TAB Prov:Zack Price MD 03/24/17 Trazodone (Trazodone) 50 Mg Tab, 150 MG PO HS for health for 30 Days, #90 TAB Prov:Zack Price MD 03/24/17 Reported Medications Lamotrigine (Lamotrigine) 100 Mg Tab, 100 MG PO DAILY for Control Seizures, #30 TAB 0 Refills 07/18/17 Discontinued Reported Medications Aripiprazole (Abilify) 10 Mg Tab, 10 MG PO DAILY, #30 TAB 0 Refills 03/09/17 Hydroxyzine Pamoate (Hydroxyzine Pamoate) 25 Mg Cap, 25 MG PO BID, CAP 0 Refills 03/09/17 Discontinued Scripts Levothyroxine (Levothyroxine) 25 Mcg Tab, 25 MCG PO DAILY@06 for health for 30 Days, #30 TAB Prov:Zack Price MD 03/24/17 Pantoprazole (Pantoprazole) 40 Mg Tab, 40 MG PO DAILY for health for 30 Days, # 30 TAB Prov:Zack Price MD 03/24/17 Sennosides-Docusate Sodium (Gnp Senna Plus 8.6-50 mg) 8.6 Mg-50 Mg Tab, 1 TAB PO BID for health for 30 Days, #60 TAB Prov:Zack Price MD 03/24/17 Lamotrigine (Lamictal) 25 Mg Tab, 50 MG PO DAILY for health for 30 Days, #60 TAB Prov:Zack Price MD 03/24/17 Lisinopril (Lisinopril) 10 Mg Tab, 10 MG PO DAILY for health for 30 Days, #30 TAB Prov:Zack Price MD 03/24/17 Meloxicam (Mobic) 15 Mg Tab, 15 MG PO DAILY, #14 TAB 0 Refills Prov:Los Espinoza MD 03/11/17 Meloxicam (Meloxicam) 7.5 Mg Tab, 7.5 MG PO DAILY for health, #30 TAB 0 Refills Prov:Jesus Wolf MD 12/10/16 Levothyroxine (Levothyroxine) 25 Mcg Tab, 25 MCG PO DAILY@06 for health, #30 TAB 0 Refills Prov:Jesus Wolf MD 12/10/16 Zolpidem (Ambien) 10 Mg Tab, 10 MG PO HS Y for INSOMNIA, #15 TAB 1 Refill Prov:Flavio Resendiz MD 10/29/16 Lisinopril (Lisinopril) 10 Mg Tab, 10 MG PO DAILY for Blood Pressure Management for 15 Days, TAB 1 Refill Prov:Flavio Resendiz MD 06/28/16 Current Medications Medications (Trade) Dose Ordered Sig/Lety Route Start Time Stop Time Status Last Admin (Keflex) 500 mg Q8HR PO 07/18/17 14:30 07/19/17 05:02 (Tylenol) 650 mg Q4H PRN PO 07/18/17 14:45 (Milk Of Magnesia Liq) 30 ml DAILY PRN PO 07/18/17 14:45 (Mag-Al Plus Susp Liq) 30 ml Q6H PRN PO 07/18/17 14:45 Patient's Strengths (min. 2) In a monitored setting. Verbally fluent. Physical Exam Physical exam completed by ED provider. On my examination today, the patient appears to be in no acute physical distress. No motor abnormalities noted. Labs and vitals reviewed: Vital Signs Vital Signs Date Time Temp Pulse Resp B/P (MAP) Pulse Ox O2 Delivery O2 Flow Rate FiO2 07/19/17 06:04 96.6 91 18 165/74 (104) 99 07/18/17 19:12 Room Air Lab Results Test 07/18/17 13:28 07/18/17 13:39 07/19/17 06:40 White Blood Count 13.3 TH/MM3 Red Blood Count 5.43 MIL/MM3 Hemoglobin 14.8 GM/DL Hematocrit 45.3 % Mean Corpuscular Volume 83.5 FL Mean Corpuscular Hemoglobin 27.2 PG Mean Corpuscular Hemoglobin Concent 32.6 % Red Cell Distribution Width 15.2 % Platelet Count 281 TH/MM3 Mean Platelet Volume 9.0 FL Neutrophils (%) (Auto) 87.0 % Lymphocytes (%) (Auto) 4.6 % Monocytes (%) (Auto) 7.2 % Eosinophils (%) (Auto) 0.1 % Basophils (%) (Auto) 1.1 % Neutrophils # (Auto) 11.6 TH/MM3 Lymphocytes # (Auto) 0.6 TH/MM3 Monocytes # (Auto) 1.0 TH/MM3 Eosinophils # (Auto) 0.0 TH/MM3 Basophils # (Auto) 0.1 TH/MM3 CBC Comment DIFF FINAL Differential Comment Blood Urea Nitrogen 37 MG/DL 21 MG/DL Creatinine 1.03 MG/DL 0.67 MG/DL Random Glucose 103 MG/DL 92 MG/DL Total Protein 8.3 GM/DL Albumin 4.2 GM/DL Calcium Level 9.4 MG/DL 9.7 MG/DL Alkaline Phosphatase 90 U/L Aspartate Amino Transf (AST/SGOT) 36 U/L Alanine Aminotransferase (ALT/SGPT) 34 U/L Total Bilirubin 1.6 MG/DL Sodium Level 140 MEQ/L 140 MEQ/L Potassium Level 4.0 MEQ/L 3.5 MEQ/L Chloride Level 103 MEQ/L 105 MEQ/L Carbon Dioxide Level 21.2 MEQ/L 25.2 MEQ/L Anion Gap 16 MEQ/L 10 MEQ/L Estimat Glomerular Filtration Rate 54 ML/MIN 88 ML/MIN Thyroid Stimulating Hormone 3rd Gen 0.830 uIU/ML Ethyl Alcohol Level LESS THAN 3 MG/DL Urine Color YELLOW Urine Turbidity HAZY Urine pH 5.5 Urine Specific [place] 1.033 Urine Protein 30 mg/dL Urine Glucose (UA) NEG mg/dL Urine Ketones 80 mg/dL Urine Occult Blood TRACE Urine Nitrite NEG Urine Bilirubin NEG Urine Urobilinogen 2.0 MG/DL Urine Leukocyte Esterase LARGE Urine RBC 5 /hpf Urine WBC 50 /hpf Urine Squamous Epithelial Cells 3 /hpf Urine Bacteria FEW /hpf Urine Hyaline Casts 6 /lpf Urine Mucus MANY /lpf Microscopic Urinalysis Comment CULTURE INDICATED Urine Opiates Screen NEG Urine Barbiturates Screen NEG Urine Amphetamines Screen NEG Urine Benzodiazepines Screen NEG Urine Cocaine Screen NEG Urine Cannabinoids Screen NEG Triglycerides Level 45 MG/DL Cholesterol Level 135 MG/DL LDL Cholesterol 24 MG/DL HDL Cholesterol 102.3 MG/DL Cholesterol/HDL Ratio 1.31 RATIO Date/Time Source Procedure Growth Status 07/18/17 13:39 Urine Clean Catch Urine Culture Pending Received Mental Status Examination Appearance: Disheveled Consciousness: Alert Orientation: x4 Motor Activity: Normal gait Speech: Rapid Language: Adequate Fund of Knowledge: Adequate Attention and Concentration: Easily Distracted Memory: Unremarkable Mood: Angry, Irritable Affect: Irritable Thought Process & Associations: Loose associations Thought Content: Delusional Hallucination Type: None Delusion Type: Paranoid, Somatic Suicidal Ideation: No Suicidal Plan: No Suicidal Intention: No Homicidal Ideation: No Homicidal Plan: No Homicidal Intention: No Insight: Poor Judgment: Poor Assessment & Plan Problem List: (1) Bipolar I disorder, most recent episode manic, severe with psychotic features ICD Codes: F31.2 - Bipolar disorder, current episode manic severe with psychotic features Status: Acute Assessment & Plan 67-year-old female with history of bipolar disorder presently admitted to the inpatient psychiatric unit under a Vazquez act. Patient is floridly manic with psychotic features, and her presentation is typical of previous episodes. I will plan to admit the patient to the inpatient psychiatric unit for safety, observation and stabilization. Admit inpatient. Involuntary status. I have completed first opinion. Consult for second opinion. Request healthcare surrogate and guardian advocate. Presently, there is no one to act as healthcare surrogate and so no scheduled psychotropic medications may be provided. Previously we have used a [employer] guardian after [address]. Continue Keflex for possible UTI and follow up culture results. Check a CBC and BMP in the morning to follow-up leukocytosis and decreased GFR, respectively. Continue to monitor on the high acuity unit. Vitals every shift. Counselor to see. Disposition planning. Estimated length of stay: 1-2 weeks. Discharge Planning Pending psychiatric stabilization Request HC Surrog/Guard Advoc?: Yes Flavio Resendiz MD Jul 19, 2017 10:43
--- NOTE | 2017-07-19 14:05 | PD.PSY.CON ---
Provisional Diagnosis Admission Date Jul 18, 2017 at 14:03 [place] I. 1. Bipolar disorder, presently manic, severe with psychotic features [place] II. Deferred History of Present Illness Service Psychiatry Consult Requested By Dr. Resendiz Reason for Consult Second opinion Vazquez act Primary Care Physician Unknown HPI Ms. Perez is a 67-year-old female with a history of bipolar disorder, well known to the psychiatric service here from multiple previous psychiatric admissions. She was admitted most recently in March of last year under Dr. Price and stabilized at that time on Zyprexa and Lamictal. She returns under a Vazquez act alleging medication nonadherence and aggressive behavior at her [facility] facility. Electronic medical record reviewed. Patient seen and examined with nurse. Chart reviewed. Case discussed with nursing staff. On my examination today, patient is floridly manic. She is hyperverbal with the staccato pattern of speech that she typically displays when manic. She tells me "I'm not whacky tobaccy. I've been poisoned with a chemical. I got an infection where I'm living. I've had problems with imbalance. I'm really pissed!" Affect is angry and irritable. She rails against "that bitch safety administrator" at the facility where she has been residing. When I ask about SI/HI, she replies "hell, no! Bullshit!" When I ask about AVH, again she says "hell no!" although she is clearly internally preoccupied. She is distractible and impulsive with flight of ideas. No other delusional material elicited. No depressive symptoms. Psychiatric interview is somewhat limited because of patient's degree of psychiatric decompensation presently. No acute physical complaints. Past psychiatric history: Patient likely an unreliable historian. Patient has a history of bipolar disorder. She follows at [facility] but says that it has "gone to [facility] in a handbasket since Jenn Hughes [her former major case detective] left." Most recent admission was last March as noted above. No history of suicide attempts. Family history: Mother reportedly was an alcoholic. Chemical dependency history: Patient denies any abuse of drugs or alcohol. Social history: Has apparently been residing at [facility]. Social history limited because of patient's degree of psychiatric impairment at present. I did endeavor to reach out to patient's sister Mary Diaz at the number listed in the EMR but this appears to be nonfunctional. I also endeavored to reach out to Martha Cordon a friend at number listed in EMR, but a female answered and said there was no one by that name in the residence. 07/19/17 Above note dictated by Dr. Flavio Resendiz reviewed and agreed with. Patient admitted to Dr. Resendiz service. Patient seen by me the [facility] floor staff on 2700. Patient continues markedly intrusive disorganized and perseverative with rapid pressured speech and irritability, no insight. Dr. Resendiz is done first opinion petition supporting [place] act, I agree, patient meets criteria for involuntary psychiatric hospitalization under the Vazquez act, thus I will cosign second opinion petition supporting Nurigene act Past Family Social History Coded Allergies: carbamazepine (Unverified Allergy, Severe, Anaphylaxis, 03/11/17) divalproex sodium (Unverified Allergy, Severe, Diarrhea, 03/11/17) lorazepam (Unverified Allergy, Severe, Swelling, 03/11/17) penicillin G (Unverified Allergy, Severe, RASH, 03/11/17) haloperidol (Unverified Allergy, Unknown, UNKNOWN , 03/11/17) PT STATES SHE IS ALLERGIC TO HALDOL, BUT WILL NOT STATE HER REACTION TO THE MEDICATION OR THE SEVERITY OF THE REACTION. milk (Unverified Allergy, Unknown, 03/11/17) erythromycin base (Unverified Adverse Reaction, Severe, DIARRHEA, 03/11/17 ) lithium (Unverified Adverse Reaction, Unknown, 03/11/17) Active Scripts Olanzapine (Olanzapine) 15 Mg Tab, 15 MG PO HS for health for 30 Days, #30 TAB Prov:Zack Price MD 03/24/17 Olanzapine (Olanzapine) 10 Mg Tab, 10 MG PO DAILY for health for 30 Days, #30 TAB Prov:Zack Price MD 03/24/17 Trazodone (Trazodone) 50 Mg Tab, 150 MG PO HS for health for 30 Days, #90 TAB Prov:Zack Price MD 03/24/17 Reported Medications Lamotrigine (Lamotrigine) 100 Mg Tab, 100 MG PO DAILY for Control Seizures, #30 TAB 0 Refills 07/18/17 Discontinued Reported Medications Aripiprazole (Abilify) 10 Mg Tab, 10 MG PO DAILY, #30 TAB 0 Refills 03/09/17 Hydroxyzine Pamoate (Hydroxyzine Pamoate) 25 Mg Cap, 25 MG PO BID, CAP 0 Refills 03/09/17 Discontinued Scripts Levothyroxine (Levothyroxine) 25 Mcg Tab, 25 MCG PO DAILY@06 for health for 30 Days, #30 TAB Prov:Zack Price MD 03/24/17 Pantoprazole (Pantoprazole) 40 Mg Tab, 40 MG PO DAILY for health for 30 Days, # 30 TAB Prov:Zack Price MD 03/24/17 Sennosides-Docusate Sodium (Gnp Senna Plus 8.6-50 mg) 8.6 Mg-50 Mg Tab, 1 TAB PO BID for health for 30 Days, #60 TAB Prov:Zack Price MD 03/24/17 Lamotrigine (Lamictal) 25 Mg Tab, 50 MG PO DAILY for health for 30 Days, #60 TAB Prov:Zack Price MD 03/24/17 Lisinopril (Lisinopril) 10 Mg Tab, 10 MG PO DAILY for health for 30 Days, #30 TAB Prov:Zack Price MD 03/24/17 Meloxicam (Mobic) 15 Mg Tab, 15 MG PO DAILY, #14 TAB 0 Refills Prov:Los Espinoza MD 03/11/17 Meloxicam (Meloxicam) 7.5 Mg Tab, 7.5 MG PO DAILY for health, #30 TAB 0 Refills Prov:Jesus Wolf MD 12/10/16 Levothyroxine (Levothyroxine) 25 Mcg Tab, 25 MCG PO DAILY@06 for health, #30 TAB 0 Refills Prov:Jesus Wolf MD 12/10/16 Zolpidem (Ambien) 10 Mg Tab, 10 MG PO HS Y for INSOMNIA, #15 TAB 1 Refill Prov:Flavio Resendiz MD 10/29/16 Lisinopril (Lisinopril) 10 Mg Tab, 10 MG PO DAILY for Blood Pressure Management for 15 Days, TAB 1 Refill Prov:Flavio Resendiz MD 06/28/16 Current Medications Medications (Trade) Dose Ordered Sig/Lety Route Start Time Stop Time Status Last Admin (Keflex) 500 mg Q8HR PO 07/18/17 14:30 07/19/17 05:02 (Tylenol) 650 mg Q4H PRN PO 07/18/17 14:45 (Milk Of Magnesia Liq) 30 ml DAILY PRN PO 07/18/17 14:45 (Mag-Al Plus Susp Liq) 30 ml Q6H PRN PO 07/18/17 14:45 Patient's Strengths (min. 2) In a monitored setting. Verbally fluent. Physical Exam Vital Signs Vital Signs Date Time Temp Pulse Resp B/P (MAP) Pulse Ox O2 Delivery O2 Flow Rate FiO2 07/19/17 06:04 96.6 91 18 165/74 (104) 99 07/18/17 19:12 Room Air Lab Results Test 07/19/17 06:40 Blood Urea Nitrogen 21 MG/DL Creatinine 0.67 MG/DL Random Glucose 92 MG/DL Calcium Level 9.7 MG/DL Sodium Level 140 MEQ/L Potassium Level 3.5 MEQ/L Chloride Level 105 MEQ/L Carbon Dioxide Level 25.2 MEQ/L Anion Gap 10 MEQ/L Estimat Glomerular Filtration Rate 88 ML/MIN Triglycerides Level 45 MG/DL Cholesterol Level 135 MG/DL LDL Cholesterol 24 MG/DL HDL Cholesterol 102.3 MG/DL Cholesterol/HDL Ratio 1.31 RATIO Date/Time Source Procedure Growth Status 07/18/17 13:39 Urine Clean Catch Urine Culture - Final 50-100,000 CFU/ML MIXED GRAM POSITIVE... Complete Mental Status Examination Appearance: Disheveled Consciousness: Alert Orientation: x4 Motor Activity: Normal gait Speech: Rapid Language: Adequate Fund of Knowledge: Adequate Attention and Concentration: Easily Distracted Memory: Unremarkable Mood: Angry, Irritable Affect: Irritable, Other (with increased range and intensity) Thought Process & Associations: Loose associations Thought Content: Delusional Hallucination Type: None Delusion Type: Paranoid, Somatic Suicidal Ideation: No Suicidal Plan: No Suicidal Intention: No Homicidal Ideation: No Homicidal Plan: No Homicidal Intention: No Insight: Poor Judgment: Poor Assessment & Plan Problem List: (1) Bipolar I disorder, most recent episode manic, severe with psychotic features ICD Codes: F31.2 - Bipolar disorder, current episode manic severe with psychotic features Status: Acute Assessment & Plan Estimated LOS: days Request HC Surrog/Guard Advoc?: Yes Jesus Wolf MD Jul 19, 2017 14:05
[2017-07-19] MEDS ORDERED: cloNIDine HCL 0.1 MG TAB PO PRN (17:00)
[2017-07-19] MEDS ORDERED: LISINOPRIL 10 MG TAB PO ONE (17:00)
[2017-07-19 18:04] LABS: HEMOGLOBIN A1C 5.4 % (4.3-6.0)
[2017-07-19 18:21] VITALS: BP 180/77; PULSE 83; RESP 18; TEMP 96; O2SAT 98
[2017-07-19 18:32] VITALS: BP 145/66; PULSE 101; RESP 19; TEMP 96.4; O2SAT 98
[2017-07-20 05:55] VITALS: BP 145/71; PULSE 87; RESP 18; TEMP 96.2
[2017-07-20] MEDS: CEPHALEXIN MONOHYDRATE 500 MG CAP PO SCH (06:00)
[2017-07-20] MEDS: LISINOPRIL 10 MG TAB PO SCH (08:34)
--- NOTE | 2017-07-20 09:15 | HHI.PYPN ---
Subjective Chief Complaint: Allison Remarks Patient seen and examined with nurse. Chart reviewed. Case discussed with nursing staff. Patient noted to be hyperverbal and dramatic. Prior to my evaluation with the patient I find her storming around the unit yelling gruffly to no one in particular. On my exam, patient continues to believe she was being poisoned at her placement prior to admission. She seems to be having a dialog with herself, for example saying "I like doctors. No I don't! They're a pain in the ass." She remains paranoid and notes "I've been harassed by the police and the [place] [friend's of hers, one of whom was a bit gatherer] will hear about it!" Ongoing impulsivity. Ongoing loosening of associations. Require Thorazine ETO overnight. No side effects from medication. No acute physical complaints. Requesting PT consult. Review of Systems ROS Limitations: Psychotic, Poor Historian Except as stated in HPI: all other systems reviewed are Neg Mental Status Examination Appearance: Disheveled Consciousness: Alert Orientation: x4 Motor Activity: Normal gait Speech: Pressured, Rapid Language: Other (rambling) Fund of Knowledge: Adequate Attention and Concentration: Easily Distracted Memory: Unremarkable Mood: Irritable Affect: Irritable Thought Process & Associations: Loose associations Thought Content: Delusional Hallucination Type: None Delusion Type: Paranoid, Somatic Suicidal Ideation: No Suicidal Plan: No Suicidal Intention: No Homicidal Ideation: No Homicidal Plan: No Homicidal Intention: No Insight: Poor Judgment: Poor Results Labs Date/Time Source Procedure Growth Status 07/18/17 13:39 Urine Clean Catch Urine Culture - Final 50-100,000 CFU/ML MIXED GRAM POSITIVE... Complete Labs reviewed. Urine culture growing mixed louie, and I have discontinued the patient's Keflex. Vitals/IOs Vital Signs Date Time Temp Pulse Resp B/P (MAP) Pulse Ox O2 Delivery O2 Flow Rate FiO2 07/20/17 05:55 96.2 87 18 145/71 (95) 07/19/17 18:32 98 07/18/17 19:12 Room Air Assessment & Plan Problem List: (1) Bipolar I disorder, most recent episode manic, severe with psychotic features ICD Codes: F31.2 - Bipolar disorder, current episode manic severe with psychotic features Status: Acute Assessment & Plan Psychotropic medications cannot be ordered for lack of consent pending [employer] tomorrow. Blood pressure was somewhat elevated in the patient has been started on lisinopril with clonidine as needed. Monitor blood pressures and consider titration of lisinopril. PT consult. Continue to monitor on the inpatient unit. Continue other medications and care as ordered. Justification for Cont. Inpt. Impairment in reality construction. High risk for decompensation in less restrictive environment. Discharge Planning [facility]. Pending psychiatric stabilization. Case discussed with counselor. Request HC Surrog/Guard Advoc?: Yes Flavio Resendiz MD Jul 20, 2017 09:15
[2017-07-20 11:15] LABS: AUTOMATED NEUTROPHIL # 3.8 TH/MM3 (1.8-7.7); BASOPHIL # 0.1 TH/MM3 (0-0.2); BASOPHIL % 0.8 % (0.0-2.0); EOSINOPHIL # 0.2 TH/MM3 (0-0.4); EOSINOPHIL % 2.8 % (0.0-4.0); HEMATOCRIT 39.3 % (35.0-46.0); HEMOGLOBIN 13.3 GM/DL (11.6-15.3); LYMPH % 19.8 % (9.0-44.0); LYMPHOCYTE # 1.2 TH/MM3 (1.0-4.8); MEAN CELL VOLUME 81.7 FL (80.0-100.0); MEAN CORPUSCULAR HEMOGLOBIN 27.7 PG (27.0-34.0); MEAN CORPUSCULAR HGB CONC 33.9 % (32.0-36.0); MEAN PLATELET VOLUME 8.8 FL (7.0-11.0); MONO % 12.7 % (0.0-8.0); MONOCYTE # 0.8 TH/MM3 (0-0.9); NEUT % 63.9 % (16.0-70.0); PLATELET COUNT 242 TH/MM3 (150-450); RED BLOOD COUNT 4.81 MIL/MM3 (4.00-5.30)
[2017-07-20 11:46] LABS: BICARBONATE 25.8 MEQ/L (21.0-32.0); CALCIUM 8.7 MG/DL (8.5-10.1); CREATININE 0.64 MG/DL (0.50-1.00)
[2017-07-20 16:12] VITALS: BP 125/56; PULSE 93; RESP 18; TEMP 98; O2SAT 98
--- NOTE | 2017-07-20 21:00 | EKG ---
Date Performed: 07/19/2017 Time Performed: 10:57:36 PTAGE: 67 years EKG: Sinus rhythm NORMAL ECG PREVIOUS TRACING : 11/19/2015 01.03 Since the previous tracing, no significant change noted DOCTOR: Amish Bob Interpretating Date/Time 07/20/2017 20:59:18
[2017-07-21 06:36] VITALS: BP 118/67; PULSE 16; RESP 16; TEMP 97.3; O2SAT 100
[2017-07-21] MEDS: LISINOPRIL 10 MG TAB PO SCH (09:30)
--- NOTE | 2017-07-21 12:42 | HHI.PYPN ---
Subjective Chief Complaint: Allison Remarks Patient seen and case discussed with nursing staff. Chart reviewed. Per nursing staff, patient remains hyperverbal and manic. On my examination today, patient is hyperverbal, distractible with ongoing loosening of associations. She is a little less dysphoric and irritable today. Patient's case was presented to the [facility], and she was retained on the unit by the technical recruiter and appointed a guardian advocate from [facility]. I have contacted [facility] guardian this afternoon to obtain consent for medications. Review of Systems ROS Limitations: Psychotic, Poor Historian Except as stated in HPI: all other systems reviewed are Neg Mental Status Examination Appearance: Disheveled Consciousness: Alert Orientation: x4 Motor Activity: Normal gait Speech: Pressured, Rapid Language: Other (rambling) Fund of Knowledge: Adequate Attention and Concentration: Easily Distracted Memory: Unremarkable Mood: Irritable (less so today) Affect: Irritable (less so today) Thought Process & Associations: Loose associations Thought Content: Delusional Hallucination Type: None Delusion Type: Paranoid, Somatic Suicidal Ideation: No Suicidal Plan: No Suicidal Intention: No Homicidal Ideation: No Homicidal Plan: No Homicidal Intention: No Insight: Poor Judgment: Poor Results Labs Date/Time Source Procedure Growth Status 07/18/17 13:39 Urine Clean Catch Urine Culture - Final 50-100,000 CFU/ML MIXED GRAM POSITIVE... Complete Labs reviewed. EKG normal sinus rhythm with a QTC of 406 ms, not prolonged. Vitals/IOs Vital Signs Date Time Temp Pulse Resp B/P (MAP) Pulse Ox O2 Delivery O2 Flow Rate FiO2 07/21/17 06:36 97.3 16 16 118/67 (84) 100 07/18/17 19:12 Room Air Assessment & Plan Problem List: (1) Bipolar I disorder, most recent episode manic, severe with psychotic features ICD Codes: F31.2 - Bipolar disorder, current episode manic severe with psychotic features Status: Acute Assessment & Plan Patient has history of response to Risperdal and good tolerability of this agent. She has been started on long-acting injectable Risperdal Consta in the past, but given ongoing issues with adherence, an even longer acting agent would seem to be indicated. I will start Invega Sustenna 234mg IM now with plan for booster dose after the weekend. Could plan in the longer term for Invega Trinza. Francisco Jryl as needed for EPS or insomnia. Continue to monitor on the high acuity unit. Continue other medications and care as ordered. Justification for Cont. Inpt. Medication changes. Impairment in reality construction. High risk for decompensation in less restrictive environment. Discharge Planning Pending psychiatric stabilization Request HC Surrog/Guard Advoc?: Yes Flavio Resendiz MD Jul 21, 2017 12:42
[2017-07-21] MEDS ORDERED: diphenhydrAMINE HCL 50 MG/ML VIAL IM PRN (15:30)
[2017-07-21] MEDS ORDERED: PALIPERIDONE PALMITATE 234 MG/1.5 ML SYRINGE IM ONE (17:00)
[2017-07-21 18:07] VITALS: BP 135/64; PULSE 77; RESP 18; TEMP 97.4; O2SAT 98
[2017-07-21] MEDS: diphenhydrAMINE HCL 50 MG CAP PO PRN (20:51)
[2017-07-22 05:46] VITALS: BP 140/63; PULSE 93; RESP 18; TEMP 97.8; O2SAT 96
[2017-07-22] MEDS: LISINOPRIL 10 MG TAB PO SCH (09:23)
--- NOTE | 2017-07-22 09:31 | HHI.PYPN ---
Subjective Chief Complaint: Allison Remarks Patient seen and examined. Chart reviewed. Case discussed with nursing staff. Case discussed in treatment team. On my examination today, the patient remains somewhat psychomotor agitated. Speech is rambling but a little less pressured. She remains distractible and intrusive. No side effects from medications; patient received first dose of Invega Sustenna yesterday. She is complaining of a rash on her legs. This is consistent with rash she experienced during previous admissions that responded well to Lotrisone cream, and I will reorder this now. No other physical complaints. Review of Systems ROS Limitations: Poor Historian Except as stated in HPI: all other systems reviewed are Neg Mental Status Examination Appearance: Disheveled Consciousness: Alert Orientation: x4 Motor Activity: Normal gait, Other (no motor abnormalities noted. No dystonia , no dyskinesia, no tremor.) Speech: Pressured, Rapid Language: Other (rambling, less pressured today) Fund of Knowledge: Adequate Attention and Concentration: Easily Distracted Memory: Unremarkable Mood: Irritable (decreasing) Affect: Irritable Thought Process & Associations: Loose associations Thought Content: Delusional Hallucination Type: None Delusion Type: Somatic Suicidal Ideation: No Suicidal Plan: No Suicidal Intention: No Homicidal Ideation: No Homicidal Plan: No Homicidal Intention: No Insight: Poor Judgment: Poor Mental Status Exam Remarks Rash on legs noted Results Labs Date/Time Source Procedure Growth Status 07/18/17 13:39 Urine Clean Catch Urine Culture - Final 50-100,000 CFU/ML MIXED GRAM POSITIVE... Complete Labs reviewed Vitals/IOs Vital Signs Date Time Temp Pulse Resp B/P (MAP) Pulse Ox O2 Delivery O2 Flow Rate FiO2 07/22/17 05:46 97.8 93 18 140/63 (88) 96 07/18/17 19:12 Room Air Assessment & Plan Problem List: (1) Bipolar I disorder, most recent episode manic, severe with psychotic features ICD Codes: F31.2 - Bipolar disorder, current episode manic severe with psychotic features Status: Acute Assessment & Plan Booster dose of Invega Sustenna ordered for after the weekend. Start Lotrisone cream. Continue to monitor on the inpatient psychiatric unit. Continue other medications and care as ordered. Justification for Cont. Inpt. Risk for decompensation in less restrictive environment. Discharge Planning Pending psychiatric stabilization Request HC Surrog/Guard Advoc?: Yes Flavio Resendiz MD Jul 22, 2017 09:31
--- NOTE | 2017-07-22 09:41 | PD.TTN ---
Patient Problems 1. Discharge planning 2. Medication compliance 3. Knowledge deficit 4. Lack of coping skills Progress Toward Goals Provider Present: Dr. Jose Resendiz Provider Input: Dr. Resendiz's had his treatment team to discuss patient's medication, discharge plan, and treatment plan. Patient continues to meet criteria. Patient is medication complaint. Medication is being adjusted. Nurse(s) Input: Patient's nurse reports patient is manic, intrusive, medication compliant. Psychiatric Counselors Present: Rolanda [facility] Psych Therapist Input: Patient presents manic, hyperverbal, intrusive, poor insight into her situation. Patient is medication compliant, denies suicidal and homicidal ideation. Patient's speech is clear, disorganized, affect labile. Group Spec/RT/OT/DUNN Present: MONA Butt Group Spec/RT/OT/DUNN Input: Patient does attend groups. Rolanda [facility] Jul 22, 2017 09:41
[2017-07-22 18:00] VITALS: BP 106/52; PULSE 106; RESP 16; TEMP 98.3; O2SAT 99
[2017-07-22] MEDS: BETAMETHASONE/CLOTRIMAZOLE CREAM 15 GM TOPICAL SCH (21:00)
[2017-07-22] MEDS: diphenhydrAMINE HCL 50 MG CAP PO PRN (23:06)
[2017-07-23 06:13] VITALS: BP 135/64; PULSE 77; RESP 18; TEMP 97.4; O2SAT 100
[2017-07-23 07:55] VITALS: BP 126/58; PULSE 103; RESP 20; TEMP 98.3; O2SAT 99
[2017-07-23] MEDS: LISINOPRIL 10 MG TAB PO SCH (08:32)
[2017-07-23] MEDS: BETAMETHASONE/CLOTRIMAZOLE CREAM 15 GM TOPICAL SCH ×2 (08:32→21:10)
--- NOTE | 2017-07-23 14:18 | HHI.PYPN ---
Subjective Chief Complaint: Allison Remarks Pt seen and discussed with staff. Chart reviewed. RN reports that pt has been insisting that she has been poisoned with battery acid and demands antibiotics. She has been intrusive and demanding on unit. She is highly manic and easily agitated. 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 "They cost me my career at [employer]!" Mental Status Examination Appearance: Disheveled Consciousness: Alert Orientation: x4 Motor Activity: Normal gait, Other (no motor abnormalities noted. No dystonia , no dyskinesia, no tremor.) Speech: Pressured, Rapid Language: Other (rambling, less pressured today) Fund of Knowledge: Adequate Attention and Concentration: Easily Distracted Memory: Unremarkable Mood: Manic Affect: Irritable, Labile Thought Process & Associations: Loose associations Thought Content: Delusional Hallucination Type: None Delusion Type: Paranoid, Somatic Suicidal Ideation: No Suicidal Plan: No Suicidal Intention: No Homicidal Ideation: No Homicidal Plan: No Homicidal Intention: No Insight: Poor Judgment: Poor Results Labs Date/Time Source Procedure Growth Status 07/18/17 13:39 Urine Clean Catch Urine Culture - Final 50-100,000 CFU/ML MIXED GRAM POSITIVE... Complete Vitals/IOs Vital Signs Date Time Temp Pulse Resp B/P (MAP) Pulse Ox O2 Delivery O2 Flow Rate FiO2 07/23/17 07:55 98.3 103 20 126/58 (80) 99 Assessment & Plan Problem List: (1) Bipolar I disorder, most recent episode manic, severe with psychotic features ICD Codes: F31.2 - Bipolar disorder, current episode manic severe with psychotic features Status: Acute Assessment & Plan Continue current tx plan Estimated LOS: days Justification for Cont. Inpt. impairments in reality testing and social functionin Request HC Surrog/Guard Advoc?: Yes Katlyn Ronquillo MD Jul 23, 2017 14:18
[2017-07-23 18:17] VITALS: BP 142/62; PULSE 76; RESP 18; TEMP 98.6; O2SAT 99
[2017-07-24 05:33] VITALS: BP 115/57; PULSE 91; RESP 16; TEMP 97.3; O2SAT 98
[2017-07-24] MEDS: BETAMETHASONE/CLOTRIMAZOLE CREAM 15 GM TOPICAL SCH ×2 (08:25→21:35)
[2017-07-24] MEDS: LISINOPRIL 10 MG TAB PO SCH (08:25)
--- NOTE | 2017-07-24 14:55 | HHI.PYPN ---
Subjective Chief Complaint: Allison Remarks Pt seen and discussed with staff. Pt has been manic, intrusive and hyperverbal. She remains fixed on somatic delusion and insists that battery acid has infected her scalp and skin. No SI/HI. She requires frequent redirection due to poor boundaries and intrusive behavior. Mental Status Examination Appearance: Disheveled Consciousness: Alert Orientation: x4 Motor Activity: Normal gait, Other (no motor abnormalities noted. No dystonia , no dyskinesia, no tremor.) Speech: Pressured, Rapid Language: Other (rambling, less pressured today) Fund of Knowledge: Adequate Attention and Concentration: Easily Distracted Memory: Unremarkable Mood: Manic Affect: Irritable, Labile Thought Process & Associations: Loose associations Thought Content: Delusional Hallucination Type: None Delusion Type: Paranoid, Somatic Suicidal Ideation: No Suicidal Plan: No Suicidal Intention: No Homicidal Ideation: No Homicidal Plan: No Homicidal Intention: No Insight: Poor Judgment: Poor Results Labs Date/Time Source Procedure Growth Status 07/18/17 13:39 Urine Clean Catch Urine Culture - Final 50-100,000 CFU/ML MIXED GRAM POSITIVE... Complete Vitals/IOs Vital Signs Date Time Temp Pulse Resp B/P (MAP) Pulse Ox O2 Delivery O2 Flow Rate FiO2 07/24/17 05:33 97.3 91 16 115/57 (76) 98 Assessment & Plan Problem List: (1) Bipolar I disorder, most recent episode manic, severe with psychotic features ICD Codes: F31.2 - Bipolar disorder, current episode manic severe with psychotic features Status: Acute Assessment & Plan Continue current tx plan Estimated LOS: days Justification for Cont. Inpt. impairments in social functioning and reality testing Request HC Surrog/Guard Advoc?: Yes Katlyn Ronquillo MD Jul 24, 2017 14:55
[2017-07-24 17:56] VITALS: BP 130/62; PULSE 99; RESP 17; TEMP 97.7; O2SAT 99
[2017-07-24] MEDS: diphenhydrAMINE HCL 50 MG CAP PO PRN (21:35)
[2017-07-24 23:30] VITALS: BP 117/59; PULSE 84; RESP 18; TEMP 97.4; O2SAT 100
[2017-07-25] MEDS: ACETAMINOPHEN 325 MG TAB PO PRN ×2 (01:43→05:44)
[2017-07-25] MEDS: diphenhydrAMINE HCL 50 MG CAP PO PRN ×2 (02:35→08:44)
[2017-07-25 05:38] VITALS: BP 129/68; PULSE 81; RESP 18; TEMP 97.6; O2SAT 100
[2017-07-25] MEDS: BETAMETHASONE/CLOTRIMAZOLE CREAM 15 GM TOPICAL SCH ×2 (08:44→21:01)
[2017-07-25] MEDS: LISINOPRIL 10 MG TAB PO SCH (08:44)
--- NOTE | 2017-07-25 10:12 | HHI.PYPN ---
Subjective Chief Complaint: Allison Remarks Patient seen and examined with nurse. Chart reviewed. Case discussed with nursing staff. Per nursing staff, patient continues to sleep poorly and in fact slept nil overnight. On my examination today, the patient is calmer and more redirectable. Speech is less pressured and loosening of associations decreased. She remained somatically preoccupied but says that these somatic complaints are improving. She is upset today because she believes that a friend of hers by the name of Mark went to her apartment complex and told the staff there about the patient's mental health issues. No SI or HI. Denies side effects from medications. No new physical complaints. Review of Systems Except as stated in HPI: all other systems reviewed are Neg Mental Status Examination Appearance: Appropriate Consciousness: Alert Orientation: x4 Motor Activity: Normal gait, Other (no abnormal motor movements noted) Speech: Other (significantly less rapid today) Language: Other (more coherent) Fund of Knowledge: Adequate Attention and Concentration: Easily Distracted (more focused today) Memory: Unremarkable Mood: Manic (decreasing) Affect: Irritable (decreasing) Thought Process & Associations: Other (thought process more organized today) Thought Content: Delusional (decreasing) Hallucination Type: None Delusion Type: Paranoid, Somatic Suicidal Ideation: No Suicidal Plan: No Suicidal Intention: No Homicidal Ideation: No Homicidal Plan: No Homicidal Intention: No Insight: Poor Judgment: Poor Results Labs Date/Time Source Procedure Growth Status 07/18/17 13:39 Urine Clean Catch Urine Culture - Final 50-100,000 CFU/ML MIXED GRAM POSITIVE... Complete Labs are reviewed Vitals/IOs Vital Signs Date Time Temp Pulse Resp B/P (MAP) Pulse Ox O2 Delivery O2 Flow Rate FiO2 07/25/17 05:38 97.6 81 18 129/68 (88) 100 Intake and Output 07/25/17 07/25/17 07/26/17 08:00 16:00 00:00 Intake Total 240 ml Balance 240 ml Assessment & Plan Problem List: (1) Bipolar I disorder, most recent episode manic, severe with psychotic features ICD Codes: F31.2 - Bipolar disorder, current episode manic severe with psychotic features Status: Acute Assessment & Plan Administer booster dose of Invega Sustenna today. Patient's allison seems to be improving with this agent although sleep remains elusive for the patient. I will add Lunesta 1 mg at bedtime with plans to titrate to effect for sleep. R/B /A obtained from guardian advocate. Continue to monitor on the inpatient unit. Continue other medications and care as ordered. Justification for Cont. Inpt. Medication changes. Risk for decompensation in less restrictive environment. Discharge Planning Pending psychiatric stabilization. Possible middle of the week discharge. Request HC Surrog/Guard Advoc?: Yes Flavio Resendiz MD Jul 25, 2017 10:12
[2017-07-25] MEDS: PANTOPRAZOLE SOD 40 MG DELAYED RELEASE TAB PO SCH (11:55)
[2017-07-25] MEDS ORDERED: PALIPERIDONE PALMITATE 156 MG/ML SYRINGE IM ONE (12:00)
[2017-07-25 18:21] VITALS: BP 120/58; PULSE 97; RESP 18; TEMP 97.4; O2SAT 99
[2017-07-25] MEDS ORDERED: ESZOPICLONE 1 MG TAB PO SCH (21:00)
[2017-07-26 05:38] VITALS: BP 99/58; PULSE 85; RESP 18; TEMP 97.8; O2SAT 98
[2017-07-26] MEDS: LISINOPRIL 10 MG TAB PO SCH (08:55)
[2017-07-26] MEDS: PANTOPRAZOLE SOD 40 MG DELAYED RELEASE TAB PO SCH (08:56)
[2017-07-26] MEDS: MELOXICAM 7.5 MG TAB PO SCH (08:56)
[2017-07-26] MEDS: BETAMETHASONE/CLOTRIMAZOLE CREAM 15 GM TOPICAL SCH ×2 (09:00→21:00)
--- NOTE | 2017-07-26 11:45 | HHI.PYPN ---
Subjective Chief Complaint: Allison Remarks Patient seen and examined. Chart reviewed. Case discussed with nursing staff. Case discussed in treatment team. Patient slept better with addition of Lunesta. Allison appears to be stabilizing, and patient does not verbalize any delusional material for me today. She remains a little intrusive but this too is improving. No side effects from medications. No physical complaints. Review of Systems ROS Limitations: Poor Historian Other Limited ROS today Mental Status Examination Appearance: Appropriate Consciousness: Alert Orientation: x4 Motor Activity: Other (no motoric abnormalities noted) Speech: Unremarkable Language: Adequate Fund of Knowledge: Adequate Attention and Concentration: Other (attention and concentration are improving.) Memory: Unremarkable Mood: Other (mood is stabilizing) Affect: Other (fairly euthymic today) Thought Process & Associations: Other (thought process more organized today) Thought Content: Appropriate, Other (somatic preoccupation decreasing.) Hallucination Type: None Delusion Type: None Suicidal Ideation: No Suicidal Plan: No Suicidal Intention: No Homicidal Ideation: No Homicidal Plan: No Homicidal Intention: No Mental Status Exam Remarks Insight and judgment are perhaps improving somewhat. Results Labs Date/Time Source Procedure Growth Status 07/18/17 13:39 Urine Clean Catch Urine Culture - Final 50-100,000 CFU/ML MIXED GRAM POSITIVE... Complete Labs reviewed. Vitals/IOs Vital Signs Date Time Temp Pulse Resp B/P (MAP) Pulse Ox O2 Delivery O2 Flow Rate FiO2 07/26/17 05:38 97.8 85 18 99/58 (72) 98 Assessment & Plan Problem List: (1) Bipolar I disorder, most recent episode manic, severe with psychotic features ICD Codes: F31.2 - Bipolar disorder, current episode manic severe with psychotic features Status: Acute Assessment & Plan Patient's allison is improving with Invega Sustenna. Sleep is improving with addition of Lunesta, and I will titrate this agent to 2 mg tonight for further management of difficulty sleeping. Continue to monitor on the inpatient unit. Continue other medications and care as ordered. Justification for Cont. Inpt. Medication changes. Risk for decompensation in less restrictive environment. Discharge Planning Patient is generally improving. Anticipate discharge in the next 1-2 days. Request HC Surrog/Guard Advoc?: Yes Flavio Resendiz MD Jul 26, 2017 11:44
[2017-07-26] MEDS ORDERED: PALI156P IM (14:09)
[2017-07-26 18:07] VITALS: BP 112/60; PULSE 99; RESP 16; TEMP 98.6; O2SAT 99
[2017-07-26] MEDS ORDERED: ESZOPICLONE 1 MG TAB PO SCH (21:00)
[2017-07-27 05:42] VITALS: BP 118/64; PULSE 89; RESP 18; TEMP 97.9; O2SAT 96
[2017-07-27] MEDS ORDERED: LEVOTHYROXINE SODIUM 25 MCG TAB PO SCH (06:00)
[2017-07-27] MEDS: PANTOPRAZOLE SOD 40 MG DELAYED RELEASE TAB PO SCH (08:42)
[2017-07-27] MEDS: MELOXICAM 7.5 MG TAB PO SCH (08:43)
[2017-07-27] MEDS: LISINOPRIL 10 MG TAB PO SCH (08:43)
[2017-07-27] MEDS: BETAMETHASONE/CLOTRIMAZOLE CREAM 15 GM TOPICAL SCH (09:00)
--- NOTE | 2017-07-27 11:17 | HHI.DS ---
Psychiatry Discharge Summary Inpatient Psychiatric care?: Yes Advance Directive: No Reason Not Provided: NONE Mental Health AdvanceDirective: No Health Care Proxy: No Admission Admission Date Jul 18, 2017 at 14:03 Admission Diagnosis: (1) Bipolar I disorder, most recent episode manic, severe with psychotic features ICD Code: F31.2 - Bipolar disorder, current episode manic severe with psychotic features Brief History Ms. Perez is a 67-year-old female with a history of bipolar disorder, well known to the psychiatric service here from multiple previous psychiatric admissions. She was admitted most recently in March of last year under Dr. Price and stabilized at that time on Zyprexa and Lamictal. She returns under a Vazquez act alleging medication nonadherence and aggressive behavior at her [facility] facility. Electronic medical record reviewed. Patient seen and examined with nurse. Chart reviewed. Case discussed with nursing staff. On my examination today, patient is floridly manic. She is hyperverbal with the staccato pattern of speech that she typically displays when manic. She tells me "I'm not whacky tobaccy. I've been poisoned with a chemical. I got an infection where I'm living. I've had problems with imbalance. I'm really pissed!" Affect is angry and irritable. She rails against "that bitch systems administrator" at the facility where she has been residing. When I ask about SI/HI, she replies "hell, no! Bullshit!" When I ask about AVH, again she says "hell no!" although she is clearly internally preoccupied. She is distractible and impulsive with flight of ideas. No other delusional material elicited. No depressive symptoms. Psychiatric interview is somewhat limited because of patient's degree of psychiatric decompensation presently. No acute physical complaints. Past psychiatric history: Patient likely an unreliable historian. Patient has a history of bipolar disorder. She follows at [facility] but says that it has "gone to hel in a handbasket since Jenn Hughes [her former director case] left." Most recent admission was last March as noted above. No history of suicide attempts. Family history: Mother reportedly was an alcoholic. Chemical dependency history: Patient denies any abuse of drugs or alcohol. Social history: Has apparently been residing at [facility]. Social history limited because of patient's degree of psychiatric impairment at present. I did endeavor to reach out to patient's sister Mary Diaz at the number listed in the EMR but this appears to be nonfunctional. I also endeavored to reach out to Martha Cordon a friend at number listed in EMR, but a female answered and said there was no one by that name in the residence. 07/19/17 Above note dictated by Dr. Flavio Resendiz reviewed and agreed with. Patient admitted to Dr. Resendiz service. Patient seen by me the [facility] floor staff on [id number]. Patient continues markedly intrusive disorganized and perseverative with rapid pressured speech and irritability, no insight. Dr. Resendiz is done first opinion petition supporting Vazquez act, I agree, patient meets criteria for involuntary psychiatric hospitalization under the Vazquez act, thus I will cosign second opinion petition supporting Vazquez act Tobacco Use In Past 30 Days: Cigarettes But Not Daily Alcohol Use: Monthly or Less Hospital Course Patient was admitted to a locked inpatient psychiatric unit. Safety strike that precautions were maintained throughout her stay. She was followed on a daily basis by a psychiatric provider as well as seeing a counselor during her stay. Patient responded well to medication and has shown marked improvement. Reviewed electronic medical record, labs, discuss case with staff. Patient was evaluated in the exam room. Upon examination today patient is alert and oriented 4. Her speech is clear, organized, and logical. Her speech tends to occasionally be somewhat pressured however, this is her baseline. She does not appear to have any internal stimulation at this time. She reports that she felt she had developed an infection and stopped taking her routine medications because she feared "overdosing". Discussed with patient the importance of not stopping her routine medications arbitrarily. Advised in the future that she should discuss with her primary care physician before making that decision. She advises that the Lunesta worked well for her and reports having a good night sleep last night. Staff report that she has had no behavioral issues has been calm and compliant and participating in social activities. Patient reports that she is "feeling a lot better" and would like to go home. Believe that patient has reached the maximum benefit of this admission, and does not pose an imminent danger to herself or anyone else. She no longer meets inpatient criteria she will be discharged home with follow-up instructions. Her next dose of Invega Sustenna is due on August 22, 2017. She will be advised to follow-up at [facility] to receive that injection. Patient will also be provided with a prescription for 1 mg of Lunesta to be taken at bedtime. She will be advised to return to this facility should her condition worsen. Results Blood Pressure 118 / 64 Vital Signs Date Time Temp Pulse Resp B/P (MAP) Pulse Ox O2 Delivery O2 Flow Rate FiO2 07/27/17 05:42 97.9 89 18 118/64 (82) 96 Laboratory Results Test 07/19/17 06:40 Cholesterol Level 135 MG/DL (120-200) HDL Cholesterol 102.3 MG/DL (40.0-60.0) Hemoglobin A1c 5.4 % (4.3-6.0) LDL Cholesterol 24 MG/DL (0-99) Triglycerides Level 45 MG/DL (42-150) Summary of Procedures None Pending results at discharge: No Medications # of Antipsychotic meds at D/C: 1 Approp Antipsych med options 1 - Minimum of three failed multiple trials of monotherapy. 2 - Documented plan to taper to monotherapy due to previous use of multiple meds OR cross-taper in progress at D/C. 3 - Documentation of augmentation of Clozapine. 4 - Justification other than those listed in allowable values 1-3, document here : Discharge Discharge Date: Jul 27, 2017 Discharge Diagnosis: (1) Bipolar I disorder, most recent episode manic, severe with psychotic features ICD Code: F31.2 - Bipolar disorder, current episode manic severe with psychotic features Status: Acute Pt Condition on Discharge: Stable Discharge Disposition: Discharge Home Discharge Instructions Diet Instructions: As Tolerated, No Restrictions Activities you can perform: Regular-No Restrictions Discharge Time > 30 minutes Mental Status Examination Appearance: Appropriate Consciousness: Alert Orientation: x4 Motor Activity: Other (no motoric abnormalities noted) Speech: Unremarkable Language: Adequate Fund of Knowledge: Adequate Attention and Concentration: Other (attention and concentration are improving.) Memory: Unremarkable Mood: Appropriate, Good Affect: Appropriate, Euthymic Thought Process & Associations: Intact, Logical Thought Content: Appropriate, Other (somatic preoccupation decreasing.) Hallucination Type: None Delusion Type: None Suicidal Ideation: No Suicidal Plan: No Suicidal Intention: No Homicidal Ideation: No Homicidal Plan: No Homicidal Intention: No Insight: Fair Judgment: Adequate Discharge/Advance Care Plan Health Problems: (1) Bipolar I disorder, most recent episode manic, severe with psychotic features Goals to promote your health * To prevent worsening of your condition and complications * To maintain your health at the optimal level Directions to meet your goals Take your medications as prescribed Follow your dietary instruction Follow activity as directed Keep your appointments as scheduled Take your immunizations and boosters as scheduled If your symptoms worsen call your PCP, if no PCP go to Urgent Care Center or Emergency Room For 22/11 questions related to your inpatient stay or results of tests pending at discharge, please contact Dr. Coby Yip at Smoking is Dangerous to Your Health. Avoid second hand smoking Coby Yip Jul 27, 2017 11:17
[2017-07-27] MEDS ORDERED: LUNE1TAB8 PO (11:21)
== END 2017-07-27 12:40 | disposition home or self-care (01) | DRG 885 ==
LOC: NEPJ 11:55 → NEDA 14:03 → H270 19:09 → H260 07-22 21:58
PROVIDERS: ADMIT Psychiatry & Neurology Psychiatry; ATTEND Psychiatry & Neurology Psychiatry
DX: F31.2 Bipolar disorder, current episode manic severe with psychotic features (principal); Z91.14 Patient's other noncompliance with medication regimen; I10 Essential (primary) hypertension; N39.0 Urinary tract infection, site not specified; F41.9 Anxiety disorder, unspecified; G47.9 Sleep disorder, unspecified; R21 Rash and other nonspecific skin eruption; T50.905A Adverse effect of unspecified drugs, medicaments and biological substances, initial encounter; K21.9 Gastro-esophageal reflux disease without esophagitis; E78.00 Pure hypercholesterolemia, unspecified; E07.9 Disorder of thyroid, unspecified; M79.7 Fibromyalgia; M19.90 Unspecified osteoarthritis, unspecified site; Z72.0 Tobacco use; Z86.73 Personal history of transient ischemic attack (TIA), and cerebral infarction without residual deficits; Z23 Encounter for immunization
CPT/HCPCS: 80048; 80053; 80061; 80307; 81001; 83036; 84443; 85025; 87086; 93005; 96372; J2426; J3230; Q0163

== ENCOUNTER 2017-12-16 11:24 | Inpatient (IN) ==
[2017-12-16] MEDS ORDERED: Sod Chloride 0.9% Inj 1,000 ML IV.SIG ONE (11:56)
[2017-12-16 12:56] LABS: Baso # (Auto) 0.1 th/mm3 (0.0-0.2); Baso % (Auto) 1.4 % (0.0-2.0); Eos # (Auto) 0.1 th/mm3 (0.0-0.4); Eos % (Auto) 2.2 % (0.0-4.0); Hematocrit 41.3 % (35.0-46.0); Hemoglobin 13.6 gm/dL (11.6-15.3); Lymph # (Auto) 1.2 th/mm3 (1.0-4.8); Lymph % (Auto) 20.9 % (9.0-44.0); Mean Corpuscular HGB Conc 32.9 % (32.0-36.0); Mean Corpuscular Hemoglobin 28.4 pg (27.0-34.0); Mean Corpuscular Volume 86.1 fL (80.0-100.0); Mean Platelet Volume 8.1 fL (7.0-11.0); Mono # (Auto) 0.5 th/mm3 (0.0-0.9); Mono % (Auto) 8.9 % (0.0-8.0); Neut # (Auto) 3.8 th/mm3 (1.8-7.7); Neut % (Auto) 66.6 % (16.0-70.0); Platelet Count 307 th/mm3 (150-450); Red Cell Distribution Width 15.1 % (11.6-17.2); White Blood Count 5.7 th/mm3 (4.0-11.0)
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
[2017-12-16 13:21] LABS: Albumin 3.6 g/dL (3.4-5.0); Anion Gap 8 meq/L (5-15); Aspartate Aminotransferase 36 U/L (15-37); Blood Urea Nitrogen 12 mg/dL (7-18); Calcium 9.4 mg/dL (8.5-10.1); Carbon Dioxide 29.5 meq/L (21.0-32.0); Chloride 101 meq/L (98-107); Glomerular Filtration Rate Greater Than 89 mL/min (>89); Glucose,Random 84 mg/dL (74-106); Potassium 4.2 meq/L (3.5-5.1); Sodium 138 meq/L (136-145)
--- NOTE | 2017-12-16 13:28 | CT ---
EXAM DATE: 12/16/2017 1:24 PM EDT AGE/SEX: 67 years / Female INDICATIONS: Altered mental status. Facial injury from fall. CLINICAL DATA: This is the patient's initial encounter. Patient reports that signs and symptoms have been present for 1 day and indicates a pain score of 0/10. MEDICAL/SURGICAL HISTORY: None. None. RADIATION DOSE: 56.35 CTDI (mGy) COMPARISON: [facility] [place], CT BRAIN W/O CONTRAST, 03/10/2017. . TECHNIQUE: CT of the head without contrast. Using automated exposure control and adjustment of the mA and/or kV according to patient size, radiation dose was kept as low as reasonably achievable to ob tain optimal diagnostic quality images. DICOM format image data is available electronically for revi ew and comparison. FINDINGS: Cerebrum: The ventricles are normal for age. No evidence of midline shift, mass lesion, hemorrhage or acute infarction. No extraaxial fluid collections are seen. Posterior Fossa: The cerebellum and brainstem are intact. The 4th ventricle is midline. The cerebe llopontine angle is unremarkable. Extracranial: The visualized portion of the orbits is intact. Skull: The calvaria is intact. No evidence of skull fracture. CONCLUSION: No acute intracranial findings. . Electronically signed by: Jesus Lopes MD 12/16/2017 1:27 PM EDT
[2017-12-16 13:32] LABS: Alanine Aminotransferase 37 U/L (10-53); Alkaline Phosphatase 72 U/L (45-117); Total Protein 7.5 g/dL (6.4-8.2)
[2017-12-16] MEDS ORDERED: Aluminum/Magnesium/Simethacone Susp 30 ML UDC PO PRN (17:34)
--- NOTE | 2017-12-16 17:57 | ED ---
HPI - Psych - General Source: patient, EMS Mode of arrival: EMS Limitations: altered mental status - History of Present Illness complaint: altered mental status Onset (ago): unknown Duration: intermittent History of same: Yes Relieving factors: medication Exacerbating factors: none Context: not taking psychiatric medications Treatments prior to arrival: none - General Chief Complaint: Psychiatric Symptoms Stated Complaint: Evac/Eval Time Seen by Provider: 12/16/17 17:23 - History of Present Illness HPI Narrative: This is a 67-year-old single, female who presents to this facility voluntarily for self-reported UTI. However, due to statements made to the ED physician she was placed under Vazquez act. Patient is well-known to the psychiatric department at this facility and her last admission was in June of this year. Reviewed electronic medical record, labs, discussed case with staff. Patient was evaluated in her room and delta pod. She was observed ambulating around the hallway is an wandering into the nurses station area she is awake, vigilant , and oriented to self and place at least. She denies being suicidal, homicidal , or experiencing auditory or visual hallucinations. She does not appear to be internally stimulated. There may be some thought blocking present and she presents as hypomanic. When asked why she is here she states "I am a pissed off [employer], shit!". She then goes on to state, "I want to make sure I do not have cancer". When asked if she has been taking her medication, "I want to be drug free. I am going to start taking weed. I heard that it works great for mental illness." When I try to get historical information I am told, "I sold my card to to [employer]". She then becomes tearful when she apparently misses the car. She does report that she lives by herself. She states that she smokes cigarettes sometimes, drinks occasionally, and denies using drugs but again states she plans on taking up "smoking weed". Her speech is extremely tangential and she is disorganized. (Coby Yip) - Related Data Home Medications Medication Instructions Recorded Confirmed gabapentin 300 mg PO BID 12/16/17 12/16/17 Allergies Allergy/AdvReac Type Severity Reaction Status Date / Time carbamazepine Allergy Severe Anaphylaxis Verified 12/16/17 12:33 divalproex sodium Allergy Severe Diarrhea Verified 12/16/17 12:33 lorazepam Allergy Severe Swelling Verified 12/16/17 12:33 penicillin G Allergy Severe RASH Verified 12/16/17 12:33 haloperidol Allergy Unknown UNKNOWN Verified 12/16/17 12:33 milk Allergy Unknown Nausea/Vomi Verified 12/16/17 12:33 ting erythromycin base AdvReac Severe DIARRHEA Verified 12/16/17 12:33 lithium AdvReac Unknown UNKNOWN Verified 12/16/17 12:33 Review of Systems All other systems reviewed negative except as stated in HPI [facility] - History History Provided By: Patient - Medical History Medical History: Medical History (Last Reviewed 12/16/17 @ 18:13 by LUIS M Moses) Bipolar 1 disorder Gastritis Hypertension IBS (irritable bowel syndrome) - Surgical History Surgical History: Surgical History (Last Reviewed 12/16/17 @ 18:13 by LUIS M Moses) No history of previous surgery - Tobacco History Second Hand Smoke Exposure: No Smoking Status: Former smoker - Alcohol History How Often Do You Have a Drink Containing Alcohol: Monthly or less - Substance Use History Substance History: No History of Abuse - Travel History Recent Travel in the [place] Within the Last 8 Weeks: No Recent Travel Out of the Country Within the Last 8 Weeks: No - Immunization History Tetanus Immunization: >5 Years Hx Influenza Vaccine This Season: No Psychiatric History - Psychiatric History Psychiatric Treatment History: History of Psychiatric Treatment, History of Community Mental Health Treatment History of Inpatient Treatment: Yes Firearms in Home: No - Psychiatric History Extensive psychiatric history with multiple inpatient admissions at this facility. Most recent admission at this facility was June of this year. (Coby Yip) Physical Exam - General Limitations: no limitations General appearance: alert - Head Head exam: atraumatic - Psychiatric Psychiatric exam: Present: manic Mental Status Examination Appearance: Disheveled Consciousness: Vigilant Orientation: Person, Place Motor Activity: Normal gait Speech: Rapid Language: Adequate Fund of Knowledge: Inadequate Attention and Concentration: Easily distracted Memory: Impaired Mood: Manic Affect: Labile Thought Process & Associations: Loose associations, Tangential Thought Content: Preoccupations Hallucination Type: None Delusion Type: None Suicidal Ideation: No Suicidal Plan: No Suicidal Intention: No Homicidal Ideation: No Homicidal Plan: No Homicidal Intention: No Insight: Fair Judgment: Poor Initial Documented Vital Signs Temperature 98.3 F 12/16/17 11:31 Pulse Rate 95 H 12/16/17 11:31 Respiratory Rate 22 12/16/17 11:31 Blood Pressure 173/79 H 12/16/17 11:31 Pulse Oximetry 100 12/16/17 11:31 Last Documented Vital Signs Temperature 98.3 F 12/16/17 11:31 Pulse Rate 87 12/16/17 14:16 Respiratory Rate 16 12/16/17 14:16 Blood Pressure 157/72 H 12/16/17 14:16 Pulse Oximetry 99 12/16/17 14:16 MDM - Psych - Diagnosis (1) Psychosis Status: Acute - Lab Data Result diagrams: 12/16/17 12:30 12/16/17 12:30 - MDM Narrative Medical decision making narrative: Given this patient's extensive psychiatric history and her current presentation , I feel she would benefit from an inpatient admission for psychiatric stabilization. I am admitting her to locked inpatient unit for further evaluation and treatment as deemed necessary. She will be admitted under the Vazquez act. (Coby Yip) - Lab Data Lab Results 12/16/17 12/16/17 12/16/17 Range/Units 12:30 12:30 12:30 WBC 5.7 (4.0-11.0) th/mm3 RBC 4.80 (4.00-5.30) mil/mm3 Hgb 13.6 (11.6-15.3) gm/dL Hct 41.3 (35.0-46.0) % MCV 86.1 (80.0-100.0) fL MCH 28.4 (27.0-34.0) pg MCHC 32.9 (32.0-36.0) % RDW 15.1 (11.6-17.2) % Plt Count 307 (150-450) th/mm3 MPV 8.1 (7.0-11.0) fL Neut % (Auto) 66.6 (16.0-70.0) % Lymph % (Auto) 20.9 (9.0-44.0) % [place] % (Auto) 8.9 H (0.0-8.0) % Eos % (Auto) 2.2 (0.0-4.0) % Baso % (Auto) 1.4 (0.0-2.0) % Neut # (Auto) 3.8 (1.8-7.7) th/mm3 Lymph # (Auto) 1.2 (1.0-4.8) th/mm3 [place] # (Auto) 0.5 (0.0-0.9) th/mm3 Eos # (Auto) 0.1 (0.0-0.4) th/mm3 Baso # (Auto) 0.1 (0.0-0.2) th/mm3 WBC Differential . Differential Comment Auto diff final Sodium 138 (136-145) meq/L Potassium 4.2 (3.5-5.1) meq/L Chloride 101 (98-107) meq/L Carbon Dioxide 29.5 (21.0-32.0) meq/L Anion Gap 8 (5-15) meq/L BUN 12 (7-18) mg/dL Creatinine 0.57 (0.50-1.00) mg/dL Estimated GFR Greater than 89 (>89) mL/min Random Glucose 84 (74-106) mg/dL Calcium 9.4 (8.5-10.1) mg/dL Total Bilirubin 0.6 (0.2-1.0) mg/dL AST 36 (15-37) U/L ALT 37 (10-53) U/L Alkaline Phosphatase 72 (45-117) U/L Total Protein 7.5 (6.4-8.2) g/dL Albumin 3.6 (3.4-5.0) g/dL TSH 1.050 (0.358-3.740) uIU/mL [place] Less than 0.1 L (0.5-1.5) meq/L Serum Alcohol Less than 3 (0-5) mg/dL
[2017-12-16 18:06] LABS: Bilirubin,Urine Negative (Negative); Clarity,Urine Clear (Clear); Color,Urine Straw (Yellw/Straw); Glucose,Urine (UA) Negative (Negative); Leukocyte Esterase,Urine Negative (Negative); Nitrite,Urine Negative (Negative); Specific Gravity,Urine 1.004 (1.002-1.035); Squamous Epithelial Cell,Urine <1 /hpf (0-5)
[2017-12-16 18:11] LABS: Amphetamine Screen,Urine Neg (Neg); Barbiturate Screen,Urine Neg (Neg); Cannabinoid Screen,Urine Neg (Neg); Cocaine Screen,Urine Neg (Neg)
[2017-12-16 18:12] LABS: Opiate Screen,Urine Neg (Neg)
[2017-12-17 09:23] LABS: Calcium 8.8 mg/dL (8.5-10.1); Potassium 4.1 meq/L (3.5-5.1)
[2017-12-17 09:27] LABS: Chol/HDL Ratio 1.36 Ratio; HDL Cholesterol 94.8 mg/dL (40.0-60.0)
[2017-12-17] MEDS ORDERED: Aluminum/Magnesium/Simethacone Susp 30 ML UDC PO PRN (13:57)
--- NOTE | 2017-12-17 14:08 | P.HPPSY ---
Provisional Diagnosis Admission Date: December 16, 2017 17:34 [place] I.: Bipolar disorder most recent episode mixed with psychotic features Competence Certification of Person's Competence To Provide Express and Informed Consent I have personally examined Verenice Perez, a person being served at [facility] on, December 17, 2017 1406. Express and informed consent means consent voluntarily given in writing, by a competent person, after sufficient explanation and disclosure of the subject matter involved to enable the person to make a knowing and willful decision without any element of force, fraud, deceit, duress, or other form of constraint or coercion. This person is 18 years of age or older, is not now known to be incompetent to consent to treatment with a guardian advocate, and does not have a health care surrogate or proxy currently making medical treatment decisions. I have found this person to be one of the following: [] Competent to provide express and informed consent, as defined above, for voluntary admission to this facility and is competent to provide express and informed consent for treatment. He/she has the consistent capacity to make well reasoned, willful, and knowing decisions concerning his or her medical or mental health treatment. The person fully and consistently understands the purpose of the admission for examination/placement and is fully capable of personally exercising all rights assured under [place] [] Incompetent to provide express and informed consent to voluntary admission, and this is incompetent to provide express and informed consent to treatment. The person must be transferred to involuntary status and a petition for a guardian advocate filed with the Circuit Court. xxxx[] Refusing to provide express and informed consent to voluntary admission but is competent to provide express and informed consent for treatment. The person must be discharged or transferred to involuntary status. Form shall be completed within 24 hours of a person's arrival at the receiving facility and filed in the clinical record of each person: 1. Admitted on a voluntary basis 2. Permitted to provide express and informed consent to his/her own treatment 3. Allowed to transfer from involuntary to voluntary status 4. Prior to permitting a person to consent to his or her own treatment after having been previously found incompetent to consent to treatment. History of Present Illness Capacity: Lacks capacity (Patient lacks capacity to sign for admission patient has capacity to sign for treatment and medication) History of Present Illness: Patient is a 67-year-old white female well known to us from multiple prior hospitalizations comes here under a Vazquez act signed by Sylvia Vazquez here at [place] dated 17 in November 1399 hrs. that document reviewed stating she called the desk and her living facility and left a message stating she planned to overdose EMS heard the recorded message patient seen screen in the emergency department urine toxicology negative lithium level less than 0.1. At the present time patient sitting in the day room on 2700 nurse Teetee present throughout session patient is alert oriented did remember me from prior contacts quite aroused irritable demanding and disorganized. There is thought blocking and delays in her responses she appears to be responding to internal stimuli. She is vague about compliance with medication though she states she sees Dr. Boswell at [facility] gets an injection so she does not want to take any pills. However she has traditionally shown noncompliance with medication. She denies any other drug use. She denies suicidality at the present time. At this time patient does not meet Taylor criteria for further treatment under the Vazquez act I will do first opinion request second opinion for she does have capacity at this time to sign for medications we will start her on Resporal M tab 2 mg twice daily. We will attempt to get information from Isak Ramirezkiera on Tuesday about her other scheduled medications and her compliance with the in [place] sustain a - Inpatient Certification I certify that the inpatient services were ordered in accordance with Medicare regulations governing the order. This includes certification that hospital inpatient services are reasonable and necessary and in the case of services not specified as inpatient-only under 42 CFR 419.22(n), that they are appropriately provided as inpatient services in accordance to with the 2-midnight benchmark under 43 CFR 412.3(e) I certify that inpatient psychiatric hospital services are medically necessary. Evaluation and treatment and/or diagnostic testing are expected to improve the patient's condition. The patient needs on a daily basis, active treatment furnished directly by or requiring the supervision of inpatient psychiatric facility personnel. Estimated Total Length of Stay (Days): 7 Plans for Post Hospital Care: Not yet determined Review of Systems All other systems reviewed negative except as stated in HPI PMFSH - History History Provided By: Patient - Medical History Medical History: Medical History (Last Reviewed 12/16/17 @ 18:13 by LUIS M Moses) Bipolar 1 disorder Gastritis Hypertension IBS (irritable bowel syndrome) - Surgical History Surgical History: Surgical History (Last Reviewed 12/16/17 @ 18:13 by LUIS M Moses) No history of previous surgery - Tobacco History Second Hand Smoke Exposure: No Smoking Status: Former smoker - Alcohol History How Often Do You Have a Drink Containing Alcohol: Monthly or less - Substance Use History Substance History: No History of Abuse - Travel History Recent Travel in the USA Within the Last 8 Weeks: No Recent Travel Out of the Country Within the Last 8 Weeks: No - Immunization History Tetanus Immunization: >5 Years Hx Influenza Vaccine This Season: No Quality Measures - Psychiatric History Psychological trauma history: Patient denies Violence risk to others in the last 6 months: Low to medium Violence risk to self in the last 6 months: Patient made suicidal statement - Substance Abuse History Drug or alcohol use in the past 12 months: Denies - Patient Strengths Patient's strengths (minimum of 2): Patient verbal able access healthcare Medications and Allergies Active Medications: Active Medications Al Hydrox/Mg Hydrox/Simethicone (Mag-Al Plus Susp Liq) 30 ml PO Q6H PRN PRN Reason: DYSPEPSIA Al Hydrox/Mg Hydrox/Simethicone (Mag-Al Plus Susp Liq) 30 ml PO Q6H PRN PRN Reason: DYSPEPSIA Al Hydroxide/Mg Hydroxide (Milk Of Magnesia Liq) 30 ml PO Q12H PRN PRN Reason: Mild Constipation Hydroxyzine HCl (Atarax) 50 mg PO Q6H PRN PRN Reason: ANXIETY Risperidone (Risperdal M-Tab) 2 mg PO BID MOOK Allergies Allergy/AdvReac Type Severity Reaction Status Date / Time carbamazepine Allergy Severe Anaphylaxis Verified 12/16/17 12:33 divalproex sodium Allergy Severe Diarrhea Verified 12/16/17 12:33 lorazepam Allergy Severe Swelling Verified 12/16/17 12:33 penicillin G Allergy Severe RASH Verified 12/16/17 12:33 haloperidol Allergy Unknown UNKNOWN Verified 12/16/17 12:33 milk Allergy Unknown Nausea/Vomi Verified 12/16/17 12:33 ting erythromycin base AdvReac Severe DIARRHEA Verified 12/16/17 12:33 lithium AdvReac Unknown UNKNOWN Verified 12/16/17 12:33 Home Medications Medication Instructions Recorded Confirmed Type gabapentin 300 mg PO BID 12/16/17 12/16/17 History Results - Labs CBC & Chem 7: 12/16/17 12:30 12/17/17 08:24 Labs: Laboratory Results - last 24 hr 12/16/17 12/16/17 12/17/17 16:30 16:30 08:24 Sodium 140 Potassium 4.1 Chloride 103 Carbon Dioxide 29.0 Anion Gap 8 BUN 9 Creatinine 0.69 Estimated GFR 85 L Random Glucose 122 H Calcium 8.8 Triglycerides 20 L Cholesterol 129 LDL Cholesterol, Calc 30 HDL Cholesterol 94.8 H Cholesterol/HDL Ratio 1.36 Urine Color Straw Urine Clarity Clear Urine pH 7.0 Ur Specific Keyes 1.004 Urine Protein Negative Urine Glucose (UA) Negative Urine Ketones Negative Urine Occult Blood Negative Urine Nitrate Negative Urine Bilirubin Negative Urine Urobilinogen Less than 2 Ur Leukocyte Esterase Negative Urine RBC Less than 1 Urine WBC 2 Ur Squamous Epith Cells <1 Urine Opiates Screen Neg Ur Barbiturates Screen Neg Ur Amphetamines Screen Neg U Benzodiazepines Scrn Neg Urine Cocaine Screen Neg U Cannabinoids Screen Neg Exam Vital signs: Vital Signs 12/16/17 14:16 12/17/17 06:28 Temperature 97.2 F L Pulse Rate 87 84 Respiratory Rate 16 16 Blood Pressure 157/72 H 124/74 Pulse Oximetry 99 100 Intake & Output 12/16/17 12/17/17 12/17/17 18:59 06:59 18:59 Weight 63.503 kg Mental Status Examination Appearance: Disheveled Consciousness: Alert, Vigilant Orientation: Person, Place, Date/Time Motor Activity: Normal gait Speech: Pressured, Rapid Language: Adequate Fund of Knowledge: Adequate Attention and Concentration: Easily distracted Memory: Impaired Mood: Oppositional, Anxious, Irritable, Manic Affect: Other (Decreased range and intensity) Thought Process & Associations: Loose associations, Tangential Thought Content: Bizarre thinking, Preoccupations Hallucination Type: Auditory Delusion Type: None Suicidal Ideation: No Suicidal Plan: No Suicidal Intention: No Homicidal Ideation: No Homicidal Plan: No Homicidal Intention: No Insight: Fair Judgment: Poor Assessment and Plan - Plan Plan: Estimated LOS: [5-7] days At this time patient meets Vazquez criteria I will do first opinion request second opinion. I feel she does have capacity to sign for meds at this time. We will start her on Resporal M tab 2 mg twice daily we will attempt to get further information about medication through Isak Marchman act outpatient Justification for Continued Inpatient Stay: At this time patient would decompensate a place to a lower level of care Discharge Planning: Possible return to her intermediate Request Healthcare Surrogate/Guardian Advocate?: No
[2017-12-17] MEDS: risperiDONE 2 MG ODT PO SCH ×2 (16:44→21:22)
[2017-12-18] MEDS: risperiDONE 2 MG ODT PO SCH ×2 (08:33→21:54)
--- NOTE | 2017-12-18 11:21 | P.CONPSY ---
Provisional Diagnosis Admission Date: December 16, 2017 17:34 [place] I.: Bipolar disorder most recent episode mixed with psychotic features History of Present Illness Service: Psychiatry Consult date: 12/18/17 Reason for Consult: 2nd opinion Primary Care Provider: UNKNOWN History of Present Illness: Pt seen and discussed with staff. Chart reviewed. Pt is well known to service from multiple previous admission. She was admitted to [facility] under a BA after threats to overdose with medications. She reports numerous new stressors related to transportation and management of appointments. She has been intrusive and provoking peers. Sleep is poor. She became increasingly agitated and threatening as day progressed and required olanzapine 5mg IM X1 to maintain safety. Review of Systems Psychiatric: Reports anxiety PMFSH - History History Provided By: Patient - Medical History Medical History: Medical History (Last Reviewed 12/16/17 @ 18:13 by LUIS M Moses) Bipolar 1 disorder Gastritis Hypertension IBS (irritable bowel syndrome) - Surgical History Surgical History: Surgical History (Last Reviewed 12/16/17 @ 18:13 by LUIS M Moses) No history of previous surgery - Tobacco History Second Hand Smoke Exposure: No Smoking Status: Former smoker - Alcohol History How Often Do You Have a Drink Containing Alcohol: Monthly or less - Substance Use History Substance History: No History of Abuse - Travel History Recent Travel in the [place] Within the Last 8 Weeks: No Recent Travel Out of the Country Within the Last 8 Weeks: No - Immunization History Tetanus Immunization: >5 Years Hx Influenza Vaccine This Season: No Medications and Allergies Active Medications: Active Medications Al Hydrox/Mg Hydrox/Simethicone (Mag-Al Plus Susp Liq) 30 ml PO Q6H PRN PRN Reason: DYSPEPSIA Al Hydrox/Mg Hydrox/Simethicone (Mag-Al Plus Susp Liq) 30 ml PO Q6H PRN PRN Reason: DYSPEPSIA Al Hydroxide/Mg Hydroxide (Milk Of Magnesia Liq) 30 ml PO Q12H PRN PRN Reason: Mild Constipation Hydroxyzine HCl (Atarax) 50 mg PO Q6H PRN PRN Reason: ANXIETY Last Admin: 12/18/17 02:18 Dose: 50 mg Risperidone (Risperdal M-Tab) 2 mg PO BID MOOK Last Admin: 12/18/17 08:33 Dose: 2 mg Allergies Allergy/AdvReac Type Severity Reaction Status Date / Time carbamazepine Allergy Severe Anaphylaxis Verified 12/16/17 12:33 divalproex sodium Allergy Severe Diarrhea Verified 12/16/17 12:33 lorazepam Allergy Severe Swelling Verified 12/16/17 12:33 penicillin G Allergy Severe RASH Verified 12/16/17 12:33 haloperidol Allergy Unknown UNKNOWN Verified 12/16/17 12:33 milk Allergy Unknown Nausea/Vomi Verified 12/16/17 12:33 ting erythromycin base AdvReac Severe DIARRHEA Verified 12/16/17 12:33 lithium AdvReac Unknown UNKNOWN Verified 12/16/17 12:33 Home Medications Medication Instructions Recorded Confirmed Type gabapentin 300 mg PO BID 12/16/17 12/16/17 History Exam Vital signs: Vital Signs 12/17/17 19:08 12/18/17 06:15 Temperature 97.7 F 97.6 F Pulse Rate 100 H 88 Respiratory Rate 18 16 Blood Pressure 147/67 H 162/72 H Pulse Oximetry 100 99 Intake & Output 12/17/17 12/18/17 12/18/17 18:59 06:59 18:59 Weight 64 kg Other: Weight On Admission 64 kg Mental Status Examination Appearance: Disheveled Consciousness: Alert, Vigilant Orientation: Person, Place, Date/Time Motor Activity: Normal gait Speech: Pressured, Rapid Language: Adequate Fund of Knowledge: Adequate Attention and Concentration: Easily distracted Memory: Impaired Mood: Oppositional, Anxious, Irritable, Manic Affect: Labile Thought Process & Associations: Loose associations, Tangential Thought Content: Bizarre thinking, Preoccupations Hallucination Type: Auditory Delusion Type: Paranoid Suicidal Ideation: No Suicidal Plan: No Suicidal Intention: No Homicidal Ideation: No Homicidal Plan: No Homicidal Intention: No Insight: Poor Judgment: Poor Assessment and Plan - Assessment (1) Bipolar 1 disorder, mixed, severe Code(s): F31.63 - Bipolar disorder, current episode mixed, severe, without psychotic features Status: Acute - Plan Plan: I agree that pt meets criteria for involuntary hospitalization due to acute nitin with psychosis, agitation and threats to self harm. 2nd opinion paperwork completed Justification for Continued Inpatient Stay: impairments in safety Request Healthcare Surrogate/Guardian Advocate?: No
[2017-12-18 13:31] LABS: Hemoglobin A1c 5.5 % (4.3-6.0)
[2017-12-19] MEDS: risperiDONE 2 MG ODT PO SCH (09:00)
--- NOTE | 2017-12-19 14:39 | P.PNPSY ---
Subjective Remarks: Patient seen and mcgill with nurse Haley, chart reviewed, patient compliant medication. Patient remains quite psychotic demanding now requesting a mammogram. She also continues quite insulting intrusive and threatening towards another younger female patient here. We will increase Resporal to 3 mg twice daily Review of Systems All other systems reviewed negative except as stated in HPI Mental Status Examination Appearance: Disheveled Consciousness: Alert, Vigilant Orientation: Person, Place, Date/Time Motor Activity: Normal gait Speech: Pressured, Rapid Language: Adequate Fund of Knowledge: Adequate Attention and Concentration: Easily distracted Memory: Impaired Mood: Oppositional, Anxious, Irritable, Manic Affect: Labile Thought Process & Associations: Loose associations, Tangential Thought Content: Bizarre thinking, Preoccupations Hallucination Type: Auditory Delusion Type: Paranoid Suicidal Ideation: No Suicidal Plan: No Suicidal Intention: No Homicidal Ideation: No Homicidal Plan: No Homicidal Intention: No Insight: Poor Judgment: Poor Assessment and Plan - Assessment (1) Bipolar 1 disorder, mixed, severe Code(s): F31.63 - Bipolar disorder, current episode mixed, severe, without psychotic features Status: Acute - Plan Plan: Patient remains manic and psychotic intrusive and paranoid, please see medication adjustments above Justification for Continued Inpatient Stay: At this time patient would decompensate a place to a lower level of care Discharge Planning: To be determined Request Healthcare Surrogate/Guardian Advocate?: No
[2017-12-19] MEDS: risperiDONE 3 MG ODT PO SCH ×2 (15:32→20:19)
[2017-12-20] MEDS: risperiDONE 3 MG ODT PO SCH ×2 (08:46→20:00)
--- NOTE | 2017-12-20 13:18 | P.PNPSY ---
Subjective Remarks: Patient seen and mcgill with nurse Kaur, chart reviewed, patient compliant medications. Patient remains paranoid and somewhat delusional. Compliant medications. At times she appears to be responding to internal stimuli. We will offer patient in [place] sustain a to 34 mg tomorrow. She had her last dose of the act on November 29. With her degree of psychosis I feel given her medication a few days early is appropriate Review of Systems All other systems reviewed negative except as stated in HPI Mental Status Examination Appearance: Disheveled Consciousness: Alert, Vigilant Orientation: Person, Place, Date/Time Motor Activity: Normal gait Speech: Pressured, Rapid Language: Adequate Fund of Knowledge: Adequate Attention and Concentration: Easily distracted Memory: Impaired Mood: Oppositional, Anxious, Irritable, Manic Affect: Labile Thought Process & Associations: Loose associations, Tangential Thought Content: Bizarre thinking, Preoccupations Hallucination Type: Auditory Delusion Type: Paranoid Suicidal Ideation: No Suicidal Plan: No Suicidal Intention: No Homicidal Ideation: No Homicidal Plan: No Homicidal Intention: No Insight: Poor Judgment: Poor Assessment and Plan - Assessment (1) Bipolar 1 disorder, mixed, severe Code(s): F31.63 - Bipolar disorder, current episode mixed, severe, without psychotic features Status: Acute - Plan Plan: Patient remains paranoid and delusional, see medication adjustments above Justification for Continued Inpatient Stay: At this time patient would decompensate a place to a lower level of care Discharge Planning: To be determined Request Healthcare Surrogate/Guardian Advocate?: No
[2017-12-21] MEDS: risperiDONE 3 MG ODT PO SCH ×2 (09:34→20:24)
[2017-12-21] MEDS: Paliperidone Inj 234 MG/1.5 ML Syringe IM SCH (11:26)
--- NOTE | 2017-12-21 13:50 | P.PNPSY ---
Subjective Remarks: Patient seen and mcgill today with nurse Anusha, chart reviewed, patient compliant medication. Patient continues markedly confused disoriented and tangential sore perseverating on her like for [place] food. Patient continues no significant insight into her disease. Though she is compliant with all. For now continue treatment no change patient scheduled for [place] [facility] tomorrow Review of Systems All other systems reviewed negative except as stated in HPI Mental Status Examination Appearance: Disheveled Consciousness: Alert, Vigilant Orientation: Person, Place, Date/Time Motor Activity: Normal gait Speech: Pressured, Rapid Language: Adequate Fund of Knowledge: Adequate Attention and Concentration: Easily distracted Memory: Impaired Mood: Oppositional, Anxious, Irritable, Manic Affect: Labile Thought Process & Associations: Loose associations, Tangential Thought Content: Bizarre thinking, Preoccupations Hallucination Type: Auditory Delusion Type: Paranoid Suicidal Ideation: No Suicidal Plan: No Suicidal Intention: No Homicidal Ideation: No Homicidal Plan: No Homicidal Intention: No Insight: Poor Judgment: Poor Assessment and Plan - Assessment (1) Bipolar 1 disorder, mixed, severe Code(s): F31.63 - Bipolar disorder, current episode mixed, severe, without psychotic features Status: Acute - Plan Plan: Patient remained psychotic and delusional with no insight somewhat intrusive also Justification for Continued Inpatient Stay: At this time patient would decompensate a place to a lower level of care Discharge Planning: To be determined Request Healthcare Surrogate/Guardian Advocate?: No
[2017-12-22] MEDS: risperiDONE 3 MG ODT PO SCH ×2 (08:14→20:29)
--- NOTE | 2017-12-22 11:28 | P.PNPSY ---
Subjective Remarks: Patient seen in [place] [address] today patient retained by [facility] with [facility] as guardian advocate. Patient remains quite manic with racing thoughts patient was grandiose and disorganized and court also. Patient did take her in [place] sustain a injection yesterday we will schedule a booster injection for 1 week of the 156 mg. Patient states a willingness to go back to her prior placement though he moved to verify if that is possible Review of Systems All other systems reviewed negative except as stated in HPI Mental Status Examination Appearance: Disheveled Consciousness: Alert, Vigilant Orientation: Person, Place, Date/Time Motor Activity: Normal gait Speech: Pressured, Rapid Language: Adequate Fund of Knowledge: Adequate Attention and Concentration: Easily distracted Memory: Impaired Mood: Oppositional, Anxious, Irritable, Manic Affect: Labile Thought Process & Associations: Loose associations, Tangential Thought Content: Bizarre thinking, Preoccupations Hallucination Type: Auditory Delusion Type: Paranoid Suicidal Ideation: No Suicidal Plan: No Suicidal Intention: No Homicidal Ideation: No Homicidal Plan: No Homicidal Intention: No Insight: Poor Judgment: Poor Assessment and Plan - Assessment (1) Bipolar 1 disorder, mixed, severe Code(s): F31.63 - Bipolar disorder, current episode mixed, severe, without psychotic features Status: Acute - Plan Plan: Patient remained somewhat manic and psychotic, she is compliant with medication , who is scheduled for the booster Justification for Continued Inpatient Stay: At this time patient would decompensate a place to a lower level of care Discharge Planning: To be determined Request Healthcare Surrogate/Guardian Advocate?: No
[2017-12-23] MEDS: risperiDONE 3 MG ODT PO SCH ×2 (08:34→21:20)
--- NOTE | 2017-12-23 13:52 | P.PNPSY ---
Subjective Remarks: Patient seen in hallway with floor staff, chart reviewed, patient compliant medication. Patient continues quite psychotic and delusional continues to ask me for mammogram and bone density. Patient still no insight into her behaviors leading to this hospitalization. Patient discussed with staff. Patient continues to make multiple intrusive telephone calls to a local business. That is becoming quite irritating to them. We will put phone restriction on this patient for the next 7 days. For now continue treatment we will increase Resporal to 4 mg a.m. 3 mg at bedtime Review of Systems All other systems reviewed negative except as stated in HPI Mental Status Examination Appearance: Disheveled Consciousness: Alert, Vigilant Orientation: Person, Place, Date/Time Motor Activity: Normal gait Speech: Pressured, Rapid Language: Adequate Fund of Knowledge: Adequate Attention and Concentration: Easily distracted Memory: Impaired Mood: Oppositional, Anxious, Irritable, Manic Affect: Labile Thought Process & Associations: Loose associations, Tangential Thought Content: Bizarre thinking, Preoccupations Hallucination Type: Auditory Delusion Type: Paranoid Suicidal Ideation: No Suicidal Plan: No Suicidal Intention: No Homicidal Ideation: No Homicidal Plan: No Homicidal Intention: No Insight: Poor Judgment: Poor Assessment and Plan - Assessment (1) Bipolar 1 disorder, mixed, severe Code(s): F31.63 - Bipolar disorder, current episode mixed, severe, without psychotic features Status: Acute - Plan Plan: Patient remains quite psychotic delusional somewhat paranoid. Compliant medications. She medication adjustment above Justification for Continued Inpatient Stay: At this time patient would decompensate a place to a lower level of care Discharge Planning: To be determined Request Healthcare Surrogate/Guardian Advocate?: No
[2017-12-24] MEDS: risperiDONE 2 MG ODT PO SCH ×2 (10:25→16:07)
--- NOTE | 2017-12-24 16:08 | P.PNPSY ---
Subjective Remarks: Patient was seen and case discussed with nursing. Patient remains oppositional with her care. She refused her medications this morning but was agreeable to take them for me. She has poor insight into her admission. She has been making excessive phone calls throughout the day and had her privileges restricted. She is internally stimulated. She does deny suicidal or homicidal ideation intent or plan Mental Status Examination Appearance: Disheveled Consciousness: Alert, Vigilant Orientation: Person, Place, Date/Time Motor Activity: Normal gait Speech: Pressured, Rapid Language: Adequate Fund of Knowledge: Adequate Attention and Concentration: Easily distracted Memory: Impaired Mood: Oppositional, Manic Affect: Labile Thought Process & Associations: Loose associations, Tangential Thought Content: Bizarre thinking, Preoccupations Hallucination Type: Auditory Delusion Type: Paranoid Suicidal Ideation: No Suicidal Plan: No Suicidal Intention: No Homicidal Ideation: No Homicidal Plan: No Homicidal Intention: No Insight: Poor Judgment: Poor Assessment and Plan - Assessment (1) Bipolar 1 disorder, mixed, severe Code(s): F31.63 - Bipolar disorder, current episode mixed, severe, without psychotic features Status: Acute - Plan Plan: Continue current treatment plan Justification for Continued Inpatient Stay: Patient would decompensate in a less restrictive setting Request Healthcare Surrogate/Guardian Advocate?: No
[2017-12-24] MEDS: risperiDONE 3 MG ODT PO SCH (21:00)
[2017-12-25] MEDS: risperiDONE 2 MG ODT PO SCH (08:58)
--- NOTE | 2017-12-25 13:05 | P.PNPSY ---
Subjective Remarks: Patient was seen and case discussed with nursing. Medication compliance has improved. Patient remains with various paranoid delusions. Patient believes that the sales specialist that her stole her mother's rings. She is pleasant but remains intrusive with other patients. Mood is "good." Denies suicidal or homicidal ideation intent or plan Mental Status Examination Appearance: Disheveled Consciousness: Alert, Vigilant Orientation: Person, Place, Date/Time Motor Activity: Normal gait Speech: Unremarkable Language: Adequate Fund of Knowledge: Adequate Attention and Concentration: Easily distracted Memory: Impaired Mood: Oppositional, Manic Affect: Labile Thought Process & Associations: Disorganized, Tangential Thought Content: Bizarre thinking, Preoccupations Hallucination Type: None Delusion Type: Paranoid Suicidal Ideation: No Suicidal Plan: No Suicidal Intention: No Homicidal Ideation: No Homicidal Plan: No Homicidal Intention: No Insight: Poor Judgment: Poor Assessment and Plan - Assessment (1) Bipolar 1 disorder, mixed, severe Code(s): F31.63 - Bipolar disorder, current episode mixed, severe, without psychotic features Status: Acute - Plan Plan: Continue current treatment plan Justification for Continued Inpatient Stay: Patient would decompensate in a less restrictive setting Request Healthcare Surrogate/Guardian Advocate?: No
[2017-12-25] MEDS: risperiDONE 3 MG ODT PO SCH (20:57)
[2017-12-26] MEDS: risperiDONE 2 MG ODT PO SCH (09:07)
--- NOTE | 2017-12-26 12:01 | P.PNPSY ---
Subjective Remarks: Patient seen and examined in coverage for Dr. Wolf with counselor. Chart reviewed. Case discussed with nursing staff who expressed some concerns about the patient's shuffling gait. On my exam, the patient does indeed display some parkinsonian features. She is discharged focused. She tells me "Luciano can take a flipping leap. I am going home today. I have been up all night." She is somewhat irritable and disheveled. She denies any SI or HI. Denies any AVH. Denies any command auditory hallucinations. Denies any side effects from medications. No physical complaints. Vital Signs Temp Pulse Resp BP Pulse Ox 12/26/17 06:38 77 139/63 99 12/25/17 16:59 98.0 F 90 18 115/72 100 Intake and Output 12/25/17 12/26/17 12/26/17 22:59 06:59 14:59 Other: Weight 63.8 kg Labs reviewed. No new labs. Review of Systems All other systems reviewed negative except as stated in HPI (Limitation: Psychosis) Mental Status Examination Appearance: Disheveled Consciousness: Alert, Vigilant Orientation: Person, Place, Date/Time Motor Activity: Other (Somewhat shuffling gait) Speech: Unremarkable Language: Adequate Fund of Knowledge: Adequate Attention and Concentration: Easily distracted Memory: Unremarkable Mood: Oppositional, Irritable Affect: Irritable Thought Process & Associations: Intact Thought Content: Bizarre thinking, Delusional Hallucination Type: None Delusion Type: Paranoid Suicidal Ideation: No Suicidal Plan: No Suicidal Intention: No Homicidal Ideation: No Homicidal Plan: No Homicidal Intention: No Insight: Poor Judgment: Poor Assessment and Plan - Assessment (1) Bipolar 1 disorder, mixed, severe Code(s): F31.63 - Bipolar disorder, current episode mixed, severe, without psychotic features Status: Acute - Plan Plan: Continue oral Risperdal supplementing Invega Sustenna as ordered. I note that the patient has booster dose of Invega Sustenna ordered for later in the week. I will make Cogentin available as needed for any EPS. Continue to monitor on the inpatient unit. Continue other care as ordered. Justification for Continued Inpatient Stay: Medication changes planned. Risk for decompensation in less restrictive environment. Discharge Planning: Per Dr. Wolf Request Healthcare Surrogate/Guardian Advocate?: No
[2017-12-26] MEDS ORDERED: Benztropine Inj 2 MG/2 ML Ampul IM PRN (12:02)
[2017-12-26] MEDS: risperiDONE 3 MG ODT PO SCH (20:38)
[2017-12-27] MEDS: risperiDONE 2 MG ODT PO SCH ×2 (08:58→20:19)
--- NOTE | 2017-12-27 15:19 | P.PNPSY ---
Subjective Remarks: Patient seen today in the room with nurse Yasmine, chart reviewed, patient compliant medications. Patient not quite as paranoid demanding or irritable with me today though she still claims that her property was stolen by 1 of the staff where she lives. She is willing to go back there. She states she cannot wait to get out on her own get an apartment in a car and get a job. She is willing to follow through with [place] act also. Her vigilance and irritability are somewhat less today. She still has very little insight. We will increase the oral Resporal to 4 mg twice daily. Patient scheduled for an [place] sustain injection tomorrow she states she is willing to do that Review of Systems All other systems reviewed negative except as stated in HPI Mental Status Examination Consciousness: Alert, Vigilant Orientation: Person, Place, Date/Time Motor Activity: Other (Somewhat shuffling gait) Speech: Unremarkable Language: Adequate Fund of Knowledge: Adequate Attention and Concentration: Easily distracted Memory: Unremarkable Mood: Oppositional, Irritable Affect: Other (Somewhat increased range and intensity) Thought Process & Associations: Intact Thought Content: Bizarre thinking, Delusional Hallucination Type: None Delusion Type: Paranoid (Slightly softer today) Suicidal Ideation: No Suicidal Plan: No Suicidal Intention: No Homicidal Ideation: No Homicidal Plan: No Homicidal Intention: No Insight: Poor Judgment: Poor Assessment and Plan - Assessment (1) Bipolar 1 disorder, mixed, severe Code(s): F31.63 - Bipolar disorder, current episode mixed, severe, without psychotic features Status: Acute - Plan Plan: Patient remained psychotic and delusional though somewhat softer today she medication adjustments above Justification for Continued Inpatient Stay: At this time patient would decompensate if placed in a lower level of care Discharge Planning: To be determined Request Healthcare Surrogate/Guardian Advocate?: No
[2017-12-28] MEDS ORDERED: Paliperidone Inj 156 MG/ML Syringe IM ONE (09:00)
[2017-12-28] MEDS: risperiDONE 2 MG ODT PO SCH ×2 (09:00→21:29)
[2017-12-28] MEDS: Paliperidone Inj 234 MG/1.5 ML Syringe IM SCH (11:00)
--- NOTE | 2017-12-28 12:35 | P.PNPSY ---
Subjective Remarks: Patient is seen in her room with nurse Yasmine, chart reviewed, patient compliant medications, did get booster in [place] sustain a today. She continues calm pleasant with me with good eye contact she did shower today. Patient continues to show improvement consider discharge by the end of the week Review of Systems All other systems reviewed negative except as stated in HPI Mental Status Examination Appearance: Appropriate Consciousness: Alert Orientation: Person, Place, Date/Time Motor Activity: Other (Somewhat shuffling gait) Speech: Unremarkable Language: Adequate Fund of Knowledge: Adequate Attention and Concentration: Easily distracted (Improved) Memory: Unremarkable Mood: Oppositional (Decreased), Irritable (Decreased) Affect: Other Thought Process & Associations: Intact Thought Content: Bizarre thinking (Improved), Delusional (Improved) Hallucination Type: None Delusion Type: Paranoid (Slightly softer today) Suicidal Ideation: No Suicidal Plan: No Suicidal Intention: No Homicidal Ideation: No Homicidal Plan: No Homicidal Intention: No Insight: Fair Judgment: Poor Assessment and Plan - Assessment (1) Bipolar 1 disorder, mixed, severe Code(s): F31.63 - Bipolar disorder, current episode mixed, severe, without psychotic features Status: Acute - Plan Plan: Patient continues slowly to improve, compliant with medication and with injection today. If she continues to improve consider discharge by the end of the week Justification for Continued Inpatient Stay: At this time patient would decompensate if not placed in an appropriate level of care Discharge Planning: Possible return to her home Request Healthcare Surrogate/Guardian Advocate?: No
[2017-12-29] MEDS: risperiDONE 2 MG ODT PO SCH ×2 (09:04→21:12)
--- NOTE | 2017-12-29 13:26 | P.PNPSY ---
Subjective Remarks: Patient is seen with nurse Yasmine, chart reviewed, patient compliant medications, patient no behavior problems patient seen today sitting on her bed in her room. She is calm cooperative somewhat intense hoping for discharge. Patient continues to do good denies suicidality homicidality voices or visions. She continues to improve in the next 24 hours consider discharge tomorrow Review of Systems All other systems reviewed negative except as stated in HPI Mental Status Examination Appearance: Appropriate Consciousness: Alert Orientation: Person, Place, Date/Time Motor Activity: Other (Somewhat shuffling gait) Speech: Unremarkable Language: Adequate Fund of Knowledge: Adequate Attention and Concentration: Easily distracted (Improved) Memory: Unremarkable Mood: Other (Euthymic to somewhat irritable) Affect: Other Thought Process & Associations: Intact Thought Content: Bizarre thinking (Improved), Delusional (Markedly decreased) Hallucination Type: None Delusion Type: Paranoid (Markedly decreased) Suicidal Ideation: No Suicidal Plan: No Suicidal Intention: No Homicidal Ideation: No Homicidal Plan: No Homicidal Intention: No Insight: Fair Judgment: Adequate (Fair) Assessment and Plan - Assessment (1) Bipolar 1 disorder, mixed, severe Code(s): F31.63 - Bipolar disorder, current episode mixed, severe, without psychotic features Status: Acute - Plan Plan: Patient's psychosis and nitin are slowly resolving, compliant medications, consider discharge tomorrow Justification for Continued Inpatient Stay: At this time patient would decompensate a place to a lower level of care Discharge Planning: Consider discharge tomorrow to self Request Healthcare Surrogate/Guardian Advocate?: No
[2017-12-30] MEDS: risperiDONE 2 MG ODT PO SCH (08:57)
--- NOTE | 2017-12-30 11:47 | P.DSPSY ---
Psychiatry Discharge Summary Inpatient Psychiatric care?: Yes Advance Directives: No Mental Health Advance Directive: No Health Care Proxy: No - Admission Admission Date: December 16, 2017 17:34 - Admission Diagnosis (1) Bipolar I disorder, most recent episode manic, severe with psychotic features Code(s): F31.2 - Bipolar disorder, current episode manic severe with psychotic features Brief History: Patient is a 67-year-old white female well known to us from multiple prior hospitalizations comes here under a Vazquez act signed by Sylvia Vazquez here at [facility] dated novemberNovember 1399 hrs. that document reviewed stating she called the desk and her living facility and left a message stating she planned to overdose EMS heard the recorded message patient seen screen in the emergency department urine toxicology negative lithium level less than 0.1. At the present time patient sitting in the day room on 2700 nurse Teetee present throughout session patient is alert oriented did remember me from prior contacts quite aroused irritable demanding and disorganized. There is thought blocking and delays in her responses she appears to be responding to internal stimuli. She is vague about compliance with medication though she states she sees [facility] gets an injection so she does not want to take any pills. However she has traditionally shown noncompliance with medication. She denies any other drug use. She denies suicidality at the present time. At this time patient does not meet Taylor criteria for further treatment under the Vazquez act I will do first opinion request second opinion for she does have capacity at this time to sign for medications we will start her on Resporal M tab 2 mg twice daily. We will attempt to get information from Isak Knowles on Tuesday about her other scheduled medications and her compliance with the in [place] sustain a Tobacco Use In Past 30 Days: No How Often Do You Have a Drink Containing Alcohol: Monthly or less Hospital Course: Patient's hospital course was slow and gradual her initial nitin intrusiveness irritability and paranoia slowly improved as she showed increased compliance with medication medication adjustment. More recently her compliance has improved her insight is improved though it is not without some hesitation. Need event she is taking the long-acting injections without difficulty her paranoia is decreased she is calm cooperative and pleasant will us. At the stomach feel she has reached maximum benefit of this hospitalization no longer meets criteria for involuntary psychiatric hospitalization. Thus patient will be discharged today to follow-up through [facility] outpatient medication management and injection services - Discharge Discharge Date: 12/30/17 - Discharge Diagnosis (1) Bipolar I disorder, most recent episode manic, severe with psychotic features Diagnosis: Principal Code(s): F31.2 - Bipolar disorder, current episode manic severe with psychotic features Status: Acute Discharge Disposition: Home - Discharge Instructions Discharge Diet: Regular Diet Activities You Can Perform: Regular- No Restrictions - Discharge Time > 30 minutes Mental Status Examination Appearance: Appropriate Consciousness: Alert Orientation: Person, Place, Date/Time Motor Activity: Other (Somewhat shuffling gait) Speech: Unremarkable Language: Adequate Fund of Knowledge: Adequate Attention and Concentration: Easily distracted (Improved) Memory: Unremarkable Mood: Other (Euthymic to somewhat irritable) Affect: Other Thought Process & Associations: Intact Thought Content: Bizarre thinking (Improved), Delusional (Markedly decreased) Hallucination Type: None Delusion Type: Paranoid (Markedly decreased) Suicidal Ideation: No Suicidal Plan: No Suicidal Intention: No Homicidal Ideation: No Homicidal Plan: No Homicidal Intention: No Insight: Fair Judgment: Adequate (Fair) Discharge/Advance Care Plan - Results Vital Signs: Last Vital Signs Temp 97.8 F 12/30/17 05:52 Pulse 71 12/30/17 05:52 Resp 18 12/30/17 05:52 BP 118/71 12/30/17 05:52 Pulse Ox 96 12/30/17 05:52 Lab Results: Laboratory Results Hemoglobin A1c 5.5 % (4.3-6.0) 12/17/17 08:24 Triglycerides 20 mg/dL (42-150) L 12/17/17 08:24 Cholesterol 129 mg/dL (120-200) 12/17/17 08:24 LDL Cholesterol, Calc 30 mg/dL (0-99) 12/17/17 08:24 HDL Cholesterol 94.8 mg/dL (40.0-60.0) H 12/17/17 08:24 TSH 1.050 uIU/mL (0.358-3.740) 12/16/17 12:30 [place] Less than 0.1 meq/L (0.5-1.5) L 12/16/17 12:30 Summary of Procedures: None done Imaging: ITS Impressions Head CT 12/16/17 11:58 CONCLUSION: No acute intracranial findings. . Pending Results: None - Medications Number of antipsychotic medications at discharge: 1 - Discharge Care Plan Goals to Promote Your Health: * To prevent worsening of your condition and complications * To maintain your health at the optimal level Directions to Meet Your Goals: Take your medications as prescribed Follow your dietary instruction Follow activity as directed Keep your appointments as scheduled Take your immunizations and boosters as scheduled If your symptoms worsen call your PCP, if no PCP go to Urgent Care Center or Emergency Room For 22/11 questions related to your inpatient stay or results of tests pending at discharge, please contact Dr. Jesus Wolf MD at Smoking is Dangerous to Your Health. Avoid second hand smoking
== END 2017-12-30 14:50 | disposition home or self-care (01) ==
LOC: NEPD 11:24 → NEDA 17:34 → H270 18:10 → H250 12-26 12:19
PROVIDERS: ADMIT Psychiatry & Neurology Psychiatry; ATTEND Psychiatry & Neurology Psychiatry